=== PATIENT | male | born 1955 | race Caucasian/White ===

== ENCOUNTER 2016-06-21 09:27 | Day surgery (SDC) | payer OTHER ==
[2016-06-21 10:02] LABS: Mean Platelet Volume 10.6
[2016-06-21 10:05] VITALS: TEMP 97.7
[2016-06-21 10:09] LABS: INR 1.8 (<1.1); Prothrombin Time 17.7 sec (9.0-12.0)
[2016-06-21 11:49] VITALS: PULSE 58; RESP 16
[2016-06-21] MEDS: ALBUMIN HUMAN 25% 50 ML in EMPTY BAG 1 BAG IVPB SCH ×4 (12:14→13:07)
--- NOTE | 2016-06-21 13:05 | US ---
EXAMINATION TYPE: US paracentesis abd w/image DATE OF EXAM: 06/21/2016 12:58 PM COMPARISON: NONE HISTORY: Ascites. PROCEDURE: Maximal barrier technique was utilized. The skin overlying a suitable pocket of fluid was localized with ultrasound and the overlying skin was prepped and draped. Ultrasound was utilized with sterile technique. Lidocaine was used for local anesthesia and a skin ejwel made with a scalpel. Catheter was advanced under direct ultrasound guidance into a suitable pocket of fluid and approximately 7.7 liter s of serous fluid were removed. Catheter was withdrawn and hemostasis achieved. There is no immedia te complication; the patient is discharged in stable condition. IMPRESSION: STATUS POST ULTRASOUND GUIDED PARACENTESIS FOR PALLIATION OF ASCITES. THIS PROCEDURE WA S PERFORMED BY THE UNDERSIGNED.
[2016-06-21 13:18] LABS: Glucose,Whole Blood 95 mg/dL (75-99)
[2016-06-21 13:22] VITALS: BP 100/56
== END 2016-06-21 13:39 | disposition home or self-care (01) ==
LOC: RADPROMAIN 09:27
PROVIDERS: ATTEND Family Medicine
DX: K71.51 Toxic liver disease with chronic active hepatitis with ascites (principal)
CPT/HCPCS: 86900; 86901; 82565; 85049; 85610; 86850; 96365; 36415; 49083; P9035; P9047

== ENCOUNTER → 2016-07-21 | Outpatient (CLI) | payer OTHER ==
[2016-07-21 13:13] LABS: CH 30.3; CHCM 33.6; HCT 33.4 % (39.0-53.0); HGB 10.8 gm/dL (13.0-17.5); Large Platelets Flag Marked; MCH 29.5 pg (25.0-35.0); MCHC 32.5 g/dL (31.0-37.0); MCV 90.7 fL (80.0-100.0); Mean Platelet Volume 11.9; RBC 3.68 m/uL (4.30-5.90); RDW 15.6 % (11.5-15.5); WBC (Perox) 1.96
[2016-07-21 13:26] LABS: WBC 1.8 k/uL (3.8-10.6)
[2016-07-21 13:28] LABS: Add Differential Manual Differential
--- NOTE | 2016-07-21 13:30 | XR ---
EXAMINATION TYPE: XR chest 2V DATE OF EXAM: 07/21/2016 1:25 PM COMPARISON: 07/13/2016 TECHNIQUE: PA and lateral views submitted. HISTORY: Cough FINDINGS: The lungs are clear and there is no pneumothorax, pleural effusion, or focal pneumonia. Coarsened i nterstitium noted. Arthropathy of the AC joints. Mild cardiomegaly stable. Hypertrophic change of the spine. IMPRESSION: 1. No acute process. Chronic interstitial lung disease suspected.
[2016-07-21 13:33] LABS: Manual Review Performed; Nucleated Red Blood Cells 0 /100 WBC (0-0); Total Cells Counted 100
--- NOTE | 2016-07-21 13:33 | XR ---
EXAMINATION TYPE: XR cervical spine comp DATE OF EXAM: 07/21/2016 1:25 PM COMPARISON: CT scan 1116 HISTORY: Neck pain Odontoid, frontal, lateral, and bilateral oblique views of the cervical spine are submitted. The odontoid is intact. There are no compression deformities. The prevertebral soft tissue structur es are within normal limits. There is a 2 mm anterolisthesis of C3 on 4 and 3 mm anterolisthesis of C4 on C5. Appears to be widening of the interspinous process distance at C3-C4. Severe facet arthropa thy at all levels. Severe degenerative disc disease levels C4-C7 with moderate changes at C2-3 and C3-C4 Foraminal encroachment C5-6 and C4-C5 noted. Soft tissue calcification right neck likely related carotid artery. Sclerosis of the C5 and C6 verteb ral bodies noted. IMPRESSION: 1. Anterolisthesis C3-C4 and C4-C5 is stable with evidence of multilevel severe degenerative disc dis ease. Posterior spinolaminar line is slightly offset. Consider MRI follow-up.
[2016-07-21 13:45] LABS: Calcium 8.7 mg/dL (8.4-10.2); Potassium 4.9 mmol/L (3.5-5.1); Total Bilirubin 1.3 mg/dL (0.2-1.3); Total Protein 7.1 g/dL (6.3-8.2)
== END | disposition home or self-care (01) ==
LOC: LABWHC1 12:50
PROVIDERS: ATTEND Nurse Practitioner Family
DX: M43.12 Spondylolisthesis, cervical region (principal); M50.31 Other cervical disc degeneration, high cervical region; R05 Cough; G47.09 Other insomnia; E11.9 Type 2 diabetes mellitus without complications
CPT/HCPCS: 36415; 71020; 72050; 80053; 82140; 85025

== ENCOUNTER 2016-08-03 16:13 | Emergency (ER) | payer OTHER ==
--- NOTE | 2016-08-03 17:48 | ED ---
General Adult HPI - General Chief complaint: Recheck/Abnormal Lab/Rx Stated complaint: Abnormal Labs Time Seen by Provider: 08/03/16 17:28 Source: patient, RN notes reviewed, old records reviewed Mode of arrival: ambulatory Limitations: no limitations - History of Present Illness Initial comments: This is a 61-year-old male to the ER for evaluation of abnormal lab tests. Patient has complex medical history recently dealing with an pancytopenia complicated by hyperkalemia. Patient does admit to mild dehydration, based appetite. Takes no potassium supplements. Patient's potassium level did increase from earlier in the week to today. The patient was sent in the ER for evaluation, they believe the one from 4.9 to 6. - Related Data Home Medications Medication Instructions Recorded Confirmed Atenolol [Tenormin] 25 mg PO DAILY 07/25/14 08/03/16 Doxazosin [Cardura] 1 mg PO HS 07/18/15 08/03/16 Atorvastatin [Lipitor] 20 mg PO HS 01/14/16 08/03/16 Insulin Glulisine [Apidra] 15 units SQ QID 04/25/16 08/03/16 Lisinopril [Zestril] 5 mg PO DAILY 04/25/16 08/03/16 Pregabalin [Lyrica] 200 mg PO BID 04/25/16 08/03/16 Zolpidem [Ambien] 10 mg PO HS PRN 04/25/16 08/03/16 Furosemide [Lasix] 80 mg PO DAILY@1500 08/03/16 08/03/16 Furosemide [Lasix] 160 mg PO QAM 08/03/16 08/03/16 hydrOXYzine HCL [Atarax] 10 mg PO HS 08/03/16 08/03/16 oxyCODONE HCL [Roxicodone] 5 mg PO Q8H PRN 08/03/16 08/03/16 Previous Rx's Medication Instructions Recorded Ondansetron Odt [Zofran Odt] 4 mg PO Q8HR PRN #15 tab 05/03/16 Spironolactone [Aldactone] 100 mg PO DAILY #120 tab 05/03/16 Allergies Allergy/AdvReac Type Severity Reaction Status Date / Time No Known Allergies Allergy Verified 08/03/16 18:25 Review of Systems ROS Statement: Those systems with pertinent positive or pertinent negative responses have been documented in the HPI. ROS Other: All systems not noted in ROS Statement are negative. Past Medical History Past Medical History: Chest Pain / Angina, CVA/TIA, Diabetes Mellitus, GERD/ Reflux, Hyperlipidemia, Hypertension, Liver Disease, Neurologic Disorder, Osteoarthritis (OA), Pneumonia, Prostate Disorder, Renal Disease Additional Past Medical History / Comment(s): Diabetic neuropathy, myelodysplasia, chronic pain syndrome.ASCITIES,ULCER LT GREAT TOE, chronic pancytopenia History of Any Multi-Drug Resistant Organisms: MRSA Date of last positivie culture/infection: 04/30/16 MDRO Source:: LEFT FOOT Past Surgical History: Cholecystectomy, Orthopedic Surgery Additional Past Surgical History / Comment(s): Surgical debridements to the left great toe for diabetic foot ulcer, healed and ulcer has returned, colonoscopy about 2 years ago. Past Anesthesia/Blood Transfusion Reactions: No Reported Reaction Past Psychological History: Anxiety, Depression Smoking Status: Never smoker Past Alcohol Use History: None Reported Past Drug Use History: None Reported - Past Family History Mother Family Medical History: Cancer, Diabetes Mellitus Father Family Medical History: Cancer, Diabetes Mellitus Brother(s) Family Medical History: Diabetes Mellitus Daughter(s) Family Medical History: No Reported History, Diabetes Mellitus, Hyperlipidemia, Hypertension Son(s) Family Medical History: No Reported History, Diabetes Mellitus, Hyperlipidemia, Hypertension General Exam Limitations: no limitations General appearance: alert, in no apparent distress Head exam: Present: atraumatic, normocephalic, normal inspection Eye exam: Present: normal appearance, PERRL, EOMI. Absent: scleral icterus, conjunctival injection, periorbital swelling ENT exam: Present: normal exam, mucous membranes moist Neck exam: Present: normal inspection. Absent: tenderness, meningismus, lymphadenopathy Respiratory exam: Present: normal lung sounds bilaterally. Absent: respiratory distress, wheezes, rales, rhonchi, stridor Cardiovascular Exam: Present: regular rate, normal rhythm, normal heart sounds. Absent: systolic murmur, diastolic murmur, rubs, gallop, clicks GI/Abdominal exam: Present: soft, normal bowel sounds. Absent: distended, tenderness, guarding, rebound, rigid Extremities exam: Present: normal inspection, full ROM, normal capillary refill. Absent: tenderness, pedal edema, joint swelling, calf tenderness Back exam: Present: normal inspection Neurological exam: Present: alert, oriented X3, CN II-XII intact Psychiatric exam: Present: normal affect, normal mood Skin exam: Present: warm, dry, intact, normal color. Absent: rash Course Vital Signs 08/03/16 08/03/16 17:02 18:08 Temperature 97.9 F Pulse Rate 69 53 L Respiratory 20 20 Rate Blood Pressure 106/51 99/52 O2 Sat by Pulse 97 99 Oximetry - Reevaluation(s) Reevaluation #1: 08/03/16 18:58 Patient's lab works is reviewed, and his trans-, patient is not bleeding f EKG Findings - EKG Comments: EKG Findings:: EKG shows sinus pericardia rate 53, UT 162, QRS 90, QTc 416 Medical Decision Making - Medical Decision Making 61 medical ER for evaluation of elevated potassium level. Patient has been running with outpatient lab tests and had increase in potassium level today. Upon arrival to emergency room patient remained this demented, no EKG changes, potassium is elevated but improved from before. Patient given IV fluid as well as Slight will follow-up with Dr. Agrawal an outpatient basis regarding elevated potassium - Lab Data Result diagrams: 08/03/16 17:54 08/03/16 17:54 Lab Results 08/03/16 08/03/16 08/03/16 Range/Units 17:54 17:54 17:54 WBC 2.0 L* (3.8-10.6) k/uL RBC 3.51 L (4.30-5.90) m/uL Hgb 10.7 L (13.0-17.5) gm/dL Hct 31.0 L (39.0-53.0) % MCV 88.4 (80.0-100.0) fL MCH 30.5 (25.0-35.0) pg MCHC 34.6 (31.0-37.0) g/dL RDW 15.5 (11.5-15.5) % Plt Count 24 L* (150-450) k/uL Neutrophils % 59 % Lymphocytes % 22 % Monocytes % 9 % Eosinophils % 7 % Basophils % 1 % Neutrophils # 1.2 L (1.3-7.7) k/uL Lymphocytes # 0.4 L (1.0-4.8) k/uL Monocytes # 0.2 (0-1.0) k/uL Eosinophils # 0.1 (0-0.7) k/uL Basophils # 0.0 (0-0.2) k/uL Sodium 134 L (137-145) mmol/L Potassium 5.6 H (3.5-5.1) mmol/L Chloride 101 (98-107) mmol/L Carbon Dioxide 21 L (22-30) mmol/L Anion Gap 12 mmol/L BUN 70 H (9-20) mg/dL Creatinine 2.05 H (0.66-1.25) mg/dL Est GFR (MDRD) Af Amer 40 (>60 ml/min/1.73 sqM) Est GFR (MDRD) Non-Af 33 (>60 ml/min/1.73 sqM) Glucose 257 H (74-99) mg/dL Calcium 8.6 (8.4-10.2) mg/dL Phosphorus 5.1 H (2.5-4.5) mg/dL Magnesium 1.4 L (1.6-2.3) mg/dL Total Bilirubin 1.3 (0.2-1.3) mg/dL AST 30 (17-59) U/L ALT 31 (21-72) U/L Alkaline Phosphatase 62 (38-126) U/L Total Protein 6.9 (6.3-8.2) g/dL Albumin 3.2 L (3.5-5.0) g/dL Urine Color Light Yellow Urine Appearance Clear (Clear) Urine pH 5.0 (5.0-8.0) Ur Specific [place] 1.006 (1.001-1.035) Urine Protein Negative (Negative) Urine Glucose (UA) Negative (Negative) Urine Ketones Negative (Negative) Urine Blood Trace H (Negative) Urine Nitrate Negative (Negative) Urine Bilirubin Negative (Negative) Urine Urobilinogen <2.0 (<2.0) mg/dL Ur Leukocyte Esterase Moderate H (Negative) Urine RBC 5 (0-5) /hpf Urine WBC 10 H (0-5) /hpf Ur Squamous Epith Cells 1 (0-4) /hpf Urine Bacteria Rare H (None) /hpf Hyaline Casts 1 (0-2) /lpf Disposition Clinical Impression: Hyperkalemia, Hypomagnesemia, Thrombocytopenia, Pancytopenia Disposition: HOME SELF-CARE Condition: Good Instructions: Hyperkalemia (ED) Referrals: Klaus Agrawal MD [Primary Care Provider] - 1-2 days
[2016-08-03] MEDS ORDERED: SODIUM CHLORIDE 0.9% 500 ML IV STA (17:50)
[2016-08-03] MEDS ORDERED: SODIUM CHLORIDE 0.9% 1,000 ML IV STA (17:50)
[2016-08-03 18:08] LABS: Basophils % (A) 1 %; CH 29.9; Eosinophils # (A) 0.1 k/uL (0-0.7); Eosinophils % (A) 7 %; HDW 2.43; HGB 10.7 gm/dL (13.0-17.5); Large Platelets Flag Marked; Luc # (Auto) 0.05; Luc % (Auto) 3; Lymphocytes # (A) 0.4 k/uL (1.0-4.8); Lymphocytes % (A) 22 %; MCH 30.5 pg (25.0-35.0); MCHC 34.6 g/dL (31.0-37.0); MCV 88.4 fL (80.0-100.0); Mean Platelet Volume 12.6; Monocytes # (A) 0.2 k/uL (0-1.0); Monocytes % (A) 9 %; Neutrophils # (A) 1.2 k/uL (1.3-7.7); Neutrophils % (A) 59 %; RBC 3.51 m/uL (4.30-5.90); RDW 15.5 % (11.5-15.5); WBC (Perox) 2.18
[2016-08-03 18:09] LABS: Appearance,Urine Clear (Clear); Bacteria,Urine Rare /hpf; Bilirubin,Urine Negative (Negative); Glucose,Urine (UA) Negative (Negative); Ketones,Urine Negative (Negative); Leukocyte Esterase,Urine Moderate (Negative); Nitrite,Urine Negative (Negative); Particle Count 23498; Protein,Urine Negative (Negative); RBC,Urine 5 /hpf (0-5); Specific Gravity,Urine 1.006 (1.001-1.035); Squamous Epithelial Cell,Urine 1 /hpf (0-4); UA Billing (MACRO vs. MICRO) MICRO; Urobilinogen,Urine <2.0 mg/dL (<2.0); WBC,Urine 10 /hpf (0-5)
[2016-08-03 18:21] LABS: Calcium 8.6 mg/dL (8.4-10.2); Magnesium 1.4 mg/dL (1.6-2.3); Phosphorous 5.1 mg/dL (2.5-4.5); Potassium 5.6 mmol/L (3.5-5.1); Total Bilirubin 1.3 mg/dL (0.2-1.3); Total Protein 6.9 g/dL (6.3-8.2)
[2016-08-03] MEDS ORDERED: SODIUM POLYSTYRENE SULFONATE 15 GM/60 ML BOTTLE PO STA (18:49)
[2016-08-03 18:56] VITALS: RESP 18
[2016-08-03 19:47] VITALS: BP 107/52; PULSE 52; TEMP 97
== END 2016-08-03 19:40 | disposition home or self-care (01) ==
LOC: EC 16:13
DX: E87.5 Hyperkalemia (principal); E83.42 Hypomagnesemia; D69.6 Thrombocytopenia, unspecified; D61.818 Other pancytopenia; E78.5 Hyperlipidemia, unspecified; I10 Essential (primary) hypertension; M19.90 Unspecified osteoarthritis, unspecified site; N42.9 Disorder of prostate, unspecified; E11.40 Type 2 diabetes mellitus with diabetic neuropathy, unspecified; Z79.4 Long term (current) use of insulin; Z79.899 Other long term (current) drug therapy
CPT/HCPCS: 36415; 80053; 81001; 83735; 84100; 85025; 87077; 87086; 87186; 93005; 96360; 99284

== ENCOUNTER → 2016-08-03 | Outpatient (CLI) | payer OTHER ==
[2016-08-03 14:34] LABS: Basophils % (A) 1 %; CH 29.7; CHCM 33.4; Eosinophils # (A) 0.1 k/uL (0-0.7); Eosinophils % (A) 5 %; HCT 33.9 % (39.0-53.0); HDW 2.44; HGB 11.2 gm/dL (13.0-17.5); Large Platelets Flag Moderate; Luc # (Auto) 0.06; Luc % (Auto) 3; Lymphocytes # (A) 0.5 k/uL (1.0-4.8); Lymphocytes % (A) 23 %; MCH 29.5 pg (25.0-35.0); MCV 89.4 fL (80.0-100.0); Mean Platelet Volume 11.5; Monocytes # (A) 0.2 k/uL (0-1.0); Monocytes % (A) 8 %; Neutrophils # (A) 1.2 k/uL (1.3-7.7); Neutrophils % (A) 60 %; RBC 3.79 m/uL (4.30-5.90); RDW 15.6 % (11.5-15.5); WBC 2.1 k/uL (3.8-10.6); WBC (Perox) 2.26
[2016-08-03 14:41] LABS: Total Bilirubin 1.5 mg/dL (0.2-1.3); Total Protein 7.3 g/dL (6.3-8.2)
[2016-08-03 14:54] LABS: Potassium 6.3 mmol/L (3.5-5.1)
== END | disposition home or self-care (01) ==
LOC: LABWHC1 14:14
PROVIDERS: ATTEND Family Medicine
DX: N18.9 Chronic kidney disease, unspecified (principal); E87.5 Hyperkalemia; D69.6 Thrombocytopenia, unspecified
CPT/HCPCS: 36415; 80053; 85025

== ENCOUNTER 2016-09-02 11:31 | Inpatient (IN) | payer OTHER ==
[2016-09-02] MEDS ORDERED: SODIUM CHLORIDE 0.9% 1,000 ML IV ONE ×3 (12:24→13:51)
[2016-09-02] MEDS ORDERED: SODIUM CHLORIDE 0.9% 500 ML IV ONE (12:24)
--- NOTE | 2016-09-02 12:41 | ED ---
General Adult HPI - General Chief complaint: Altered Mental Status Stated complaint: WEAKNESS Time Seen by Provider: 09/02/16 11:35 Source: EMS, RN notes reviewed, old records reviewed Mode of arrival: EMS - History of Present Illness Initial comments: This is a 61-year-old male the ER for evaluation today. This patient presents for evaluation of altered mental status. Patient with severe mental status changes, not acting appropriate, patient unable to give history,, history obtained from family and chart - Related Data Home Medications Medication Instructions Recorded Confirmed Atenolol [Tenormin] 25 mg PO DAILY 07/25/14 09/02/16 Atorvastatin [Lipitor] 20 mg PO HS 01/14/16 09/02/16 Insulin Glulisine [Apidra] See Protocol SQ AC-TID 04/25/16 09/02/16 Pregabalin [Lyrica] 200 mg PO BID 04/25/16 09/02/16 Zolpidem [Ambien] 10 mg PO HS PRN 04/25/16 09/02/16 Furosemide [Lasix] 80 mg PO DAILY@1500 08/03/16 09/02/16 Furosemide [Lasix] 160 mg PO QAM 08/03/16 09/02/16 hydrOXYzine HCL [Atarax] 10 mg PO HS 08/03/16 09/02/16 oxyCODONE HCL [Roxicodone] 5 mg PO Q8H PRN 08/03/16 09/02/16 Midodrine HCl [ProAmatine] 10 mg PO TID 09/02/16 09/02/16 Spironolactone [Aldactone] 25 mg PO HS 09/02/16 09/02/16 Spironolactone [Aldactone] 50 mg PO DAILY 09/02/16 09/02/16 Allergies Allergy/AdvReac Type Severity Reaction Status Date / Time No Known Allergies Allergy Verified 09/02/16 12:04 Review of Systems ROS Statement: Those systems with pertinent positive or pertinent negative responses have been documented in the HPI. ROS Other: All systems not noted in ROS Statement are negative. Past Medical History Past Medical History: Chest Pain / Angina, CVA/TIA, Diabetes Mellitus, GERD/ Reflux, Hyperlipidemia, Hypertension, Liver Disease, Neurologic Disorder, Osteoarthritis (OA), Pneumonia, Prostate Disorder, Renal Disease Additional Past Medical History / Comment(s): Diabetic neuropathy, myelodysplasia, chronic pain syndrome.ASCITIES,ULCER LT GREAT TOE, chronic pancytopenia History of Any Multi-Drug Resistant Organisms: MRSA Date of last positivie culture/infection: 04/30/16 MDRO Source:: LEFT FOOT Past Surgical History: Cholecystectomy, Orthopedic Surgery Additional Past Surgical History / Comment(s): Surgical debridements to the left great toe for diabetic foot ulcer, healed and ulcer has returned, colonoscopy about 2 years ago. Past Anesthesia/Blood Transfusion Reactions: No Reported Reaction Past Psychological History: Anxiety, Depression Smoking Status: Never smoker Past Alcohol Use History: None Reported Past Drug Use History: None Reported - Past Family History Mother Family Medical History: Cancer, Diabetes Mellitus Father Family Medical History: Cancer, Diabetes Mellitus Brother(s) Family Medical History: Diabetes Mellitus Daughter(s) Family Medical History: No Reported History, Diabetes Mellitus, Hyperlipidemia, Hypertension Son(s) Family Medical History: No Reported History, Diabetes Mellitus, Hyperlipidemia, Hypertension General Exam General appearance: alert, in no apparent distress Head exam: Present: atraumatic, normocephalic, normal inspection Eye exam: Present: normal appearance, PERRL, EOMI. Absent: scleral icterus, conjunctival injection, periorbital swelling ENT exam: Present: normal exam, mucous membranes moist Neck exam: Present: normal inspection. Absent: tenderness, meningismus, lymphadenopathy Respiratory exam: Present: normal lung sounds bilaterally. Absent: respiratory distress, wheezes, rales, rhonchi, stridor Cardiovascular Exam: Present: regular rate, normal rhythm, bradycardia, normal heart sounds. Absent: systolic murmur, diastolic murmur, rubs, gallop, clicks GI/Abdominal exam: Present: soft, normal bowel sounds. Absent: distended, tenderness, guarding, rebound, rigid Extremities exam: Present: normal inspection, full ROM, normal capillary refill. Absent: tenderness, pedal edema, joint swelling, calf tenderness Back exam: Present: normal inspection Neurological exam: Present: alert, oriented X3, CN II-XII intact Psychiatric exam: Present: normal affect, normal mood Skin exam: Present: warm, dry, intact, normal color. Absent: rash Course Vital Signs 09/02/16 12:07 Temperature 97.4 F L Pulse Rate 58 L Respiratory 18 Rate Blood Pressure 93/51 O2 Sat by Pulse 99 Oximetry - Reevaluation(s) Reevaluation #1: 09/02/16 13:57 Patient remains altered, and awake EKG Findings - EKG Comments: EKG Findings:: EKG shows sinus bradycardia rate 53, [place] 122, QRS 94, QTC 422 Medical Decision Making - Lab Data Result diagrams: 09/02/16 12:23 09/02/16 12:23 Lab Results 09/02/16 09/02/16 09/02/16 Range/Units 12:23 12:23 12:23 WBC 3.7 L (3.8-10.6) k/uL RBC 4.21 L (4.30-5.90) m/uL Hgb 12.7 L (13.0-17.5) gm/dL Hct 36.5 L (39.0-53.0) % MCV 86.7 (80.0-100.0) fL MCH 30.2 (25.0-35.0) pg MCHC 34.8 (31.0-37.0) g/dL RDW 15.6 H (11.5-15.5) % Plt Count 31 L* (150-450) k/uL Neutrophils % (Manual) 50.0 % Lymphocytes % (Manual) 26.0 % Monocytes % (Manual) 19.0 % Eosinophils % (Manual) 5.0 % Neutrophils # (Manual) 1.9 (1.3-7.7) k/uL Lymphocytes # (Manual) 1.0 (1.0-4.8) k/uL Monocytes # (Manual) 0.7 (0-1.0) k/uL Eosinophils # (Manual) 0.2 (0-0.7) k/uL Nucleated RBCs 0 (0-0) /100 WBC PT (9.0-12.0) sec INR (<1.1) APTT (22.0-30.0) sec Sodium (137-145) mmol/L Potassium (3.5-5.1) mmol/L Chloride (98-107) mmol/L Carbon Dioxide (22-30) mmol/L Anion Gap mmol/L BUN (9-20) mg/dL Creatinine (0.66-1.25) mg/dL Est GFR (MDRD) Af Amer (>60 ml/min/1.73 sqM) Est GFR (MDRD) Non-Af (>60 ml/min/1.73 sqM) Glucose (74-99) mg/dL Calcium (8.4-10.2) mg/dL Phosphorus (2.5-4.5) mg/dL Magnesium (1.6-2.3) mg/dL Total Bilirubin (0.2-1.3) mg/dL AST (17-59) U/L ALT (21-72) U/L Alkaline Phosphatase (38-126) U/L Ammonia 92 H (<30) umol/L Total Creatine Kinase 100 (55-170) U/L CK-MB (CK-2) 1.7 (0.0-2.4) ng/mL CK-MB (CK-2) Rel Index 1.7 Troponin I <0.012 (0.000-0.034) ng/mL Total Protein (6.3-8.2) g/dL Albumin (3.5-5.0) g/dL 09/02/16 09/02/16 Range/Units 12:23 12:23 WBC (3.8-10.6) k/uL RBC (4.30-5.90) m/uL Hgb (13.0-17.5) gm/dL Hct (39.0-53.0) % MCV (80.0-100.0) fL MCH (25.0-35.0) pg MCHC (31.0-37.0) g/dL RDW (11.5-15.5) % Plt Count (150-450) k/uL Neutrophils % (Manual) % Lymphocytes % (Manual) % Monocytes % (Manual) % Eosinophils % (Manual) % Neutrophils # (Manual) (1.3-7.7) k/uL Lymphocytes # (Manual) (1.0-4.8) k/uL Monocytes # (Manual) (0-1.0) k/uL Eosinophils # (Manual) (0-0.7) k/uL Nucleated RBCs (0-0) /100 WBC PT 15.7 H (9.0-12.0) sec INR 1.6 (<1.1) APTT 28.4 (22.0-30.0) sec Sodium 136 L (137-145) mmol/L Potassium 5.6 H (3.5-5.1) mmol/L Chloride 103 (98-107) mmol/L Carbon Dioxide 21 L (22-30) mmol/L Anion Gap 12 mmol/L BUN 78 H (9-20) mg/dL Creatinine 2.44 H (0.66-1.25) mg/dL Est GFR (MDRD) Af Amer 33 (>60 ml/min/1.73 sqM) Est GFR (MDRD) Non-Af 27 (>60 ml/min/1.73 sqM) Glucose 193 H (74-99) mg/dL Calcium 9.7 (8.4-10.2) mg/dL Phosphorus 3.9 (2.5-4.5) mg/dL Magnesium 1.7 (1.6-2.3) mg/dL Total Bilirubin 3.6 H (0.2-1.3) mg/dL AST 38 (17-59) U/L ALT 37 (21-72) U/L Alkaline Phosphatase 70 (38-126) U/L Ammonia (<30) umol/L Total Creatine Kinase (55-170) U/L CK-MB (CK-2) (0.0-2.4) ng/mL CK-MB (CK-2) Rel Index Troponin I (0.000-0.034) ng/mL Total Protein 7.7 (6.3-8.2) g/dL Albumin 3.9 (3.5-5.0) g/dL - Radiology Data Radiology results: report reviewed (CT brain is negative for acute disease, chest x-ray negative for acute disease), image reviewed Disposition Clinical Impression: Dementia, Delirium due to general medical condition, Uremic encephalopathy, Ascites, Uncontrolled diabetes mellitus, H/O ETOH abuse, Thrombocytopenia, Hyperammonemia Disposition: ADMITTED IP TO THIS [facility] Condition: Serious
[2016-09-02 12:46] LABS: Aty Lym Flag Slight; CH 30.8; CHCM 35.8; HCT 36.5 % (39.0-53.0); HDW 2.95; HGB 12.7 gm/dL (13.0-17.5); Large Platelets Flag Moderate; MCH 30.2 pg (25.0-35.0); MCHC 34.8 g/dL (31.0-37.0); MCV 86.7 fL (80.0-100.0); RBC 4.21 m/uL (4.30-5.90); RDW 15.6 % (11.5-15.5); WBC 3.7 k/uL (3.8-10.6)
[2016-09-02 12:55] LABS: INR 1.6 (<1.1); Partial Thromboplastin Time 28.4 sec (22.0-30.0); Prothrombin Time 15.7 sec (9.0-12.0)
[2016-09-02 12:58] LABS: Calcium 9.7 mg/dL (8.4-10.2); Magnesium 1.7 mg/dL (1.6-2.3); Phosphorous 3.9 mg/dL (2.5-4.5); Potassium 5.6 mmol/L (3.5-5.1); Total Bilirubin 3.6 mg/dL (0.2-1.3); Total Protein 7.7 g/dL (6.3-8.2)
[2016-09-02 13:04] LABS: Creatine Kinase 100 U/L (55-170)
[2016-09-02 13:16] LABS: Creatine Kinase MB 1.7 ng/mL (0.0-2.4); Troponin I <0.012 ng/mL (0.000-0.034)
[2016-09-02 13:27] LABS: Add Differential Manual Differential
[2016-09-02 13:30] LABS: Nucleated Red Blood Cells 0 /100 WBC (0-0); Total Cells Counted 100
--- NOTE | 2016-09-02 13:38 | CT ---
EXAMINATION TYPE: CT brain wo con DATE OF EXAM: 09/02/2016 1:27 PM COMPARISON: Previous study dated 01/14/2016. HISTORY: Altered mental study CT DLP: 1195 mGycm Automated exposure control for dose reduction was used. FINDINGS: There are mild, generalized changes of sulcal prominence and ventriculomegaly, compatible with mild a trophic change. There is diffuse periventricular white matter lucency, compatible with chronic white matter ischemic change. There is no acute focal lesion, mass effect or midline shift identified. I do not see evidence of intracranial blood. Visualized portions of the paranasal sinuses and mastoids are clear. No depressed skull fracture is s een. IMPRESSION: 1. NO ACUTE INTRACRANIAL ABNORMALITY. 2. MILD ATROPHIC CHANGE. 3. CHRONIC WHITE MATTER ISCHEMIC CHANGE.
--- NOTE | 2016-09-02 13:43 | XR ---
EXAMINATION TYPE: XR chest 2V DATE OF EXAM: 09/02/2016 1:37 PM HISTORY: altered mental status. REFERENCE: Previous study dated 07/21/2016. FINDINGS: The heart is mildly prominent. The lungs are clear. Pleural spaces are clear. IMPRESSION: MILD CARDIOMEGALY.
[2016-09-02] MEDS ORDERED: SODIUM CHLORIDE 0.9% 1,000 ML IV STA (13:45)
[2016-09-02] MEDS ORDERED: LACTULOSE 20 GM/30 ML CUP PO ONE (13:45)
[2016-09-02 14:18] LABS: Appearance,Urine Clear (Clear); Bacteria,Urine Occasional /hpf; Bilirubin,Urine Negative (Negative); Glucose,Urine (UA) Negative (Negative); Ketones,Urine Negative (Negative); Leukocyte Esterase,Urine Large (Negative); Mucus,Urine Rare /hpf; Nitrite,Urine Negative (Negative); PH, Urine 5.5 (5.0-8.0); Particle Count 17193; Protein,Urine Negative (Negative); RBC,Urine 7 /hpf (0-5); Specific Gravity,Urine 1.005 (1.001-1.035); Squamous Epithelial Cell,Urine <1 /hpf (0-4); UA Billing (MACRO vs. MICRO) MICRO; Urobilinogen,Urine <2.0 mg/dL (<2.0); WBC,Urine 33 /hpf (0-5)
[2016-09-02 17:16] LABS: Glucose,Whole Blood 194 mg/dL (75-99)
[2016-09-02] MEDS: LACTULOSE 20 GM/30 ML CUP PO SCH ×2 (17:54→22:07)
[2016-09-02] MEDS: MIDODRINE 5 MG TAB PO SCH ×2 (17:54→22:07)
[2016-09-02] MEDS: SODIUM CHLORIDE 0.9% 1,000 ML IV SCH (18:06)
[2016-09-02] MEDS: INSULIN LISPRO (humaLOG) 300 UNIT/3 ML VIAL SQ SCH ×2 (18:06→22:06)
[2016-09-02 19:19] LABS: Hemoglobin A1C 7.3 % (4.2-6.1)
[2016-09-02 20:35] LABS: Glucose,Whole Blood 231 mg/dL (75-99)
[2016-09-02] MEDS ORDERED: LACTULOSE 20 GM/30 ML CUP PO SCH (21:00)
[2016-09-02] MEDS: hydrOXYzine HCL 10 MG TAB PO SCH (22:06)
[2016-09-02] MEDS: PREGABALIN 100 MG CAP PO SCH (22:07)
[2016-09-03 07:27] LABS: INR 1.6 (<1.1); Prothrombin Time 15.9 sec (9.0-12.0)
[2016-09-03 07:29] LABS: Glucose,Whole Blood 132 mg/dL (75-99)
[2016-09-03 07:30] LABS: Calcium 9.3 mg/dL (8.4-10.2); Magnesium 1.6 mg/dL (1.6-2.3); Phosphorous 4.6 mg/dL (2.5-4.5); Potassium 4.5 mmol/L (3.5-5.1); Total Bilirubin 3.1 mg/dL (0.2-1.3); Total Protein 6.6 g/dL (6.3-8.2)
[2016-09-03 07:50] LABS: Aty Lym Flag Slight; CH 30.4; HCT 30.9 % (39.0-53.0); HDW 2.89; HGB 10.8 gm/dL (13.0-17.5); MCH 30.6 pg (25.0-35.0); MCHC 35.1 g/dL (31.0-37.0); MCV 87.1 fL (80.0-100.0); Mean Platelet Volume 11.1; RBC 3.54 m/uL (4.30-5.90); RDW 15.7 % (11.5-15.5); WBC 2.6 k/uL (3.8-10.6); WBC (Perox) 2.59
[2016-09-03] MEDS: INSULIN LISPRO (humaLOG) 300 UNIT/3 ML VIAL SQ SCH ×4 (08:50→21:06)
[2016-09-03] MEDS: LACTULOSE 20 GM/30 ML CUP PO SCH ×4 (08:51→21:05)
[2016-09-03] MEDS: PREGABALIN 100 MG CAP PO SCH ×2 (08:51→21:05)
[2016-09-03] MEDS: MIDODRINE 5 MG TAB PO SCH ×3 (08:51→21:05)
[2016-09-03] MEDS: SODIUM CHLORIDE 0.9% 1,000 ML IV SCH ×2 (08:52→17:21)
[2016-09-03 09:31] LABS: Add Differential Manual Differential
[2016-09-03 09:34] LABS: Nucleated Red Blood Cells 0 /100 WBC (0-0); Total Cells Counted 100
--- NOTE | 2016-09-03 10:27 | P.NPCON ---
History of Present Illness - Reason for Consult acute renal failure - History of Present Illness Reason for consultation: Acute kidney injury History of present illness: Patient is a 61-year-old male seen in renal consultation for acute kidney injury. He follows with me as an outpatient. His creatinine in May 2016 was 1.3 and recently has been near 2. It was elevated at 2.44 at the time of admission yesterday. Patient states he felt weak. He was also noted to be confused and brought to the hospital by family members. His ammonia level was 92 and is down to 73 today. He is currently sitting up. He is awake and alert. Denies chest pain or shortness of breath. Appetite was poor prior to admission but is improved now. Denies vomiting or diarrhea. He has been voiding. No hematuria or dysuria. Diuretics are held and is currently maintained on normal saline at 75 mL an hour and renal function is improved with creatinine down to 2.03 today. He denies use of NSAIDs. He does have history of liver cirrhosis. No fever or chills. Vital signs are stable. General: The patient appeared well nourished and normally developed. HEENT: Head exam is unremarkable. Neck is without jugular venous distension. LUNGS: Lungs are clear to auscultation and percussion. Breath sounds decreased. HEART: Rate and Rhythm are regular. First and second heart sounds normal. No murmurs, rubs or gallops. ABDOMEN: Abdominal exam reveals normal bowel sounds. Moderately distended. No evidence of peritonitis. EXTREMITITES: No clubbing, cyanosis, or edema. Past Medical History Past Medical History: Chest Pain / Angina, CVA/TIA, Diabetes Mellitus, GERD/ Reflux, Hyperlipidemia, Hypertension, Liver Disease, Neurologic Disorder, Osteoarthritis (OA), Pneumonia, Prostate Disorder, Renal Disease Additional Past Medical History / Comment(s): Diabetic neuropathy, myelodysplasia, chronic pain syndrome.ASCITIES,ULCER LT GREAT TOE, chronic pancytopenia History of Any Multi-Drug Resistant Organisms: MRSA Date of last positivie culture/infection: 04/30/16 MDRO Source:: LEFT FOOT Past Surgical History: Cholecystectomy, Orthopedic Surgery Additional Past Surgical History / Comment(s): Surgical debridements to the left great toe for diabetic foot ulcer, healed and ulcer has returned,LT GREAT TOE AMP, RT THORACENTESIS, PARACENTESIS colonoscopy about 2 years ago. Past Anesthesia/Blood Transfusion Reactions: No Reported Reaction Past Psychological History: Anxiety, Depression Smoking Status: Never smoker Past Alcohol Use History: None Reported Past Drug Use History: None Reported - Past Family History Mother Family Medical History: Cancer, Diabetes Mellitus Father Family Medical History: Cancer, Diabetes Mellitus Brother(s) Family Medical History: Diabetes Mellitus Daughter(s) Family Medical History: No Reported History, Diabetes Mellitus, Hyperlipidemia, Hypertension Son(s) Family Medical History: No Reported History, Diabetes Mellitus, Hyperlipidemia, Hypertension Medications and Allergies Home Medications Medication Instructions Recorded Confirmed Type Atenolol [Tenormin] 25 mg PO DAILY 07/25/14 09/02/16 History Atorvastatin [Lipitor] 20 mg PO HS 01/14/16 09/02/16 History Insulin Glulisine [Apidra] See Protocol SQ AC-TID 04/25/16 09/02/16 History Pregabalin [Lyrica] 200 mg PO BID 04/25/16 09/02/16 History Zolpidem [Ambien] 10 mg PO HS PRN 04/25/16 09/02/16 History Furosemide [Lasix] 80 mg PO DAILY@1500 08/03/16 09/02/16 History Furosemide [Lasix] 160 mg PO QAM 08/03/16 09/02/16 History hydrOXYzine HCL [Atarax] 10 mg PO HS 08/03/16 09/02/16 History oxyCODONE HCL [Roxicodone] 5 mg PO Q8H PRN 08/03/16 09/02/16 History Midodrine HCl [ProAmatine] 10 mg PO TID 09/02/16 09/02/16 History Spironolactone [Aldactone] 25 mg PO HS 09/02/16 09/02/16 History Spironolactone [Aldactone] 50 mg PO DAILY 09/02/16 09/02/16 History Allergies Allergy/AdvReac Type Severity Reaction Status Date / Time No Known Allergies Allergy Verified 09/02/16 12:04 Physical Exam Vitals: Vital Signs Temp Pulse Pulse Resp BP BP Pulse Ox 09/03/16 08:52 61 111/68 09/03/16 08:00 61 18 09/03/16 07:00 98.2 F 56 L 18 101/50 99 09/02/16 22:23 97.6 F 03/31/17 20:30 52 L 16 106/58 99 09/02/16 18:10 98.3 F 64 16 121/58 98 09/02/16 16:05 97.4 F L 51 L 18 113/53 09/02/16 15:51 18 09/02/16 15:40 51 L 09/02/16 14:41 96.9 F L 51 L 18 99/47 100 09/02/16 14:08 54 L 18 115/61 100 Intake and Output 09/02/16 09/03/16 09/03/16 22:59 06:59 14:59 Other: # Voids 1 # Bowel Movements 3 1 Weight 92.53 kg Results - Lab Results Most recent lab results Calcium 9.3 mg/dL (8.4-10.2) 09/03/16 06:53 Phosphorus 4.6 mg/dL (2.5-4.5) H 09/03/16 06:53 Magnesium 1.6 mg/dL (1.6-2.3) 09/03/16 06:53 09/03/16 06:53 09/03/16 06:53 Assessment and Plan Plan: Assessment: #1. Nonoliguric acute kidney injury mostly prerenal in nature secondary to diuresis and poor oral intake. We'll function improving with creatinine of 2.03 today. It was 2.44 at the time of admission. #2. Chronic kidney disease stage III with baseline creatinine near 1.8-2. Etiology is hepatorenal syndrome. #3. Hepatic encephalopathy. Improved. #4. Thrombocytopenia likely related to liver dysfunction. #5. Metabolic acidosis secondary to acute kidney injury. #6. Chronic hypotension maintained on Midodrine. Plan: Maintain normal saline to be run at 75 mL an hour for now. Maintain Midodrine. Check renal ultrasound. Maintain lactulose. Repeat electrolytes in the morning. Avoid nephrotoxic agents and hypotensive episodes. Diuretics held. Thank you for the consultation. I will continue to follow the patient with you during his hospital stay.
[2016-09-03 11:25] LABS: Glucose,Whole Blood 235 mg/dL (75-99)
--- NOTE | 2016-09-03 13:52 | P.HPIM ---
History of Present Illness H&P Date: 09/03/16 Chief Complaint: Confusion and falling Luis is a 61-year-old white male patient well known to me. He has multiple medical problems, the most significant at this time being liver cirrhosis and chronic renal failure. He is also had several paracentesis for ascites due to the liver cirrhosis. The past several days at home, he been falling and increasingly confused. He was brought in the emergency room and found an elevated ammonia level and 92. He started on lactulose and resting comfortable with on the floor. His family is at bedside today. He is awake alert and oriented 3 at this time. He is been on his diuretics of Lasix and spironolactone. He denies any chest pains pressures or shortness of breath this time. He complains of fatigue though. Review of Systems All systems: negative Constitutional: Reports as per HPI, Reports malaise, Reports poor appetite, Denies chills, Denies fever Eyes: denies blurred vision, denies pain Ears, nose, mouth and throat: Denies headache, Denies sore throat Cardiovascular: Denies chest pain, Denies shortness of breath Respiratory: Denies cough Gastrointestinal: Reports as per HPI, Reports loss of appetite, Denies abdominal pain, Denies diarrhea, Denies nausea, Denies vomiting Genitourinary: Denies dysuria Musculoskeletal: Denies myalgias Integumentary: Denies pruritus, Denies rash Neurological: Reports as per HPI, Reports balance difficulties, Denies numbness , Denies weakness Psychiatric: Reports as per HPI, Reports confusion, Denies anxiety, Denies depression Endocrine: Reports fatigue, Reports weight change (Weight gain) Past Medical History Past Medical History: Blood Disorder (Myelodysplasia), Chest Pain / Angina, CVA/ TIA, Diabetes Mellitus, GERD/Reflux, Hyperlipidemia, Hypertension, Liver Disease (Cirrhosis, ascites), Neurologic Disorder (Diabetic neuropathy), Osteoarthritis (OA), Pneumonia, Prostate Disorder, Renal Disease (Chronic renal failure, stage IIIa) History of Any Multi-Drug Resistant Organisms: MRSA Date of last positivie culture/infection: 04/30/16 MDRO Source:: LEFT FOOT Past Surgical History: Cholecystectomy, Orthopedic Surgery Additional Past Surgical History / Comment(s): LT GREAT TOE AMP, RT THORACENTESIS, PARACENTESIS, colonoscopy about 2 years ago. Past Anesthesia/Blood Transfusion Reactions: No Reported Reaction Past Psychological History: Anxiety, Depression Smoking Status: Never smoker Past Alcohol Use History: None Reported Past Drug Use History: None Reported - Past Family History Mother Family Medical History: Cancer, Diabetes Mellitus Father Family Medical History: Cancer, Diabetes Mellitus Brother(s) Family Medical History: Diabetes Mellitus Daughter(s) Family Medical History: No Reported History, Diabetes Mellitus, Hyperlipidemia, Hypertension Son(s) Family Medical History: No Reported History, Diabetes Mellitus, Hyperlipidemia, Hypertension Medications and Allergies Home Medications Medication Instructions Recorded Confirmed Type Atenolol [Tenormin] 25 mg PO DAILY 07/25/14 09/02/16 History Atorvastatin [Lipitor] 20 mg PO HS 01/14/16 09/02/16 History Insulin Glulisine [Apidra] See Protocol SQ AC-TID 04/25/16 09/02/16 History Pregabalin [Lyrica] 200 mg PO BID 04/25/16 09/02/16 History Zolpidem [Ambien] 10 mg PO HS PRN 04/25/16 09/02/16 History Furosemide [Lasix] 80 mg PO DAILY@1500 08/03/16 09/02/16 History Furosemide [Lasix] 160 mg PO QAM 08/03/16 09/02/16 History hydrOXYzine HCL [Atarax] 10 mg PO HS 08/03/16 09/02/16 History oxyCODONE HCL [Roxicodone] 5 mg PO Q8H PRN 08/03/16 09/02/16 History Midodrine HCl [ProAmatine] 10 mg PO TID 09/02/16 09/02/16 History Spironolactone [Aldactone] 25 mg PO HS 09/02/16 09/02/16 History Spironolactone [Aldactone] 50 mg PO DAILY 09/02/16 09/02/16 History Allergies Allergy/AdvReac Type Severity Reaction Status Date / Time No Known Allergies Allergy Verified 09/02/16 12:04 Physical Exam Vitals: Vital Signs Temp Pulse Pulse Resp BP BP Pulse Ox 09/03/16 08:52 61 111/68 09/03/16 08:00 61 18 09/03/16 07:00 98.2 F 56 L 18 101/50 99 09/02/16 22:23 97.6 F 09/02/16 20:30 52 L 16 106/58 99 09/02/16 18:10 98.3 F 64 16 121/58 98 09/02/16 16:05 97.4 F L 51 L 18 113/53 09/02/16 15:51 18 09/02/16 15:40 51 L 09/02/16 14:41 96.9 F L 51 L 18 99/47 100 09/02/16 14:08 54 L 18 115/61 100 Intake and Output 09/02/16 09/03/16 09/03/16 22:59 06:59 14:59 Intake Total 120 Output Total 400 Balance -280 Intake: Oral 120 Output: Urine 400 Other: # Voids 1 # Bowel Movements 3 1 Weight 92.53 kg GENERAL: Fatigued, well-nourished and in no acute distress. HEAD: Atraumatic, normocephalic. EYES: Pupils equal round and reactive to light, extraocular movements intact, sclera anicteric, conjunctiva are normal. ENT:nares patent, oropharynx clear without exudates. Moist mucous membranes. NECK: Normal range of motion, supple without lymphadenopathy or JVD, no thyromegaly LUNGS: Breath sounds coarse to auscultation bilaterally and equal. No wheezes rales or rhonchi. HEART: Regular rate and rhythm without murmurs, rubs or gallops.S1S2 Normal ABDOMEN: Soft, nontender, normoactive bowel sounds. No guarding, no rebound. Distended, most likely due to ascites EXTREMITIES: Normal range of motion, no pitting or edema. No clubbing or cyanosis. Jobst hose in place NEUROLOGICAL: Cranial nerves II through XII grossly intact. Normal speech, a testing deferred PSYCH: Normal mood, flat affect. SKIN: Warm, Dry, normal turgor, no rashes or lesions noted. Results CBC & Chem 7: 09/03/16 06:53 09/03/16 06:53 Labs: Abnormal Lab Results - Last 24 Hours (Table) 09/02/16 09/02/16 09/02/16 Range/Units 14:00 17:12 20:29 WBC (3.8-10.6) k/uL RBC (4.30-5.90) m/uL Hgb (13.0-17.5) gm/dL Hct (39.0-53.0) % RDW (11.5-15.5) % Plt Count (150-450) k/uL Lymphocytes # (Manual) (1.0-4.8) k/uL PT (9.0-12.0) sec Chloride (98-107) mmol/L Carbon Dioxide (22-30) mmol/L BUN (9-20) mg/dL Creatinine (0.66-1.25) mg/dL Glucose (74-99) mg/dL POC Glucose (mg/dL) 194 H 231 H (75-99) mg/dL Phosphorus (2.5-4.5) mg/dL Total Bilirubin (0.2-1.3) mg/dL Ammonia (<30) umol/L Albumin (3.5-5.0) g/dL Urine Blood Small H (Negative) Ur Leukocyte Esterase Large H (Negative) Urine RBC 7 H (0-5) /hpf Urine WBC 33 H (0-5) /hpf Urine Bacteria Occasional H (None) /hpf Urine Mucus Rare H (None) /hpf 09/03/16 09/03/16 09/03/16 Range/Units 06:53 06:53 06:53 WBC 2.6 L (3.8-10.6) k/uL RBC 3.54 L (4.30-5.90) m/uL Hgb 10.8 L (13.0-17.5) gm/dL Hct 30.9 L (39.0-53.0) % RDW 15.7 H (11.5-15.5) % Plt Count 28 L* (150-450) k/uL Lymphocytes # (Manual) 0.9 L (1.0-4.8) k/uL PT 15.9 H (9.0-12.0) sec Chloride (98-107) mmol/L Carbon Dioxide (22-30) mmol/L BUN (9-20) mg/dL Creatinine (0.66-1.25) mg/dL Glucose (74-99) mg/dL POC Glucose (mg/dL) (75-99) mg/dL Phosphorus (2.5-4.5) mg/dL Total Bilirubin (0.2-1.3) mg/dL Ammonia 73 H (<30) umol/L Albumin (3.5-5.0) g/dL Urine Blood (Negative) Ur Leukocyte Esterase (Negative) Urine RBC (0-5) /hpf Urine WBC (0-5) /hpf Urine Bacteria (None) /hpf Urine Mucus (None) /hpf 09/03/16 09/03/16 09/03/16 Range/Units 06:53 07:27 11:11 WBC (3.8-10.6) k/uL RBC (4.30-5.90) m/uL Hgb (13.0-17.5) gm/dL Hct (39.0-53.0) % RDW (11.5-15.5) % Plt Count (150-450) k/uL Lymphocytes # (Manual) (1.0-4.8) k/uL PT (9.0-12.0) sec Chloride 111 H (98-107) mmol/L Carbon Dioxide 19 L (22-30) mmol/L BUN 65 H (9-20) mg/dL Creatinine 2.03 H (0.66-1.25) mg/dL Glucose 121 H (74-99) mg/dL POC Glucose (mg/dL) 132 H 235 H (75-99) mg/dL Phosphorus 4.6 H (2.5-4.5) mg/dL Total Bilirubin 3.1 H (0.2-1.3) mg/dL Ammonia (<30) umol/L Albumin 3.2 L (3.5-5.0) g/dL Urine Blood (Negative) Ur Leukocyte Esterase (Negative) Urine RBC (0-5) /hpf Urine WBC (0-5) /hpf Urine Bacteria (None) /hpf Urine Mucus (None) /hpf Microbiology - Last 24 Hours (Table) 09/02/16 14:00 Urine Culture - Preliminary Urine,Voided Chest x-ray: report reviewed CT Scan - head: report reviewed Thrombosis Risk Factor Assmnt - DVT/VTE Prophylaxis DVT/VTE Prophylaxis: Mechanical Prophylaxis ordered (INR is elevated due to liver failure) - Choose All That Apply Each Factor Represents 1 point: Age 41-60 years, Obesity (BMI >25) Thrombosis Risk Factor Assessment Total Risk Factor Score: 2 Thrombosis Risk Factor Assessment Level: Low Risk Assessment and Plan Plan: Acute hepatic encephalopathy:he is currently on lactulose 20 g 4 times a day and was continue. We'll consult GI for further recommendations. Ascites secondary to liver cirrhosis: As above Acute on Chronic renal failure, stage III: This is due to poor nutritional intake and diuretics to control his ascites. Nephrology is been consult it, they've adjusted his meds. continue on IV fluids and hold his diuretics at this time. Hypotension: He continues on Midodrine Pancytopenia/myelodysplasia: This is been worked up and followed by Dr. Duncan & Tatyana. We'll monitor and consult of needed. Insulin-dependent diabetes mellitus: His overall health issues have improved his diabetes, due to his oral intake decreased. Hypertension history Hyperlipidemia. Diabetic neuropathy. GERD. Anxiety. Chronic pain. I'll wait for the [facility], recheck laboratory studies in a.m., continue lactulose, continue IV fluids per nephrology, plan a paracentesis soon. He will be reevaluated in the next 24 hours
[2016-09-03 17:31] LABS: Glucose,Whole Blood 262 mg/dL (75-99)
--- NOTE | 2016-09-03 18:46 | US ---
EXAMINATION TYPE: US kidneys/renal and bladder DATE OF EXAM: 09/03/2016 5:11 PM COMPARISON: CT abdomen dated 04/25/2016 CLINICAL HISTORY: lexus. EXAM MEASUREMENTS: Right Kidney: 10.0 x 5.2 x 5.6 cm Left Kidney: 9.5 x 4.2 x 4.6 cm Right Kidney: Cystic lesion vs prominent pyramid seen medially= 1.1 x 1.0 x 0.9 cm . This finding co rresponds to the probable renal cyst seen on the prior CT dated 04/25/2016. There is increased throug h transmission and this is compatible with a simple cyst. Left Kidney: wnl Bladder: distended Bilateral Jets not seen: There is no evidence for hydronephrosis at this point in time. No nephrolithiasis is seen. No rayray s are identified. The urinary bladder is anechoic. There is incidental note of splenomegaly as it me asures 20.4 cm in greatest longitudinal dimension. IMPRESSION: 1. No evidence of nephrolithiasis or hydronephrosis. 2. Incidental note of splenomegaly as the spleen measures 20.4 cm. 3. Right renal cyst, as seen on the prior CT abdomen dated 04/25/2016.
[2016-09-03 20:24] LABS: Glucose,Whole Blood 287 mg/dL (75-99)
[2016-09-03] MEDS: hydrOXYzine HCL 10 MG TAB PO SCH (21:05)
[2016-09-04] MEDS: SODIUM CHLORIDE 0.9% 1,000 ML IV SCH ×2 (04:01→11:37)
[2016-09-04 07:34] LABS: Glucose,Whole Blood 140 mg/dL (75-99)
[2016-09-04 07:56] LABS: Aty Lym Flag Slight; CH 30.2; CHCM 34.4; HCT 29.5 % (39.0-53.0); HDW 2.93; HGB 10.2 gm/dL (13.0-17.5); MCH 30.4 pg (25.0-35.0); MCHC 34.4 g/dL (31.0-37.0); MCV 88.3 fL (80.0-100.0); Mean Platelet Volume 9.6; RBC 3.34 m/uL (4.30-5.90); RDW 15.5 % (11.5-15.5); WBC 2.4 k/uL (3.8-10.6); WBC (Perox) 2.44
[2016-09-04 08:14] LABS: Calcium 9.2 mg/dL (8.4-10.2); Magnesium 1.6 mg/dL (1.6-2.3); Potassium 4.6 mmol/L (3.5-5.1)
[2016-09-04 08:55] LABS: Add Differential Manual Differential
[2016-09-04] MEDS: PREGABALIN 100 MG CAP PO SCH ×2 (08:55→21:46)
[2016-09-04] MEDS: MIDODRINE 5 MG TAB PO SCH ×3 (08:55→21:49)
[2016-09-04] MEDS: INSULIN LISPRO (humaLOG) 300 UNIT/3 ML VIAL SQ SCH ×4 (08:55→21:46)
[2016-09-04] MEDS: LACTULOSE 20 GM/30 ML CUP PO SCH ×4 (08:55→21:47)
[2016-09-04 08:59] LABS: Manual Review Performed; Nucleated Red Blood Cells 0 /100 WBC (0-0); Total Cells Counted 100
--- NOTE | 2016-09-04 09:09 | P.CONS ---
History of Present Illness - Reason for Consult Consult date: 09/03/16 - History of Present Illness 61-year-old male with past medical history of remote EtOH abuse quit 20 years ago, cholecystectomy, chronic pancytopenia possible myelodysplastic syndrome, splenomegaly, hepatomegaly, coagulopathy, hypertension, hyperlipidemia, chronic anemia, diabetes, remote renal failure requiring dialysis, ascites and chronic pain syndrome. Admitted with mental changes and elevated ammonia level. Has been started on lactulose. No fever or chills. No history of nausea, vomiting or bleeding or other potential precipitating causes of his mental changes. CT of head did not show bleeding, mases or mid-line shifts. Review of Systems Constitutional: Denied fever, chills or unintentional weight loss Neurologic: No headaches, double vision or other sensory or motor changes Cardiopulmonary: No chest pains, shortness of breath or palpitations. History of HTN and hyperlipidemia Gastrointestinal: See present illness above Genitourinary: No hematuria, dysuria or frequency. History of prostatedisorder and CKD Musculoskeletal: History of osteoarthritis Endocrine: Histry of diabetes, no thyroid disease Skin: No rashes Psychiatric: No anxiety or depression Past Medical History Past Medical History: Chest Pain / Angina, CVA/TIA, Diabetes Mellitus, GERD/ Reflux, Hyperlipidemia, Hypertension, Liver Disease, Neurologic Disorder, Osteoarthritis (OA), Pneumonia, Prostate Disorder, Renal Disease Additional Past Medical History / Comment(s): Diabetic neuropathy, myelodysplasia, chronic pain syndrome.ASCITIES,ULCER LT GREAT TOE, chronic pancytopenia History of Any Multi-Drug Resistant Organisms: MRSA Year Discovered:: 04/30/16 MDRO Source:: LEFT FOOT Past Surgical History: Cholecystectomy, Orthopedic Surgery Additional Past Surgical History / Comment(s): Surgical debridements to the left great toe for diabetic foot ulcer, healed and ulcer has returned,LT GREAT TOE AMP, RT THORACENTESIS, PARACENTESIS colonoscopy about 2 years ago. Past Anesthesia/Blood Transfusion Reactions: No Reported Reaction Past Psychological History: Anxiety, Depression Smoking Status: Never smoker Past Alcohol Use History: None Reported Past Drug Use History: None Reported - Past Family History Mother Family Medical History: Cancer, Diabetes Mellitus Father Family Medical History: Cancer, Diabetes Mellitus Brother(s) Family Medical History: Diabetes Mellitus Daughter(s) Family Medical History: No Reported History, Diabetes Mellitus, Hyperlipidemia, Hypertension Son(s) Family Medical History: No Reported History, Diabetes Mellitus, Hyperlipidemia, Hypertension Medications and Allergies Home Medications Medication Instructions Recorded Confirmed Type Atenolol [Tenormin] 25 mg PO DAILY 07/25/14 09/02/16 History Atorvastatin [Lipitor] 20 mg PO HS 01/14/16 09/02/16 History Insulin Glulisine [Apidra] See Protocol SQ AC-TID 04/25/16 09/02/16 History Pregabalin [Lyrica] 200 mg PO BID 04/25/16 09/02/16 History Zolpidem [Ambien] 10 mg PO HS PRN 04/25/16 09/02/16 History Furosemide [Lasix] 80 mg PO DAILY@1500 08/03/16 09/02/16 History Furosemide [Lasix] 160 mg PO QAM 08/03/16 09/02/16 History hydrOXYzine HCL [Atarax] 10 mg PO HS 08/03/16 09/02/16 History oxyCODONE HCL [Roxicodone] 5 mg PO Q8H PRN 08/03/16 09/02/16 History Midodrine HCl [ProAmatine] 10 mg PO TID 09/02/16 09/02/16 History Spironolactone [Aldactone] 25 mg PO HS 09/02/16 09/02/16 History Spironolactone [Aldactone] 50 mg PO DAILY 09/02/16 09/02/16 History Allergies Allergy/AdvReac Type Severity Reaction Status Date / Time No Known Allergies Allergy Verified 09/02/16 12:04 Physical Exam Vitals: Vital Signs Temp Pulse Pulse Resp BP BP Pulse Ox 09/03/16 08:52 61 111/68 09/03/16 08:00 61 18 09/03/16 07:00 98.2 F 56 L 18 101/50 99 09/02/16 22:23 97.6 F 09/02/16 20:30 52 L 16 106/58 99 09/02/16 18:10 98.3 F 64 16 121/58 98 09/02/16 16:05 97.4 F L 51 L 18 113/53 09/02/16 15:51 18 09/02/16 15:40 51 L 09/02/16 14:41 96.9 F L 51 L 18 99/47 100 09/02/16 14:08 54 L 18 115/61 100 Intake and Output 09/02/16 09/03/16 09/03/16 22:59 06:59 14:59 Other: # Voids 1 # Bowel Movements 3 1 Weight 92.53 kg General: Appeared stated age in no acute distress Head and neck: Normocephalic and atraumatic, conjunctivae pink and sclerae not icteric, no masses in the neck or tracheal shifts. No adenopathy or thyromegaly Lungs: Clear to auscultation with no dullness to percussion Heart: Regular Ammann no abnormal sounds, murmurs, gallops or friction rubs Abdomen: Soft no masses or organomegalies or tenderness. Bowel sounds present. Shifting dullness consistent with ascites Extremities: No clubbing, cyanosis or edema Neurologic: Alert oriented to person, responded to verbal commands. Cranial nerves grossly intact, no gross sensory or motor abnormalities. Results CBC & Chem 7: 09/04/16 07:29 09/04/16 07:29 Labs: Abnormal Lab Results - Last 24 Hours (Table) 09/02/16 09/02/16 09/02/16 Range/Units 14:00 17:12 20:29 WBC (3.8-10.6) k/uL RBC (4.30-5.90) m/uL Hgb (13.0-17.5) gm/dL Hct (39.0-53.0) % RDW (11.5-15.5) % Plt Count (150-450) k/uL Lymphocytes # (Manual) (1.0-4.8) k/uL PT (9.0-12.0) sec Chloride (98-107) mmol/L Carbon Dioxide (22-30) mmol/L BUN (9-20) mg/dL Creatinine (0.66-1.25) mg/dL Glucose (74-99) mg/dL POC Glucose (mg/dL) 194 H 231 H (75-99) mg/dL Phosphorus (2.5-4.5) mg/dL Total Bilirubin (0.2-1.3) mg/dL Ammonia (<30) umol/L Albumin (3.5-5.0) g/dL Urine Blood Small H (Negative) Ur Leukocyte Esterase Large H (Negative) Urine RBC 7 H (0-5) /hpf Urine WBC 33 H (0-5) /hpf Urine Bacteria Occasional H (None) /hpf Urine Mucus Rare H (None) /hpf 09/03/16 09/03/16 09/03/16 Range/Units 06:53 06:53 06:53 WBC 2.6 L (3.8-10.6) k/uL RBC 3.54 L (4.30-5.90) m/uL Hgb 10.8 L (13.0-17.5) gm/dL Hct 30.9 L (39.0-53.0) % RDW 15.7 H (11.5-15.5) % Plt Count 28 L* (150-450) k/uL Lymphocytes # (Manual) 0.9 L (1.0-4.8) k/uL PT 15.9 H (9.0-12.0) sec Chloride (98-107) mmol/L Carbon Dioxide (22-30) mmol/L BUN (9-20) mg/dL Creatinine (0.66-1.25) mg/dL Glucose (74-99) mg/dL POC Glucose (mg/dL) (75-99) mg/dL Phosphorus (2.5-4.5) mg/dL Total Bilirubin (0.2-1.3) mg/dL Ammonia 73 H (<30) umol/L Albumin (3.5-5.0) g/dL Urine Blood (Negative) Ur Leukocyte Esterase (Negative) Urine RBC (0-5) /hpf Urine WBC (0-5) /hpf Urine Bacteria (None) /hpf Urine Mucus (None) /hpf 09/03/16 09/03/16 09/03/16 Range/Units 06:53 07:27 11:11 WBC (3.8-10.6) k/uL RBC (4.30-5.90) m/uL Hgb (13.0-17.5) gm/dL Hct (39.0-53.0) % RDW (11.5-15.5) % Plt Count (150-450) k/uL Lymphocytes # (Manual) (1.0-4.8) k/uL PT (9.0-12.0) sec Chloride 111 H (98-107) mmol/L Carbon Dioxide 19 L (22-30) mmol/L BUN 65 H (9-20) mg/dL Creatinine 2.03 H (0.66-1.25) mg/dL Glucose 121 H (74-99) mg/dL POC Glucose (mg/dL) 132 H 235 H (75-99) mg/dL Phosphorus 4.6 H (2.5-4.5) mg/dL Total Bilirubin 3.1 H (0.2-1.3) mg/dL Ammonia (<30) umol/L Albumin 3.2 L (3.5-5.0) g/dL Urine Blood (Negative) Ur Leukocyte Esterase (Negative) Urine RBC (0-5) /hpf Urine WBC (0-5) /hpf Urine Bacteria (None) /hpf Urine Mucus (None) /hpf Microbiology - Last 24 Hours (Table) 09/02/16 14:00 Urine Culture - Preliminary Urine,Voided Assessment and Plan Plan: Assessment and Plan (1) Hepatic encephalopathy Narrative/Plan: Secondary to chronic liver disease and portal HTN. No specific precipitating factors. Responding to lactulose with gradual drop in ammonia level and some improvement in mental status. Will keep same Status: Acute (2) Cirrhosis of liver Status: Chronic (3) Pancytopenia Status: Chronic (4) Portal hypertension Status: Chronic (5) Hyperlipidemia Status: Chronic (6) Diabetes Status: Chronic (7) Coagulopathy Status: Chronic (8) H/O ETOH abuse Status: Chronic (9) Esophageal varices in cirrhosis Status: Chronic Further plans based on his course.
--- NOTE | 2016-09-04 10:28 | P.PN ---
Subjective Patient is seen in follow-up for acute kidney injury. Creatinine was 2.4 on admission and is improved to 1.5 today with IV hydration. Patient has liver cirrhosis and is currently maintained on normal saline at 75 mL an hour. He is nonoliguric. He presented with altered mental status which is improved. He is maintained on lactulose. Denies vomiting or diarrhea. Denies chest pain or shortness of breath. Patient has chronic kidney disease stage III with baseline creatinine is in the range of 1-1.3. Vital signs are stable. General: The patient appeared well nourished and normally developed. HEENT: Head exam is unremarkable. Neck is without jugular venous distension. LUNGS: Lungs are clear to auscultation and percussion. Breath sounds decreased. HEART: Rate and Rhythm are regular. First and second heart sounds normal. No murmurs, rubs or gallops. ABDOMEN: Abdominal exam reveals normal bowel sounds. Moderately distended. No evidence of peritonitis. EXTREMITITES: No clubbing, cyanosis, or edema. Objective - Vital Signs Vital signs: Vital Signs Temp 98.3 F 09/04/16 07:00 Pulse 55 L 09/04/16 08:00 Resp 18 09/04/16 08:00 BP 98/47 09/04/16 07:00 Pulse Ox 99 09/04/16 08:14 Intake & Output 09/03/16 09/04/16 09/04/16 18:59 06:59 18:59 Intake Total 120 450 120 Output Total 800 400 Balance -680 50 120 Intake: Intake, IV Titration 450 Amount Sodium Chloride 0.9% 1, 450 000 ml @ 75 mls/hr IV . [id number] [facility] Rx#:[id number] Oral 120 120 Output: Urine 800 400 Other: Voiding Method Bedside Commode Bedside Commode # Voids 1 2 # Bowel Movements 3 - Labs CBC & Chem 7: 09/04/16 07:29 09/04/16 07:29 Labs: Abnormal Lab Results - Last 24 Hours (Table) 09/03/16 09/03/16 09/03/16 Range/Units 11:11 17:20 20:06 WBC (3.8-10.6) k/uL RBC (4.30-5.90) m/uL Hgb (13.0-17.5) gm/dL Hct (39.0-53.0) % Plt Count (150-450) k/uL Lymphocytes # (Manual) (1.0-4.8) k/uL Chloride (98-107) mmol/L Carbon Dioxide (22-30) mmol/L BUN (9-20) mg/dL Creatinine (0.66-1.25) mg/dL Glucose (74-99) mg/dL POC Glucose (mg/dL) 235 H 262 H 287 H (75-99) mg/dL Ammonia (<30) umol/L 09/04/16 09/04/16 09/04/16 Range/Units 07:23 07:29 07:29 WBC 2.4 L (3.8-10.6) k/uL RBC 3.34 L (4.30-5.90) m/uL Hgb 10.2 L (13.0-17.5) gm/dL Hct 29.5 L (39.0-53.0) % Plt Count 27 L* (150-450) k/uL Lymphocytes # (Manual) 0.7 L (1.0-4.8) k/uL Chloride 117 H (98-107) mmol/L Carbon Dioxide 18 L (22-30) mmol/L BUN 52 H (9-20) mg/dL Creatinine 1.50 H (0.66-1.25) mg/dL Glucose 137 H (74-99) mg/dL POC Glucose (mg/dL) 140 H (75-99) mg/dL Ammonia (<30) umol/L 09/04/16 Range/Units 07:29 WBC (3.8-10.6) k/uL RBC (4.30-5.90) m/uL Hgb (13.0-17.5) gm/dL Hct (39.0-53.0) % Plt Count (150-450) k/uL Lymphocytes # (Manual) (1.0-4.8) k/uL Chloride (98-107) mmol/L Carbon Dioxide (22-30) mmol/L BUN (9-20) mg/dL Creatinine (0.66-1.25) mg/dL Glucose (74-99) mg/dL POC Glucose (mg/dL) (75-99) mg/dL Ammonia 94 H (<30) umol/L Microbiology - Last 24 Hours (Table) 09/02/16 14:00 Urine Culture - Preliminary Urine,Voided Gram Neg Bacilli Assessment and Plan Plan: Assessment: #1. Nonoliguric acute kidney injury mostly prerenal in nature secondary to diuresis and poor oral intake. Renal function improving with creatinine down to 1.5 today. It was 2.44 at the time of admission. No evidence of hydronephrosis on renal ultrasound. #2. Chronic kidney disease stage III with baseline creatinine near 1-1.3. Etiology is hepatorenal syndrome. #3. Hepatic encephalopathy. Improved. #4. Thrombocytopenia likely related to liver dysfunction. #5. Metabolic acidosis secondary to acute kidney injury. #6. Chronic hypotension maintained on Midodrine. Plan: Decrease rate of IV fluids to 50 mL an hour. Potential paracentesis tomorrow. Patient to get 25 g of albumin prior to paracentesis. Maintain Midodrine. Maintain lactulose. Repeat electrolytes in the morning. Avoid nephrotoxic agents and hypotensive episodes. Diuretics held. Diuretics may be resumed gradually in the next 24-48 hours.
[2016-09-04 11:32] LABS: Glucose,Whole Blood 237 mg/dL (75-99)
[2016-09-04] MEDS: ALBUMIN HUMAN 25% 50 ML in EMPTY BAG 1 BAG IVPB SCH ×2 (11:36→16:03)
--- NOTE | 2016-09-04 11:45 | P.PN ---
Vivian Smith is a 61-year-old white male patient well known to me. He has multiple medical problems, the most significant at this time being liver cirrhosis and chronic renal failure. He is also had several paracentesis for ascites due to the liver cirrhosis. The past several days at home, he been falling and increasingly confused. He was brought in the emergency room and found an elevated ammonia level and 92. He started on lactulose and resting comfortable with on the floor. Today he remains oriented 3. His ammonia level is actually up a little bit. He is complaining of not receiving his pain medications, nor sleeper of Ambien. He reports little sleep because of this. Objective - Vital Signs Vital signs: Vital Signs Temp 98.3 F 09/04/16 07:00 Pulse 55 L 09/04/16 08:00 Resp 18 09/04/16 08:00 BP 98/47 09/04/16 07:00 Pulse Ox 99 09/04/16 08:14 Intake & Output 09/03/16 09/04/16 09/04/16 18:59 06:59 18:59 Intake Total 120 450 120 Output Total 800 400 300 Balance -680 50 -180 Weight 93.1 kg Intake: Intake, IV Titration 450 Amount Sodium Chloride 0.9% 1, 450 000 ml @ 50 mls/hr IV . Q20H [facility] Rx#:[id number] Oral 120 120 Output: Urine 800 400 300 Other: Voiding Method Bedside Commode Bedside Commode # Voids 1 2 # Bowel Movements 3 - Exam GENERAL: Fatigued, well-nourished and in no acute distress. NECK: Normal range of motion, supple without lymphadenopathy or JVD, no thyromegaly LUNGS: Breath sounds coarse to auscultation bilaterally and equal. No wheezes rales or rhonchi. HEART: Regular rate and rhythm without murmurs, rubs or gallops.S1S2 Normal ABDOMEN: Soft, nontender, normoactive bowel sounds. No guarding, no rebound. Distended, most likely due to ascites EXTREMITIES: Normal range of motion, no pitting or edema. No clubbing or cyanosis. Jobst hose in place NEUROLOGICAL: Cranial nerves II through XII grossly intact. Normal speech, a testing deferred PSYCH: Normal mood, flat affect. SKIN: Warm, Dry, normal turgor, no rashes or lesions noted. - Labs CBC & Chem 7: 09/04/16 07:29 09/04/16 07:29 Labs: Abnormal Lab Results - Last 24 Hours (Table) 09/03/16 09/03/16 09/04/16 Range/Units 17:20 20:06 07:23 WBC (3.8-10.6) k/uL RBC (4.30-5.90) m/uL Hgb (13.0-17.5) gm/dL Hct (39.0-53.0) % Plt Count (150-450) k/uL Lymphocytes # (Manual) (1.0-4.8) k/uL Chloride (98-107) mmol/L Carbon Dioxide (22-30) mmol/L BUN (9-20) mg/dL Creatinine (0.66-1.25) mg/dL Glucose (74-99) mg/dL POC Glucose (mg/dL) 262 H 287 H 140 H (75-99) mg/dL Ammonia (<30) umol/L 09/04/16 09/04/16 09/04/16 Range/Units 07:29 07:29 07:29 WBC 2.4 L (3.8-10.6) k/uL RBC 3.34 L (4.30-5.90) m/uL Hgb 10.2 L (13.0-17.5) gm/dL Hct 29.5 L (39.0-53.0) % Plt Count 27 L* (150-450) k/uL Lymphocytes # (Manual) 0.7 L (1.0-4.8) k/uL Chloride 117 H (98-107) mmol/L Carbon Dioxide 18 L (22-30) mmol/L BUN 52 H (9-20) mg/dL Creatinine 1.50 H (0.66-1.25) mg/dL Glucose 137 H (74-99) mg/dL POC Glucose (mg/dL) (75-99) mg/dL Ammonia 94 H (<30) umol/L 09/04/16 Range/Units 11:26 WBC (3.8-10.6) k/uL RBC (4.30-5.90) m/uL Hgb (13.0-17.5) gm/dL Hct (39.0-53.0) % Plt Count (150-450) k/uL Lymphocytes # (Manual) (1.0-4.8) k/uL Chloride (98-107) mmol/L Carbon Dioxide (22-30) mmol/L BUN (9-20) mg/dL Creatinine (0.66-1.25) mg/dL Glucose (74-99) mg/dL POC Glucose (mg/dL) 237 H (75-99) mg/dL Ammonia (<30) umol/L Microbiology - Last 24 Hours (Table) 09/02/16 14:00 Urine Culture - Preliminary Urine,Voided Gram Neg Bacilli Assessment and Plan Plan: Acute hepatic encephalopathy:he is currently on lactulose 20 g 4 times a day. Due to his ammonia level I'll increase this to 30 g. We'll wait on GI for further recommendations. Ascites secondary to liver cirrhosis: As above Acute on Chronic renal failure, stage III: This is due to poor nutritional intake and diuretics to control his ascites. Nephrology following, they've adjusted his meds. continue on IV fluids and hold his diuretics at this time. Hypotension: He continues on Midodrine Pancytopenia/myelodysplasia: This is been worked up and followed by Dr. Duncan & Tatyana. We'll monitor and consult of needed. Insulin-dependent diabetes mellitus: His overall health issues have improved his diabetes, due to his oral intake decreased. Hypertension history Hyperlipidemia. Diabetic neuropathy. GERD. Anxiety. Chronic pain. recheck laboratory studies in a.m., continue lactulose, continue IV fluids per nephrology, plan a paracentesis soon. He will be reevaluated in the next 24 hours
[2016-09-04] MEDS: HYDROcodone/APAP 7.5-325MG 1 EACH TAB PO PRN (16:05)
[2016-09-04 17:19] LABS: Glucose,Whole Blood 231 mg/dL (75-99)
[2016-09-04 20:05] LABS: Glucose,Whole Blood 299 mg/dL (75-99)
[2016-09-04] MEDS: hydrOXYzine HCL 10 MG TAB PO SCH (21:46)
[2016-09-04] MEDS: ZOLPIDEM 5 MG TAB PO SCH (21:46)
[2016-09-04 23:34] VITALS: RESP 16
[2016-09-05 07:22] LABS: Aty Lym Flag Slight; Basophils % (A) 0 %; CH 30.5; CHCM 34.2; Eosinophils # (A) 0.1 k/uL (0-0.7); Eosinophils % (A) 4 %; HCT 29.7 % (39.0-53.0); Large Platelets Flag Moderate; Luc % (Auto) 6; Lymphocytes # (A) 0.6 k/uL (1.0-4.8); Lymphocytes % (A) 31 %; MCH 30.3 pg (25.0-35.0); MCHC 33.8 g/dL (31.0-37.0); MCV 89.7 fL (80.0-100.0); Monocytes # (A) 0.2 k/uL (0-1.0); Monocytes % (A) 9 %; Neutrophils # (A) 0.9 k/uL (1.3-7.7); Neutrophils % (A) 50 %; RBC 3.31 m/uL (4.30-5.90); RDW 15.7 % (11.5-15.5); WBC (Perox) 1.92
[2016-09-05 07:43] LABS: Anion Gap 11 mmol/L; Blood Urea Nitrogen 40 mg/dL (9-20); Calcium 9.2 mg/dL (8.4-10.2); Carbon Dioxide 17 mmol/L (22-30); Chloride 117 mmol/L (98-107); Glucose 167 mg/dL (74-99); Non-African American GFR(MDRD) 54 (>60 ml/min/1.73 sqM); Potassium 4.5 mmol/L (3.5-5.1); Sodium 145 mmol/L (137-145)
[2016-09-05 07:57] LABS: Glucose,Whole Blood 172 mg/dL (75-99)
[2016-09-05 08:23] LABS: WBC 1.8 k/uL (3.8-10.6)
[2016-09-05] MEDS: LACTULOSE 20 GM/30 ML CUP PO SCH ×4 (08:43→20:58)
[2016-09-05] MEDS: INSULIN LISPRO (humaLOG) 300 UNIT/3 ML VIAL SQ SCH ×4 (08:43→20:59)
[2016-09-05] MEDS: PREGABALIN 100 MG CAP PO SCH ×2 (08:44→20:58)
[2016-09-05] MEDS: MIDODRINE 5 MG TAB PO SCH ×3 (08:44→20:59)
[2016-09-05] MEDS: SODIUM CHLORIDE 0.9% 1,000 ML IV SCH (08:47)
[2016-09-05 09:01] LABS: Large Platelets Present; Manual Review Performed
--- NOTE | 2016-09-05 10:21 | PN ---
Patient is seen for followup for acute kidney injury. His renal function has improved with creatinine down to 1.35 from 2.4 mg/dL on initial admission. Patient is maintained on IV fluids at 50 mL/h. On examination, blood pressure is 121/57, heart rate 57 per minute. He is afebrile. Examination of the, heart S1 and S2. Examination of the lungs, bilateral breath sounds are heard. Decreased breath sounds in bases. Abdomen is soft, nontender. Examination of lower extremities shows no significant edema. Labs show serum creatinine at 1.35, sodium 145, potassium 4.5, BUN 40, hemoglobin 10, white cell count is down to 1.8 and platelet count is 27,000. ASSESSMENT: 1. Acute kidney injury, currently significantly improved. Patient remains on IV fluids, which we can continue for now. 2. Leukopenia with white count down to 1.8 today. Most likely associated to some degree with the liver cirrhosis. Patient does follow with Dr. Duncan and Dr. Joe. 3. Hepatic encephalopathy, currently improved. 4. Chronic kidney disease stage III, with baseline about 1 to 1.3. PLAN: Continue with IV fluids. Continue with midodrine. Encourage increased oral intake.
[2016-09-05 12:46] LABS: Glucose,Whole Blood 196 mg/dL (75-99)
--- NOTE | 2016-09-05 13:56 | P.PN ---
Vivian Smith is a 61-year-old white male patient well known to me. He has multiple medical problems, the most significant at this time being liver cirrhosis and chronic renal failure. He is also had several paracentesis for ascites due to the liver cirrhosis. The past several days at home, he been falling and increasingly confused. He was brought in the emergency room and found an elevated ammonia level and 92. He started on lactulose and resting comfortable with on the floor. Today he remains oriented 3. His ammonia level is actually up a little bit. He is complaining of not receiving his pain medications, nor sleeper of Ambien. He reports little sleep because of this. His ammonia level had gone up and I had increased his Lactulose. A Paracentesis is planned for today if needed. U/A + for Klebsiella. Objective - Vital Signs Vital signs: Vital Signs Temp 97.8 F 09/05/16 07:00 Pulse 55 L 09/05/16 08:00 Resp 16 09/05/16 08:00 BP 121/57 09/05/16 07:00 Pulse Ox 99 09/05/16 07:00 Intake & Output 09/04/16 09/05/16 09/05/16 18:59 06:59 18:59 Intake Total 120 590 240 Output Total 900 300 Balance -780 590 -60 Weight 93.1 kg 94.2 kg Intake: Oral 120 590 240 Output: Urine 900 300 Other: Voiding Method Bedside Commode Bedside Commode # Voids 2 1 1 # Bowel Movements 3 4 4 - Exam GENERAL: Fatigued, well-nourished and in no acute distress.looks improved today. NECK: Normal range of motion, supple without lymphadenopathy or JVD, no thyromegaly LUNGS: Breath sounds coarse to auscultation bilaterally and equal. No wheezes rales or rhonchi. HEART: Regular rate and rhythm without murmurs, rubs or gallops.S1S2 Normal ABDOMEN: Soft, nontender, normoactive bowel sounds. No guarding, no rebound. Distended, most likely due to ascites EXTREMITIES: Normal range of motion, no pitting or edema. No clubbing or cyanosis. Jobst hose in place NEUROLOGICAL: Cranial nerves II through XII grossly intact. Normal speech, a testing deferred PSYCH: Normal mood, flat affect. SKIN: Warm, Dry, normal turgor, no rashes or lesions noted. - Labs CBC & Chem 7: 09/05/16 07:01 09/05/16 07:01 Labs: Abnormal Lab Results - Last 24 Hours (Table) 09/04/16 09/04/16 09/05/16 Range/Units 17:18 20:04 07:01 WBC 1.8 L* (3.8-10.6) k/uL RBC 3.31 L (4.30-5.90) m/uL Hgb 10.0 L (13.0-17.5) gm/dL Hct 29.7 L (39.0-53.0) % RDW 15.7 H (11.5-15.5) % Plt Count 27 L* (150-450) k/uL Neutrophils # 0.9 L (1.3-7.7) k/uL Lymphocytes # 0.6 L (1.0-4.8) k/uL Chloride (98-107) mmol/L Carbon Dioxide (22-30) mmol/L BUN (9-20) mg/dL Creatinine (0.66-1.25) mg/dL Glucose (74-99) mg/dL POC Glucose (mg/dL) 231 H 299 H (75-99) mg/dL Ammonia (<30) umol/L 09/05/16 09/05/16 09/05/16 Range/Units 07:01 07:01 07:45 WBC (3.8-10.6) k/uL RBC (4.30-5.90) m/uL Hgb (13.0-17.5) gm/dL Hct (39.0-53.0) % RDW (11.5-15.5) % Plt Count (150-450) k/uL Neutrophils # (1.3-7.7) k/uL Lymphocytes # (1.0-4.8) k/uL Chloride 117 H (98-107) mmol/L Carbon Dioxide 17 L (22-30) mmol/L BUN 40 H (9-20) mg/dL Creatinine 1.35 H (0.66-1.25) mg/dL Glucose 167 H (74-99) mg/dL POC Glucose (mg/dL) 172 H (75-99) mg/dL Ammonia 30 H (<30) umol/L 09/05/16 Range/Units 12:40 WBC (3.8-10.6) k/uL RBC (4.30-5.90) m/uL Hgb (13.0-17.5) gm/dL Hct (39.0-53.0) % RDW (11.5-15.5) % Plt Count (150-450) k/uL Neutrophils # (1.3-7.7) k/uL Lymphocytes # (1.0-4.8) k/uL Chloride (98-107) mmol/L Carbon Dioxide (22-30) mmol/L BUN (9-20) mg/dL Creatinine (0.66-1.25) mg/dL Glucose (74-99) mg/dL POC Glucose (mg/dL) 196 H (75-99) mg/dL Ammonia (<30) umol/L Microbiology - Last 24 Hours (Table) 09/02/16 14:00 Urine Culture - Final Urine,Voided Klebsiella pneumoniae Assessment and Plan Plan: Acute hepatic encephalopathy:he is currently on lactulose 20 g 4 times a day. continue Lactulose and GI recommendations Ascites secondary to liver cirrhosis: As above Acute on Chronic renal failure, stage III: This is due to poor nutritional intake and diuretics to control his ascites. Nephrology following, they've adjusted his meds. continue on IV fluids and hold his diuretics at this time. Hypotension: He continues on Midodrine Pancytopenia/myelodysplasia: This is been worked up and followed by Dr. Duncan & Tatyana. We'll monitor and consult of needed. Insulin-dependent diabetes mellitus: His overall health issues have improved his diabetes, due to his oral intake decreased. Hypertension history Hyperlipidemia. Diabetic neuropathy. GERD. Anxiety. Chronic pain. UTI due to klebsiella:single dose of Rocephin IVPB recheck laboratory studies in a.m., continue lactulose, continue IV fluids per nephrology, plan a paracentesis soon. He will be reevaluated in the next 24 hours for D/C
[2016-09-05 16:44] LABS: Glucose,Whole Blood 256 mg/dL (75-99)
[2016-09-05] MEDS: HYDROcodone/APAP 7.5-325MG 1 EACH TAB PO PRN ×2 (17:35→23:40)
[2016-09-05 20:41] LABS: Glucose,Whole Blood 162 mg/dL (75-99)
[2016-09-05] MEDS: ZOLPIDEM 5 MG TAB PO SCH (20:58)
[2016-09-05] MEDS: hydrOXYzine HCL 10 MG TAB PO SCH (21:34)
[2016-09-06] MEDS: SODIUM CHLORIDE 0.9% 1,000 ML IV SCH ×2 (07:05→07:46)
[2016-09-06 07:20] LABS: Glucose,Whole Blood 153 mg/dL (75-99)
[2016-09-06] MEDS: HYDROcodone/APAP 7.5-325MG 1 EACH TAB PO PRN (07:43)
[2016-09-06] MEDS: INSULIN LISPRO (humaLOG) 300 UNIT/3 ML VIAL SQ SCH ×2 (07:46→13:41)
[2016-09-06] MEDS: LACTULOSE 20 GM/30 ML CUP PO SCH ×2 (07:47→13:40)
[2016-09-06] MEDS: MIDODRINE 5 MG TAB PO SCH (07:48)
[2016-09-06] MEDS: PREGABALIN 100 MG CAP PO SCH (07:48)
[2016-09-06 08:28] LABS: INR 1.7 (<1.1); Prothrombin Time 16.3 sec (9.0-12.0)
[2016-09-06 08:30] VITALS: BP 121/59; PULSE 64; TEMP 98.1
[2016-09-06 08:33] LABS: Anion Gap 9 mmol/L; Blood Urea Nitrogen 31 mg/dL (9-20); Calcium 8.7 mg/dL (8.4-10.2); Carbon Dioxide 21 mmol/L (22-30); Chloride 113 mmol/L (98-107); Glucose 157 mg/dL (74-99); Magnesium 1.4 mg/dL (1.6-2.3); Non-African American GFR(MDRD) >60 (>60 ml/min/1.73 sqM); Potassium 4.4 mmol/L (3.5-5.1); Sodium 143 mmol/L (137-145)
[2016-09-06 08:49] LABS: Basophils % (A) 0 %; CH 30.8; CHCM 34.6; Eosinophils # (A) 0.1 k/uL (0-0.7); Eosinophils % (A) 4 %; HCT 29.8 % (39.0-53.0); HDW 2.99; HGB 10.4 gm/dL (13.0-17.5); Large Platelets Flag Slight; Luc # (Auto) 0.06; Luc % (Auto) 4; Lymphocytes # (A) 0.5 k/uL (1.0-4.8); Lymphocytes % (A) 28 %; MCH 31.1 pg (25.0-35.0); MCHC 34.8 g/dL (31.0-37.0); MCV 89.5 fL (80.0-100.0); Mean Platelet Volume 10.6; Monocytes # (A) 0.1 k/uL (0-1.0); Monocytes % (A) 8 %; Neutrophils # (A) 0.9 k/uL (1.3-7.7); Neutrophils % (A) 57 %; RBC 3.34 m/uL (4.30-5.90); RDW 15.7 % (11.5-15.5); WBC (Perox) 1.77
--- NOTE | 2016-09-06 08:55 | P.PN ---
Subjective Principal diagnosis: ETOH liver disease ascites hepatic encephalopathy 61 y/o male admitted with elevated BUN/Cr, hepatic encephalopathy with known ETOH liver disease. Klebsiella UTI. Ammonia improved with lactulose. Having at least 3 BM daily. Platelets low. INR 1.7. WBC <2.0 yesterday. Possible paracentesis today. Creatinine normal today. Objective - Vital Signs Vital signs: Vital Signs Temp 98.1 F 09/06/16 07:00 Pulse 64 09/06/16 07:00 Resp 16 09/06/16 07:00 BP 121/59 09/06/16 07:00 Pulse Ox 100 09/06/16 07:00 Intake & Output 09/05/16 09/06/16 09/06/16 18:59 06:59 18:59 Intake Total 480 540 Output Total 600 Balance -120 540 Weight 94.2 kg Intake: Intake, IV Titration 300 Amount Sodium Chloride 0.9% 1, 300 000 ml @ 50 mls/hr IV . Q20H [facility] Rx#:[id number] Oral 480 240 Output: Urine 600 Other: Voiding Method Bedside Commode Bedside Commode # Voids 3 2 # Bowel Movements 1 1 - Constitutional General appearance: Present: average body habitus - EENT Eyes: Present: normal appearance ENT: Present: normal oropharynx - Neck Neck: Present: normal ROM - Respiratory Respiratory: bilateral: CTA - Cardiovascular Heart sounds: normal: S1, S2 - Gastrointestinal Gastrointestinal Comment(s): mildly distended very soft not tense. No appreciable ascites. Nontender. General gastrointestinal: Present: distended, normal bowel sounds, soft - Psychiatric Psychiatric: Present: A&O x's 3, appropriate affect, intact judgment & insight - Labs CBC & Chem 7: 09/06/16 07:50 09/06/16 07:50 Labs: Abnormal Lab Results - Last 24 Hours (Table) 09/05/16 09/05/16 09/05/16 Range/Units 07:01 12:40 16:43 WBC 1.8 L* (3.8-10.6) k/uL RBC 3.31 L (4.30-5.90) m/uL Hgb 10.0 L (13.0-17.5) gm/dL Hct 29.7 L (39.0-53.0) % RDW 15.7 H (11.5-15.5) % Plt Count 27 L* (150-450) k/uL Neutrophils # 0.9 L (1.3-7.7) k/uL Lymphocytes # 0.6 L (1.0-4.8) k/uL PT (9.0-12.0) sec Chloride (98-107) mmol/L Carbon Dioxide (22-30) mmol/L BUN (9-20) mg/dL Glucose (74-99) mg/dL POC Glucose (mg/dL) 196 H 256 H (75-99) mg/dL Magnesium (1.6-2.3) mg/dL 09/05/16 09/06/16 09/06/16 Range/Units 20:40 07:19 07:50 WBC (3.8-10.6) k/uL RBC (4.30-5.90) m/uL Hgb (13.0-17.5) gm/dL Hct (39.0-53.0) % RDW (11.5-15.5) % Plt Count (150-450) k/uL Neutrophils # (1.3-7.7) k/uL Lymphocytes # (1.0-4.8) k/uL PT (9.0-12.0) sec Chloride 113 H (98-107) mmol/L Carbon Dioxide 21 L (22-30) mmol/L BUN 31 H (9-20) mg/dL Glucose 157 H (74-99) mg/dL POC Glucose (mg/dL) 162 H 153 H (75-99) mg/dL Magnesium 1.4 L (1.6-2.3) mg/dL 09/06/16 Range/Units 07:50 WBC (3.8-10.6) k/uL RBC (4.30-5.90) m/uL Hgb (13.0-17.5) gm/dL Hct (39.0-53.0) % RDW (11.5-15.5) % Plt Count (150-450) k/uL Neutrophils # (1.3-7.7) k/uL Lymphocytes # (1.0-4.8) k/uL PT 16.3 H (9.0-12.0) sec Chloride (98-107) mmol/L Carbon Dioxide (22-30) mmol/L BUN (9-20) mg/dL Glucose (74-99) mg/dL POC Glucose (mg/dL) (75-99) mg/dL Magnesium (1.6-2.3) mg/dL Assessment and Plan (1) Hepatic encephalopathy Status: Acute (2) UTI (urinary tract infection) Status: Acute (3) H/O ETOH abuse Status: Chronic (4) Myelodysplasia (myelodysplastic syndrome) Status: Acute (5) Splenomegaly Status: Acute (6) Coagulopathy Status: Chronic (7) H/O splenomegaly Status: Chronic (8) Pancytopenia Status: Chronic Plan: 1. It doesn't appear there is appreciable ascites on todays exam to proceed with paracentesis. Increased risk for bleeding infection with pancytopenia. 2. Will obtain US to assess for ascites. 3. ABX per medicine for UTI. 4. Continue lactulose and hold dose if >4 BM daily. 5. Restart home diuretics low dose Aldactone 50 mg daily and Lasix 40 mg daily. RTO 1 week for reevaluation. Assessment and plan of care discussed with Dr. Esquivel
[2016-09-06 09:00] LABS: WBC 1.6 k/uL (3.8-10.6)
--- NOTE | 2016-09-06 10:15 | P.PN ---
Vivian Smith is a 61-year-old white male patient well known to me. He has multiple medical problems, the most significant at this time being liver cirrhosis and chronic renal failure. He is also had several paracentesis for ascites due to the liver cirrhosis. The past several days at home, he been falling and increasingly confused. He was brought in the emergency room and found an elevated ammonia level and 92. He started on lactulose and resting comfortable with on the floor. Today he remains oriented 3. His ammonia level is actually up a little bit. He is complaining of not receiving his pain medications, nor sleeper of Ambien. He reports little sleep because of this. He is much more awake and alert today. Ammonia level is now 19. He reports only 3-4 stools a day at this time. He remains pancytopenic. Platelets 26 today. Kidney functions have improved with the BUN of 31 and creatinine 1.23 Objective - Vital Signs Vital signs: Vital Signs Temp 98.1 F 09/06/16 07:00 Pulse 64 09/06/16 07:00 Resp 16 09/06/16 07:00 BP 121/59 09/06/16 07:00 Pulse Ox 100 09/06/16 07:00 Intake & Output 09/05/16 09/06/16 09/06/16 18:59 06:59 18:59 Intake Total 480 540 Output Total 600 Balance -120 540 Weight 94.2 kg 90.855 kg Intake: Intake, IV Titration 300 Amount Sodium Chloride 0.9% 1, 300 000 ml @ 50 mls/hr IV . Q20H [facility] Rx#:[id number] Oral 480 240 Output: Urine 600 Other: Voiding Method Bedside Commode Bedside Commode Bedside Commode # Voids 3 2 # Bowel Movements 1 1 - Exam GENERAL: Fatigued, well-nourished and in no acute distress.looks improved today. NECK: Normal range of motion, supple without lymphadenopathy or JVD, no thyromegaly LUNGS: Breath sounds coarse to auscultation bilaterally and equal. No wheezes rales or rhonchi. HEART: Regular rate and rhythm without , rubs or gallops.S1S2 Normal there is a 1/6 systolic murmur heard best over the left sternal border ABDOMEN: Soft, nontender, normoactive bowel sounds. No guarding, no rebound. Distended, most likely due to ascites EXTREMITIES: Normal range of motion, no pitting or edema. No clubbing or cyanosis. Jobst hose in place NEUROLOGICAL: Cranial nerves II through XII grossly intact. Normal speech, a testing deferred PSYCH: Normal mood, flat affect. SKIN: Warm, Dry, normal turgor, no rashes or lesions noted. - Labs CBC & Chem 7: 09/06/16 07:50 09/06/16 07:50 Labs: Abnormal Lab Results - Last 24 Hours (Table) 09/05/16 09/05/16 09/05/16 Range/Units 12:40 16:43 20:40 WBC (3.8-10.6) k/uL RBC (4.30-5.90) m/uL Hgb (13.0-17.5) gm/dL Hct (39.0-53.0) % RDW (11.5-15.5) % Plt Count (150-450) k/uL Neutrophils # (1.3-7.7) k/uL Lymphocytes # (1.0-4.8) k/uL PT (9.0-12.0) sec Chloride (98-107) mmol/L Carbon Dioxide (22-30) mmol/L BUN (9-20) mg/dL Glucose (74-99) mg/dL POC Glucose (mg/dL) 196 H 256 H 162 H (75-99) mg/dL Magnesium (1.6-2.3) mg/dL 09/06/16 09/06/16 09/06/16 Range/Units 07:19 07:50 07:50 WBC 1.6 L* (3.8-10.6) k/uL RBC 3.34 L (4.30-5.90) m/uL Hgb 10.4 L (13.0-17.5) gm/dL Hct 29.8 L (39.0-53.0) % RDW 15.7 H (11.5-15.5) % Plt Count 26 L* (150-450) k/uL Neutrophils # 0.9 L (1.3-7.7) k/uL Lymphocytes # 0.5 L (1.0-4.8) k/uL PT (9.0-12.0) sec Chloride 113 H (98-107) mmol/L Carbon Dioxide 21 L (22-30) mmol/L BUN 31 H (9-20) mg/dL Glucose 157 H (74-99) mg/dL POC Glucose (mg/dL) 153 H (75-99) mg/dL Magnesium 1.4 L (1.6-2.3) mg/dL 09/06/16 Range/Units 07:50 WBC (3.8-10.6) k/uL RBC (4.30-5.90) m/uL Hgb (13.0-17.5) gm/dL Hct (39.0-53.0) % RDW (11.5-15.5) % Plt Count (150-450) k/uL Neutrophils # (1.3-7.7) k/uL Lymphocytes # (1.0-4.8) k/uL PT 16.3 H (9.0-12.0) sec Chloride (98-107) mmol/L Carbon Dioxide (22-30) mmol/L BUN (9-20) mg/dL Glucose (74-99) mg/dL POC Glucose (mg/dL) (75-99) mg/dL Magnesium (1.6-2.3) mg/dL Assessment and Plan Plan: Acute hepatic encephalopathy:he is currently on lactulose 20 g 4 times a day. continue Lactulose and GI recommendations ammonia is now 19. Stooling 3-4 times daily. Ascites secondary to liver cirrhosis: Diuretics will be restarted per nephrology. No tap at this time. Acute on Chronic renal failure, stage III: This is due to poor nutritional intake and diuretics to control his ascites. Nephrology following, they've adjusted his meds. His diuretics be restarted. Hypotension: He continues on Midodrine Pancytopenia/myelodysplasia: This is been worked up and followed by Dr. Duncan & Tatyana. We'll monitor and consult of needed. Insulin-dependent diabetes mellitus: His overall health issues have improved his diabetes, due to his oral intake decreased. Hypertension history Hyperlipidemia. Diabetic neuropathy. GERD. Anxiety. Chronic pain. UTI due to klebsiella: Continue Rocephin IVPB If no need for paracentesis, and be ready for discharged afternoon. I will await recommendations from the consultants.
--- NOTE | 2016-09-06 10:20 | US ---
EXAMINATION TYPE: US abdomen limited DATE OF EXAM: 09/06/2016 9:44 AM COMPARISON: NONE CLINICAL HISTORY: assess for ascites only. No fluid seen on today's scan. IMPRESSION: NO EVIDENCE OF ASCITES.
[2016-09-06] MEDS ORDERED: MAGNESIUM SULFATE-D5W PMX 1 GM in DEXTROSE/WATER 1 100ML.BAG IVPB ONE (11:00)
[2016-09-06 12:38] LABS: Glucose,Whole Blood 177 mg/dL (75-99)
--- NOTE | 2016-09-06 13:25 | P.DS ---
Providers Date of admission: 09/02/16 13:51 Expected date of discharge: 09/06/16 Attending physician: Klaus Agrawal Consults: Dr Esquivel-GI Dr Campbell- nephrology Primary care physician: Klaus [facility]ja [facility] Course: Luis is a 61-year-old white male patient well known to me. He has multiple medical problems, the most significant at this time being liver cirrhosis and chronic renal failure. He is also had several paracentesis for ascites due to the liver cirrhosis. The past several days at home, he been falling and increasingly confused. He was brought in the emergency room and found an elevated ammonia level and 92. He started on lactulose and resting comfortable with on the floor. He was seen by GI and Nephrology. He was started on lactulose for the confusion , diuretics were held to acute renal failure. He improved. a UTI was found and treated as well Final DX Acute hepatic encephalopathy:rol his ascites. Nephrology following, they've adjusted his meds. His diuretics be restarted. Hypotension Pancytopenia/myelodysplasia Insulin-dependent diabetes mellitus Hypertension history Hyperlipidemia. Diabetic neuropathy. GERD. Anxiety. Chronic pain. UTI due to klebsiella Patient Condition at Discharge: Serious Plan - Discharge Summary New Discharge Prescriptions: Amoxic-Pot Clav 875-125Mg [Augmentin 875-125] 1 tab PO Q12HR #14 tablet Lactulose [Cephulac] 30 gm PO QID #3600 ml Discharge Medication List Atenolol [Tenormin] 25 mg PO DAILY 07/25/14 [History] Atorvastatin [Lipitor] 20 mg PO HS 01/14/16 [History] Insulin Glulisine [Apidra] See Protocol SQ AC-TID 04/25/16 [History] Pregabalin [Lyrica] 200 mg PO BID 04/25/16 [History] Zolpidem [Ambien] 10 mg PO HS PRN 04/25/16 [History] Furosemide [Lasix] 80 mg PO DAILY@1500 08/03/16 [History] Furosemide [Lasix] 160 mg PO QAM 08/03/16 [History] hydrOXYzine HCL [Atarax] 10 mg PO HS 08/03/16 [History] oxyCODONE HCL [Roxicodone] 5 mg PO Q8H PRN 08/03/16 [History] Midodrine HCl [ProAmatine] 10 mg PO TID 09/02/16 [History] Spironolactone [Aldactone] 25 mg PO HS 09/02/16 [History] Spironolactone [Aldactone] 50 mg PO DAILY 09/02/16 [History] Amoxic-Pot Clav 875-125Mg [Augmentin 875-125] 1 tab PO Q12HR #14 tablet [Rx] HYDROcodone/APAP 7.5-325MG [[place] 7.5-325] 1 each PO Q6H PRN #0 tab 09/06/16 [Rx ] Lactulose [Cephulac] 30 gm PO QID #3600 ml 09/06/16 [Rx] Follow up Appointment(s)/Referral(s): [facility], [NON-STAFF] - As Needed Stefan Esquivel MD [STAFF PHYSICIAN] - 1 Week Klaus Agrawal MD [Primary Care Provider] - 1-2 days
--- NOTE | 2016-09-07 08:44 | PN ---
Patient is seen for followup for acute kidney injury. He is currently comfortable. He is being considered for discharge. He denies any significant complaints. On examination, blood pressure is 121/59, heart rate 64 per minute. He is afebrile. Examination of the heart, S1 and S2. Examination of the lungs, decreased breath sounds in bases. Abdomen is soft, nontender. Examination of lower extremities shows no evidence of edema. Labs show serum creatinine 1.23, sodium 143, potassium 4.4. ASSESSMENT: 1. Acute kidney injury, currently improved. Creatinine down to 1.2 from 2.4 mg/dL. 2. Thrombocytopenia, chronic being followed by Hematology. 3. Leukopenia secondary to underlying myelodysplasia, being followed by Hematology. 4. Hepatic encephalopathy, currently improved. 5. Urinary tract infection, status post antibiotics. PLAN: Resume diuretics cautiously and monitor labs as outpatient.
== END 2016-09-06 14:45 | disposition home health service (06) | DRG 441 ==
LOC: EC 11:31 → 5MS5E 13:51
PROVIDERS: ADMIT Family Medicine; ATTEND Family Medicine
DX: K72.00 Acute and subacute hepatic failure without coma (principal); K76.7 Hepatorenal syndrome; D61.818 Other pancytopenia; D68.9 Coagulation defect, unspecified; E87.2 Acidosis; N17.9 Acute kidney failure, unspecified; F05 Delirium due to known physiological condition; I85.10 Secondary esophageal varices without bleeding; K76.6 Portal hypertension; N39.0 Urinary tract infection, site not specified; E11.22 Type 2 diabetes mellitus with diabetic chronic kidney disease; N18.3 Chronic kidney disease, stage 3 (moderate); F03.90 Unspecified dementia, unspecified severity, without behavioral disturbance, psychotic disturbance, mood disturbance, and anxiety; I95.89 Other hypotension; E11.40 Type 2 diabetes mellitus with diabetic neuropathy, unspecified; E11.65 Type 2 diabetes mellitus with hyperglycemia; D69.59 Other secondary thrombocytopenia; D46.9 Myelodysplastic syndrome, unspecified; B96.1 Klebsiella pneumoniae [K. pneumoniae] as the cause of diseases classified elsewhere; E78.5 Hyperlipidemia, unspecified; F32.9 Major depressive disorder, single episode, unspecified; F41.9 Anxiety disorder, unspecified; G89.4 Chronic pain syndrome; R29.6 Repeated falls; I12.9 Hypertensive chronic kidney disease with stage 1 through stage 4 chronic kidney disease, or unspecified chronic kidney disease; K70.31 Alcoholic cirrhosis of liver with ascites; K21.9 Gastro-esophageal reflux disease without esophagitis; T50.2X5A Adverse effect of carbonic-anhydrase inhibitors, benzothiadiazides and other diuretics, initial encounter; M19.90 Unspecified osteoarthritis, unspecified site; N42.9 Disorder of prostate, unspecified; Z79.4 Long term (current) use of insulin; Z79.899 Other long term (current) drug therapy; Z82.49 Family history of ischemic heart disease and other diseases of the circulatory system
CPT/HCPCS: 36415; 70450; 71020; 76705; 76770; 80048; 80053; 80306; 81001; 82140; 82550; 82553; 83036; 83735; 84100; 84484; 85025; 85610; 85730; 86850; 86900; 86901; 87077; 87086; 87186; 87324; 93005; 94760; 96360; 99285

== ENCOUNTER 2016-09-29 16:15 | Inpatient (IN) | payer OTHER ==
[2016-09-29] MEDS ORDERED: SODIUM CHLORIDE 0.9% 500 ML IV ONE (16:30)
[2016-09-29 16:56] LABS: Calcium 9.4 mg/dL (8.4-10.2); Potassium 4.1 mmol/L (3.5-5.1); Total Bilirubin 2.2 mg/dL (0.2-1.3); Total Protein 7.2 g/dL (6.3-8.2)
[2016-09-29 16:58] LABS: INR 1.6 (<1.1); Partial Thromboplastin Time 28.4 sec (22.0-30.0); Prothrombin Time 15.7 sec (9.0-12.0)
[2016-09-29 17:01] LABS: Creatine Kinase 110 U/L (55-170)
[2016-09-29 17:02] LABS: Basophils # (A) 0.1 k/uL (0-0.2); Basophils % (A) 2 %; CH 31.2; CHCM 35.1; Eosinophils # (A) 0.1 k/uL (0-0.7); Eosinophils % (A) 2 %; HCT 37.5 % (39.0-53.0); HDW 3.27; HGB 12.5 gm/dL (13.0-17.5); Luc % (Auto) 3; Lymphocytes # (A) 0.5 k/uL (1.0-4.8); Lymphocytes % (A) 13 %; MCH 29.9 pg (25.0-35.0); MCHC 33.4 g/dL (31.0-37.0); MCV 89.5 fL (80.0-100.0); Mean Platelet Volume 9.8; Monocytes # (A) 0.3 k/uL (0-1.0); Monocytes % (A) 9 %; Neutrophils # (A) 2.5 k/uL (1.3-7.7); Neutrophils % (A) 71 %; RBC 4.18 m/uL (4.30-5.90); RDW 15.1 % (11.5-15.5); WBC 3.6 k/uL (3.8-10.6)
[2016-09-29 17:08] LABS: Glucose,Whole Blood 387 mg/dL (75-99)
[2016-09-29 17:15] LABS: Creatine Kinase MB 1.1 ng/mL (0.0-2.4); Troponin I <0.012 ng/mL (0.000-0.034)
[2016-09-29] MEDS: SODIUM CHLORIDE 0.9% 1,000 ML IV ONE (17:18)
--- NOTE | 2016-09-29 17:43 | ED ---
General Adult HPI - General Chief complaint: Altered Mental Status Stated complaint: Confusion Time Seen by Provider: 09/29/16 16:30 Source: patient, RN notes reviewed, old records reviewed Mode of arrival: wheelchair Limitations: no limitations - History of Present Illness Initial comments: This is a 61-year-old male the ER for evaluation of altered mental status. Patient has no history of liver disease, known elevated ammonia levels. Patient coming in altered inappropriate and not acting correctly. Patient is unable to give history secondary to mental state. Family denies any fevers no head trauma. No recent nausea vomiting or diarrhea. Denied drugs or alcohol. - Related Data Home Medications Medication Instructions Recorded Confirmed Atenolol [Tenormin] 25 mg PO QAM 07/25/14 09/29/16 Atorvastatin [Lipitor] 20 mg PO HS 01/14/16 09/29/16 Insulin Glulisine [Apidra] See Protocol SQ AC-TID 04/25/16 09/29/16 Pregabalin [Lyrica] 200 mg PO BID 04/25/16 09/29/16 Zolpidem [Ambien] 10 mg PO HS PRN 04/25/16 09/29/16 Furosemide [Lasix] 80 mg PO DAILY@1500 08/03/16 09/29/16 Furosemide [Lasix] 160 mg PO QAM 08/03/16 09/29/16 hydrOXYzine HCL [Atarax] 10 mg PO HS 08/03/16 09/29/16 oxyCODONE HCL [Roxicodone] 5 mg PO Q8H PRN 08/03/16 09/29/16 Midodrine HCl [ProAmatine] 10 mg PO TID 09/02/16 09/29/16 Spironolactone [Aldactone] 25 mg PO HS 09/02/16 09/29/16 HYDROcodone/APAP 7.5-325MG [[place] 1 tab PO Q6H PRN 09/29/16 09/29/16 7.5-325] Insulin Glargine [Lantus] 20 unit SQ HS 09/29/16 09/29/16 Spironolactone [Aldactone] 50 mg PO QAM 09/29/16 09/29/16 Previous Rx's Medication Instructions Recorded Lactulose [Cephulac] 30 gm PO QID #3600 ml 09/06/16 Allergies Allergy/AdvReac Type Severity Reaction Status Date / Time Mushroom Allergy Anaphylaxis Verified 09/29/16 17:02 Review of Systems ROS Statement: Those systems with pertinent positive or pertinent negative responses have been documented in the HPI. ROS Other: All systems not noted in ROS Statement are negative. Past Medical History Past Medical History: Chest Pain / Angina, CVA/TIA, Diabetes Mellitus, GERD/ Reflux, Hyperlipidemia, Hypertension, Liver Disease, Neurologic Disorder, Osteoarthritis (OA), Pneumonia, Prostate Disorder, Renal Disease Additional Past Medical History / Comment(s): Diabetic neuropathy, myelodysplasia, chronic pain syndrome.ASCITIES,ULCER LT GREAT TOE, chronic pancytopenia History of Any Multi-Drug Resistant Organisms: MRSA Date of last positivie culture/infection: 04/30/16 MDRO Source:: LEFT FOOT Past Surgical History: Cholecystectomy, Orthopedic Surgery Additional Past Surgical History / Comment(s): Surgical debridements to the left great toe for diabetic foot ulcer, healed and ulcer has returned,LT GREAT TOE AMP, RT THORACENTESIS, PARACENTESIS colonoscopy about 2 years ago. Past Anesthesia/Blood Transfusion Reactions: No Reported Reaction Past Psychological History: Anxiety, Depression Smoking Status: Never smoker Past Alcohol Use History: None Reported Past Drug Use History: None Reported - Past Family History Mother Family Medical History: Cancer, Diabetes Mellitus Father Family Medical History: Cancer, Diabetes Mellitus Brother(s) Family Medical History: Diabetes Mellitus Daughter(s) Family Medical History: No Reported History, Diabetes Mellitus, Hyperlipidemia, Hypertension Son(s) Family Medical History: No Reported History, Diabetes Mellitus, Hyperlipidemia, Hypertension General Exam Limitations: altered mental status General appearance: alert, in no apparent distress Head exam: Present: atraumatic, normocephalic, normal inspection Eye exam: Present: normal appearance, PERRL, EOMI. Absent: scleral icterus, conjunctival injection, periorbital swelling ENT exam: Present: normal exam, mucous membranes moist Neck exam: Present: normal inspection. Absent: tenderness, meningismus, lymphadenopathy Respiratory exam: Present: normal lung sounds bilaterally. Absent: respiratory distress, wheezes, rales, rhonchi, stridor Cardiovascular Exam: Present: regular rate, normal rhythm, normal heart sounds. Absent: systolic murmur, diastolic murmur, rubs, gallop, clicks GI/Abdominal exam: Present: soft, normal bowel sounds. Absent: distended, tenderness, guarding, rebound, rigid Extremities exam: Present: normal inspection, full ROM, normal capillary refill. Absent: tenderness, pedal edema, joint swelling, calf tenderness Back exam: Present: normal inspection Neurological exam: Present: alert, oriented X3, CN II-XII intact Psychiatric exam: Present: normal affect, normal mood Skin exam: Present: warm, dry, intact, normal color. Absent: rash Course Vital Signs 09/29/16 09/29/16 16:18 17:20 Temperature 98.8 F 97.5 F L Pulse Rate 63 60 Respiratory 18 16 Rate Blood Pressure 153/70 116/57 O2 Sat by Pulse 97 97 Oximetry - Reevaluation(s) Reevaluation #1: 09/29/16 17:47 Patient's medical record and history as reviewed EKG Findings - EKG Comments: EKG Findings:: EKG shows normal sinus rhythm of 60, LA 150, QRS 86, QTC 482 Medical Decision Making - Medical Decision Making 89 male to the ER for evaluation of altered mental status, hyperammonemia, hepatic encephalopathy, hypoglycemia, patient be admitted for treatment of chronic medical conditions - Lab Data Result diagrams: 09/29/16 16:30 09/29/16 16:30 Lab Results 09/29/16 09/29/16 09/29/16 Range/Units 16:30 16:30 16:30 WBC 3.6 L (3.8-10.6) k/uL RBC 4.18 L (4.30-5.90) m/uL Hgb 12.5 L (13.0-17.5) gm/dL Hct 37.5 L (39.0-53.0) % MCV 89.5 (80.0-100.0) fL MCH 29.9 (25.0-35.0) pg MCHC 33.4 (31.0-37.0) g/dL RDW 15.1 (11.5-15.5) % Plt Count 27 L* (150-450) k/uL Neutrophils % 71 % Lymphocytes % 13 % Monocytes % 9 % Eosinophils % 2 % Basophils % 2 % Neutrophils # 2.5 (1.3-7.7) k/uL Lymphocytes # 0.5 L (1.0-4.8) k/uL Monocytes # 0.3 (0-1.0) k/uL Eosinophils # 0.1 (0-0.7) k/uL Basophils # 0.1 (0-0.2) k/uL PT (9.0-12.0) sec INR (<1.1) APTT (22.0-30.0) sec Sodium (137-145) mmol/L Potassium (3.5-5.1) mmol/L Chloride (98-107) mmol/L Carbon Dioxide (22-30) mmol/L Anion Gap mmol/L BUN (9-20) mg/dL Creatinine (0.66-1.25) mg/dL Est GFR (MDRD) Af Amer (>60 ml/min/1.73 sqM) Est GFR (MDRD) Non-Af (>60 ml/min/1.73 sqM) Glucose (74-99) mg/dL POC Glucose (mg/dL) (75-99) mg/dL POC Glu Watch Assembly Instructor ID Calcium (8.4-10.2) mg/dL Total Bilirubin (0.2-1.3) mg/dL AST (17-59) U/L ALT (21-72) U/L Alkaline Phosphatase (38-126) U/L Ammonia 112 H (<30) umol/L Total Creatine Kinase 110 (55-170) U/L CK-MB (CK-2) 1.1 (0.0-2.4) ng/mL CK-MB (CK-2) Rel Index 1.0 Troponin I <0.012 (0.000-0.034) ng/mL Total Protein (6.3-8.2) g/dL Albumin (3.5-5.0) g/dL 09/29/16 09/29/16 09/29/16 Range/Units 16:30 16:30 16:55 WBC (3.8-10.6) k/uL RBC (4.30-5.90) m/uL Hgb (13.0-17.5) gm/dL Hct (39.0-53.0) % MCV (80.0-100.0) fL MCH (25.0-35.0) pg MCHC (31.0-37.0) g/dL RDW (11.5-15.5) % Plt Count (150-450) k/uL Neutrophils % % Lymphocytes % % Monocytes % % Eosinophils % % Basophils % % Neutrophils # (1.3-7.7) k/uL Lymphocytes # (1.0-4.8) k/uL Monocytes # (0-1.0) k/uL Eosinophils # (0-0.7) k/uL Basophils # (0-0.2) k/uL PT 15.7 H (9.0-12.0) sec INR 1.6 (<1.1) APTT 28.4 (22.0-30.0) sec Sodium 135 L (137-145) mmol/L Potassium 4.1 (3.5-5.1) mmol/L Chloride 98 (98-107) mmol/L Carbon Dioxide 25 (22-30) mmol/L Anion Gap 12 mmol/L BUN 50 H (9-20) mg/dL Creatinine 1.80 H (0.66-1.25) mg/dL Est GFR (MDRD) Af Amer 47 (>60 ml/min/1.73 sqM) Est GFR (MDRD) Non-Af 39 (>60 ml/min/1.73 sqM) Glucose 414 H (74-99) mg/dL POC Glucose (mg/dL) 387 H (75-99) mg/dL POC Glu Watch Assembly Instructor ID Katerine Nuñez Calcium 9.4 (8.4-10.2) mg/dL Total Bilirubin 2.2 H (0.2-1.3) mg/dL AST 57 (17-59) U/L ALT 49 (21-72) U/L Alkaline Phosphatase 114 (38-126) U/L Ammonia (<30) umol/L Total Creatine Kinase (55-170) U/L CK-MB (CK-2) (0.0-2.4) ng/mL CK-MB (CK-2) Rel Index Troponin I (0.000-0.034) ng/mL Total Protein 7.2 (6.3-8.2) g/dL Albumin 3.6 (3.5-5.0) g/dL - Radiology Data Radiology results: report reviewed (Chest x-ray negative for acute disease), image reviewed Disposition Clinical Impression: Hyperglycemia, Thrombocytopenia, Hepatic encephalopathy, Hyperammonemia Disposition: ADMITTED IP TO THIS [facility] Condition: Fair Referrals: Klaus Agrawal MD [Primary Care Provider] - 1-2 days
[2016-09-29] MEDS ORDERED: SODIUM CHLORIDE 0.9% 1,000 ML IV ONE (17:44)
[2016-09-29] MEDS ORDERED: ONDANSETRON 4 MG/2 ML VIAL IVP PRN (17:44)
[2016-09-29] MEDS ORDERED: MORPHINE SULFATE 4 MG/ML SYRINGE IVP PRN (17:44)
[2016-09-29] MEDS ORDERED: INSULIN REGULAR 100 UNIT/ML VIAL SQ ONE (17:44)
[2016-09-29] MEDS ORDERED: LACTULOSE 20 GM/30 ML CUP PO ONE (17:44)
[2016-09-29 17:49] LABS: Appearance,Urine Clear (Clear); Bilirubin,Urine Negative (Negative); Glucose,Urine (UA) 4+ (Negative); Ketones,Urine Negative (Negative); Leukocyte Esterase,Urine Negative (Negative); Mucus,Urine Rare /hpf; Nitrite,Urine Negative (Negative); PH, Urine 5.5 (5.0-8.0); Particle Count 3159; Protein,Urine Negative (Negative); RBC,Urine 22 /hpf (0-5); Specific Gravity,Urine 1.008 (1.001-1.035); UA Billing (MACRO vs. MICRO) MICRO; Urobilinogen,Urine <2.0 mg/dL (<2.0); WBC,Urine 1 /hpf (0-5)
--- NOTE | 2016-09-29 18:25 | XR ---
EXAMINATION TYPE: XR chest 2V DATE OF EXAM: 09/29/2016 6:20 PM COMPARISON: 09/02/2016 INDICATION: Altered mental status increased confusion TECHNIQUE: Single frontal view of the chest is obtained. FINDINGS: The heart size is normal. The pulmonary vasculature is upper limits of normal. Suspicious focal consolidation is not identified. Early pulmonary edema is not excluded. IMPRESSION: 1. Clinical correlation recommended for volume overload or early pulmonary edema. Follow-up can be pe rformed as clinically indicated.
[2016-09-29] MEDS ORDERED: ZOLPIDEM 10 MG TAB PO PRN (19:00)
[2016-09-29 20:32] LABS: Glucose,Whole Blood 354 mg/dL (75-99)
[2016-09-29] MEDS ORDERED: SPIRONOLACTONE 25 MG TAB PO SCH (21:00)
[2016-09-29] MEDS ORDERED: LACTULOSE 20 GM/30 ML CUP PO SCH (21:00)
[2016-09-29] MEDS: MIDODRINE 5 MG TAB PO SCH (21:03)
[2016-09-29] MEDS: PREGABALIN 100 MG CAP PO SCH (21:03)
[2016-09-29] MEDS: INSULIN GLARGINE 100 UNIT/ML 10 ML VIAL SQ SCH (21:03)
[2016-09-29] MEDS: ATORVASTATIN 20 MG TAB PO SCH (21:04)
[2016-09-29] MEDS: hydrOXYzine HCL 10 MG TAB PO SCH (21:05)
[2016-09-29] MEDS: LACTULOSE 20 GM/30 ML CUP PO SCH (21:05)
[2016-09-29 22:18] LABS: Hemoglobin A1C 7.8 % (4.2-6.1)
[2016-09-29] MEDS: INSULIN LISPRO (humaLOG) 300 UNIT/3 ML VIAL SQ SCH (23:01)
[2016-09-29 23:08] LABS: Glucose,Whole Blood 325 mg/dL (75-99)
[2016-09-30 04:19] LABS: Glucose,Whole Blood 212 mg/dL (75-99)
[2016-09-30] MEDS: INSULIN LISPRO (humaLOG) 300 UNIT/3 ML VIAL SQ SCH ×6 (04:28→23:48)
[2016-09-30] MEDS ORDERED: INSULIN LISPRO (humaLOG) 300 UNIT/3 ML VIAL SQ SCH (07:30)
[2016-09-30 07:58] LABS: Glucose,Whole Blood 219 mg/dL (75-99)
[2016-09-30] MEDS: ATENOLOL 25 MG TAB PO SCH (08:02)
[2016-09-30] MEDS: MIDODRINE 5 MG TAB PO SCH ×3 (08:02→21:12)
[2016-09-30] MEDS: LACTULOSE 20 GM/30 ML CUP PO SCH ×4 (08:02→21:11)
[2016-09-30] MEDS ORDERED: FUROSEMIDE 80 MG TAB PO SCH ×2 (09:00→15:00)
[2016-09-30] MEDS ORDERED: SPIRONOLACTONE 25 MG TAB PO SCH (09:00)
--- NOTE | 2016-09-30 09:31 | P.NPCON ---
History of Present Illness - Reason for Consult chronic renal failure - History of Present Illness Reason for consultation: Chronic kidney disease History of present illness: Patient is a 61-year-old male seen in renal consultation for acute kidney injury on chronic kidney disease. Patient has chronic kidney disease stage III secondary to hepatorenal syndrome. His renal function fluctuates quite a bit with creatinine in the range of 1.3-2. Creatinine at the time of admission was 1.8. Patient presented to the hospital with altered mental status. He is not a very reliable historian at this time. He does not know why he is in the hospital. Denies chest pain or shortness of breath. Denies any vomiting or diarrhea. His ammonia level was elevated at 112 for which she is currently maintained on lactulose as well as rifaximin. He did have dinner last night but was then made nothing by mouth for potential paracentesis today. He is currently maintained on normal saline at 100 mL an hour. Hemodynamically he's been stable. His chest x-ray was suggestive of fluid overload. Recent ultrasound from earlier this month revealed no evidence of hydronephrosis. Vital signs are stable. General: The patient appeared well nourished and normally developed. HEENT: Head exam is unremarkable. Neck is without jugular venous distension. LUNGS: Lungs are clear to auscultation and percussion. Breath sounds decreased. HEART: Rate and Rhythm are regular. First and second heart sounds normal. No murmurs, rubs or gallops. ABDOMEN: Abdominal exam reveals normal bowel sounds. Non-tender and moderately distended. EXTREMITITES: No clubbing, cyanosis, or edema. Past Medical History Past Medical History: Chest Pain / Angina, CVA/TIA, Diabetes Mellitus, GERD/ Reflux, Hyperlipidemia, Hypertension, Liver Disease, Neurologic Disorder, Osteoarthritis (OA), Pneumonia, Prostate Disorder, Renal Disease Additional Past Medical History / Comment(s): Diabetic neuropathy, myelodysplasia, chronic pain syndrome.ASCITIES,ULCER LT GREAT TOE, chronic pancytopenia History of Any Multi-Drug Resistant Organisms: MRSA Date of last positivie culture/infection: 04/30/16 MDRO Source:: LEFT FOOT Past Surgical History: Cholecystectomy, Orthopedic Surgery Additional Past Surgical History / Comment(s): Surgical debridements to the left great toe for diabetic foot ulcer, healed and ulcer has returned,LT GREAT TOE AMP, RT THORACENTESIS, PARACENTESIS colonoscopy about 2 years ago. Past Anesthesia/Blood Transfusion Reactions: No Reported Reaction Past Psychological History: Anxiety, Depression Smoking Status: Never smoker Past Alcohol Use History: None Reported Past Drug Use History: None Reported - Past Family History Mother Family Medical History: Cancer, Diabetes Mellitus Father Family Medical History: Cancer, Diabetes Mellitus Brother(s) Family Medical History: Diabetes Mellitus Daughter(s) Family Medical History: No Reported History, Diabetes Mellitus, Hyperlipidemia, Hypertension Son(s) Family Medical History: No Reported History, Diabetes Mellitus, Hyperlipidemia, Hypertension Medications and Allergies Home Medications Medication Instructions Recorded Confirmed Type Atenolol [Tenormin] 25 mg PO QAM 07/25/14 09/29/16 History Atorvastatin [Lipitor] 20 mg PO HS 01/14/16 09/29/16 History Insulin Glulisine [Apidra] See Protocol SQ AC-TID 04/25/16 09/29/16 History Pregabalin [Lyrica] 200 mg PO BID 04/25/16 09/29/16 History Zolpidem [Ambien] 10 mg PO HS PRN 04/25/16 09/29/16 History Furosemide [Lasix] 80 mg PO DAILY@1500 08/03/16 09/29/16 History Furosemide [Lasix] 160 mg PO QAM 08/03/16 09/29/16 History hydrOXYzine HCL [Atarax] 10 mg PO HS 08/03/16 09/29/16 History oxyCODONE HCL [Roxicodone] 5 mg PO Q8H PRN 08/03/16 09/29/16 History Midodrine HCl [ProAmatine] 10 mg PO TID 09/02/16 09/29/16 History Spironolactone [Aldactone] 25 mg PO HS 09/02/16 09/29/16 History HYDROcodone/APAP 7.5-325MG [[place] 1 tab PO Q6H PRN 09/29/16 09/29/16 History 7.5-325] Insulin Glargine [Lantus] 20 unit SQ HS 09/29/16 09/29/16 History Spironolactone [Aldactone] 50 mg PO QAM 09/29/16 09/29/16 History Allergies Allergy/AdvReac Type Severity Reaction Status Date / Time Mushroom Allergy Anaphylaxis Verified 09/29/16 17:02 Physical Exam Vitals: Vital Signs Temp Pulse Pulse Resp BP BP BP 09/30/16 07:13 09/30/16 07:00 97.9 F 63 18 120/61 09/29/16 23:00 96.7 F L 58 L 18 116/47 09/29/16 21:10 59 L 120/64 09/29/16 18:00 98 F 63 16 135/79 Pulse Ox 09/30/16 07:13 99 09/30/16 07:00 98 09/29/16 23:00 99 09/29/16 21:10 09/29/16 18:00 97 Intake and Output 09/29/16 09/30/16 09/30/16 22:59 06:59 14:59 Intake Total 250 250 Output Total 200 Balance 50 250 Intake: Oral 250 250 Output: Urine 200 Other: Voiding Method Urinal # Voids 1 3 Results - Lab Results Most recent lab results Calcium 9.4 mg/dL (8.4-10.2) 09/29/16 16:30 09/29/16 16:30 09/29/16 16:30 Assessment and Plan Plan: Assessment: #1. Chronic kidney disease stage III secondary to hepatorenal syndrome with baseline creatinine variable in the range between 1.3-2. Recent urinalysis as well as renal ultrasound have been quite benign. #2. Hepatic encephalopathy. #3. Liver cirrhosis. #4. Insulin-dependent diabetes mellitus. No proteinuria noted on urinalysis. Plan: I will decrease her rate of IV fluids to 50 mL an hour. Fluids to be discontinued once oral intake has been resumed. Maintain Lasix 80 mg orally twice daily and Aldactone 50 mg twice daily. I will also put him on a 1.5 L fluid restriction. Avoid nephrotoxic agents and hypotensive episodes. Potential paracentesis today. He is to receive 25 g of IV albumin post- paracentesis and if over 4 L drained, then he is to receive a total of 50 g of albumin. Repeat electrolytes in the morning. Will adjust diuretics based on his volume status and renal function. Thank you for the consultation. I will continue to follow the patient with you during his hospital stay.
[2016-09-30] MEDS: RIFAXIMIN 550 MG TABLET PO SCH ×2 (09:46→21:12)
[2016-09-30] MEDS: PREGABALIN 100 MG CAP PO SCH ×2 (09:46→21:20)
[2016-09-30 09:52] LABS: INR 1.7 (<1.1); Prothrombin Time 16.1 sec (9.0-12.0)
--- NOTE | 2016-09-30 10:07 | US ---
EXAMINATION TYPE: US abdomen limited DATE OF EXAM: 09/30/2016 9:49 AM COMPARISON: Limited abdominal ultrasound September 06, 2016. CLINICAL HISTORY: ascites. Bloating. No ascites seen. Scanning of bilateral upper and lower quadrants shows no suspicious retroperitoneal fluid or ascites currently. IMPRESSION: As above.
[2016-09-30 12:34] LABS: Glucose,Whole Blood 220 mg/dL (75-99)
--- NOTE | 2016-09-30 14:35 | P.HPIM ---
History of Present Illness H&P Date: 09/30/16 Chief Complaint: Confusion Patient is a 61-year-old male, patient of Dr. Agrawal in the outpatient setting, with complex medical history noted below significant for alcoholic liver cirrhosis with paracentesis for ascites in the past, chronic renal failure stage III, pancytopenia, and myelodysplasia. Patient was brought into the emergency department by his daughter for increased confusion 1 day. Patient was found to have an elevated ammonia level of 112. There is some question whether patient was taking his lactulose 4 times a day as directed. Patient was also noted to have acute renal failure with a creatinine of 1.8. Chest x-ray with evidence of fluid overload. Patient was admitted to the medical floor and consult was requested for gastrointestinal service and nephrology service. Upon evaluation, patient is awake and alert. Family is at bedside. Patient is able to state name and place, but unable to state time. Patient denies nausea, vomiting, shortness of breath, chest pain, or abdominal pain. Daughter states that patient had a very small bowel movement yesterday. Daughter states that patient has had problems with urination. No evidence of fevers. Ammonia level decreased to 52. Ultrasound of abdomen shows no suspicious retroperitoneal fluid or ascites currently. Nephrology has evaluated patient and decreased IV fluids to 50 mL an hour. Once oral intake has been resumed, fluids will be discontinued. Patient is maintained on Lasix and Aldactone. Patient was also placed on a 1.5 L fluid restriction. Past Medical History Past Medical History: Chest Pain / Angina, CVA/TIA, Diabetes Mellitus, GERD/ Reflux, Hyperlipidemia, Hypertension, Liver Disease, Neurologic Disorder, Osteoarthritis (OA), Pneumonia, Prostate Disorder, Renal Disease Additional Past Medical History / Comment(s): Diabetic neuropathy, myelodysplasia, chronic pain syndrome.ASCITIES,ULCER LT GREAT TOE, chronic pancytopenia History of Any Multi-Drug Resistant Organisms: MRSA Date of last positivie culture/infection: 04/30/16 MDRO Source:: LEFT FOOT Past Surgical History: Cholecystectomy, Orthopedic Surgery Additional Past Surgical History / Comment(s): Surgical debridements to the left great toe for diabetic foot ulcer, healed and ulcer has returned,LT GREAT TOE AMP, RT THORACENTESIS, PARACENTESIS colonoscopy about 2 years ago. Past Anesthesia/Blood Transfusion Reactions: No Reported Reaction Past Psychological History: Anxiety, Depression Smoking Status: Never smoker Past Alcohol Use History: None Reported Past Drug Use History: None Reported - Past Family History Mother Family Medical History: Cancer, Diabetes Mellitus Father Family Medical History: Cancer, Diabetes Mellitus Brother(s) Family Medical History: Diabetes Mellitus Daughter(s) Family Medical History: No Reported History, Diabetes Mellitus, Hyperlipidemia, Hypertension Son(s) Family Medical History: No Reported History, Diabetes Mellitus, Hyperlipidemia, Hypertension Medications and Allergies Home Medications Medication Instructions Recorded Confirmed Type Atenolol [Tenormin] 25 mg PO QAM 07/25/14 09/29/16 History Atorvastatin [Lipitor] 20 mg PO HS 01/14/16 09/29/16 History Insulin Glulisine [Apidra] See Protocol SQ AC-TID 04/25/16 09/29/16 History Pregabalin [Lyrica] 200 mg PO BID 04/25/16 09/29/16 History Zolpidem [Ambien] 10 mg PO HS PRN 04/25/16 09/29/16 History Furosemide [Lasix] 80 mg PO DAILY@1500 08/03/16 09/29/16 History Furosemide [Lasix] 160 mg PO QAM 08/03/16 09/29/16 History hydrOXYzine HCL [Atarax] 10 mg PO HS 08/03/16 09/29/16 History oxyCODONE HCL [Roxicodone] 5 mg PO Q8H PRN 08/03/16 09/29/16 History Midodrine HCl [ProAmatine] 10 mg PO TID 09/02/16 09/29/16 History Spironolactone [Aldactone] 25 mg PO HS 09/02/16 09/29/16 History HYDROcodone/APAP 7.5-325MG [[place] 1 tab PO Q6H PRN 09/29/16 09/29/16 History 7.5-325] Insulin Glargine [Lantus] 20 unit SQ HS 09/29/16 09/29/16 History Spironolactone [Aldactone] 50 mg PO QAM 09/29/16 09/29/16 History Allergies Allergy/AdvReac Type Severity Reaction Status Date / Time Mushroom Allergy Anaphylaxis Verified 09/29/16 17:02 Physical Exam Vitals: Vital Signs Temp Pulse Pulse Resp BP BP BP 09/30/16 07:13 09/30/16 07:00 97.9 F 63 18 120/61 09/29/16 23:00 96.7 F L 58 L 18 116/47 09/29/16 21:10 59 L 120/64 09/29/16 18:00 98 F 63 16 135/79 Pulse Ox 09/30/16 07:13 99 09/30/16 07:00 98 09/29/16 23:00 99 09/29/16 21:10 09/29/16 18:00 97 Intake and Output 09/29/16 09/30/16 09/30/16 22:59 06:59 14:59 Intake Total 250 250 Output Total 200 450 Balance 50 250 -450 Intake: Oral 250 250 Output: Urine 200 450 Other: Voiding Method Urinal Urinal # Voids 1 3 2 GENERAL: Pt awake and alert, and in no acute distress. HEAD: Atraumatic, normocephalic. EYES: Pupils equal, round, and reactive to light, extraocular movements intact, sclera anicteric, conjunctiva are normal. ENT: Oropharynx clear without exudates. Moist mucous membranes. NECK:Normal range of motion, supple without lymphadenopathy or JVD. LUNGS: Breath sounds diminished to auscultation bilaterally. No wheezes, rales , or rhonchi. HEART: Heart S1, S2, no S3 or S4. Regular rate and rhythm. No murmurs, rubs or gallops. ABDOMEN: Soft, mildly distant, nontender, normoactive bowel sounds. No guarding , no rebound. EXTREMITIES: Palpable peripheral pulses. No edema, clubbing or cyanosis. No calf tenderness. NEUROLOGICAL: Pt oriented x 3. No focal deficits. Strength and sensation grossly intact. PSYCH: Normal mood, flat affect. SKIN: Warm, dry, intact. Normal turgor. No rashes or lesions. Results CBC & Chem 7: 09/29/16 16:30 09/29/16 16:30 Labs: Abnormal Lab Results - Last 24 Hours (Table) 09/29/16 09/29/16 09/30/16 Range/Units 20:13 22:59 04:16 PT (9.0-12.0) sec POC Glucose (mg/dL) 354 H 325 H 212 H (75-99) mg/dL Ammonia (<30) umol/L 09/30/16 09/30/16 09/30/16 Range/Units 07:55 09:13 09:23 PT 16.1 H (9.0-12.0) sec POC Glucose (mg/dL) 219 H (75-99) mg/dL Ammonia 52 H (<30) umol/L 09/30/16 Range/Units 12:33 PT (9.0-12.0) sec POC Glucose (mg/dL) 220 H (75-99) mg/dL Ammonia (<30) umol/L Chest x-ray: report reviewed US - abdomen: report reviewed Thrombosis Risk Factor Assmnt - DVT/VTE Prophylaxis DVT/VTE Prophylaxis: Mechanical Prophylaxis ordered Assessment and Plan Plan: Impression and plan: 1. Acute hepatic encephalopathy with history of alcoholic cirrhosis.. Continue lactulose 30 mg by mouth 4 times a day. Continue Xifaxan 550 mg by mouth twice a day. Ultrasound of abdomen with no evidence of ascites. Continue Lasix 80 mg twice a day and Aldactone 50 mL by mouth twice a day. Gastrointestinal service on consult, recommendations pending. 2. Pancytopenia. Platelets 27. 3. Myelodysplasia. Continue to monitor. 4. Acute renal failure. Creatinine 1.8. Nephrology service following, recommendations noted. Continue fluid restriction at 1500 mL. 5. Chronic renal failure stage III. 6. Insulin-dependent diabetes mellitus, uncontrolled. Hemoglobin A1c 7.8. Continue Lantus 20 units at bedtime. Continue Humalog sliding scale. Will start patient on a consistent carbohydrate diet. 7. History of hypertension. Continue Tenormin 25 mg daily. 8. Hyperlipidemia. Continue Lipitor 20 mg by mouth at bedtime. 9. Diabetic neuropathy. Continue Lyrica 200 mg by mouth twice a day. 10. GERD. 11. Anxiety. 12. Chronic pain syndrome. Continue Roxicodone 5 mg by mouth every 8 hours as needed. 13. History of hypotension. Continue Midodrine 10 mg by mouth 3 times a day. Continue to monitor patient. Continue current medications. Continue GI and DVT prophylaxis. Continue to follow with nephrology and GI service. Repeat CBC , BMP, ammonia level in a.m. The above impression and plan have been discussed and directed by Dr. Agrawal. Zohra THOMSON acting as scribe for Dr. Agrawal.
[2016-09-30] MEDS: FUROSEMIDE 80 MG TAB PO SCH (14:53)
[2016-09-30 16:06] LABS: Glucose,Whole Blood 236 mg/dL (75-99)
[2016-09-30 20:13] LABS: Glucose,Whole Blood 349 mg/dL (75-99)
[2016-09-30] MEDS: SODIUM CHLORIDE 0.9% 1,000 ML IV ONE (21:07)
[2016-09-30] MEDS: ATORVASTATIN 20 MG TAB PO SCH (21:09)
[2016-09-30] MEDS: hydrOXYzine HCL 10 MG TAB PO SCH (21:10)
[2016-09-30] MEDS: SPIRONOLACTONE 25 MG TAB PO SCH (21:11)
[2016-09-30] MEDS: HYDROcodone/APAP 7.5-325MG 1 EACH TAB PO PRN (21:13)
[2016-09-30] MEDS: INSULIN GLARGINE 100 UNIT/ML 10 ML VIAL SQ SCH (21:21)
[2016-09-30 23:45] LABS: Glucose,Whole Blood 358 mg/dL (75-99)
--- NOTE | 2016-10-01 02:20 | P.CONS ---
History of Present Illness - Reason for Consult Consult date: 09/30/16 Hepatic encephalopathy - History of Present Illness 61-year-old male with past medical history of remote EtOH abuse quit 20 years ago, cholecystectomy, chronic pancytopenia possible myelodysplastic syndrome, splenomegaly, hepatomegaly, coagulopathy, hypertension, hyperlipidemia, chronic anemia, diabetes, remote renal failure requiring dialysis, ascites and chronic pain syndrome. Admitted with mental changes and elevated ammonia level. Has been started on lactulose. No fever or chills. No history of nausea, vomiting or bleeding or other potential precipitating causes of his mental changes. Review of Systems Constitutional: Denies fever, chills, sweats, weight gain, or loss. HEENT: Negative for migraines, blurred vision or loss, earaches, drainage, tinnitus, oral mucosal lesions, dysphagia, or odynophagia. Cardiac: Negative for chest pain, arrhythmias, or palpitation. History of HTN and hyperlipidemia Respiratory: Negative for shortness of breath, hemoptysis, cough, or sputum production. Gastrointestinal: See HPI for pertinent findings. Genitourinary: Negative for hematuria, urgency, frequency, polyuria, dysuria, or penile discharge. History of BPH and CKD Musculoskeletal: History of OA Neurologic: History of hepatic encephalopathy and prior TIA/CVA Endocrine: History of DM, no thyroid problems. Skin: Negative for rash or itching. Psychiatric: Negative history for depression and anxiety Past Medical History Past Medical History: Chest Pain / Angina, CVA/TIA, Diabetes Mellitus, GERD/ Reflux, Hyperlipidemia, Hypertension, Liver Disease, Neurologic Disorder, Osteoarthritis (OA), Pneumonia, Prostate Disorder, Renal Disease Additional Past Medical History / Comment(s): Diabetic neuropathy, myelodysplasia, chronic pain syndrome.ASCITIES,ULCER LT GREAT TOE, chronic pancytopenia History of Any Multi-Drug Resistant Organisms: MRSA Year Discovered:: 04/30/16 MDRO Source:: LEFT FOOT Past Surgical History: Cholecystectomy, Orthopedic Surgery Additional Past Surgical History / Comment(s): Surgical debridements to the left great toe for diabetic foot ulcer, healed and ulcer has returned,LT GREAT TOE AMP, RT THORACENTESIS, PARACENTESIS colonoscopy about 2 years ago. Past Anesthesia/Blood Transfusion Reactions: No Reported Reaction Past Psychological History: Anxiety, Depression Smoking Status: Never smoker Past Alcohol Use History: None Reported Past Drug Use History: None Reported - Past Family History Mother Family Medical History: Cancer, Diabetes Mellitus Father Family Medical History: Cancer, Diabetes Mellitus Brother(s) Family Medical History: Diabetes Mellitus Daughter(s) Family Medical History: No Reported History, Diabetes Mellitus, Hyperlipidemia, Hypertension Son(s) Family Medical History: No Reported History, Diabetes Mellitus, Hyperlipidemia, Hypertension Medications and Allergies Home Medications Medication Instructions Recorded Confirmed Type Atenolol [Tenormin] 25 mg PO QAM 07/25/14 09/29/16 History Atorvastatin [Lipitor] 20 mg PO HS 01/14/16 09/29/16 History Insulin Glulisine [Apidra] See Protocol SQ AC-TID 04/25/16 09/29/16 History Pregabalin [Lyrica] 200 mg PO BID 04/25/16 09/29/16 History Zolpidem [Ambien] 10 mg PO HS PRN 04/25/16 09/29/16 History Furosemide [Lasix] 80 mg PO DAILY@1500 08/03/16 09/29/16 History Furosemide [Lasix] 160 mg PO QAM 08/03/16 09/29/16 History hydrOXYzine HCL [Atarax] 10 mg PO HS 08/03/16 09/29/16 History oxyCODONE HCL [Roxicodone] 5 mg PO Q8H PRN 08/03/16 09/29/16 History Midodrine HCl [ProAmatine] 10 mg PO TID 09/02/16 09/29/16 History Spironolactone [Aldactone] 25 mg PO HS 09/02/16 09/29/16 History HYDROcodone/APAP 7.5-325MG [[place] 1 tab PO Q6H PRN 09/29/16 09/29/16 History 7.5-325] Insulin Glargine [Lantus] 20 unit SQ HS 09/29/16 09/29/16 History Spironolactone [Aldactone] 50 mg PO QAM 09/29/16 09/29/16 History Allergies Allergy/AdvReac Type Severity Reaction Status Date / Time Mushroom Allergy Anaphylaxis Verified 09/29/16 17:02 Physical Exam Vitals: Vital Signs Temp Pulse Resp BP BP Pulse Ox 09/30/16 15:00 98.4 F 64 18 130/70 98 09/30/16 07:13 99 09/30/16 07:00 97.9 F 63 18 120/61 98 09/29/16 23:00 96.7 F L 58 L 18 116/47 99 09/29/16 21:10 59 L 120/64 Intake and Output 09/30/16 09/30/16 09/30/16 06:59 14:59 22:59 Intake Total 250 Output Total 2070 Balance 250 -2070 Intake: Oral 250 Output: Urine 2069 Straight 420 Other: Voiding Method Urinal Toilet # Voids 3 2 2 # Bowel Movements 2 2 General appearance: The patient is alert, oriented, in no acute distress. HET: Head is normocephalic and atraumatic. Pupils are equal and reactive. Oropharynx is clear without lesions. Neck: Supple without lymphadenopathy. Trachea midline. Heart: S1 S2. Regular rate and rhythm. Lungs: No diminished in bases bilaterally.. Abdomen: Soft, nontender, nondistended with bowel sounds. No peritoneal signs. No palpable organomegaly or masses. No definite shifting dullness Extremities: Normal skin color and turgor. No cyanosis, rash, ulceration, clubbing, or edema. Radial and pedal pulses are 2/4 bilaterally. Neurological: No focal deficits. Strength and sensation are grossly intact. No flapping tremor. Results CBC & Chem 7: 09/29/16 16:30 09/29/16 16:30 Labs: Abnormal Lab Results - Last 24 Hours (Table) 09/29/16 09/30/16 09/30/16 Range/Units 22:59 04: 07:55 PT (9.0-12.0) sec POC Glucose (mg/dL) 325 H 212 H 219 H (75-99) mg/dL Ammonia (<30) umol/L 09/30/16 09/30/16 09/30/16 Range/Units 09:13 09:23 12:33 PT 16.1 H (9.0-12.0) sec POC Glucose (mg/dL) 220 H (75-99) mg/dL Ammonia 52 H (<30) umol/L 09/30/16 09/30/16 Range/Units 16:03 20:02 PT (9.0-12.0) sec POC Glucose (mg/dL) 236 H 349 H (75-99) mg/dL Ammonia (<30) umol/L Assessment and Plan Plan: Chronic liver disease and hepatic encephalopathy. No precipitating cause. Improving with current therapy. Will continue same and follow closely.
[2016-10-01 04:01] LABS: Glucose,Whole Blood 236 mg/dL (75-99)
[2016-10-01] MEDS: INSULIN LISPRO (humaLOG) 300 UNIT/3 ML VIAL SQ SCH ×5 (04:34→21:46)
[2016-10-01 08:06] LABS: Glucose,Whole Blood 244 mg/dL (75-99)
[2016-10-01] MEDS: PREGABALIN 100 MG CAP PO SCH ×2 (08:11→21:56)
[2016-10-01] MEDS: RIFAXIMIN 550 MG TABLET PO SCH ×2 (08:12→21:48)
[2016-10-01] MEDS: MIDODRINE 5 MG TAB PO SCH ×2 (08:12→17:26)
[2016-10-01] MEDS: FUROSEMIDE 80 MG TAB PO SCH (08:12)
[2016-10-01] MEDS: HYDROcodone/APAP 7.5-325MG 1 EACH TAB PO PRN ×2 (08:12→21:56)
[2016-10-01] MEDS: LACTULOSE 20 GM/30 ML CUP PO SCH ×4 (08:12→21:49)
[2016-10-01] MEDS: ATENOLOL 25 MG TAB PO SCH (08:12)
[2016-10-01] MEDS: SPIRONOLACTONE 25 MG TAB PO SCH (08:12)
[2016-10-01 08:14] LABS: Calcium 9.7 mg/dL (8.4-10.2); Potassium 3.4 mmol/L (3.5-5.1)
--- NOTE | 2016-10-01 10:34 | P.PN ---
Subjective Principal diagnosis: Patient is a 61-year-old male seen in renal consultation for acute kidney injury on chronic kidney disease. Patient has chronic kidney disease stage III secondary to hepatorenal syndrome. His renal function fluctuates quite a bit with creatinine in the range of 1.3-2. Creatinine at the time of admission was 1.8. Patient presented to the hospital with altered mental status. He was treated with Lasix, 80 mg twice a day, Aldactone 50 twice a day. His IV fluids were reduced. This morning he is awake alert oriented although he could not remember the date. No nausea vomiting he has loose stools. He is on rifaximin. His urine output is 2070 mL. Patient is able to sit up without any dizziness. His labs shows that his creatinine was 1.82 days ago and 1.7. This morning. Objective - Vital Signs Vital signs: Vital Signs Temp 98 F 10/01/16 07:00 Pulse 60 10/01/16 07:00 Resp 20 10/01/16 07:00 BP 113/53 10/01/16 07:00 Pulse Ox 97 10/01/16 07:00 Intake & Output 09/30/16 10/01/16 10/01/16 18:59 06:59 18:59 Output Total 2070 Balance -2069 Output: Urine 2070 Straight 420 Other: Voiding Method Toilet Toilet # Voids 2 4 # Bowel Movements 2 2 On examination is awake alert oriented no asterixis. HEENT exam no JVP neck is supple no facial asymmetry. Lungs are clear to auscultation percussion good air entry bilaterally no dullness to percussion. Heart sounds are unremarkable for any murmur rub gallop Abdomen is soft slightly distended with lax abdominal wall. No ascites clinically noted an ultrasound shows no ascites. No organomegaly noted Extremity exam was no edema Neurologically awake alert oriented to place percent and time. Could not get the date though. No asterixis. No focal motor deficit. Was able to sit up with minimal help. - Labs CBC & Chem 7: 09/29/16 16:30 10/01/16 07:35 Labs: Abnormal Lab Results - Last 24 Hours (Table) 09/30/16 09/30/16 09/30/16 Range/Units 12:33 16:03 20:02 Potassium (3.5-5.1) mmol/L BUN (9-20) mg/dL Creatinine (0.66-1.25) mg/dL Glucose (74-99) mg/dL POC Glucose (mg/dL) 220 H 236 H 349 H (75-99) mg/dL Ammonia (<30) umol/L 09/30/16 10/01/16 10/01/16 Range/Units 23:44 03:59 07:35 Potassium 3.4 L (3.5-5.1) mmol/L BUN 42 H (9-20) mg/dL Creatinine 1.73 H (0.66-1.25) mg/dL Glucose 170 H (74-99) mg/dL POC Glucose (mg/dL) 358 H 236 H (75-99) mg/dL Ammonia (<30) umol/L 10/01/16 10/01/16 Range/Units 07:35 08:04 Potassium (3.5-5.1) mmol/L BUN (9-20) mg/dL Creatinine (0.66-1.25) mg/dL Glucose (74-99) mg/dL POC Glucose (mg/dL) 244 H (75-99) mg/dL Ammonia 33 H (<30) umol/L Assessment and Plan Plan: 1 acute kidney injury secondary to cirrhosis and possible hepatorenal syndrome. 2. Chronic kidney disease secondary to nephrosclerosis because of chronic cirrhosis. Baseline creatinine is about 1.2 as of 09/06/2016, urinalysis has negative proteinuria. Recommendation. 1. Check orthostatic changes. 3. Cirrhosis etiology alcoholism. 4. Diabetes mellitus. Blood sugars are high and there is risk of osmotic diuresis and volume depletion 5. Myelodysplastic syndrome with pancytopenia. 6. Admitted with hepatic encephalopathy with ammonia level recommendation. Recommendations. 1. Check orthostatic changes. Call results to me today 2. Hold Lasix and Aldactone for today. 3. Redo labs tomorrow
[2016-10-01 12:10] LABS: Glucose,Whole Blood 290 mg/dL (75-99)
[2016-10-01 12:36] LABS: Basophils % (A) 1 %; CH 30.9; CHCM 34.2; Eosinophils # (A) 0.1 k/uL (0-0.7); Eosinophils % (A) 3 %; HCT 37.7 % (39.0-53.0); HDW 3.36; HGB 12.4 gm/dL (13.0-17.5); Luc % (Auto) 3; Lymphocytes # (A) 0.8 k/uL (1.0-4.8); Lymphocytes % (A) 22 %; MCV 91.1 fL (80.0-100.0); Mean Platelet Volume 10.7; Monocytes # (A) 0.4 k/uL (0-1.0); Monocytes % (A) 12 %; Neutrophils # (A) 2.2 k/uL (1.3-7.7); Neutrophils % (A) 60 %; RBC 4.14 m/uL (4.30-5.90); RDW 15.2 % (11.5-15.5); WBC 3.7 k/uL (3.8-10.6); WBC (Perox) 3.95
--- NOTE | 2016-10-01 15:14 | P.PN ---
Subjective Patient is a 61-year-old male, patient of mine , with complex medical history noted below significant for alcoholic liver cirrhosis with paracentesis and ascites in the past, chronic renal failure stage III, pancytopenia, and myelodysplasia. Patient was brought into the emergency department by his daughter for increased confusion 1 day. Patient was found to have an elevated ammonia level of 112. There is some question whether patient was taking his lactulose 4 times a day as directed. Patient was also noted to have acute on chronic renal failure with a creatinine of 1.8. Chest x-ray with evidence of fluid overload. Patient was admitted to the medical floor and consult was requested for gastrointestinal service and nephrology service. Upon evaluation admit day 1, patient was awake and alert with Family at bedside. Patient is able to state name and place, but unable to state time. Patient denies nausea, vomiting, shortness of breath, chest pain, or abdominal pain. Daughter states that patient had a very small bowel movement yesterday. Daughter states that patient has had problems with urination. No evidence of fevers. Ammonia level decreased to 52. Ultrasound of abdomen shows no suspicious retroperitoneal fluid or ascites currently. Nephrology has evaluated patient and decreased IV fluids to 50 mL an hour. Once oral intake has been resumed, fluids will be discontinued. Patient is maintained on Lasix and Aldactone. Patient was also placed on a 1.5 L fluid restriction. Today, patient did see in consultation by GI and nephrology, terminations are noted. He is alone. He is sleeping, but easily arousable. He is oriented 3. Ammonia level was abdominal 33. The nursing staff indicates he stooling better. Objective - Vital Signs Vital signs: Vital Signs Temp 96.3 F L 10/01/16 14:50 Pulse 62 10/01/16 14:50 Resp 18 10/01/16 14:50 BP 145/62 10/01/16 14:50 Pulse Ox 99 10/01/16 14:50 Intake & Output 09/30/16 10/01/16 10/01/16 18:59 06:59 18:59 Output Total 2069 Balance -2069 Output: Urine 2069 Straight 420 Other: Voiding Method Toilet Toilet # Voids 2 4 2 # Bowel Movements 2 2 - Exam General: The patient is easily arousable in no distress, and does not appear acutely ill. Neck: The neck is supple, there is no thyromegaly, lymphadenopathy, tenderness or JVD. Cardiovascular: S1S2 is normal, There is a regular rate and rhythm. No murmur, rub or gallop is appreciated. Respiratory: Lungs are clear to auscultation bilaterally, respirations are non -labored, breath sounds are equal. Gastrointestinal: Soft, distended due to mild ascites, non-tender abdomen without masses or organomegaly noted. There is no rebound or guarding present. Bowel sounds are unremarkable. Musculoskeletal: Normal ROM, no tenderness, There is no pedal edema. There is no calf tenderness or swelling. No cords were appreciated. Neurological: CN II-XII intact, there are no obvious motor or sensory deficits. Coordination appears grossly intact. Speech is normal. Skin: Skin is warm and dry and no rashes or lesions are noted. - Labs CBC & Chem 7: 10/01/16 07:35 10/01/16 07:35 Labs: Abnormal Lab Results - Last 24 Hours (Table) 09/30/16 09/30/16 09/30/16 Range/Units 16:03 20:02 23:44 WBC (3.8-10.6) k/uL RBC (4.30-5.90) m/uL Hgb (13.0-17.5) gm/dL Hct (39.0-53.0) % Plt Count (150-450) k/uL Lymphocytes # (1.0-4.8) k/uL Potassium (3.5-5.1) mmol/L BUN (9-20) mg/dL Creatinine (0.66-1.25) mg/dL Glucose (74-99) mg/dL POC Glucose (mg/dL) 236 H 349 H 358 H (75-99) mg/dL Ammonia (<30) umol/L 10/01/16 10/01/16 10/01/16 Range/Units 03:59 07:35 07:35 WBC (3.8-10.6) k/uL RBC (4.30-5.90) m/uL Hgb (13.0-17.5) gm/dL Hct (39.0-53.0) % Plt Count (150-450) k/uL Lymphocytes # (1.0-4.8) k/uL Potassium 3.4 L (3.5-5.1) mmol/L BUN 42 H (9-20) mg/dL Creatinine 1.73 H (0.66-1.25) mg/dL Glucose 170 H (74-99) mg/dL POC Glucose (mg/dL) 236 H (75-99) mg/dL Ammonia 33 H (<30) umol/L 10/01/16 10/01/16 10/01/16 Range/Units 07:35 08:04 12:09 WBC 3.7 L (3.8-10.6) k/uL RBC 4.14 L (4.30-5.90) m/uL Hgb 12.4 L (13.0-17.5) gm/dL Hct 37.7 L (39.0-53.0) % Plt Count 28 L* (150-450) k/uL Lymphocytes # 0.8 L (1.0-4.8) k/uL Potassium (3.5-5.1) mmol/L BUN (9-20) mg/dL Creatinine (0.66-1.25) mg/dL Glucose (74-99) mg/dL POC Glucose (mg/dL) 244 H 290 H (75-99) mg/dL Ammonia (<30) umol/L Assessment and Plan Plan: Impression and plan: 1. Acute hepatic encephalopathy with history of alcoholic cirrhosis.. Continue lactulose 30 mg by mouth 4 times a day. Continue Xifaxan 550 mg by mouth twice a day. Ultrasound of abdomen with no evidence of ascites. Lasix and Aldactone discontinued. Gastrointestinal service on consult, recommendations pending. 2. Pancytopenia. Platelets 28. 3. Myelodysplasia. Continue to monitor. 4. Acute renal failure. Creatinine 1.8. Nephrology service following, recommendations noted. Continue fluid restriction at 1500 mL. 5. Chronic renal failure stage III. 6. Insulin-dependent diabetes mellitus, uncontrolled. Hemoglobin A1c 7.8. Continue Lantus 20 units at bedtime. Continue Humalog sliding scale. Will start patient on a consistent carbohydrate diet. 7. History of hypertension. Continue Tenormin 25 mg daily. 8. Hyperlipidemia. Continue Lipitor 20 mg by mouth at bedtime. 9. Diabetic neuropathy. Continue Lyrica 200 mg by mouth twice a day. 10. GERD last GI prophylaxis: Add Pepcid 11. Anxiety. 12. Chronic pain syndrome. Continue Roxicodone and [place] 5 mg by mouth every 8 hours as needed. 13. History of hypotension. Continue Midodrine 10 mg by mouth 3 times a day. Continue to monitor patient. Continue current medications. Continue GI and DVT prophylaxis. Continue to follow with nephrology and GI service. Repeat CBC , BMP, ammonia level in a.m.
[2016-10-01 16:06] LABS: Glucose,Whole Blood 252 mg/dL (75-99)
[2016-10-01 20:41] LABS: Glucose,Whole Blood 355 mg/dL (75-99)
[2016-10-01] MEDS: INSULIN GLARGINE 100 UNIT/ML 10 ML VIAL SQ SCH (21:47)
[2016-10-01] MEDS: ATORVASTATIN 20 MG TAB PO SCH (21:48)
[2016-10-01] MEDS: hydrOXYzine HCL 10 MG TAB PO SCH (21:48)
[2016-10-01] MEDS ORDERED: hydrOXYzine HCL 25 MG TAB PO PRN (22:59)
[2016-10-02 00:06] LABS: Glucose,Whole Blood 320 mg/dL (75-99)
[2016-10-02] MEDS: INSULIN LISPRO (humaLOG) 300 UNIT/3 ML VIAL SQ SCH ×6 (00:10→21:44)
[2016-10-02 04:45] LABS: Glucose,Whole Blood 176 mg/dL (75-99)
[2016-10-02] MEDS: HYDROcodone/APAP 7.5-325MG 1 EACH TAB PO PRN (04:45)
[2016-10-02] MEDS: LACTULOSE 20 GM/30 ML CUP PO SCH ×4 (04:47→21:46)
[2016-10-02] MEDS: PREGABALIN 100 MG CAP PO SCH ×2 (08:32→21:46)
[2016-10-02] MEDS: ATENOLOL 25 MG TAB PO SCH (08:32)
[2016-10-02] MEDS: RIFAXIMIN 550 MG TABLET PO SCH ×2 (08:32→21:46)
[2016-10-02] MEDS: MIDODRINE 5 MG TAB PO SCH ×3 (08:32→18:14)
[2016-10-02 08:43] LABS: Glucose,Whole Blood 289 mg/dL (75-99)
[2016-10-02 08:43] LABS: Basophils % (A) 1 %; CH 31.2; CHCM 35.4; Eosinophils # (A) 0.1 k/uL (0-0.7); Eosinophils % (A) 3 %; HCT 38.3 % (39.0-53.0); HDW 3.53; HGB 13.2 gm/dL (13.0-17.5); Large Platelets Flag Slight; Luc % (Auto) 2; Lymphocytes # (A) 1.2 k/uL (1.0-4.8); Lymphocytes % (A) 25 %; MCH 30.5 pg (25.0-35.0); MCHC 34.5 g/dL (31.0-37.0); MCV 88.5 fL (80.0-100.0); Mean Platelet Volume 10.6; Monocytes # (A) 0.4 k/uL (0-1.0); Monocytes % (A) 8 %; Neutrophils # (A) 2.9 k/uL (1.3-7.7); Neutrophils % (A) 61 %; Poikilocytosis Slight; RBC 4.32 m/uL (4.30-5.90); RDW 14.6 % (11.5-15.5); WBC 4.7 k/uL (3.8-10.6); WBC (Perox) 4.94
[2016-10-02 09:03] LABS: Calcium 9.5 mg/dL (8.4-10.2); Potassium 3.7 mmol/L (3.5-5.1)
[2016-10-02 09:17] LABS: Polychromasia Present
[2016-10-02 11:49] LABS: Glucose,Whole Blood 381 mg/dL (75-99)
--- NOTE | 2016-10-02 13:22 | P.PN ---
Subjective Principal diagnosis: Patient is a 61-year-old male seen in renal consultation for acute kidney injury on chronic kidney disease. Patient has chronic kidney disease stage III secondary to hepatorenal syndrome. His renal function fluctuates quite a bit with creatinine in the range of 1.3-2. Creatinine at the time of admission was 1.8. Patient presented to the hospital with altered mental status. He was treated with Lasix, 80 mg twice a day, Aldactone 50 twice a day. His IV fluids were reduced.yesterday on 10/01/2016 at discontinue his Lasix and Aldactone because of postural hypotension. This morning he is awake alert oriented, better but today c/o abd pain, which is generalized. denies any fever chills nausea vomiting. Claims he has had no bowel movement today.He is on rifaximin. His urine output is 2070 mL day before yesterday but today's and output has not been documented. Patient is able to sit up without any dizziness. His labs shows that his creatinine was 1.82 days ago and 1.7. This morninglab this further down to 1.67.. Objective - Vital Signs Vital signs: Vital Signs Temp 97.6 F 10/02/16 07:00 Pulse 62 10/02/16 07:00 Resp 20 10/02/16 07:00 BP 135/67 10/02/16 07:00 Pulse Ox 98 10/02/16 07:29 Intake & Output 10/01/16 10/02/16 10/02/16 18:59 06:59 18:59 Other: # Voids 2 2 on examination he is sleepy but arousable and answers questions and cooperative. HEENT exam no JVP lymphadenopathy neck is supple no facial asymmetry Lungs are clear to auscultation percussion good air entry bilaterally Heart sounds are unremarkable for any murmur rub gallop Abdomen is slightly distended but has mild ascites but no tenderness except on deep palpation and no rebound. Bowel sounds are present. Extremity examination reveals no edema. Neurologically awake alert oriented no asterixis. Generalized weakness though - Labs CBC & Chem 7: 10/02/16 07:55 10/02/16 07:55 Labs: Abnormal Lab Results - Last 24 Hours (Table) 10/01/16 10/01/16 10/02/16 Range/Units 16:03 20:29 00:03 Hct (39.0-53.0) % Plt Count (150-450) k/uL BUN (9-20) mg/dL Creatinine (0.66-1.25) mg/dL Glucose (74-99) mg/dL POC Glucose (mg/dL) 252 H 355 H 320 H (75-99) mg/dL Ammonia (<30) umol/L 10/02/16 10/02/16 10/02/16 Range/Units 04:43 07:55 07:55 Hct 38.3 L (39.0-53.0) % Plt Count 31 L* (150-450) k/uL BUN (9-20) mg/dL Creatinine (0.66-1.25) mg/dL Glucose (74-99) mg/dL POC Glucose (mg/dL) 176 H (75-99) mg/dL Ammonia 37 H (<30) umol/L 10/02/16 10/02/16 10/02/16 Range/Units 07:55 08:36 11:43 Hct (39.0-53.0) % Plt Count (150-450) k/uL BUN 43 H (9-20) mg/dL Creatinine 1.67 H (0.66-1.25) mg/dL Glucose 166 H (74-99) mg/dL POC Glucose (mg/dL) 289 H 381 H (75-99) mg/dL Ammonia (<30) umol/L Assessment and Plan Plan: 1 acute kidney injury secondary to cirrhosis and possible hepatorenal syndrome.creatinine slowly better, down to 1.67 todayfrom a peak of 1.8 on 09/29 2. Chronic kidney disease secondary to nephrosclerosis because of chronic cirrhosis. Baseline creatinine is about 1.2 as of 09/06/2016, urinalysis has negative proteinuria. Recommendation. 3. Cirrhosis etiology alcoholism.stable, hepatic encephalopathy improved. 3. Complains of abdominal pain today. Exam is rather benign except for deep tenderness. Unlikely bacterial peritonitis 4. Diabetes mellitus. Blood sugars are high and there is risk of osmotic diuresis and volume depletion 5. Myelodysplastic syndrome with pancytopenia. 6. Admitted with hepatic encephalopathy with ammonia level recommendation.much improved and ammonia level going down Recommendations. 1. continue to Check orthostatic changes. 2. Hold Lasix and Aldactone for today as well. 3. Redo labs tomorrow. 4. Consider ascites tap for bacterial peritonitis if pain continues
[2016-10-02 16:15] LABS: Glucose,Whole Blood 190 mg/dL (75-99)
[2016-10-02 20:26] LABS: Glucose,Whole Blood 292 mg/dL (75-99)
[2016-10-02] MEDS: hydrOXYzine HCL 10 MG TAB PO SCH (21:45)
[2016-10-02] MEDS: ATORVASTATIN 20 MG TAB PO SCH (21:45)
[2016-10-02] MEDS: TEMAZEPAM 15 MG CAP PO SCH (21:46)
[2016-10-02] MEDS: INSULIN GLARGINE 100 UNIT/ML 10 ML VIAL SQ SCH (21:46)
[2016-10-03 00:31] LABS: Glucose,Whole Blood 241 mg/dL (75-99)
[2016-10-03] MEDS: INSULIN LISPRO (humaLOG) 300 UNIT/3 ML VIAL SQ SCH ×6 (00:37→20:48)
[2016-10-03 05:10] LABS: Glucose,Whole Blood 168 mg/dL (75-99)
[2016-10-03] MEDS: HYDROcodone/APAP 7.5-325MG 1 EACH TAB PO PRN ×3 (06:21→20:47)
[2016-10-03] MEDS: RIFAXIMIN 550 MG TABLET PO SCH ×2 (07:56→20:48)
[2016-10-03] MEDS: MIDODRINE 5 MG TAB PO SCH ×3 (07:56→16:39)
[2016-10-03] MEDS: PREGABALIN 100 MG CAP PO SCH ×2 (07:57→20:48)
[2016-10-03] MEDS: LACTULOSE 20 GM/30 ML CUP PO SCH ×4 (07:57→22:10)
[2016-10-03] MEDS: ATENOLOL 25 MG TAB PO SCH (07:57)
[2016-10-03 08:02] LABS: Glucose,Whole Blood 170 mg/dL (75-99)
[2016-10-03 10:17] LABS: Basophils % (A) 1 %; CH 30.6; CHCM 34.3; Eosinophils # (A) 0.1 k/uL (0-0.7); Eosinophils % (A) 3 %; HDW 3.42; HGB 12.3 gm/dL (13.0-17.5); Luc # (Auto) 0.08; Luc % (Auto) 2; Lymphocytes # (A) 0.8 k/uL (1.0-4.8); Lymphocytes % (A) 24 %; MCH 30.8 pg (25.0-35.0); MCHC 34.3 g/dL (31.0-37.0); MCV 89.9 fL (80.0-100.0); Mean Platelet Volume 10.4; Monocytes # (A) 0.3 k/uL (0-1.0); Monocytes % (A) 8 %; Neutrophils # (A) 2.1 k/uL (1.3-7.7); Neutrophils % (A) 62 %; Poikilocytosis Slight; RBC 4.01 m/uL (4.30-5.90); RDW 14.8 % (11.5-15.5); WBC 3.5 k/uL (3.8-10.6); WBC (Perox) 3.61
[2016-10-03 10:29] LABS: Potassium 3.8 mmol/L (3.5-5.1)
[2016-10-03 12:26] LABS: Glucose,Whole Blood 337 mg/dL (75-99)
[2016-10-03 17:01] LABS: Glucose,Whole Blood 266 mg/dL (75-99)
--- NOTE | 2016-10-03 18:32 | P.PN ---
Subjective Patient is a 61-year-old male, patient of mine , with complex medical history noted below significant for alcoholic liver cirrhosis with paracentesis and ascites in the past, chronic renal failure stage III, pancytopenia, and myelodysplasia. Patient was brought into the emergency department by his daughter for increased confusion 1 day. Patient was found to have an elevated ammonia level of 112. There is some question whether patient was taking his lactulose 4 times a day as directed. Patient was also noted to have acute on chronic renal failure with a creatinine of 1.8. Chest x-ray with evidence of fluid overload. Patient was admitted to the medical floor and consult was requested for gastrointestinal service and nephrology service. 10/01/2016: Upon evaluation, patient was awake and alert with family at bedside. Patient is able to state name and place, but unable to state time. Patient denies nausea, vomiting, shortness of breath, chest pain, or abdominal pain. Daughter states that patient had a very small bowel movement yesterday. Daughter states that patient has had problems with urination. No evidence of fevers. Ammonia level decreased to 52. Ultrasound of abdomen shows no suspicious retroperitoneal fluid or ascites currently. Nephrology has evaluated patient and decreased IV fluids to 50 mL an hour. Once oral intake has been resumed, fluids will be discontinued. Patient is maintained on Lasix and Aldactone. Patient was also placed on a 1.5 L fluid restriction. 10/02/2016: Today, patient did see in consultation by GI and nephrology, terminations are noted. He is alone. He is sleeping, but easily arousable. He is oriented 3. Ammonia level was abdominal 33. The nursing staff indicates he stooling better. 10/03/2016: Patient is evaluated at bedside. Patient is alert and awake. Answers questions appropriately. Oriented 3. Patient denies chills, fevers, nausea, vomiting, shortness of breath, chest pain, or abdominal pain. Patient reports having bowel movement. Renal function improving. Ammonia level 63. Objective - Vital Signs Vital signs: Vital Signs Temp 97.2 F L 10/03/16 14:35 Pulse 59 L 10/03/16 14:35 Resp 22 10/03/16 14:35 BP 138/69 10/03/16 14:35 Pulse Ox 98 10/03/16 14:35 Intake & Output 10/02/16 10/03/16 10/03/16 18:59 06:59 18:59 Intake Total 100 Output Total 200 Balance 100 -200 Intake: Oral 100 Output: Urine/Stool Mix 200 Other: # Voids 5 2 3 # Bowel Movements 4 4 3 # Emeses 1 - Exam General: The patient is awake and alert, does not appear in any acute distress , and does not appear acutely ill. Neck: The neck is supple, there is no thyromegaly, lymphadenopathy, tenderness or JVD. Cardiovascular: S1S2 is normal, There is a regular rate and rhythm. No murmur, rub or gallop is appreciated. Respiratory: Lungs are clear to auscultation bilaterally, respirations are non -labored, breath sounds are equal. Gastrointestinal: Soft, distended due to mild ascites, non-tender abdomen without masses or organomegaly noted. There is no rebound or guarding present. Bowel sounds are unremarkable. Musculoskeletal: Normal ROM, no tenderness, There is no pedal edema. There is no calf tenderness or swelling. No cords were appreciated. Neurological: CN II-XII intact, there are no obvious motor or sensory deficits. Coordination appears grossly intact. Speech is normal. Skin: Skin is warm and dry and no rashes or lesions are noted. - Labs CBC & Chem 7: 10/03/16 09:56 10/03/16 09:56 Labs: Abnormal Lab Results - Last 24 Hours (Table) 10/02/16 10/03/16 10/03/16 Range/Units 20:23 00:27 05:06 WBC (3.8-10.6) k/uL RBC (4.30-5.90) m/uL Hgb (13.0-17.5) gm/dL Hct (39.0-53.0) % Plt Count (150-450) k/uL Lymphocytes # (1.0-4.8) k/uL BUN (9-20) mg/dL Creatinine (0.66-1.25) mg/dL Glucose (74-99) mg/dL POC Glucose (mg/dL) 292 H 241 H 168 H (75-99) mg/dL Ammonia (<30) umol/L 10/03/16 10/03/16 10/03/16 Range/Units 08:01 09:56 09:56 WBC 3.5 L (3.8-10.6) k/uL RBC 4.01 L (4.30-5.90) m/uL Hgb 12.3 L (13.0-17.5) gm/dL Hct 36.0 L (39.0-53.0) % Plt Count 27 L* (150-450) k/uL Lymphocytes # 0.8 L (1.0-4.8) k/uL BUN (9-20) mg/dL Creatinine (0.66-1.25) mg/dL Glucose (74-99) mg/dL POC Glucose (mg/dL) 170 H (75-99) mg/dL Ammonia 63 H (<30) umol/L 10/03/16 10/03/16 10/03/16 Range/Units 09:56 12:22 16:38 WBC (3.8-10.6) k/uL RBC (4.30-5.90) m/uL Hgb (13.0-17.5) gm/dL Hct (39.0-53.0) % Plt Count (150-450) k/uL Lymphocytes # (1.0-4.8) k/uL BUN 43 H (9-20) mg/dL Creatinine 1.57 H (0.66-1.25) mg/dL Glucose 298 H (74-99) mg/dL POC Glucose (mg/dL) 337 H 266 H (75-99) mg/dL Ammonia (<30) umol/L Assessment and Plan Plan: Impression and plan: 1. Acute hepatic encephalopathy with history of alcoholic cirrhosis. Continue lactulose 30 mg by mouth 4 times a day. Continue Xifaxan 550 mg by mouth twice a day. Ultrasound of abdomen with no evidence of ascites. Lasix and Aldactone has been discontinued. Gastrointestinal service on consult, recommendations noted. 2. Pancytopenia. Platelets 27. 3. Myelodysplasia. Continue to monitor. 4. Acute renal failure. Creatinine improved to 1.57. Nephrology service following, recommendations noted. Continue fluid restriction at 1500 mL. 5. Chronic renal failure stage III. 6. Insulin-dependent diabetes mellitus, uncontrolled. Hemoglobin A1c 7.8. Continue Lantus 20 units at bedtime. Continue Humalog sliding scale. Will start patient on a consistent carbohydrate diet. 7. History of hypertension. Continue Tenormin 25 mg daily. 8. Hyperlipidemia. Continue Lipitor 20 mg by mouth at bedtime. 9. Diabetic neuropathy. Continue Lyrica 200 mg by mouth twice a day. 10. GERD. Continue Pepcid. 11. Anxiety. 12. Chronic pain syndrome. Continue Roxicodone and [place] 5 mg by mouth every 8 hours as needed. 13. History of hypotension. Continue Midodrine 10 mg by mouth 3 times a day. Continue to monitor patient. Continue current medications. Continue GI and DVT prophylaxis. Continue to follow with nephrology and GI service. Repeat CBC , BMP, ammonia level in a.m. The above impression and plan have been discussed and directed by Dr. Servin. Zohra THOMSON acting as scribe for Dr. Servin.
--- NOTE | 2016-10-03 19:11 | P.PN ---
Subjective DOS 10/02/2016 Patient is a 61-year-old male, patient of mine , with complex medical history noted below significant for alcoholic liver cirrhosis with paracentesis and ascites in the past, chronic renal failure stage III, pancytopenia, and myelodysplasia. Patient was brought into the emergency department by his daughter for increased confusion 1 day. Patient was found to have an elevated ammonia level of 112. There is some question whether patient was taking his lactulose 4 times a day as directed. Patient was also noted to have acute on chronic renal failure with a creatinine of 1.8. Chest x-ray with evidence of fluid overload. Patient was admitted to the medical floor and consult was requested for gastrointestinal service and nephrology service. Upon evaluation admit day 1, patient was awake and alert with Family at bedside. Patient is able to state name and place, but unable to state time. Patient denies nausea, vomiting, shortness of breath, chest pain, or abdominal pain. Daughter states that patient had a very small bowel movement yesterday. Daughter states that patient has had problems with urination. No evidence of fevers. Ammonia level decreased to 52. Ultrasound of abdomen shows no suspicious retroperitoneal fluid or ascites currently. Nephrology has evaluated patient and decreased IV fluids to 50 mL an hour. Once oral intake has been resumed, fluids will be discontinued. Patient is maintained on Lasix and Aldactone. Patient was also placed on a 1.5 L fluid restriction. Today, patient is more confused and somnolent. Hayleeer and night nurse both report patient gets "goofy" on ambien. We tried atarax last night, he indicates not sleeping at all. Objective - Vital Signs Vital signs: Vital Signs Temp 97.2 F L 10/03/16 14:35 Pulse 59 L 10/03/16 14:35 Resp 22 10/03/16 14:35 BP 138/69 10/03/16 14:35 Pulse Ox 98 10/03/16 14:35 Intake & Output 10/03/16 10/03/16 10/04/16 06:59 18:59 06:59 Intake Total 100 Output Total 200 Balance 100 -200 Intake: Oral 100 Output: Urine/Stool Mix 200 Other: # Voids 2 3 # Bowel Movements 4 3 # Emeses 1 - Exam General: The patient is easily arousable in no distress, and does not appear acutely ill. Neck: The neck is supple, there is no thyromegaly, lymphadenopathy, tenderness or JVD. Cardiovascular: S1S2 is normal, There is a regular rate and rhythm. No murmur, rub or gallop is appreciated. Respiratory: Lungs are clear to auscultation bilaterally, respirations are non -labored, breath sounds are equal. Gastrointestinal: Soft, distended due to mild ascites, non-tender abdomen without masses or organomegaly noted. There is no rebound or guarding present. Bowel sounds are unremarkable. Musculoskeletal: Normal ROM, no tenderness, There is no pedal edema. There is no calf tenderness or swelling. No cords were appreciated. Neurological: CN II-XII intact, there are no obvious motor or sensory deficits. Coordination appears grossly intact. Speech is normal. Skin: Skin is warm and dry and no rashes or lesions are noted. - Labs CBC & Chem 7: 10/03/16 09:56 10/03/16 09:56 Labs: Abnormal Lab Results - Last 24 Hours (Table) 10/02/16 10/03/16 10/03/16 Range/Units 20:23 00:27 05:06 WBC (3.8-10.6) k/uL RBC (4.30-5.90) m/uL Hgb (13.0-17.5) gm/dL Hct (39.0-53.0) % Plt Count (150-450) k/uL Lymphocytes # (1.0-4.8) k/uL BUN (9-20) mg/dL Creatinine (0.66-1.25) mg/dL Glucose (74-99) mg/dL POC Glucose (mg/dL) 292 H 241 H 168 H (75-99) mg/dL Ammonia (<30) umol/L 10/03/16 10/03/16 10/03/16 Range/Units 08:01 09:56 09:56 WBC 3.5 L (3.8-10.6) k/uL RBC 4.01 L (4.30-5.90) m/uL Hgb 12.3 L (13.0-17.5) gm/dL Hct 36.0 L (39.0-53.0) % Plt Count 27 L* (150-450) k/uL Lymphocytes # 0.8 L (1.0-4.8) k/uL BUN (9-20) mg/dL Creatinine (0.66-1.25) mg/dL Glucose (74-99) mg/dL POC Glucose (mg/dL) 170 H (75-99) mg/dL Ammonia 63 H (<30) umol/L 10/03/16 10/03/16 10/03/16 Range/Units 09:56 12:22 16:38 WBC (3.8-10.6) k/uL RBC (4.30-5.90) m/uL Hgb (13.0-17.5) gm/dL Hct (39.0-53.0) % Plt Count (150-450) k/uL Lymphocytes # (1.0-4.8) k/uL BUN 43 H (9-20) mg/dL Creatinine 1.57 H (0.66-1.25) mg/dL Glucose 298 H (74-99) mg/dL POC Glucose (mg/dL) 337 H 266 H (75-99) mg/dL Ammonia (<30) umol/L Assessment and Plan Plan: Impression and plan: 1. Acute hepatic encephalopathy with history of alcoholic cirrhosis.. Continue lactulose 30 mg by mouth 4 times a day. Continue Xifaxan 550 mg by mouth twice a day. Ultrasound of abdomen with no evidence of ascites. Lasix and Aldactone discontinued. Gastrointestinal service on consult, recommendations pending. 2. Pancytopenia. recheck soon 3. Myelodysplasia. Continue to monitor. 4. Acute renal failure. Creatinine 1.8. Nephrology service following, recommendations noted. Continue fluid restriction at 1500 mL. 5. Chronic renal failure stage III. 6. Insulin-dependent diabetes mellitus, uncontrolled. Hemoglobin A1c 7.8. Continue Lantus 20 units at bedtime. Continue Humalog sliding scale. Will start patient on a consistent carbohydrate diet. 7. History of hypertension. Continue Tenormin 25 mg daily. 8. Hyperlipidemia. Continue Lipitor 20 mg by mouth at bedtime. 9. Diabetic neuropathy. Continue Lyrica 200 mg by mouth twice a day. 10. GERD last GI prophylaxis: continue pepcid 11. Anxiety.:monitor 12. Chronic pain syndrome. Continue Roxicodone and [place] 5 mg by mouth every 8 hours as needed. 13. History of hypotension. Continue Midodrine 10 mg by mouth 3 times a day. 14. insomnia:d/c ortega najera lunesta 2mg Continue to monitor patient. Continue current medications. Continue GI and DVT prophylaxis. Continue to follow with nephrology and GI service. Repeat CBC , BMP, ammonia level in a.m.
[2016-10-03 20:41] LABS: Glucose,Whole Blood 387 mg/dL (75-99)
[2016-10-03] MEDS: ATORVASTATIN 20 MG TAB PO SCH (20:48)
[2016-10-03] MEDS: TEMAZEPAM 15 MG CAP PO SCH (20:48)
[2016-10-03] MEDS: hydrOXYzine HCL 10 MG TAB PO SCH (20:49)
[2016-10-03] MEDS: INSULIN GLARGINE 100 UNIT/ML 10 ML VIAL SQ SCH (20:49)
[2016-10-04] MEDS: INSULIN LISPRO (humaLOG) 300 UNIT/3 ML VIAL SQ SCH ×3 (00:08→07:58)
[2016-10-04 00:18] LABS: Glucose,Whole Blood 220 mg/dL (75-99)
[2016-10-04] MEDS: HYDROcodone/APAP 7.5-325MG 1 EACH TAB PO PRN ×2 (03:00→08:06)
[2016-10-04 04:11] LABS: Glucose,Whole Blood 145 mg/dL (75-99)
[2016-10-04 06:20] LABS: Glucose,Whole Blood 200 mg/dL (75-99)
[2016-10-04 07:36] LABS: Glucose,Whole Blood 168 mg/dL (75-99)
[2016-10-04 07:54] VITALS: BP 96/46; PULSE 55; RESP 20; TEMP 98.1
[2016-10-04] MEDS: ATENOLOL 25 MG TAB PO SCH (07:56)
[2016-10-04] MEDS: MIDODRINE 5 MG TAB PO SCH (07:59)
[2016-10-04] MEDS: RIFAXIMIN 550 MG TABLET PO SCH (08:02)
[2016-10-04] MEDS: PREGABALIN 100 MG CAP PO SCH (08:02)
[2016-10-04] MEDS: LACTULOSE 20 GM/30 ML CUP PO SCH (08:02)
[2016-10-04 08:55] LABS: Basophils % (A) 1 %; CH 30.6; CHCM 34.5; Eosinophils # (A) 0.1 k/uL (0-0.7); Eosinophils % (A) 4 %; HCT 35.6 % (39.0-53.0); HDW 3.39; HGB 12.1 gm/dL (13.0-17.5); Luc # (Auto) 0.07; Luc % (Auto) 3; Lymphocytes # (A) 0.7 k/uL (1.0-4.8); Lymphocytes % (A) 25 %; MCH 30.4 pg (25.0-35.0); MCV 89.5 fL (80.0-100.0); Mean Platelet Volume 11.2; Monocytes # (A) 0.2 k/uL (0-1.0); Monocytes % (A) 8 %; Neutrophils # (A) 1.7 k/uL (1.3-7.7); Neutrophils % (A) 59 %; RBC 3.98 m/uL (4.30-5.90); RDW 14.9 % (11.5-15.5); WBC 2.9 k/uL (3.8-10.6); WBC (Perox) 2.77
[2016-10-04 09:05] LABS: Calcium 8.8 mg/dL (8.4-10.2); Potassium 4.2 mmol/L (3.5-5.1)
--- NOTE | 2016-10-04 09:50 | P.PN ---
Subjective Principal diagnosis: Hepatic encephalopathy 61-year-old male with a history of alcohol liver cirrhosis chronic thrombocytopenia and hepatic encephalopathy. Ammonia 63 yesterday repeat ammonia pending at time of dictation. Patient was started on Xifaxan a few days ago with good response. Admission ammonia was 112. Continuing lactulose with bowel movements. Denies abdominal pain. Ultrasound imaging reported no evidence of ascites. Tentative discharge. Objective - Vital Signs Vital signs: Vital Signs Temp 98.1 F 10/04/16 07:00 Pulse 55 L 10/04/16 07:00 Resp 20 10/04/16 07:00 BP 96/46 10/04/16 07:00 Pulse Ox 94 L 10/04/16 07:00 Intake & Output 10/03/16 10/04/16 10/04/16 18:59 06:59 18:59 Intake Total 1050 240 Output Total 200 500 Balance -200 550 240 Intake: Oral 1050 240 Output: Stool 500 Urine/Stool Mix 200 Other: Voiding Method Toilet # Voids 3 2 # Bowel Movements 3 - Exam General appearance: The patient is alert, oriented, in no acute distress. HET: Head is normocephalic and atraumatic. Pupils are equal and reactive. Oropharynx is clear without lesions. Neck: Supple without lymphadenopathy. Trachea midline. Heart: S1 S2. Regular rate and rhythm. Lungs: No crackles or wheezes are heard. Abdomen: Soft, nontender, nondistended with bowel sounds. No peritoneal signs. No palpable organomegaly or masses. Extremities: Normal skin color and turgor. No cyanosis, rash, ulceration, clubbing, or edema. Radial and pedal pulses are 2/4 bilaterally. Neurological: No focal deficits. Strength and sensation are grossly intact. - Labs CBC & Chem 7: 10/04/16 08:35 10/04/16 08:35 Labs: Abnormal Lab Results - Last 24 Hours (Table) 10/03/16 10/03/16 10/03/16 Range/Units 09:56 09:56 09:56 WBC 3.5 L (3.8-10.6) k/uL RBC 4.01 L (4.30-5.90) m/uL Hgb 12.3 L (13.0-17.5) gm/dL Hct 36.0 L (39.0-53.0) % Plt Count 27 L* (150-450) k/uL Lymphocytes # 0.8 L (1.0-4.8) k/uL BUN 43 H (9-20) mg/dL Creatinine 1.57 H (0.66-1.25) mg/dL Glucose 298 H (74-99) mg/dL POC Glucose (mg/dL) (75-99) mg/dL Ammonia 63 H (<30) umol/L 10/03/16 10/03/16 10/03/16 Range/Units 12:22 16:38 20:33 WBC (3.8-10.6) k/uL RBC (4.30-5.90) m/uL Hgb (13.0-17.5) gm/dL Hct (39.0-53.0) % Plt Count (150-450) k/uL Lymphocytes # (1.0-4.8) k/uL BUN (9-20) mg/dL Creatinine (0.66-1.25) mg/dL Glucose (74-99) mg/dL POC Glucose (mg/dL) 337 H 266 H 387 H (75-99) mg/dL Ammonia (<30) umol/L 10/04/16 10/04/16 10/04/16 Range/Units 00:08 04:07 06:16 WBC (3.8-10.6) k/uL RBC (4.30-5.90) m/uL Hgb (13.0-17.5) gm/dL Hct (39.0-53.0) % Plt Count (150-450) k/uL Lymphocytes # (1.0-4.8) k/uL BUN (9-20) mg/dL Creatinine (0.66-1.25) mg/dL Glucose (74-99) mg/dL POC Glucose (mg/dL) 220 H 145 H 200 H (75-99) mg/dL Ammonia (<30) umol/L 10/04/16 10/04/16 10/04/16 Range/Units 07:33 08:35 08:35 WBC 2.9 L (3.8-10.6) k/uL RBC 3.98 L (4.30-5.90) m/uL Hgb 12.1 L (13.0-17.5) gm/dL Hct 35.6 L (39.0-53.0) % Plt Count 22 L* (150-450) k/uL Lymphocytes # 0.7 L (1.0-4.8) k/uL BUN 40 H (9-20) mg/dL Creatinine 1.59 H (0.66-1.25) mg/dL Glucose 286 H (74-99) mg/dL POC Glucose (mg/dL) 168 H (75-99) mg/dL Ammonia (<30) umol/L Assessment and Plan (1) Cirrhosis Status: Acute (2) Hepatic encephalopathy Status: Acute (3) Thrombocytopenia Status: Acute Plan: 1. If ammonia level is stable agreeable for discharge. Would advise Xifaxan 550 mg twice a day on discharge. Return to GI office in 1 week. Continue his lactulose as previously prescribed on discharge as well. Assessment and plan a care discussed with Dr. Sidhu.
[2016-10-04 12:29] LABS: Glucose,Whole Blood 276 mg/dL (75-99)
--- NOTE | 2016-10-05 09:26 | PN ---
Patient is seen for followup for acute kidney injury on top of chronic kidney disease. His diuretics were held on the time of admission and patient is status post IV fluids. Renal function has improved with creatinine now down to 1.59 from 1.8 on initial admission. Baseline creatinine has been as low as 1.2 and 1.1 mg/dL. On examination today, blood pressure is 96/46, heart rate 55 per minute. He is afebrile. Examination of the heart S1 and S2. Examination of the lungs, bilateral breath sounds are heard. Abdomen is soft, nontender. Examination of lower extremities shows no evidence of edema. FISHER EEL exam is grossly intact. Labs show sodium 137, potassium 4.2, BUN 40, serum creatinine 1.59, hemoglobin 12.1 g/dL, platelet count 22,000. ASSESSMENT: 1. Acute kidney injury, prerenal, currently improved. I would hold off on continued diuresis. Patient will need to be followed up as outpatient and the diuretics can be restarted as outpatient. 2. Chronic kidney disease secondary to nephrosclerosis. 3. Liver cirrhosis from Ethyl alcohol abuse. 4. Hepatic encephalopathy, currently improved. 5. Myelodysplasia with pancytopenia. PLAN: Patient can be discharged with plans to follow up as an outpatient to assess for need for restarting diuretics. At this time, I would continue to hold.
--- NOTE | 2016-10-12 16:05 | P.DS ---
Providers Date of admission: 09/29/16 17:44 Expected date of discharge: 10/04/16 Attending physician: Klaus Agrawal Consults: 09/30/16 08:04 Consult Physician Urgent Consulting Provider: Fabiana Sidhu Consult Reason/Comments: HEPATIC CIRRHOSIS AND ENCEPHALOPATHY Do you want consulting provider notified?: Yes 09/30/16 08:13 Consult Physician Urgent Consulting Provider: Cindy Figueroa Consult Reason/Comments: ACUTE KIDNEY INJURY Do you want consulting provider notified?: Yes Primary care physician: Klaus Agrawal [facility] Course: Patient is a 61-year-old male, patient of mine , with complex medical history noted below significant for alcoholic liver cirrhosis with paracentesis and ascites in the past, chronic renal failure stage III, pancytopenia, and myelodysplasia. Patient was brought into the emergency department by his daughter for increased confusion 1 day. Patient was found to have an elevated ammonia level of 112. There is some question whether patient was taking his lactulose 4 times a day as directed. Patient was also noted to have acute on chronic renal failure with a creatinine of 1.8. Chest x-ray with evidence of fluid overload. Patient was admitted to the medical floor and consult was requested for gastrointestinal service and nephrology service. Ultrasound of abdomen without evidence of ascites. Patient improved with fluid restriction, lactulose, and Xifaxan. Patient was deemed stable for discharge to home with close follow-up in the outpatient setting. Discharge diagnoses: 1. Acute hepatic encephalopathy with history of alcoholic cirrhosis. 2. Pancytopenia. 3. Myelodysplasia. 4. Acute renal failure. 5. Chronic renal failure stage III. 6. Insulin-dependent diabetes mellitus, uncontrolled. 7. History of hypertension. 8. Hyperlipidemia. 9. Diabetic neuropathy. 10. GERD 11. Anxiety. 12. Chronic pain syndrome. 13. History of hypotension. 14. insomnia The above impression and plan have been discussed and directed by Dr. Agrawal. Zohra THOMSON acting as scribe for Dr. Agrawal. Pertinent Studies: EKG; chest x-ray; abdomen ultrasound Patient Condition at Discharge: Fair Plan - Discharge Summary New Discharge Prescriptions: HYDROcodone/APAP 7.5-325MG [Hobbs 7.5-325] 1 each PO Q6H PRN #28 tab PRN Reason: Moderate Pain Temazepam [Restoril] 15 mg PO HS PRN #30 cap PRN Reason: Insomnia Discharge Medication List Atorvastatin [Lipitor] 20 mg PO HS 01/14/16 [History] Insulin Glulisine [Apidra] See Protocol SQ AC-TID 04/25/16 [History] Pregabalin [Lyrica] 200 mg PO BID 04/25/16 [History] hydrOXYzine HCL [Atarax] 10 mg PO HS 08/03/16 [History] oxyCODONE HCL [Roxicodone] 5 mg PO Q8H PRN 08/03/16 [History] Midodrine HCl [ProAmatine] 10 mg PO TID 09/02/16 [History] Lactulose [Cephulac] 30 gm PO QID #3600 ml 09/06/16 [Rx] Insulin Glargine [Lantus] 20 unit SQ HS 09/29/16 [History] HYDROcodone/APAP 7.5-325MG [Hobbs 7.5-325] 1 each PO Q6H PRN #28 tab 10/04/16 [ Rx] Temazepam [Restoril] 15 mg PO HS PRN #30 cap 10/04/16 [Rx] Follow up Appointment(s)/Referral(s): Cindy Figueroa MD [STAFF PHYSICIAN] - 1 Week (OFFICE CLOSED . PLEASE CALL FOR APPOINTMENT) [facility], [NON-STAFF] - Stefan Esquivel MD [STAFF PHYSICIAN] - 1 Week (OFFICE CLOSED. PLEASE CALL FOR APPOINTMENT) Klaus Agrawal MD [Primary Care Provider] - 10/12/16 10:30 am Patient Instructions/Handouts: Type 2 Diabetes in Adults (DC), Hepatic Encephalopathy (DC) Activity/Diet/Wound Care/Special Instructions: Cardiac, diabetic diet. Discharge Disposition: HOME WITH HOME HEALTH SERVICES
== END 2016-10-04 14:04 | disposition home health service (06) | DRG 432 ==
LOC: EC 16:15 → 4MS4W 17:44
PROVIDERS: ADMIT Family Medicine; ATTEND Family Medicine
DX: K70.40 Alcoholic hepatic failure without coma (principal); K76.7 Hepatorenal syndrome; K70.30 Alcoholic cirrhosis of liver without ascites; N17.9 Acute kidney failure, unspecified; D61.818 Other pancytopenia; E11.22 Type 2 diabetes mellitus with diabetic chronic kidney disease; E11.40 Type 2 diabetes mellitus with diabetic neuropathy, unspecified; N18.3 Chronic kidney disease, stage 3 (moderate); E11.65 Type 2 diabetes mellitus with hyperglycemia; E78.5 Hyperlipidemia, unspecified; E87.70 Fluid overload, unspecified; F10.10 Alcohol abuse, uncomplicated; F32.9 Major depressive disorder, single episode, unspecified; F41.9 Anxiety disorder, unspecified; G47.00 Insomnia, unspecified; G89.4 Chronic pain syndrome; I12.9 Hypertensive chronic kidney disease with stage 1 through stage 4 chronic kidney disease, or unspecified chronic kidney disease; I95.1 Orthostatic hypotension; K21.9 Gastro-esophageal reflux disease without esophagitis; Z79.4 Long term (current) use of insulin; Z79.899 Other long term (current) drug therapy; Z86.73 Personal history of transient ischemic attack (TIA), and cerebral infarction without residual deficits
CPT/HCPCS: 36415; 71020; 76705; 80048; 80053; 80306; 81001; 82140; 82550; 82553; 83036; 83735; 84484; 85025; 85610; 85730; 93005; 94760; 96360; 99285

== ENCOUNTER → 2016-11-08 | Outpatient (CLI) | payer OTHER ==
[2016-11-08 11:24] LABS: CH 30.8; CHCM 35.9; HCT 35.9 % (39.0-53.0); HDW 3.57; HGB 12.5 gm/dL (13.0-17.5); MCH 30.2 pg (25.0-35.0); MCHC 34.9 g/dL (31.0-37.0); MCV 86.3 fL (80.0-100.0); Mean Platelet Volume 7.8; Poikilocytosis Slight; RBC 4.16 m/uL (4.30-5.90); RDW 14.6 % (11.5-15.5); WBC (Perox) 3.96
[2016-11-08 12:09] LABS: Add Differential Manual Differential
[2016-11-08 12:16] LABS: Nucleated Red Blood Cells 0 /100 WBC (0-0); Total Cells Counted 100
[2016-11-08 12:17] LABS: Manual Review Performed; RBC Morphology Normal
== END ==
LOC: LABWHC1 10:37
PROVIDERS: ATTEND Family Medicine
DX: E83.52 Hypercalcemia (principal); D69.6 Thrombocytopenia, unspecified
CPT/HCPCS: 36415; 82140; 85025

== ENCOUNTER → 2016-12-16 | Outpatient (CLI) | payer OTHER ==
--- NOTE | 2016-12-16 15:09 | XR ---
EXAMINATION TYPE: XR chest 2V DATE OF EXAM: 12/16/2016 COMPARISON: Prior chest x-ray 09/29/2016 HISTORY: K71.51, history of hepatitis TECHNIQUE: Frontal and lateral views of the chest are obtained. FINDINGS: Patient is rotated. No pneumothorax or pleural effusion. Interstitium mildly increased. Pe rihilar vascular indistinctness is suspected. Pulmonary vascularity and tatiana not significantly change d. IMPRESSION: Possible underlying interstitial lung disease, correlate to exclude pulmonary venous hyp ertension and interstitial edema, volume overload. Patient is rotated, follow-up as indicated.
[2016-12-16 15:30] LABS: Calcium 8.7 mg/dL (8.4-10.2); Magnesium 1.7 mg/dL (1.6-2.3); Phosphorous 3.5 mg/dL (2.5-4.5); Potassium 3.8 mmol/L (3.5-5.1)
== END ==
LOC: LABWHC1 14:38
PROVIDERS: ATTEND Family Medicine
DX: K71.51 Toxic liver disease with chronic active hepatitis with ascites (principal); N18.3 Chronic kidney disease, stage 3 (moderate); E83.52 Hypercalcemia; K74.60 Unspecified cirrhosis of liver
CPT/HCPCS: 36415; 71020; 80048; 82140; 83735; 84100

== ENCOUNTER → 2017-01-18 | Outpatient (CLI) | payer OTHER ==
[2017-01-18 13:25] LABS: Calcium 9.1 mg/dL (8.4-10.2); Total Bilirubin 2.8 mg/dL (0.2-1.3); Total Protein 6.6 g/dL (6.3-8.2)
== END | disposition home or self-care (01) ==
LOC: LABWHC1 12:23
PROVIDERS: ATTEND Family Medicine
DX: N18.3 Chronic kidney disease, stage 3 (moderate) (principal); D69.6 Thrombocytopenia, unspecified; E11.69 Type 2 diabetes mellitus with other specified complication
CPT/HCPCS: 36415; 80053; 82140

== ENCOUNTER 2017-01-25 08:10 | Day surgery (SDC) | payer OTHER ==
[2017-01-25 08:40] VITALS: BP 149/63; PULSE 74; RESP 16; TEMP 97.7
[2017-01-25 08:56] LABS: Mean Platelet Volume 10.8
[2017-01-25 09:01] LABS: INR 1.6 (<1.2); Prothrombin Time 15.1 sec (9.0-12.0)
[2017-01-25 09:18] LABS: Glucose,Whole Blood 282 mg/dL (75-99)
[2017-01-25] MEDS ORDERED: SODIUM CHLORIDE 0.9% 500 ML IV SCH (09:30)
--- NOTE | 2017-01-25 11:50 | US ---
Therapeutic paracentesis discontinued. DATE OF EXAM: 01/25/2017 CLINICAL HISTORY: Ascites Preliminary imaging of the abdomen demonstrated no evidence of ascites. IMPRESSION: No evidence of ascites.
== END 2017-01-25 10:15 | disposition home or self-care (01) ==
LOC: RADPROMAIN 08:10
PROVIDERS: ATTEND Family Medicine
DX: K71.51 Toxic liver disease with chronic active hepatitis with ascites (principal); K74.60 Unspecified cirrhosis of liver
CPT/HCPCS: 76705; 82565; 85049; 85610; 86850; 86900; 86901

== ENCOUNTER → 2017-03-07 | Outpatient (CLI) | payer OTHER ==
--- NOTE | 2017-03-07 09:27 | CT ---
EXAMINATION TYPE: CT chest wo con DATE OF EXAM: 03/07/2017 COMPARISON: Chest x-ray December 16, 2016 HISTORY: Abn find, fluid build up. History of hepatitis. CT DLP: 888 mGycm. Automated Exposure Control for Dose Reduction was Utilized. TECHNIQUE: CT scan of the thorax is performed without IV contrast. FINDINGS: LUNGS: There is respiratory motion artifact seen making evaluation slightly suboptimal for subcentime ter nodularity. There is linear scarring and/or atelectasis in the left lung bases near diaphragm. No concerning parenchymal mass is seen. No suspicious consolidation or groundglass opacity is seen. The re is mild central peribronchial cuffing. Slightly elevated left hemidiaphragm is noted. No significa nt pleural effusion or pneumothorax is identified. MEDIASTINUM: Lack of IV contrast is noted to limit evaluation for mediastinal and especially hilar a denopathy. There is enlarged lymph node anterior superior mediastinum adjacent to right brachiocephal ic artery on axial image 16 measuring 12 x 11 mm posterior to the brachiocephalic confluence in the a nterior to the trachea. Three-vessel Coronary artery calcification is present which is noted marker f or coronary artery disease. No significant pericardial effusion is seen. Heart size is upper limits of normal. OTHER: Prominent bilateral gynecomastia is noted which is consistent with history of liver failure or cirrhosis. Liver is small in size and nodular contour. Cholecystectomy clips are seen. There is lyly ed splenomegaly noted. There is suspicious adenopathy in the left para-aortic region measuring 2.1 x 1.5 cm on axial image 65. This appears to correspond to prominent collateral or branching vessel on C T April 25, 2016. Additional prominent collateral vessels in the visualized upper abdomen are seen . There are suspected varices along course of the distal esophagus. Main portal vein is dilated at 2. 0 cm on coronal image 44. There is prominent multilevel spurring in the lower thoracic spine with sli ght scoliotic curvature seen on coronal images. There is minimal calcified plaque in visualized aorta . IMPRESSION: 1. No suspicious acute pulmonary process. No significant pleural effusion or upper abdominal ascites identified. 2. Findings consistent with cirrhosis and underlying portal hypertension are present as detailed abov e. 3. Slightly enlarged lymph node anterior superior mediastinum , underlying neoplasm or metastatic dis ease cannot be excluded. Consider PET/CT follow-up.
== END | disposition home or self-care (01) ==
LOC: RADCTMAIN 07:58
PROVIDERS: ATTEND Family Medicine
DX: R91.8 Other nonspecific abnormal finding of lung field (principal); R59.0 Localized enlarged lymph nodes
CPT/HCPCS: 71250

== ENCOUNTER → 2017-06-26 | Outpatient (CLI) | payer OTHER ==
[2017-06-26 13:54] LABS: Basophils % (A) 1 %; Eosinophils # (A) 0.1 k/uL (0-0.7); Eosinophils % (A) 5 %; HCT 33.2 % (39.0-53.0); HGB 10.9 gm/dL (13.0-17.5); Lymphocytes # (A) 0.6 k/uL (1.0-4.8); Lymphocytes % (A) 22 %; MCH 29.1 pg (25.0-35.0); MCHC 32.8 g/dL (31.0-37.0); MCV 88.7 fL (80.0-100.0); Mean Platelet Volume 11.7; Monocytes # (A) 0.2 k/uL (0-1.0); Monocytes % (A) 8 %; Neutrophils # (A) 1.6 k/uL (1.3-7.7); Neutrophils % (A) 63 %; RBC 3.75 m/uL (4.30-5.90); RDW 14.5 % (11.5-15.5); WBC 2.6 k/uL (3.8-10.6)
[2017-06-26 14:09] LABS: Platelet Count 30 k/uL (150-450)
[2017-06-26 14:10] LABS: Albumin 2.8 g/dL (3.5-5.0); Calcium 8.4 mg/dL (8.4-10.2); Potassium 4.1 mmol/L (3.5-5.1); Total Bilirubin 1.9 mg/dL (0.2-1.3); Total Protein 5.7 g/dL (6.3-8.2)
== END | disposition home or self-care (01) ==
LOC: LABWHC1 13:25
PROVIDERS: ATTEND Family Medicine
DX: E11.22 Type 2 diabetes mellitus with diabetic chronic kidney disease (principal); N18.9 Chronic kidney disease, unspecified; K71.51 Toxic liver disease with chronic active hepatitis with ascites; E83.52 Hypercalcemia; R30.0 Dysuria
CPT/HCPCS: 36415; 80053; 82140; 85025

== ENCOUNTER 2017-06-27 11:43 | Day surgery (SDC) | payer OTHER ==
[2017-06-27 12:18] VITALS: BP 122/59; PULSE 71; RESP 16; TEMP 97.8
[2017-06-27 12:32] LABS: INR 1.5 (<1.2); Prothrombin Time 14.3 sec (9.0-12.0)
[2017-06-27] MEDS: ALBUMIN HUMAN 25% 50 ML in EMPTY BAG 1 BAG IVPB SCH (12:48)
--- NOTE | 2017-06-27 15:24 | US ---
Paracentesis discontinued DATE OF EXAM: 06/27/2017 CLINICAL HISTORY: Ascites Preliminary scanning demonstrated no evidence of abdominal fluid. Therefore, procedure deferred. IMPRESSION: Discontinued paracentesis due to the absence of peritoneal fluid.
== END 2017-06-27 12:46 | disposition home or self-care (01) ==
LOC: RADPROMAIN 11:43
PROVIDERS: ATTEND Family Medicine
DX: K74.60 Unspecified cirrhosis of liver (principal); K71.51 Toxic liver disease with chronic active hepatitis with ascites
CPT/HCPCS: 76705; 85610; 86850; 86900; 86901

== ENCOUNTER → 2017-08-14 | Outpatient (CLI) | payer OTHER ==
--- NOTE | 2017-08-14 15:05 | XR ---
EXAMINATION TYPE: XR chest 2V DATE OF EXAM: 08/14/2017 COMPARISON: 12/16/2016 TECHNIQUE: PA and lateral views submitted. HISTORY: Shortness of breath FINDINGS: The lungs are clear and there is no pneumothorax, pleural effusion, or focal pneumonia. Interstitiu m is coarsened. Correlate for chronic interstitial lung disease. Arthropathy of the shoulders. Hypert rophic and degenerative changes spine. There is a vague 8 mm density along the lateral margin of the left lower lobe. Most suggestive of ate lectasis or scar. IMPRESSION: 1. No acute process. Correlate for chronic interstitial lung disease or pneumonitis.
--- NOTE | 2017-08-14 15:49 | US ---
EXAMINATION TYPE: US abdomen limited DATE OF EXAM: 08/14/2017 COMPARISON: US CLINICAL HISTORY: N18.3 Stage 3 Chronic Kidney Disease. Assess for ascites. Small amount of free fluid is noted RLQ = 3.1cm A/P IMPRESSION: Small volume abdominal ascites with the largest pocket measuring 3.1 cm, appearing to sm all for safe percutaneous drainage.
== END | disposition home or self-care (01) ==
LOC: RADUSWWP 14:02
PROVIDERS: ATTEND Family Medicine
DX: R18.8 Other ascites (principal); K74.60 Unspecified cirrhosis of liver; N18.3 Chronic kidney disease, stage 3 (moderate); R06.02 Shortness of breath
CPT/HCPCS: 71046; 76705

== ENCOUNTER → 2017-10-06 | Outpatient (CLI) | payer OTHER ==
--- NOTE | 2017-10-06 14:34 | US ---
EXAMINATION TYPE: US abdomen complete DATE OF EXAM: 10/06/2017 COMPARISON: US CLINICAL HISTORY: N18.3 Stage 3 Chronic Kidney Disease,K74.60 Cirrhosis.; diabetic, HT 5'10, WT 243lb s; Gallbladder removed EXAM MEASUREMENTS: Liver Length: 10.4 cm Gallbladder Wall: surgically removed CBD: 0.5 cm Spleen: 17.2 x 18.1 x 10.1 cm Right Kidney: 10.4 x 6.1 x 6.4 cm Left Kidney: 11.2 x 5.7 x 4.6 cm Pancreas: Obscured by bowel gas Liver: partially obscured by overlying bowel gas; MP PW Doppler flow is to liver although low PSV is noted; MAL flow is to liver; only right Hepatic Vein is visualized and color flow and PW Doppler alex w is to IVC; mildly heterogeneous appearance Gallbladder: surgically absent Evidence for sonographic Reynoso's sign: No CBD: wnl Spleen: abnormally enlarged Right Kidney: superior cortical cyst = 1.0 x 1.1 x 1.2cm; crescent shaped hypoechoic ot anechoic are is noted adjacent to renal periphery (sonographic "sweat sign" that suggests renal failure) Left Kidney: crescent shaped hypoechoic ot anechoic are is noted adjacent to renal periphery (sonogr aphic "sweat sign" that suggests renal failure) Upper IVC: Obscured by overlying bowel gas except at liver level Abd Aorta: limitedly seen due to overlying bowel gas IMPRESSION: 1. Splenomegaly 2. Coarse hepatic echotexture may reflect chronic hepatocellular disease.
== END | disposition home or self-care (01) ==
LOC: RADUSWWP 13:11
PROVIDERS: ATTEND Family Medicine
DX: R93.2 Abnormal findings on diagnostic imaging of liver and biliary tract (principal); R16.1 Splenomegaly, not elsewhere classified; N18.3 Chronic kidney disease, stage 3 (moderate)
CPT/HCPCS: 76700

== ENCOUNTER → 2018-01-23 | Outpatient (CLI) | payer OTHER ==
--- NOTE | 2018-01-23 15:34 | XR ---
EXAMINATION TYPE: XR chest 2V DATE OF EXAM: 01/23/2018 COMPARISON: 08/14/2017 TECHNIQUE: PA and lateral views submitted. HISTORY: Abnormal x-ray FINDINGS: Subsegmental linear changes are seen within the left lung. Right lung is clear. No pneumothorax. Arth ropathy of the shoulders with diffuse osteopenia. Atherosclerotic change aorta. Interstitium remains prominent. Hypertrophic and degenerative change of the spine. IMPRESSION: 1. Linear change involving the left lung likely is related to scar or atelectasis. Mild prominence of interstitium appears to be slightly improved from the prior exam correlate clinically.
[2018-01-23 16:10] LABS: Basophils % (A) 0 %; Eosinophils # (A) 0.1 k/uL (0-0.7); Eosinophils % (A) 2 %; HCT 33.1 % (39.0-53.0); HGB 11.4 gm/dL (13.0-17.5); Lymphocytes # (A) 0.5 k/uL (1.0-4.8); Lymphocytes % (A) 20 %; MCH 29.8 pg (25.0-35.0); MCHC 34.5 g/dL (31.0-37.0); MCV 86.3 fL (80.0-100.0); Mean Platelet Volume 10.5; Monocytes # (A) 0.3 k/uL (0-1.0); Monocytes % (A) 10 %; Neutrophils # (A) 1.8 k/uL (1.3-7.7); Neutrophils % (A) 66 %; RBC 3.83 m/uL (4.30-5.90); RDW 15.4 % (11.5-15.5); WBC 2.7 k/uL (3.8-10.6)
[2018-01-23 16:21] LABS: Albumin 3.1 g/dL (3.5-5.0); Calcium 8.4 mg/dL (8.4-10.2); Potassium 4.1 mmol/L (3.5-5.1); Total Bilirubin 2.6 mg/dL (0.2-1.3); Total Protein 6.2 g/dL (6.3-8.2)
[2018-01-23 16:24] LABS: Platelet Count 28 k/uL (150-450)
[2018-01-23 16:26] LABS: Spherocytes Present
[2018-01-23 16:37] LABS: T4, Free (Free Thyroxine) 1.02 ng/dL (0.78-2.19)
[2018-01-24 01:26] LABS: Hemoglobin A1C 8.1 % (4.0-6.0)
== END | disposition home or self-care (01) ==
LOC: RADXRMAIN 15:11
PROVIDERS: ATTEND Family Medicine
DX: R91.8 Other nonspecific abnormal finding of lung field (principal); E11.9 Type 2 diabetes mellitus without complications; K74.60 Unspecified cirrhosis of liver; I10 Essential (primary) hypertension; Z79.4 Long term (current) use of insulin
CPT/HCPCS: 36415; 71046; 80053; 83036; 84439; 84443; 85025

== ENCOUNTER → 2018-06-27 | Outpatient (CLI) | payer OTHER ==
[2018-06-27 15:42] LABS: INR 1.4 (<1.2); Partial Thromboplastin Time 28.5 sec (22.0-30.0); Prothrombin Time 14.4 sec (9.0-12.0)
[2018-06-27 15:46] LABS: Basophils % (A) 0 %; Eosinophils # (A) 0.1 k/uL (0-0.7); Eosinophils % (A) 3 %; HCT 37.2 % (39.0-53.0); Lymphocytes # (A) 0.4 k/uL (1.0-4.8); Lymphocytes % (A) 13 %; MCH 30.5 pg (25.0-35.0); MCHC 35.1 g/dL (31.0-37.0); MCV 87.1 fL (80.0-100.0); Monocytes # (A) 0.3 k/uL (0-1.0); Monocytes % (A) 7 %; Neutrophils # (A) 2.6 k/uL (1.3-7.7); Neutrophils % (A) 76 %; RBC 4.27 m/uL (4.30-5.90); RDW 14.9 % (11.5-15.5); WBC 3.4 k/uL (3.8-10.6)
[2018-06-27 15:47] LABS: Platelet Count 33 k/uL (150-450)
--- NOTE | 2018-06-27 16:13 | XR ---
EXAMINATION TYPE: XR chest 2V DATE OF EXAM: 06/27/2018 COMPARISON: Prior chest x-ray 01/23/2018 HISTORY: Fatigue and abnormal chest x-ray TECHNIQUE: Frontal and lateral views of the chest are obtained. FINDINGS: The patient is rotated. Some strand-like densities at the lingula are again noted likely re presenting scarring. There is no pleural effusion or pneumothorax seen. The cardiac silhouette size is stable. The osseous structures are intact. Anterior flowing osteophytes in the thoracic spine merrill ggest diffuse idiopathic skeletal hyperostosis. Soft tissue prominence noted over the lower chest teresita aterally. The aorta is dense. IMPRESSION: No acute cardiopulmonary process.
[2018-06-27 18:22] LABS: Albumin 3.6 g/dL (3.80-4.90); Albumin/Globulin Ratio 1.29 (1.20-2.10); Anion Gap 11.2 mmol/L (4.00-12.00); Calcium 8.8 mg/dL (8.7-10.3); Carbon Dioxide 24.8 mmol/L (21.6-31.8); Globulin 2.8 g/dL (1.6-3.3); Potassium 4.4 mmol/L (3.5-5.5); Total Bilirubin 2.9 mg/dL (0.3-1.2); Total Protein 6.4 g/dL (6.2-8.2)
== END | disposition home or self-care (01) ==
LOC: LABWHC1 14:42
PROVIDERS: ATTEND Family Medicine
DX: R53.83 Other fatigue (principal); K71.51 Toxic liver disease with chronic active hepatitis with ascites; E11.65 Type 2 diabetes mellitus with hyperglycemia; I10 Essential (primary) hypertension
CPT/HCPCS: 36415; 71046; 80053; 82140; 85025; 85610; 85730

== ENCOUNTER 2018-07-23 14:51 | Emergency (ER) | payer OTHER ==
[2018-07-23 15:12] VITALS: BP 143/74; PULSE 75; RESP 18; TEMP 98.3
--- NOTE | 2018-07-23 16:18 | ED ---
Burn/Smoke HPI - General Chief complaint: Burn/Smoke Inhalation Stated complaint: Fall, burned stomach Time Seen by Provider: 07/23/18 15:40 Source: patient Mode of arrival: wheelchair Limitations: no limitations - History of Present Illness Initial comments: 63-year-old male with cirrhosis of the liver presenting today for chief complaint of abdominal burn. Patient states just prior to arrival he was attempting to drink soup when he spilled on his abdomen. Patient states he immediately removed the source, applied cold water. He states there was a blister however he peeled this off. Patient presented for evaluation. Patient denies any other areas of burn. Patient denies any recent falls, fever, chills, shortness of breath, chest pain, back pain, abdominal pain, nausea or vomiting, numbness or tingling, dysuria or hematuria, constipation or diarrhea, headaches or visual changes, or any other complaints. Upon arrival pt VS within acceptable limits. Pt appears well, no acute distress. - Related Data Home Medications Medication Instructions Recorded Confirmed Atorvastatin [Lipitor] 20 mg PO HS 01/14/16 06/27/17 Insulin Glulisine [Apidra] See Protocol SQ AC-TID 04/25/16 06/27/17 Pregabalin [Lyrica] 200 mg PO BID 04/25/16 06/27/17 hydrOXYzine HCL [Atarax] 10 mg PO HS 08/03/16 06/27/17 oxyCODONE HCL [Roxicodone] 5 mg PO Q6H PRN 08/03/16 06/27/17 Midodrine HCl [ProAmatine] 10 mg PO TID 09/02/16 06/27/17 Furosemide [Lasix] 80 mg PO BID 01/23/17 06/27/17 Lactulose [Cephulac] 45 gm PO QID 01/23/17 06/27/17 Spironolactone [Aldactone] 25 mg PO BID 01/23/17 06/27/17 Non-Formulary Drug [Non Formulary 1 each SQ ONCE 06/23/17 06/27/17 Drug] Tamsulosin [Flomax] 0.4 mg PO DAILY 06/27/17 06/27/17 Previous Rx's Medication Instructions Recorded Temazepam [Restoril] 15 mg PO HS PRN #30 cap 10/04/16 Cephalexin [Keflex] 500 mg PO Q8HR 5 Days #15 cap 07/23/18 SILVER sulfADIAZINE CREAM 1 applic TOPICAL DAILY 10 Days #1 07/23/18 [Silvadene Cream] tube Allergies Allergy/AdvReac Type Severity Reaction Status Date / Time Mushroom Allergy Anaphylaxis Verified 07/23/18 15:12 Review of Systems ROS Statement: Those systems with pertinent positive or pertinent negative responses have been documented in the HPI. ROS Other: All systems not noted in ROS Statement are negative. Past Medical History Past Medical History: Chest Pain / Angina, CVA/TIA, Diabetes Mellitus, GERD/ Reflux, Hyperlipidemia, Hypertension, Liver Disease, Neurologic Disorder, Osteoarthritis (OA), Pneumonia, Prostate Disorder, Renal Disease Additional Past Medical History / Comment(s): Diabetic neuropathy, myelodysplasia, chronic pain syndrome.ASCITIES,ULCER LT GREAT TOE, chronic pancytopenia History of Any Multi-Drug Resistant Organisms: MRSA Date of last positivie culture/infection: 04/30/16 MDRO Source:: LEFT FOOT Past Surgical History: Cholecystectomy, Orthopedic Surgery Additional Past Surgical History / Comment(s): Surgical debridements to the left great toe for diabetic foot ulcer, healed and ulcer has returned,LT GREAT TOE AMP, RT THORACENTESIS, PARACENTESIS colonoscopy about 2 years ago. Past Anesthesia/Blood Transfusion Reactions: No Reported Reaction Past Psychological History: Anxiety, Depression Smoking Status: Never smoker Past Alcohol Use History: None Reported Past Drug Use History: None Reported - Past Family History Mother Family Medical History: Cancer, Diabetes Mellitus Father Family Medical History: Cancer, Diabetes Mellitus Brother(s) Family Medical History: Diabetes Mellitus Daughter(s) Family Medical History: Diabetes Mellitus, Hyperlipidemia, Hypertension Son(s) Family Medical History: Diabetes Mellitus, Hyperlipidemia, Hypertension General Exam - General Exam Comments Initial Comments: General: The patient is awake and alert, in no distress, and does not appear acutely ill. Eye: Pupils are equal, round and reactive to light, extra-ocular movements are intact. No nystagmus. There is normal conjunctiva bilaterally. No signs of icterus. Ears, nose, mouth and throat: There are moist mucous membranes and no oral lesions. Neck: The neck is supple, there is no tenderness or JVD. Cardiovascular: There is a regular rate and rhythm. No murmur, rub or gallop is appreciated. Respiratory: Lungs are clear to auscultation, respirations are non-labored, breath sounds are equal. No wheezes, stridor, rales, or rhonchi. Gastrointestinal: Distended abdomen, capitu medusa presenting. Non-tender abdomen without masses.. There is no rebound or guarding present. No CVA tenderness. Bowel sounds are unremarkable. Musculoskeletal: Normal ROM, no tenderness. Strength 5/5. Sensation intact. Pulses equal bilaterally 2+. Neurological: A&O x 3. CN II-XII intact, There are no obvious motor or sensory deficits. Coordination appears grossly intact. Speech is normal. Skin: Skin is warm and dry and no rashes. Burn of the abdomen, second degree, blister removed by patient, no charring, no whitening of skin, skin blanchable. Areas 1% or less. Psychiatric: Cooperative, appropriate mood & affect, normal judgment. Limitations: no limitations Course Vital Signs 07/23/18 15:09 Temperature 98.3 F Pulse Rate 75 Respiratory 18 Rate Blood Pressure 143/74 O2 Sat by Pulse 96 Oximetry Medical Decision Making - Medical Decision Making 63-year-old presenting for evaluation of burn. There is a 1% second-degree burn of the abdomen. Exposure of underlying skin as patient removed blister. Silvadene applied after cleansing area. Damp bandage applied. Pt will be discharge with instruction to use bacitracin for the first 3 days then silvadene cream for the remaining 7-10 days. Pt is keep area covered with applied topical ointment at all times. Pt is to assess area for surrounding redness or signs of infection as discussed. Recommended patient follow-up with primary care provider. Given patient significant comobidites I did give pt ppx antibiotics for infection ppx. Pt is agreeable with plan and discharge aware of all return parameters. Denies questions at this time. pt discharged appearing well. Discussed care with attending provider Dr. Muro prior to pt discharge agreeable with plan. Disposition Clinical Impression: Second degree burn of abdomen Disposition: HOME SELF-CARE Condition: Good Instructions (If sedation given, give patient instructions): Second Degree Burn (ED) Additional Instructions: Please use medication as discussed. Please follow-up with family doctor in the next 2 days. Please change bandage daily, apply cream on area as discussed. Please return to emergency room if the symptoms increase or worsen or for any other concerns, increasing redness, fever. Prescriptions: Cephalexin [Keflex] 500 mg PO Q8HR 5 Days #15 cap SILVER sulfADIAZINE CREAM [Silvadene Cream] 1 applic TOPICAL DAILY 10 Days #1 tube Is patient prescribed a controlled substance at d/c from ED?: No Referrals: Klaus Agrawal MD [Primary Care Provider] - 1-2 days Time of Disposition: 16:39
== END 2018-07-23 17:07 | disposition home or self-care (01) ==
LOC: EC 14:51
DX: T21.22XA Burn of second degree of abdominal wall, initial encounter (principal); T31.0 Burns involving less than 10% of body surface; R14.0 Abdominal distension (gaseous); E78.5 Hyperlipidemia, unspecified; I10 Essential (primary) hypertension; E11.40 Type 2 diabetes mellitus with diabetic neuropathy, unspecified; N42.9 Disorder of prostate, unspecified; F41.9 Anxiety disorder, unspecified; Z91.018 Allergy to other foods; Z79.4 Long term (current) use of insulin; Z79.899 Other long term (current) drug therapy; Z86.14 Personal history of Methicillin resistant Staphylococcus aureus infection; Z90.49 Acquired absence of other specified parts of digestive tract; Z85.89 Personal history of malignant neoplasm of other organs and systems; X10.1XXA Contact with hot food, initial encounter; Y93.89 Activity, other specified; Y92.009 Unspecified place in unspecified non-institutional (private) residence as the place of occurrence of the external cause
CPT/HCPCS: 16000; 99282

== ENCOUNTER 2018-08-08 13:18 | Inpatient (IN) | payer OTHER ==
[2018-08-08] MEDS ORDERED: SODIUM CHLORIDE 0.9% 1,000 ML IV ONE ×3 (13:46→16:17)
--- NOTE | 2018-08-08 13:55 | ED ---
General Adult HPI - General Chief complaint: Altered Mental Status Stated complaint: Confused, weak Time Seen by Provider: 08/08/18 13:35 Source: patient, RN notes reviewed, old records reviewed Mode of arrival: ambulatory Limitations: no limitations - History of Present Illness Initial comments: Patient is a 63-year-old male with history of liver disease cirrhosis presents return today with increased weakness fatigue. Patient reports that he isn't taking his lactulose for to lower his ammonia levels. Patient's daughter whom is his caregiver states he's had multiple falls over the past few days. Never hitting his head.. Patient has had no nausea or vomiting. He did not have a bowel movement within the past day. Denies any change in urination. - Related Data Home Medications Medication Instructions Recorded Confirmed Atorvastatin [Lipitor] 20 mg PO HS 01/14/16 08/08/18 Pregabalin [Lyrica] 200 mg PO BID 04/25/16 08/08/18 hydrOXYzine HCL [Atarax] 10 mg PO HS 08/03/16 08/08/18 oxyCODONE HCL [Roxicodone] 5 mg PO Q6H PRN 08/03/16 08/08/18 Midodrine HCl [ProAmatine] 10 mg PO TID 09/02/16 08/08/18 Furosemide [Lasix] 80 mg PO BID 01/23/17 08/08/18 Lactulose [Cephulac] 30 gm PO QID 01/23/17 08/08/18 Spironolactone [Aldactone] 25 mg PO BID 01/23/17 08/08/18 Tamsulosin [Flomax] 0.4 mg PO BID 06/27/17 08/08/18 Insulin Glargine [Lantus] 60 unit SQ HS 08/08/18 08/08/18 Insulin Lispro [Admelog] See Protocol SQ AC-TID 08/08/18 08/08/18 Temazepam [Restoril] 15 mg PO HS 08/08/18 08/08/18 Allergies Allergy/AdvReac Type Severity Reaction Status Date / Time Mushroom Allergy Anaphylaxis Verified 08/08/18 13:49 Review of Systems ROS Statement: Those systems with pertinent positive or pertinent negative responses have been documented in the HPI. ROS Other: All systems not noted in ROS Statement are negative. Past Medical History Past Medical History: Chest Pain / Angina, CVA/TIA, Diabetes Mellitus, GERD/ Reflux, Hyperlipidemia, Hypertension, Liver Disease, Neurologic Disorder, Osteoarthritis (OA), Pneumonia, Prostate Disorder, Renal Disease Additional Past Medical History / Comment(s): Diabetic neuropathy, myelodysplasia, chronic pain syndrome.ASCITIES,ULCER LT GREAT TOE, chronic pancytopenia History of Any Multi-Drug Resistant Organisms: MRSA Date of last positivie culture/infection: 04/30/16 MDRO Source:: LEFT FOOT Past Surgical History: Cholecystectomy, Orthopedic Surgery Additional Past Surgical History / Comment(s): Surgical debridements to the left great toe for diabetic foot ulcer, healed and ulcer has returned,LT GREAT TOE AMP, RT THORACENTESIS, PARACENTESIS colonoscopy about 2 years ago. Past Anesthesia/Blood Transfusion Reactions: No Reported Reaction Past Psychological History: Anxiety, Depression Smoking Status: Never smoker Past Alcohol Use History: None Reported Past Drug Use History: None Reported - Past Family History Mother Family Medical History: Cancer, Diabetes Mellitus Father Family Medical History: Cancer, Diabetes Mellitus Brother(s) Family Medical History: Diabetes Mellitus Daughter(s) Family Medical History: Diabetes Mellitus, Hyperlipidemia, Hypertension Son(s) Family Medical History: Diabetes Mellitus, Hyperlipidemia, Hypertension General Exam - General Exam Comments Initial Comments: 63-year-old male. Patient appears dehydrated. Dry oropharynx. Alert and oriented 2. Limitations: no limitations General appearance: alert, in no apparent distress Head exam: Present: atraumatic, normocephalic, normal inspection Eye exam: Present: normal appearance, PERRL, EOMI. Absent: scleral icterus, conjunctival injection, periorbital swelling ENT exam: Present: normal exam, mucous membranes dry, mucous membranes moist. Absent: normal oropharynx Neck exam: Present: normal inspection. Absent: tenderness, meningismus, lymphadenopathy Respiratory exam: Present: normal lung sounds bilaterally. Absent: respiratory distress, wheezes, rales, rhonchi, stridor Cardiovascular Exam: Present: regular rate, normal rhythm, normal heart sounds. Absent: systolic murmur, diastolic murmur, rubs, gallop, clicks GI/Abdominal exam: Present: soft, normal bowel sounds, other (Protuberant abdomen). Absent: distended, guarding, rebound, rigid Extremities exam: Present: normal inspection, full ROM, normal capillary refill , other (Dry skin). Absent: tenderness, pedal edema, joint swelling, calf tenderness Back exam: Present: normal inspection Neurological exam: Present: alert, altered, CN II-XII intact Psychiatric exam: Present: normal affect, normal mood Skin exam: Present: warm, dry, intact, normal color. Absent: rash Course Vital Signs 08/08/18 08/08/18 08/08/18 13:24 14:03 15:07 Temperature 99.0 F Pulse Rate 101 H 85 97 Respiratory 18 18 18 Rate Blood Pressure 142/54 148/68 O2 Sat by Pulse 96 95 96 Oximetry 08/08/18 15:54 Temperature Pulse Rate 99 Respiratory 18 Rate Blood Pressure 157/96 O2 Sat by Pulse 97 Oximetry Medical Decision Making - Medical Decision Making Patient is 63-year-old male presents emergency room today for increased confusion. Since ammonia level is elevated 99. Patient's lab work did show some dehydration. Patient has a very dry oropharynx clinically dehydrated. Patient's chest x-ray was negative for pneumonia. EKG shows no significant change. At this time patient's case with Dr. Myrick. He was given a dose of lactulose and started on IV maintenance fluids. Discussed admission with family and they agree patient's 2 weeks to be home. Patient will be admitted with repeat lactulose and repeat ammonia levels. - Lab Data Result diagrams: 08/08/18 13:42 08/08/18 13:42 Lab Results 08/08/18 08/08/18 08/08/18 Range/Units 13:42 13:42 13:42 WBC 10.0 (3.8-10.6) k/uL RBC 4.50 (4.30-5.90) m/uL Hgb 13.3 (13.0-17.5) gm/dL Hct 39.4 (39.0-53.0) % MCV 87.6 (80.0-100.0) fL MCH 29.5 (25.0-35.0) pg MCHC 33.7 (31.0-37.0) g/dL RDW 14.8 (11.5-15.5) % Plt Count 35 L (150-450) k/uL Neutrophils % 90 % Lymphocytes % 3 % Monocytes % 6 % Eosinophils % 0 % Basophils % 0 % Neutrophils # 9.0 H (1.3-7.7) k/uL Lymphocytes # 0.3 L (1.0-4.8) k/uL Monocytes # 0.6 (0-1.0) k/uL Eosinophils # 0.0 (0-0.7) k/uL Basophils # 0.0 (0-0.2) k/uL PT (9.0-12.0) sec INR (<1.2) APTT (22.0-30.0) sec Sodium 139 (137-145) mmol/L Potassium 4.5 (3.5-5.1) mmol/L Chloride 105 (98-107) mmol/L Carbon Dioxide 20 L (22-30) mmol/L Anion Gap 14 mmol/L BUN 37 H (9-20) mg/dL Creatinine 2.55 H (0.66-1.25) mg/dL Est GFR (CKD-EPI)AfAm 30 (>60 ml/min/1.73 sqM) Est GFR (CKD-EPI)NonAf 26 (>60 ml/min/1.73 sqM) Glucose 175 H (74-99) mg/dL POC Glucose (mg/dL) (75-99) mg/dL POC Glu Promotional Marketing Agent ID Calcium 8.7 (8.4-10.2) mg/dL Total Bilirubin 4.1 H (0.2-1.3) mg/dL AST 44 (17-59) U/L ALT 28 (21-72) U/L Alkaline Phosphatase 108 (38-126) U/L Ammonia 99 H (<30) umol/L Troponin I (0.000-0.034) ng/mL Total Protein 6.5 (6.3-8.2) g/dL Albumin 3.2 L (3.5-5.0) g/dL 08/08/18 08/08/18 08/08/18 Range/Units 13:42 13:42 13:58 WBC (3.8-10.6) k/uL RBC (4.30-5.90) m/uL Hgb (13.0-17.5) gm/dL Hct (39.0-53.0) % MCV (80.0-100.0) fL MCH (25.0-35.0) pg MCHC (31.0-37.0) g/dL RDW (11.5-15.5) % Plt Count (150-450) k/uL Neutrophils % % Lymphocytes % % Monocytes % % Eosinophils % % Basophils % % Neutrophils # (1.3-7.7) k/uL Lymphocytes # (1.0-4.8) k/uL Monocytes # (0-1.0) k/uL Eosinophils # (0-0.7) k/uL Basophils # (0-0.2) k/uL PT 17.6 H (9.0-12.0) sec INR 1.8 H (<1.2) APTT 29.7 (22.0-30.0) sec Sodium (137-145) mmol/L Potassium (3.5-5.1) mmol/L Chloride (98-107) mmol/L Carbon Dioxide (22-30) mmol/L Anion Gap mmol/L BUN (9-20) mg/dL Creatinine (0.66-1.25) mg/dL Est GFR (CKD-EPI)AfAm (>60 ml/min/1.73 sqM) Est GFR (CKD-EPI)NonAf (>60 ml/min/1.73 sqM) Glucose (74-99) mg/dL POC Glucose (mg/dL) 165 H (75-99) mg/dL POC Glu Promotional Marketing Agent ID Chris Shin Calcium (8.4-10.2) mg/dL Total Bilirubin (0.2-1.3) mg/dL AST (17-59) U/L ALT (21-72) U/L Alkaline Phosphatase (38-126) U/L Ammonia (<30) umol/L Troponin I 0.022 (0.000-0.034) ng/mL Total Protein (6.3-8.2) g/dL Albumin (3.5-5.0) g/dL 08/08/18 15:39 EKG shows normal sinus rhythm with normal specific ST adamantly. Prolonged QT. Ventricular rate 99 beats were minute. Intervals 146 most seconds. Estrogen 80 ms. QTQTC 3/497 ms. - Radiology Data Radiology results: report reviewed Chest x-ray shows chronic peripheral changes myocardial megaly without acute cardio vomiting process. Disposition Clinical Impression: Confusion, Dehydration, Increased ammonia level Disposition: ADMITTED IP TO THIS HOSP Condition: Stable Is patient prescribed a controlled substance at d/c from ED?: No Referrals: Klaus Agrawal MD [Primary Care Provider] - 1-2 days Time of Disposition: 16:15
[2018-08-08 14:01] LABS: Glucose,Whole Blood 165 mg/dL (75-99)
[2018-08-08 14:13] LABS: Albumin 3.2 g/dL (3.5-5.0); Calcium 8.7 mg/dL (8.4-10.2); Potassium 4.5 mmol/L (3.5-5.1); Total Bilirubin 4.1 mg/dL (0.2-1.3); Total Protein 6.5 g/dL (6.3-8.2)
[2018-08-08 14:15] LABS: INR 1.8 (<1.2); Partial Thromboplastin Time 29.7 sec (22.0-30.0); Prothrombin Time 17.6 sec (9.0-12.0)
[2018-08-08 14:52] LABS: Basophils % (A) 0 %; Eosinophils % (A) 0 %; HCT 39.4 % (39.0-53.0); HGB 13.3 gm/dL (13.0-17.5); Lymphocytes # (A) 0.3 k/uL (1.0-4.8); Lymphocytes % (A) 3 %; MCH 29.5 pg (25.0-35.0); MCHC 33.7 g/dL (31.0-37.0); MCV 87.6 fL (80.0-100.0); Mean Platelet Volume 9.5; Monocytes # (A) 0.6 k/uL (0-1.0); Monocytes % (A) 6 %; Neutrophils % (A) 90 %; RDW 14.8 % (11.5-15.5)
[2018-08-08 14:53] LABS: Platelet Count 35 k/uL (150-450)
[2018-08-08] MEDS ORDERED: LACTULOSE 20 GM/30 ML CUP PO ONE (14:53)
--- NOTE | 2018-08-08 15:35 | XR ---
EXAMINATION TYPE: XR chest 2V DATE OF EXAM: 08/08/2018 COMPARISON: Chest x-ray June 27, 2018 HISTORY: Altered mental status and weakness. TECHNIQUE: Frontal and lateral views of the chest are obtained. FINDINGS: There is some chronic parenchymal change without suspicious focal air space opacity, pleur al effusion, or pneumothorax seen. The cardiac silhouette size is stable and mildly enlarged. Multil evel spurring in thoracic spine is redemonstrated. IMPRESSION: Chronic parenchymal change and mild cardiomegaly without acute pulmonary process.
[2018-08-08] MEDS ORDERED: NALOXONE 0.4 MG/ML 1 ML VIAL IV PRN (16:17)
[2018-08-08] MEDS ORDERED: IBUPROFEN 400 MG TAB PO PRN (16:17)
[2018-08-08] MEDS ORDERED: ONDANSETRON 4 MG/2 ML VIAL IVP PRN (16:17)
[2018-08-08] MEDS ORDERED: ACETAMINOPHEN TAB 325 MG TAB PO PRN (16:17)
[2018-08-08] MEDS ORDERED: MORPHINE SULFATE 4 MG/ML SYRINGE IV PRN (16:17)
[2018-08-08] MEDS ORDERED: IBUPROFEN IV 800 MG in SODIUM CHLORIDE 0.9% 250 ML IV ONE (16:59)
[2018-08-08] MEDS: MIDODRINE 5 MG TAB PO SCH (18:16)
[2018-08-08] MEDS: LACTULOSE 20 GM/30 ML CUP PO SCH ×2 (18:16→20:53)
[2018-08-08] MEDS: INSULIN ASPART (NovoLOG) 100 UNIT/ML VIAL SQ SCH ×2 (18:17→21:33)
[2018-08-08 18:38] LABS: Amorphous Sediment,Urine Rare /hpf; Appearance,Urine Clear (Clear); Bacteria,Urine Rare /hpf; Bilirubin,Urine Negative (Negative); Blood,Urine Moderate (Negative); Color,Urine Yellow; Glucose,Urine (UA) Negative (Negative); Hyaline Casts,Urine 3 /lpf (0-2); Ketones,Urine Negative (Negative); Leukocyte Esterase,Urine Negative (Negative); Mucus,Urine Rare /hpf; Nitrite,Urine Negative (Negative); PH, Urine 5.5 (5.0-8.0); Protein,Urine Negative (Negative); RBC,Urine 42 /hpf (0-5); Specific Gravity,Urine 1.008 (1.001-1.035); Squamous Epithelial Cell,Urine 1 /hpf (0-4); Urobilinogen,Urine <2.0 mg/dL (<2.0); WBC,Urine 3 /hpf (0-5)
[2018-08-08 18:51] LABS: Amphetamine Screen,Urine Not Detected (NotDetected); Barbiturate Screen,Urine Not Detected (NotDetected); Benzodiazepines Screen,Urine Detected (NotDetected); Cocaine Screen,Urine Not Detected (NotDetected); Methadone Screen, Urine Not Detected (NotDetected); Opiate Screen,Urine Not Detected (NotDetected); Oxycodone Screen, Urine Detected (NotDetected); Phencyclidine Screen,Urine Not Detected (NotDetected); Tricyclic Antidepressant,Urine Not Detected (NotDetected); Urn Cannabinoid Scrn Not Detected (NotDetected)
[2018-08-08] MEDS: FUROSEMIDE 80 MG TAB PO SCH (20:24)
[2018-08-08 20:49] LABS: Glucose,Whole Blood 219 mg/dL (75-99)
[2018-08-08] MEDS: PREGABALIN 100 MG CAP PO SCH (20:53)
[2018-08-08] MEDS: ATORVASTATIN 20 MG TAB PO SCH (20:53)
[2018-08-08] MEDS: SPIRONOLACTONE 25 MG TAB PO SCH (20:53)
[2018-08-08] MEDS: TAMSULOSIN 0.4 MG CAP.ER.24H PO SCH (20:53)
[2018-08-08] MEDS: hydrOXYzine HCL 10 MG TAB PO SCH (21:32)
[2018-08-08] MEDS: INSULIN DETEMIR (LEVEMIR) 100 UNIT/ML SYR SQ SCH (21:33)
[2018-08-09] MEDS: HYDROcodone/APAP 5-325MG 1 EACH TAB PO PRN ×3 (01:12→22:43)
[2018-08-09] MEDS: TEMAZEPAM 15 MG CAP PO PRN ×2 (01:12→22:47)
[2018-08-09 06:56] LABS: Glucose,Whole Blood 128 mg/dL (75-99)
[2018-08-09] MEDS: INSULIN ASPART (NovoLOG) 100 UNIT/ML VIAL SQ SCH ×4 (09:09→22:33)
[2018-08-09] MEDS: SPIRONOLACTONE 25 MG TAB PO SCH ×2 (09:22→22:33)
[2018-08-09] MEDS: TAMSULOSIN 0.4 MG CAP.ER.24H PO SCH ×2 (09:22→22:32)
[2018-08-09] MEDS: PREGABALIN 100 MG CAP PO SCH ×2 (09:22→22:32)
[2018-08-09] MEDS: PANTOPRAZOLE 40 MG/10 ML VIAL IV SCH (09:22)
[2018-08-09] MEDS: LACTULOSE 20 GM/30 ML CUP PO SCH ×4 (09:23→22:47)
[2018-08-09] MEDS: MIDODRINE 5 MG TAB PO SCH ×3 (09:25→18:17)
[2018-08-09] MEDS: FUROSEMIDE 80 MG TAB PO SCH ×2 (09:26→16:23)
[2018-08-09 11:38] LABS: Glucose,Whole Blood 129 mg/dL (75-99)
[2018-08-09 17:30] LABS: Glucose,Whole Blood 164 mg/dL (75-99)
[2018-08-09 20:15] LABS: Glucose,Whole Blood 204 mg/dL (75-99)
[2018-08-09] MEDS: ATORVASTATIN 20 MG TAB PO SCH (22:32)
[2018-08-09] MEDS: INSULIN DETEMIR (LEVEMIR) 100 UNIT/ML SYR SQ SCH (22:34)
[2018-08-09] MEDS: hydrOXYzine HCL 10 MG TAB PO SCH (22:34)
[2018-08-10] MEDS: HYDROcodone/APAP 5-325MG 1 EACH TAB PO PRN ×2 (06:24→18:17)
[2018-08-10 07:22] LABS: Glucose,Whole Blood 62 mg/dL (75-99)
[2018-08-10 07:33] LABS: Glucose,Whole Blood 67 mg/dL (75-99)
[2018-08-10] MEDS: INSULIN ASPART (NovoLOG) 100 UNIT/ML VIAL SQ SCH ×4 (07:45→21:30)
[2018-08-10 07:50] LABS: Glucose,Whole Blood 85 mg/dL (75-99)
[2018-08-10] MEDS: LACTULOSE 20 GM/30 ML CUP PO SCH ×4 (08:56→21:35)
[2018-08-10] MEDS: FUROSEMIDE 80 MG TAB PO SCH ×2 (08:56→17:33)
[2018-08-10] MEDS: SPIRONOLACTONE 25 MG TAB PO SCH ×2 (08:56→21:30)
[2018-08-10] MEDS: MIDODRINE 5 MG TAB PO SCH ×3 (08:56→17:34)
[2018-08-10] MEDS: PREGABALIN 100 MG CAP PO SCH ×2 (08:56→21:29)
[2018-08-10] MEDS: PANTOPRAZOLE 40 MG/10 ML VIAL IV SCH (08:56)
[2018-08-10] MEDS: TAMSULOSIN 0.4 MG CAP.ER.24H PO SCH ×2 (08:56→21:29)
[2018-08-10 11:52] LABS: Glucose,Whole Blood 128 mg/dL (75-99)
[2018-08-10 16:19] LABS: HGB 11.3 gm/dL (13.0-17.5); MCHC 34.1 g/dL (31.0-37.0); MCV 87.8 fL (80.0-100.0); Mean Platelet Volume 9.7; Poikilocytosis Slight; RBC 3.76 m/uL (4.30-5.90); RDW 14.7 % (11.5-15.5)
[2018-08-10 16:28] LABS: Calcium 8.1 mg/dL (8.4-10.2); Potassium 3.8 mmol/L (3.5-5.1)
[2018-08-10 17:04] LABS: Lymphocytes # (M) 0.46 k/uL (1.0-4.8); Monocytes # (M) 0.12 k/uL (0-1.0); Neutrophils # (M) 1.32 k/uL (1.3-7.7); Neutrophils % (M) 66 %; Nucleated Red Blood Cells 0 /100 WBC (0-0); Total Cells Counted 100
[2018-08-10 17:05] LABS: Glucose,Whole Blood 245 mg/dL (75-99)
[2018-08-10 17:07] LABS: Large Platelets Present; Platelet Count 28 k/uL (150-450); Polychromasia Present
--- NOTE | 2018-08-10 18:07 | P.HPIM ---
History of Present Illness H&P Date: 08/09/18 Chief Complaint: Hepatic encephalopathy Luis is a well-known patient to our office 63-year-old male history of liver disease as well as renal failure. Patient had stopped taking his lactulose which he takes to keep ammonia levels down. Daughter states she's had multiple falls over the past few days states he is not actually hit his head patient has had no nausea or vomiting he hasn't had a bowel movement in several days and has had some confusion and weakness increased mental status changes Ammonia level in the emergency room was 99 Review of Systems Constitutional: Reports as per HPI, Reports chronic headaches, Reports weakness Ears, nose, mouth and throat: Reports as per HPI Cardiovascular: Reports as per HPI Respiratory: Reports as per HPI Gastrointestinal: Reports abdominal pain, Reports change in bowel habits (Extrem es of gross ascites) Genitourinary: Reports as per HPI Musculoskeletal: Reports as per HPI Integumentary: Reports as per HPI Neurological: Reports change in mentation (Admission ammonia level of 99) Past Medical History Past Medical History: Chest Pain / Angina, CVA/TIA, Diabetes Mellitus, GERD/Reflux, Hyperlipidemia, Hypertension, Liver Disease, Neurologic Disorder, Osteoarthritis (OA), Pneumonia, Prostate Disorder, Renal Disease Additional Past Medical History / Comment(s): Diabetic neuropathy, myelodysplasia, chronic pain syndrome.ASCITIES,ULCER LT GREAT TOE (toe amputated), chronic pancytopenia, ulceration on left watson, 2nd degree servin from soup being spilled on stomach. History of Any Multi-Drug Resistant Organisms: MRSA Date of last positivie culture/infection: 04/30/16 MDRO Source:: LEFT FOOT Past Surgical History: Cholecystectomy, Orthopedic Surgery Additional Past Surgical History / Comment(s): Surgical debridements to the left great toe for diabetic foot ulcer, healed and ulcer has returned,LT GREAT TOE AMP, RT THORACENTESIS, PARACENTESIS colonoscopy about 2 years ago. Past Anesthesia/Blood Transfusion Reactions: No Reported Reaction Smoking Status: Never smoker - Past Family History Mother Family Medical History: Cancer, Diabetes Mellitus Father Family Medical History: Cancer, Diabetes Mellitus Brother(s) Family Medical History: Diabetes Mellitus Daughter(s) Family Medical History: Diabetes Mellitus, Hyperlipidemia, Hypertension Son(s) Family Medical History: Diabetes Mellitus, Hyperlipidemia, Hypertension Medications and Allergies Home Medications Medication Instructions Recorded Confirmed Type RX: Atorvastatin [Lipitor] 20 mg PO HS 01/14/16 08/08/18 History RX: Pregabalin [Lyrica] 200 mg PO BID 04/25/16 08/08/18 History RX: hydrOXYzine HCL [Atarax] 10 mg PO HS 08/03/16 08/08/18 History RX: oxyCODONE HCL [Roxicodone] 5 mg PO Q6H PRN 08/03/16 08/08/18 History RX: Midodrine HCl [ProAmatine] 10 mg PO TID 09/02/16 08/08/18 History Furosemide [Lasix] 80 mg PO BID 01/23/17 08/08/18 History RX: Lactulose [Cephulac] 30 gm PO QID 01/23/17 08/08/18 History Spironolactone [Aldactone] 25 mg PO BID 01/23/17 08/08/18 History Tamsulosin [Flomax] 0.4 mg PO BID 06/27/17 08/08/18 History Insulin Glargine [Lantus] 60 unit SQ HS 08/08/18 08/08/18 History Insulin Lispro [Admelog] See Protocol SQ AC-TID 08/08/18 08/08/18 History Temazepam [Restoril] 15 mg PO HS 08/08/18 08/08/18 History Allergies Allergy/AdvReac Type Severity Reaction Status Date / Time Mushroom Allergy Anaphylaxis Verified 08/08/18 13:49 Physical Exam Osteopathic Statement: *. No significant issues noted on an osteopathic s tructural exam other than those noted in the History and Physical/Consult. Vitals: Vital Signs Temp Pulse Resp BP Pulse Ox 08/10/18 13:50 97.8 F 69 18 134/56 99 08/10/18 05:00 97.7 F 61 16 103/45 96 08/09/18 21:00 98.2 F 80 16 146/60 97 Intake and Output 08/10/18 08/10/18 08/10/18 06:59 14:59 22:59 Intake Total 590 600 Balance 590 600 Intake: Oral 590 600 Other: Voiding Method Urinal Urinal Diaper Diaper Incontinent Incontinent # Voids 3 3 # Bowel Movements 3 2 General: [Patient awake, alert and oriented times 3. Patient in no acute distress.] HEENT: [PERRL. EOMI. No pharyngeal erythema or exudate.] Neck: [No adenopathy.] Cardiac: [Heart regular in rate and rhythm. No S3. No S4. No clicks, rubs. No murmur.] Lungs: [Clear to auscultation bilaterally.] Abdomen: [No mass. No organomegaly. Bowel sounds are diminished secondary to body habitus Extreme ascites noted Extremes: [No edema no cyanosis no claudication normal pulses] : [] Musculoskeletal: [No joint erythema, edema or tenderness.] Skin: [No rash.] Neurologic: [No lateralizing deficits. CN II - XII grossly intact.] Lymphatic: [No adenopathy.] Results CBC & Chem 7: 08/10/18 16:04 08/10/18 16:04 Labs: Abnormal Lab Results - Last 24 Hours (Table) 08/09/18 08/10/18 08/10/18 Range/Units 20:14 07:17 07:32 WBC (3.8-10.6) k/uL RBC (4.30-5.90) m/uL Hgb (13.0-17.5) gm/dL Hct (39.0-53.0) % Plt Count (150-450) k/uL Lymphocytes # (Manual) (1.0-4.8) k/uL BUN (9-20) mg/dL Creatinine (0.66-1.25) mg/dL Glucose (74-99) mg/dL POC Glucose (mg/dL) 204 H 62 L 67 L (75-99) mg/dL Calcium (8.4-10.2) mg/dL AST (17-59) U/L 08/10/18 08/10/18 08/10/18 Range/Units 11:37 16:04 16:04 WBC 2.0 L (3.8-10.6) k/uL RBC 3.76 L (4.30-5.90) m/uL Hgb 11.3 L (13.0-17.5) gm/dL Hct 33.0 L (39.0-53.0) % Plt Count 28 L (150-450) k/uL Lymphocytes # (Manual) 0.46 L (1.0-4.8) k/uL BUN 47 H (9-20) mg/dL Creatinine 2.10 H (0.66-1.25) mg/dL Glucose 176 H (74-99) mg/dL POC Glucose (mg/dL) 128 H (75-99) mg/dL Calcium 8.1 L (8.4-10.2) mg/dL AST 71 H (17-59) U/L 08/10/18 Range/Units 17:03 WBC (3.8-10.6) k/uL RBC (4.30-5.90) m/uL Hgb (13.0-17.5) gm/dL Hct (39.0-53.0) % Plt Count (150-450) k/uL Lymphocytes # (Manual) (1.0-4.8) k/uL BUN (9-20) mg/dL Creatinine (0.66-1.25) mg/dL Glucose (74-99) mg/dL POC Glucose (mg/dL) 245 H (75-99) mg/dL Calcium (8.4-10.2) mg/dL AST (17-59) U/L Microbiology - Last 24 Hours (Table) 08/08/18 13:42 Blood Culture - Preliminary Blood No Growth after 48 hours 08/08/18 18:05 Urine Culture - Final Urine,Voided Thrombosis Risk Factor Assmnt - Choose All That Apply Each Factor Represents 1 point: Swollen legs (current) Each Risk Factor Represents 2 Points: Age 61-74 years Thrombosis Risk Factor Assessment Total Risk Factor Score: 3 Thrombosis Risk Factor Assessment Level: Moderate Risk Assessment and Plan (1) Confusion Current Visit: Yes Status: Acute Code(s): R41.0 - DISORIENTATION, UNSPECIFIED SNOMED Code(s): 572606964 (2) Dehydration Current Visit: Yes Status: Acute Code(s): E86.0 - DEHYDRATION SNOMED Code(s): 43680243 (3) Hyperbilirubinemia Current Visit: Yes Status: Acute Code(s): E80.6 - OTHER DISORDERS OF BILIRUBIN METABOLISM SNOMED Code(s): 99345604 (4) Increased ammonia level Current Visit: Yes Status: Acute Code(s): R79.89 - OTHER SPECIFIED ABNORMAL FINDINGS OF BLOOD CHEMISTRY SNOMED Code(s): 131192392 (5) Cirrhosis Current Visit: No Status: Acute Code(s): K74.60 - UNSPECIFIED CIRRHOSIS OF LIVER SNOMED Code(s): 37311623 Plan: Repeat serum ammonia level performed currently 24 patient significantly improved mental status significantly improved Gross ascites noted Consult gastroenterology for possible paracentesis We'll also consult nephrology We will continue to follow patient closely Time with Patient: Greater than 30
[2018-08-10 20:32] LABS: Glucose,Whole Blood 237 mg/dL (75-99)
[2018-08-10] MEDS: ATORVASTATIN 20 MG TAB PO SCH (21:29)
[2018-08-10] MEDS: INSULIN DETEMIR (LEVEMIR) 100 UNIT/ML SYR SQ SCH (21:29)
[2018-08-10] MEDS: hydrOXYzine HCL 10 MG TAB PO SCH (21:29)
[2018-08-10] MEDS: TEMAZEPAM 15 MG CAP PO PRN (22:54)
[2018-08-11] MEDS: HYDROcodone/APAP 5-325MG 1 EACH TAB PO PRN ×2 (04:35→08:41)
[2018-08-11 07:17] LABS: Glucose,Whole Blood 56 mg/dL (75-99)
[2018-08-11 07:33] LABS: Glucose,Whole Blood 72 mg/dL (75-99)
[2018-08-11] MEDS: MIDODRINE 5 MG TAB PO SCH ×3 (08:39→18:06)
[2018-08-11] MEDS: INSULIN ASPART (NovoLOG) 100 UNIT/ML VIAL SQ SCH ×4 (08:39→20:16)
[2018-08-11] MEDS: LACTULOSE 20 GM/30 ML CUP PO SCH ×4 (08:40→20:17)
[2018-08-11] MEDS: PREGABALIN 100 MG CAP PO SCH ×2 (08:40→20:16)
[2018-08-11] MEDS: FUROSEMIDE 80 MG TAB PO SCH ×2 (08:40→18:06)
[2018-08-11] MEDS: PANTOPRAZOLE 40 MG/10 ML VIAL IV SCH (08:40)
[2018-08-11] MEDS: SPIRONOLACTONE 25 MG TAB PO SCH ×2 (08:40→20:16)
[2018-08-11] MEDS: TAMSULOSIN 0.4 MG CAP.ER.24H PO SCH ×2 (08:41→20:16)
[2018-08-11 11:59] LABS: Glucose,Whole Blood 200 mg/dL (75-99)
[2018-08-11 12:16] LABS: Calcium 8.1 mg/dL (8.4-10.2); Potassium 3.6 mmol/L (3.5-5.1)
[2018-08-11 17:36] LABS: Glucose,Whole Blood 199 mg/dL (75-99)
[2018-08-11 20:02] LABS: Glucose,Whole Blood 266 mg/dL (75-99)
[2018-08-11] MEDS: hydrOXYzine HCL 10 MG TAB PO SCH (20:15)
[2018-08-11] MEDS: ATORVASTATIN 20 MG TAB PO SCH (20:16)
[2018-08-11] MEDS: INSULIN DETEMIR (LEVEMIR) 100 UNIT/ML SYR SQ SCH (20:16)
[2018-08-11 23:03] LABS: Glucose,Whole Blood 177 mg/dL (75-99)
[2018-08-12] MEDS: TEMAZEPAM 15 MG CAP PO PRN (00:11)
[2018-08-12 07:02] LABS: Glucose,Whole Blood 105 mg/dL (75-99)
[2018-08-12] MEDS: TAMSULOSIN 0.4 MG CAP.ER.24H PO SCH ×2 (07:36→20:30)
[2018-08-12] MEDS: PREGABALIN 100 MG CAP PO SCH ×2 (07:36→20:30)
[2018-08-12] MEDS: PANTOPRAZOLE 40 MG/10 ML VIAL IV SCH (07:37)
[2018-08-12] MEDS: SPIRONOLACTONE 25 MG TAB PO SCH ×2 (07:37→20:30)
[2018-08-12] MEDS: LACTULOSE 20 GM/30 ML CUP PO SCH ×4 (07:37→20:30)
[2018-08-12] MEDS: FUROSEMIDE 80 MG TAB PO SCH ×2 (07:38→17:09)
[2018-08-12] MEDS: INSULIN ASPART (NovoLOG) 100 UNIT/ML VIAL SQ SCH ×4 (07:38→20:31)
[2018-08-12] MEDS: MIDODRINE 5 MG TAB PO SCH ×3 (07:38→17:09)
--- NOTE | 2018-08-12 10:25 | P.PN ---
Subjective Progress Note Date: 08/12/18 Principal diagnosis: Elevated serum ammonia level, mental status change, liver disease, renal insufficiency Patient's awake alert somewhat confused he was initially refusing lactulose yesterday after our discussion during rounds he agreed to take the lead sutures especially after his children showed up and realized that he was being somewhat noncompliant patient has otherwise been in agreement ever so reluctantly to along with the treatment program and is improving awaiting GI consult for possible for ascites and possible paracentesis Objective - Vital Signs Vital signs: Vital Signs Temp 98.1 F 08/12/18 04:55 Pulse 67 08/12/18 04:55 Resp 18 08/12/18 07:45 BP 120/58 08/12/18 04:55 Pulse Ox 97 08/12/18 04:55 Intake & Output 08/11/18 08/12/18 08/12/18 17:59 06:59 18:59 Intake Total Balance Intake: Oral Other: Voiding Method Urinal Diaper Incontinent # Voids # Bowel Movements - Exam General: [Patient awake, alert and oriented times 3. Patient in no acute distress.] HEENT: [PERRL. EOMI. No pharyngeal erythema or exudate.] Neck: [No adenopathy.] Cardiac: [Heart regular in rate and rhythm. No S3. No S4. No clicks, rubs. No murmur.] Lungs: [Clear to auscultation bilaterally.] Abdomen: [No mass. No organomegaly. Bowel sounds presnt and normoactive in all 4 quadrants.] Significantly distended abdomen secondary to ascites secondary to long-term liver disease Extremes: [No edema no cyanosis no claudication normal pulses] : Normal male genitalia Musculoskeletal: [No joint erythema, edema or tenderness.] Skin: [No rash.] Neurologic: [No lateralizing deficits. CN II - XII grossly intact.] Lymphatic: [No adenopathy.] - Labs CBC & Chem 7: 08/10/18 16:04 08/11/18 11:38 Labs: Abnormal Lab Results - Last 24 Hours (Table) 08/11/18 08/11/18 08/11/18 Range/Units 11:38 11:38 11:58 BUN 44 H (9-20) mg/dL Creatinine 2.04 H (0.66-1.25) mg/dL Glucose 215 H (74-99) mg/dL POC Glucose (mg/dL) 200 H (75-99) mg/dL Calcium 8.1 L (8.4-10.2) mg/dL Ammonia 57 H (<30) umol/L 08/11/18 08/11/18 08/11/18 Range/Units 17:15 20:01 23:01 BUN (9-20) mg/dL Creatinine (0.66-1.25) mg/dL Glucose (74-99) mg/dL POC Glucose (mg/dL) 199 H 266 H 177 H (75-99) mg/dL Calcium (8.4-10.2) mg/dL Ammonia (<30) umol/L 08/12/18 Range/Units 06:59 BUN (9-20) mg/dL Creatinine (0.66-1.25) mg/dL Glucose (74-99) mg/dL POC Glucose (mg/dL) 105 H (75-99) mg/dL Calcium (8.4-10.2) mg/dL Ammonia (<30) umol/L Microbiology - Last 24 Hours (Table) 08/08/18 13:42 Blood Culture - Preliminary Blood No Growth after 72 hours Assessment and Plan (1) Confusion Current Visit: Yes Status: Acute Code(s): R41.0 - DISORIENTATION, UNSPECIFIED SNOMED Code(s): 563872524 (2) Dehydration Current Visit: Yes Status: Acute Code(s): E86.0 - DEHYDRATION SNOMED Code(s): 49492637 (3) Hyperbilirubinemia Current Visit: Yes Status: Acute Code(s): E80.6 - OTHER DISORDERS OF BILIRUBIN METABOLISM SNOMED Code(s): 66355857 (4) Increased ammonia level Current Visit: Yes Status: Acute Code(s): R79.89 - OTHER SPECIFIED ABNORMAL FINDINGS OF BLOOD CHEMISTRY SNOMED Code(s): 798775955 (5) Cirrhosis Current Visit: No Status: Acute Code(s): K74.60 - UNSPECIFIED CIRRHOSIS OF LIVER SNOMED Code(s): 25291547 Plan: Repeat serum ammonia level performed currently 24 patient significantly improved mental status significantly improved Gross ascites noted Consult gastroenterology for possible paracentesis Patient does have renal insufficiency however he is not currently undergoing dialysis he is making urine and unable to urinate we will follow renal insufficiency as an outpatient and make appropriate recommendations at that time We will continue to follow patient closely Time with Patient: Greater than 30
[2018-08-12 12:13] LABS: Glucose,Whole Blood 223 mg/dL (75-99)
[2018-08-12 16:48] LABS: Glucose,Whole Blood 163 mg/dL (75-99)
--- NOTE | 2018-08-12 16:54 | US ---
EXAMINATION TYPE: US abdomen limited DATE OF EXAM: 08/12/2018 COMPARISON: US dated 10/06/2017 CLINICAL HISTORY: assess abdominal fluid for planned paracentesis. Ascites Very small fluid pocket visualized near RLQ, otherwise no other fluid pockets visualized IMPRESSION: Limited abdomen ultrasound. Minimal fluid identified in the right lower quadrant.
[2018-08-12 19:53] LABS: Glucose,Whole Blood 169 mg/dL (75-99)
[2018-08-12] MEDS: ATORVASTATIN 20 MG TAB PO SCH (20:30)
[2018-08-12] MEDS: INSULIN DETEMIR (LEVEMIR) 100 UNIT/ML SYR SQ SCH (20:30)
[2018-08-13] MEDS: hydrOXYzine HCL 10 MG TAB PO SCH ×2 (00:02→20:26)
[2018-08-13] MEDS: TEMAZEPAM 15 MG CAP PO PRN ×2 (00:03→23:59)
[2018-08-13 07:04] LABS: Glucose,Whole Blood 96 mg/dL (75-99)
[2018-08-13] MEDS: PREGABALIN 100 MG CAP PO SCH ×2 (08:06→20:27)
[2018-08-13] MEDS: PANTOPRAZOLE 40 MG/10 ML VIAL IV SCH (08:06)
[2018-08-13] MEDS: INSULIN ASPART (NovoLOG) 100 UNIT/ML VIAL SQ SCH ×4 (08:07→20:27)
[2018-08-13] MEDS: LACTULOSE 20 GM/30 ML CUP PO SCH ×4 (08:07→21:59)
[2018-08-13] MEDS: TAMSULOSIN 0.4 MG CAP.ER.24H PO SCH ×2 (08:07→20:28)
[2018-08-13] MEDS: SPIRONOLACTONE 25 MG TAB PO SCH ×2 (08:07→20:28)
[2018-08-13] MEDS: MIDODRINE 5 MG TAB PO SCH ×3 (08:08→17:06)
[2018-08-13] MEDS: FUROSEMIDE 80 MG TAB PO SCH ×2 (08:09→17:06)
[2018-08-13 11:22] LABS: Glucose,Whole Blood 174 mg/dL (75-99)
--- NOTE | 2018-08-13 15:59 | P.PN ---
Subjective Progress Note Date: 08/13/18 Principal diagnosis: Elevated serum ammonia level, mental status change, liver disease, renal insufficiency Patient's awake alert somewhat confused he was initially refusing lactulose yesterday after our discussion during rounds he agreed to take the lead sutures especially after his children showed up and realized that he was being somewhat noncompliant patient has otherwise been in agreement ever so reluctantly to along with the treatment program and is improving awaiting GI consult for possible for ascites and possible paracentesis 08/13/2018 Patient is awake alert vital signs are stable ammonia level is 49 we'll continue lactulose reevaluate ammonia level in the morning and consider discharge home tomorrow if ammonia level stable Objective - Vital Signs Vital signs: Vital Signs Temp 97.6 F 08/13/18 11:53 Pulse 72 08/13/18 11:53 Resp 16 08/13/18 15:34 BP 116/57 08/13/18 11:53 Pulse Ox 97 08/13/18 11:53 Intake & Output 08/12/18 08/13/18 08/13/18 18:59 06:59 18:59 Intake Total 650 590 Balance 650 590 Intake: Oral 650 590 Other: Voiding Method Urinal Urinal Urinal Diaper Diaper Diaper Incontinent Incontinent Incontinent # Voids 2 3 # Bowel Movements 2 2 - Exam General: [Patient awake, alert and oriented times 3. Patient in no acute distress.] HEENT: [PERRL. EOMI. No pharyngeal erythema or exudate.] Neck: [No adenopathy.] Cardiac: [Heart regular in rate and rhythm. No S3. No S4. No clicks, rubs. No murmur.] Lungs: [Clear to auscultation bilaterally.] Abdomen: [No mass. No organomegaly. Bowel sounds presnt and normoactive in all 4 quadrants.] Significantly distended abdomen secondary to ascites secondary to long-term liver disease Extremes: [No edema no cyanosis no claudication normal pulses] : Normal male genitalia Musculoskeletal: [No joint erythema, edema or tenderness.] Skin: [No rash.] Neurologic: [No lateralizing deficits. CN II - XII grossly intact.] Lymphatic: [No adenopathy.] - Labs CBC & Chem 7: 08/10/18 16:04 08/11/18 11:38 Labs: Abnormal Lab Results - Last 24 Hours (Table) 08/12/18 08/12/18 08/13/18 Range/Units 16:47 19:52 08:00 POC Glucose (mg/dL) 163 H 169 H (75-99) mg/dL Ammonia 47 H (<30) umol/L 08/13/18 Range/Units 11:21 POC Glucose (mg/dL) 174 H (75-99) mg/dL Ammonia (<30) umol/L Microbiology - Last 24 Hours (Table) 08/08/18 13:42 Blood Culture - Preliminary Blood No Growth after 120 hours Assessment and Plan (1) Confusion Current Visit: Yes Status: Acute Code(s): R41.0 - DISORIENTATION, UNSPECIFIED SNOMED Code(s): 226288745 (2) Dehydration Current Visit: Yes Status: Acute Code(s): E86.0 - DEHYDRATION SNOMED Code(s): 69971188 (3) Hyperbilirubinemia Current Visit: Yes Status: Acute Code(s): E80.6 - OTHER DISORDERS OF BILIRUBIN METABOLISM SNOMED Code(s): 04496504 (4) Increased ammonia level Current Visit: Yes Status: Acute Code(s): R79.89 - OTHER SPECIFIED ABNORMAL FINDINGS OF BLOOD CHEMISTRY SNOMED Code(s): 324264232 (5) Cirrhosis Current Visit: No Status: Acute Code(s): K74.60 - UNSPECIFIED CIRRHOSIS OF LIVER SNOMED Code(s): 32706707 Plan: Repeat serum ammonia level performed currently 24 patient significantly improved mental status significantly improved Gross ascites noted Consult gastroenterology for possible paracentesis Patient does have renal insufficiency however he is not currently undergoing dialysis he is making urine and unable to urinate we will follow renal insufficiency as an outpatient and make appropriate recommendations at that time Serum ammonia level XLIX awaiting further improvement and ammonia level prior to discharge We will continue to follow patient closely Time with Patient: Greater than 30
[2018-08-13 16:58] LABS: Glucose,Whole Blood 223 mg/dL (75-99)
[2018-08-13 20:03] LABS: Glucose,Whole Blood 253 mg/dL (75-99)
--- NOTE | 2018-08-13 20:17 | P.CONS ---
History of Present Illness - Reason for Consult Consult date: 08/12/18 Ascites - History of Present Illness 63-year-old male with past medical history of remote EtOH abuse quit 20 years ago, cholecystectomy, chronic pancytopenia possible myelodysplastic syndrome, splenomegaly, hepatomegaly, coagulopathy, hypertension, hyperlipidemia, chronic anemia, diabetes, remote renal failure requiring dialysis, ascites and chronic pain syndrome. Apparently, according to his daughter who is also his caregiver, he has not been taking his lactulose. The patient has been having mental changes and frequent flares. He was found to have an ammonia level of 99. He was admitted to the hospital and his lactulose was restarted. At the time of her visit today he appeared alert and has responding to questions appropriately. No fever or chills. No history of nausea, vomiting or bleeding or other pote ntial precipitating causes of his mental changes. Review of Systems Constitutional: Denied fever, chills or unintentional weight loss Neurologic: Mental changes and frequent falls as noted above Cardiopulmonary: No chest pains, shortness of breath or palpitations Gastrointestinal: See present illness above Genitourinary: No hematuria, dysuria or frequency Endocrine: No history of diabetes or thyroid disease Hematologic: No history of anemia or bleeding tendency Musculoskeletal: No joint pains or swelling Skin: No rashes Psychiatric: No anxiety or depression Past Medical History Past Medical History: Chest Pain / Angina, CVA/TIA, Diabetes Mellitus, GERD/Reflux, Hyperlipidemia, Hypertension, Liver Disease, Neurologic Disorder, Osteoarthritis (OA), Pneumonia, Prostate Disorder, Renal Disease Additional Past Medical History / Comment(s): Diabetic neuropathy, myelodysplasia, chronic pain syndrome.ASCITIES,ULCER LT GREAT TOE (toe amputated), chronic pancytopenia, ulceration on left watson, 2nd degree servin from soup being spilled on stomach. History of Any Multi-Drug Resistant Organisms: MRSA Year Discovered:: 04/30/16 MDRO Source:: LEFT FOOT Past Surgical History: Cholecystectomy, Orthopedic Surgery Additional Past Surgical History / Comment(s): Surgical debridements to the left great toe for diabetic foot ulcer, healed and ulcer has returned,LT GREAT TOE AMP, RT THORACENTESIS, PARACENTESIS colonoscopy about 2 years ago. Past Anesthesia/Blood Transfusion Reactions: No Reported Reaction Smoking Status: Never smoker - Past Family History Mother Family Medical History: Cancer, Diabetes Mellitus Father Family Medical History: Cancer, Diabetes Mellitus Brother(s) Family Medical History: Diabetes Mellitus Daughter(s) Family Medical History: Diabetes Mellitus, Hyperlipidemia, Hypertension Son(s) Family Medical History: Diabetes Mellitus, Hyperlipidemia, Hypertension Medications and Allergies Home Medications Medication Instructions Recorded Confirmed Type Atorvastatin [Lipitor] 20 mg PO HS 01/14/16 08/08/18 History Pregabalin [Lyrica] 200 mg PO BID 04/25/16 08/08/18 History hydrOXYzine HCL [Atarax] 10 mg PO HS 08/03/16 08/08/18 History oxyCODONE HCL [Roxicodone] 5 mg PO Q6H PRN 08/03/16 08/08/18 History Midodrine HCl [ProAmatine] 10 mg PO TID 09/02/16 08/08/18 History Furosemide [Lasix] 80 mg PO BID 01/23/17 08/08/18 History Lactulose [Cephulac] 30 gm PO QID 01/23/17 08/08/18 History Spironolactone [Aldactone] 25 mg PO BID 01/23/17 08/08/18 History Tamsulosin [Flomax] 0.4 mg PO BID 06/27/17 08/08/18 History Insulin Glargine [Lantus] 60 unit SQ HS 08/08/18 08/08/18 History Insulin Lispro [Admelog] See Protocol SQ AC-TID 08/08/18 08/08/18 History Temazepam [Restoril] 15 mg PO HS 08/08/18 08/08/18 History Allergies Allergy/AdvReac Type Severity Reaction Status Date / Time Mushroom Allergy Anaphylaxis Verified 08/08/18 13:49 Physical Exam Vitals: Vital Signs Temp Pulse Resp BP Pulse Ox 08/12/18 07:45 18 08/12/18 04:55 98.1 F 67 18 120/58 97 08/11/18 21:00 97.8 F 66 18 126/60 95 08/11/18 12:43 98.5 F 72 16 133/60 94 L Intake and Output 08/11/18 08/12/18 08/12/18 21:59 06:59 14:59 Other: Voiding Method Urinal Diaper Incontinent # Voids # Bowel Movements General: Appeared stated age, very pleasant in no acute distress Head and neck: Normocephalic and atraumatic, conjunctivae pink and sclerae not icteric, mucous membranes moist and pink. No masses in the neck or tracheal shifts Lungs: Clear to auscultation with no dullness to percussion Heart: Regular, no abnormal sounds, murmurs, gallops or friction rubs ABDOMEN: Distended with edematous wall. No definite shifting dullness. No masses, organomegalies or tenderness. Bowel sounds present Extremities: No clubbing or cyanosis. 1+ edema Neurologic: Alert. Cranial nerves grossly intact. No gross sensory or motor other abnormalities. No flapping tremor Results CBC & Chem 7: 08/10/18 16:04 08/11/18 11:38 Labs: Abnormal Lab Results - Last 24 Hours (Table) 08/11/18 08/11/18 08/11/18 Range/Units 11:38 11:38 11:58 BUN 44 H (9-20) mg/dL Creatinine 2.04 H (0.66-1.25) mg/dL Glucose 215 H (74-99) mg/dL POC Glucose (mg/dL) 200 H (75-99) mg/dL Calcium 8.1 L (8.4-10.2) mg/dL Ammonia 57 H (<30) umol/L 08/11/18 08/11/18 08/11/18 Range/Units 17:15 20:01 23:01 BUN (9-20) mg/dL Creatinine (0.66-1.25) mg/dL Glucose (74-99) mg/dL POC Glucose (mg/dL) 199 H 266 H 177 H (75-99) mg/dL Calcium (8.4-10.2) mg/dL Ammonia (<30) umol/L 08/12/18 Range/Units 06:59 BUN (9-20) mg/dL Creatinine (0.66-1.25) mg/dL Glucose (74-99) mg/dL POC Glucose (mg/dL) 105 H (75-99) mg/dL Calcium (8.4-10.2) mg/dL Ammonia (<30) umol/L Microbiology - Last 24 Hours (Table) 08/08/18 13:42 Blood Culture - Preliminary Blood No Growth after 72 hours Assessment and Plan Assessment: Mental changes and frequent falls and elevated ammonia level consistent with hepatic encephalopathy. No specific precipitating causes such as infection or GI bleeding. Noncompliance with his medications could be a major factor at this time. The patient has evidence of edema and ascites. We will check ultrasound before ordering large volume paracentesis. Plan: Agree with your current management. Will continue supportive measures and administration of lactulose. Ultrasound ordered. Further plans based on his course.
[2018-08-13] MEDS: ATORVASTATIN 20 MG TAB PO SCH (20:26)
[2018-08-13] MEDS: INSULIN DETEMIR (LEVEMIR) 100 UNIT/ML SYR SQ SCH (20:27)
[2018-08-13 21:17] LABS: Hemoglobin A1C 6.8 % (4.0-6.0)
[2018-08-14 07:11] LABS: Glucose,Whole Blood 71 mg/dL (75-99)
[2018-08-14] MEDS: INSULIN ASPART (NovoLOG) 100 UNIT/ML VIAL SQ SCH ×4 (07:24→21:19)
[2018-08-14] MEDS: TAMSULOSIN 0.4 MG CAP.ER.24H PO SCH ×2 (10:03→21:18)
[2018-08-14] MEDS: PREGABALIN 100 MG CAP PO SCH ×2 (10:03→21:18)
[2018-08-14] MEDS: SPIRONOLACTONE 25 MG TAB PO SCH ×2 (10:03→21:19)
[2018-08-14] MEDS: LACTULOSE 20 GM/30 ML CUP PO SCH ×4 (10:04→21:19)
[2018-08-14] MEDS: MIDODRINE 5 MG TAB PO SCH ×3 (10:04→17:26)
[2018-08-14] MEDS: PANTOPRAZOLE 40 MG TABLET PO SCH (10:04)
[2018-08-14] MEDS: FUROSEMIDE 80 MG TAB PO SCH ×2 (10:04→17:26)
[2018-08-14] MEDS ORDERED: MORPHINE ORAL SOLN 10 MG/5 ML CUP PO PRN (10:57)
[2018-08-14 11:46] LABS: Glucose,Whole Blood 144 mg/dL (75-99)
--- NOTE | 2018-08-14 12:26 | P.PN ---
Subjective Progress Note Date: 08/14/18 Principal diagnosis: Hepatic encephalopathy Ammonia 54. Afebrile. Receiving lactulose. Passing bowel movements. Objective - Vital Signs Vital signs: Vital Signs Temp 98.3 F 08/14/18 05:00 Pulse 70 08/14/18 05:00 Resp 16 08/14/18 05:00 BP 114/57 08/14/18 05:00 Pulse Ox 95 08/14/18 05:00 Intake & Output 08/13/18 08/14/18 08/14/18 18:59 06:59 18:59 Intake Total 1470 Output Total 1 Balance -1 1470 Intake: Oral 1470 Output: Stool 1 Other: Voiding Method Urinal Urinal Urinal Diaper Diaper Diaper Incontinent Incontinent Incontinent # Voids 4 # Bowel Movements 2 - Exam General appearance: The patient is sleep, in no acute distress. HET: Head is normocephalic and atraumatic. Pupils are equal and reactive. Oropharynx is clear without lesions. Neck: Supple without lymphadenopathy. Trachea midline. Heart: S1 S2. Regular rate and rhythm. Lungs: No crackles or wheezes are heard. Abdomen: Soft, pendulous abdomen, nontender, nondistended with bowel sounds. No peritoneal signs. No palpable organomegaly or masses. Extremities: Normal skin color and turgor. No cyanosis, rash, ulceration, clubbing, or edema. Radial and pedal pulses are 2/4 bilaterally. Neurological: No focal deficits. Strength and sensation are grossly intact. - Labs CBC & Chem 7: 08/10/18 16:04 08/11/18 11:38 Labs: Abnormal Lab Results - Last 24 Hours (Table) 08/11/18 08/13/18 08/13/18 Range/Units 11:38 16:55 20:02 POC Glucose (mg/dL) 223 H 253 H (75-99) mg/dL Hemoglobin A1c 6.8 H (4.0-6.0) % Ammonia (<30) umol/L 08/14/18 08/14/18 08/14/18 Range/Units 07:09 08:20 11:44 POC Glucose (mg/dL) 71 L 144 H (75-99) mg/dL Hemoglobin A1c (4.0-6.0) % Ammonia 54 H (<30) umol/L Microbiology - Last 24 Hours (Table) 08/08/18 13:42 Blood Culture - Preliminary Blood No Growth after 120 hours Assessment and Plan (1) Hepatic encephalopathy Current Visit: Yes Status: Acute Code(s): K72.90 - HEPATIC FAILURE, UNSPE CIFIED WITHOUT COMA SNOMED Code(s): 54302445 (2) Cirrhosis of liver Current Visit: No Status: Chronic Code(s): K74.60 - UNSPECIFIED CIRRHOSIS OF LIVER SNOMED Code(s): 03590181 (3) H/O ETOH abuse Current Visit: No Status: Chronic Code(s): Z87.898 - PERSONAL HISTORY OF OTHER SPECIFIED CONDITIONS SNOMED Code(s): 404692168 Plan: 1. Continue to monitor serum ammonia levels. Continue lactulose 30 g 3 times a day titrated 3-4 bowel movements daily. Return to office in 2-3 weeks. 2. Ultrasound reportedly minimal ascites in right lower quadrant. Assessment and plan a care discussed with Dr. Esquivel
[2018-08-14 16:42] LABS: Glucose,Whole Blood 271 mg/dL (75-99)
--- NOTE | 2018-08-14 17:57 | P.PN ---
Subjective Progress Note Date: 08/14/18 Principal diagnosis: Elevated serum ammonia level, mental status change, liver disease, renal insufficiency Patient's awake alert somewhat confused he was initially refusing lactulose yesterday after our discussion during rounds he agreed to take the lead sutures especially after his children showed up and realized that he was being somewhat noncompliant patient has otherwise been in agreement ever so reluctantly to along with the treatment program and is improving awaiting GI consult for possible for ascites and possible paracentesis 08/13/2018 Patient is awake alert vital signs are stable ammonia level is 49 we'll continue lactulose reevaluate ammonia level in the morning and consider discharge home tomorrow if ammonia level stable 08/14/2018 Patient is awake alert somewhat drowsy, ammonia level 54 , ammonia and dosing increased to 3 times daily we'll reevaluate in a.m. Objective - Vital Signs Vital signs: Vital Signs Temp 97.8 F 08/14/18 14:51 Pulse 69 08/14/18 14:51 Resp 16 08/14/18 14:51 BP 121/67 08/14/18 14:51 Pulse Ox 96 08/14/18 14:51 Intake & Output 08/13/18 08/14/18 08/14/18 18:59 06:59 18:59 Intake Total 1470 Output Total 1 Balance -1 1470 Intake: Oral 1470 Output: Stool 1 Other: Voiding Method Urinal Urinal Urinal Diaper Diaper Diaper Incontinent Incontinent Incontinent # Voids 4 1 # Bowel Movements 2 1 - Exam General: [Patient awake, alert and oriented times 3. Patient in no acute distress.] HEENT: [PERRL. EOMI. No pharyngeal erythema or exudate.] Neck: [No adenopathy.] Cardiac: [Heart regular in rate and rhythm. No S3. No S4. No clicks, rubs. No murmur.] Lungs: [Clear to auscultation bilaterally.] Abdomen: [No mass. No organomegaly. Bowel sounds presnt and normoactive in all 4 quadrants.] Significantly distended abdomen secondary to ascites secondary to long-term liver disease Extremes: [No edema no cyanosis no claudication normal pulses] : Normal male genitalia Musculoskeletal: [No joint erythema, edema or tenderness.] Skin: [No rash.] Neurologic: [No lateralizing deficits. CN II - XII grossly intact.] Lymphatic: [No adenopathy.] - Labs CBC & Chem 7: 08/10/18 16:04 08/11/18 11:38 Labs: Abnormal Lab Results - Last 24 Hours (Table) 08/11/18 08/13/18 08/14/18 Range/Units 11:38 20:02 07:09 POC Glucose (mg/dL) 253 H 71 L (75-99) mg/dL Hemoglobin A1c 6.8 H (4.0-6.0) % Ammonia (<30) umol/L 08/14/18 08/14/18 08/14/18 Range/Units 08:20 11:44 16:39 POC Glucose (mg/dL) 144 H 271 H (75-99) mg/dL Hemoglobin A1c (4.0-6.0) % Ammonia 54 H (<30) umol/L Microbiology - Last 24 Hours (Table) 08/08/18 13:42 Blood Culture - Final Blood No Growth after 144 hours Assessment and Plan (1) Confusion Current Visit: Yes Status: Acute Code(s): R41.0 - DISORIENTATION, UNSPECIFIED SNOMED Code(s): 172399971 (2) Dehydration Current Visit: Yes Status: Acute Code(s): E86.0 - DEHYDRATION SNOMED Code(s): 93108678 (3) Hyperbilirubinemia Current Visit: Yes Status: Acute Code(s): E80.6 - OTHER DISORDERS OF BILIRUBIN METABOLISM SNOMED Code(s): 24408390 (4) Increased ammonia level Current Visit: Yes Status: Acute Code(s): R79.89 - OTHER SPECIFIED ABNORMAL FINDINGS OF BLOOD CHEMISTRY SNOMED Code(s): 548490064 (5) Cirrhosis Current Visit: No Status: Acute Code(s): K74.60 - UNSPECIFIED CIRRHOSIS OF LIVER SNOMED Code(s): 35640612 Plan: Repeat serum ammonia level performed currently 24 patient significantly improved mental status significantly improved Gross ascites noted Consult gastroenterology for possible paracentesis Patient does have renal insufficiency however he is not currently undergoing dialysis he is making urine and unable to urinate we will follow renal insufficiency as an outpatient and make appropriate recommendations at that time Serum ammonia level 54 awaiting further improvement and ammonia level prior to discharge We will continue to follow patient closely
[2018-08-14 20:47] LABS: Glucose,Whole Blood 246 mg/dL (75-99)
[2018-08-14] MEDS: hydrOXYzine HCL 10 MG TAB PO SCH (21:18)
[2018-08-14] MEDS: ATORVASTATIN 20 MG TAB PO SCH (21:19)
[2018-08-14] MEDS: INSULIN DETEMIR (LEVEMIR) 100 UNIT/ML SYR SQ SCH (21:19)
[2018-08-15] MEDS: TEMAZEPAM 15 MG CAP PO PRN (01:06)
[2018-08-15 07:06] LABS: Glucose,Whole Blood 108 mg/dL (75-99)
[2018-08-15] MEDS: INSULIN ASPART (NovoLOG) 100 UNIT/ML VIAL SQ SCH ×4 (07:52→21:49)
[2018-08-15] MEDS: PREGABALIN 100 MG CAP PO SCH ×2 (07:59→21:49)
[2018-08-15] MEDS: TAMSULOSIN 0.4 MG CAP.ER.24H PO SCH ×2 (08:00→21:49)
[2018-08-15] MEDS: SPIRONOLACTONE 25 MG TAB PO SCH ×2 (08:00→21:49)
[2018-08-15] MEDS: LACTULOSE 20 GM/30 ML CUP PO SCH ×4 (08:00→21:49)
[2018-08-15] MEDS: PANTOPRAZOLE 40 MG TABLET PO SCH (08:01)
[2018-08-15] MEDS: FUROSEMIDE 80 MG TAB PO SCH ×2 (08:01→15:28)
[2018-08-15] MEDS: MIDODRINE 5 MG TAB PO SCH ×3 (08:01→17:50)
[2018-08-15 11:55] LABS: Glucose,Whole Blood 232 mg/dL (75-99)
[2018-08-15 14:45] VITALS: BMI 38.0
[2018-08-15 16:48] LABS: Glucose,Whole Blood 154 mg/dL (75-99)
[2018-08-15 20:02] LABS: Glucose,Whole Blood 256 mg/dL (75-99)
[2018-08-15] MEDS: ATORVASTATIN 20 MG TAB PO SCH (21:48)
[2018-08-15] MEDS: hydrOXYzine HCL 10 MG TAB PO SCH (21:48)
[2018-08-15] MEDS: INSULIN DETEMIR (LEVEMIR) 100 UNIT/ML SYR SQ SCH (21:49)
[2018-08-16] MEDS: TEMAZEPAM 15 MG CAP PO PRN ×2 (00:29→23:19)
[2018-08-16 06:46] LABS: Glucose,Whole Blood 124 mg/dL (75-99)
[2018-08-16] MEDS: INSULIN ASPART (NovoLOG) 100 UNIT/ML VIAL SQ SCH ×4 (07:29→20:21)
[2018-08-16] MEDS: MIDODRINE 5 MG TAB PO SCH ×3 (08:33→17:33)
[2018-08-16] MEDS: FUROSEMIDE 80 MG TAB PO SCH ×2 (08:33→17:33)
[2018-08-16] MEDS: PANTOPRAZOLE 40 MG TABLET PO SCH (08:33)
[2018-08-16] MEDS: SPIRONOLACTONE 25 MG TAB PO SCH ×2 (08:34→20:21)
[2018-08-16] MEDS: LACTULOSE 20 GM/30 ML CUP PO SCH ×4 (08:34→21:13)
[2018-08-16] MEDS: PREGABALIN 100 MG CAP PO SCH ×2 (08:34→20:21)
[2018-08-16] MEDS: TAMSULOSIN 0.4 MG CAP.ER.24H PO SCH ×2 (08:34→20:28)
--- NOTE | 2018-08-16 11:02 | P.PN ---
Subjective Progress Note Date: 08/15/18 Principal diagnosis: Elevated serum ammonia level, mental status change, liver disease, renal insufficiency Patient's awake alert somewhat confused he was initially refusing lactulose yesterday after our discussion during rounds he agreed to take the lead sutures especially after his children showed up and realized that he was being somewhat noncompliant patient has otherwise been in agreement ever so reluctantly to along with the treatment program and is improving awaiting GI consult for possible for ascites and possible paracentesis 08/13/2018 Patient is awake alert vital signs are stable ammonia level is 49 we'll continue lactulose reevaluate ammonia level in the morning and consider discharge home tomorrow if ammonia level stable 08/14/2018 Patient is awake alert somewhat drowsy, ammonia level 54 , ammonia and dosing increased to 3 times daily we'll reevaluate in a.m. 08/15/2018 Pt a&o x3 more alert today amonia level 31, contue lactulose Objective - Vital Signs Vital signs: Vital Signs Temp 98.2 F 08/16/18 05:00 Pulse 73 08/16/18 05:00 Resp 18 08/16/18 05:00 BP 113/76 08/16/18 05:00 Pulse Ox 96 08/16/18 05:00 Intake & Output 08/15/18 08/16/18 08/16/18 18:59 06:59 18:59 Output Total 1 Balance -1 Weight 113.398 kg Output: Stool 1 Other: Voiding Method Toilet Toilet Toilet # Voids 2 1 # Bowel Movements 2 1 - Exam General: [Patient awake, alert and oriented times 3. Patient in no acute distress.] HEENT: [PERRL. EOMI. No pharyngeal erythema or exudate.] Neck: [No adenopathy.] Cardiac: [Heart regular in rate and rhythm. No S3. No S4. No clicks, rubs. No murmur.] Lungs: [Clear to auscultation bilaterally.] Abdomen: [No mass. No organomegaly. Bowel sounds presnt and normoactive in all 4 quadrants.] Significantly distended abdomen secondary to ascites secondary to long-term liver disease Extremes: [No edema no cyanosis no claudication normal pulses] : Normal male genitalia Musculoskeletal: [No joint erythema, edema or tenderness.] Skin: [No rash.] Neurologic: [No lateralizing deficits. CN II - XII grossly intact.] Lymphatic: [No adenopathy.] - Labs CBC & Chem 7: 08/10/18 16:04 08/11/18 11:38 Labs: Abnormal Lab Results - Last 24 Hours (Table) 08/15/18 08/15/18 08/15/18 Range/Units 11:46 16:47 20:01 POC Glucose (mg/dL) 232 H 154 H 256 H (75-99) mg/dL 08/16/18 Range/Units 06:45 POC Glucose (mg/dL) 124 H (75-99) mg/dL Assessment and Plan (1) Confusion Current Visit: Yes Status: Acute Code(s): R41.0 - DISORIENTATION, UNSPECIFIED SNOMED Code(s): 936770553 (2) Dehydration Current Visit: Yes Status: Acute Code(s): E86.0 - DEHYDRATION SNOMED Code(s): 93704476 (3) Hyperbilirubinemia Current Visit: Yes Status: Acute Code(s): E80.6 - OTHER DISORDERS OF BILIRUBIN METABOLISM SNOMED Code(s): 19865733 (4) Increased ammonia level Current Visit: Yes Status: Acute Code(s): R79.89 - OTHER SPECIFIED ABNORMAL FINDINGS OF BLOOD CHEMISTRY SNOMED Code(s): 999017186 (5) Cirrhosis Current Visit: No Status: Acute Code(s): K74.60 - UNSPECIFIED CIRRHOSIS OF LIVER SNOMED Code(s): 78156815 Plan: Repeat serum ammonia level performed currently 24 patient significantly improved mental status significantly improved Gross ascites noted Consult gastroenterology for possible paracentesis Patient does have renal insufficiency however he is not currently undergoing dialysis he is making urine and unable to urinate we will follow renal insufficiency as an outpatient and make appropriate recommendations at that time Serum ammonia level 31 awaiting further improvement and ammonia level prior to discharge We will continue to follow patient closely
[2018-08-16 11:57] LABS: Glucose,Whole Blood 180 mg/dL (75-99)
[2018-08-16 17:38] LABS: Glucose,Whole Blood 231 mg/dL (75-99)
[2018-08-16 20:01] LABS: Glucose,Whole Blood 225 mg/dL (75-99)
[2018-08-16] MEDS: INSULIN DETEMIR (LEVEMIR) 100 UNIT/ML SYR SQ SCH (20:21)
[2018-08-16] MEDS: ATORVASTATIN 20 MG TAB PO SCH (20:21)
[2018-08-16] MEDS: hydrOXYzine HCL 10 MG TAB PO SCH (20:27)
[2018-08-17 06:55] LABS: Glucose,Whole Blood 90 mg/dL (75-99)
[2018-08-17] MEDS: INSULIN ASPART (NovoLOG) 100 UNIT/ML VIAL SQ SCH ×3 (07:26→17:48)
[2018-08-17] MEDS: MIDODRINE 5 MG TAB PO SCH ×3 (07:53→17:32)
[2018-08-17] MEDS: FUROSEMIDE 80 MG TAB PO SCH ×2 (07:54→17:34)
[2018-08-17] MEDS: TAMSULOSIN 0.4 MG CAP.ER.24H PO SCH (07:57)
[2018-08-17] MEDS: SPIRONOLACTONE 25 MG TAB PO SCH (07:57)
[2018-08-17] MEDS: PREGABALIN 100 MG CAP PO SCH (07:58)
[2018-08-17] MEDS: LACTULOSE 20 GM/30 ML CUP PO SCH ×3 (07:58→17:50)
[2018-08-17] MEDS: PANTOPRAZOLE 40 MG TABLET PO SCH (07:58)
[2018-08-17 11:18] LABS: Glucose,Whole Blood 159 mg/dL (75-99)
--- NOTE | 2018-08-17 15:20 | P.DS ---
Providers Date of admission: 08/08/18 16:35 Expected date of discharge: 08/17/18 Attending physician: Klaus Agrawal Consults: GI Primary care physician: Klaus Agrawal - Discharge Diagnosis(es) (1) Confusion Current Visit: Yes Status: Acute (2) Dehydration Current Visit: Yes Status: Acute (3) Hyperbilirubinemia Current Visit: Yes Status: Acute (4) Increased ammonia level Current Visit: Yes Status: Acute (5) Cirrhosis Current Visit: No Status: Acute Pertinent Studies: Patient was initially admitted with a ammonia level of 99 Over approximately the 5 day. Lactulose was increased slowly from 30 mg once daily to 30 mg 4 times sergei General: [Patient awake, alert and oriented times 3. Patient in no acute distress.] HEENT: [PERRL. EOMI. No pharyngeal erythema or exudate.] Neck: [No adenopathy.] Cardiac: [Heart regular in rate and rhythm. No S3. No S4. No clicks, rubs. No murmur.] Lungs: [Clear to auscultation bilaterally.] Abdomen: [No mass. No organomegaly. Bowel sounds presnt and normoactive in all 4 quadrants.] Abdominal ascites noted Extremes: [No edema no cyanosis no claudication normal pulses] : [] Musculoskeletal: [No joint erythema, edema or tenderness.] Skin: [No rash.] Neurologic: [No lateralizing deficits. CN II - XII grossly intact.] Lymphatic: [No adenopathy.] Patient Condition at Discharge: Stable Plan - Discharge Summary Discharge Rx Participant: Yes New Discharge Prescriptions: No Action Atorvastatin [Lipitor] 20 mg PO HS Pregabalin [Lyrica] 200 mg PO BID hydrOXYzine HCL [Atarax] 10 mg PO HS oxyCODONE HCL [Roxicodone] 5 mg PO Q6H PRN PRN Reason: Severe Breakthrough Pain Midodrine HCl [ProAmatine] 10 mg PO TID Spironolactone [Aldactone] 25 mg PO BID Furosemide [Lasix] 80 mg PO BID Lactulose [Cephulac] 30 gm PO QID Tamsulosin [Flomax] 0.4 mg PO BID Insulin Glargine [Lantus] 60 unit SQ HS Insulin Lispro [Admelog] See Protocol SQ AC-TID Temazepam [Restoril] 15 mg PO HS Discharge Medication List Atorvastatin [Lipitor] 20 mg PO HS 01/14/16 [History] Pregabalin [Lyrica] 200 mg PO BID 04/25/16 [History] hydrOXYzine HCL [Atarax] 10 mg PO HS 08/03/16 [History] oxyCODONE HCL [Roxicodone] 5 mg PO Q6H PRN 08/03/16 [History] Midodrine HCl [ProAmatine] 10 mg PO TID 09/02/16 [History] Furosemide [Lasix] 80 mg PO BID 01/23/17 [History] Lactulose [Cephulac] 30 gm PO QID 01/23/17 [History] Spironolactone [Aldactone] 25 mg PO BID 01/23/17 [History] Tamsulosin [Flomax] 0.4 mg PO BID 06/27/17 [History] Insulin Glargine [Lantus] 60 unit SQ HS 08/08/18 [History] Insulin Lispro [Admelog] See Protocol SQ AC-TID 08/08/18 [History] Temazepam [Restoril] 15 mg PO HS 08/08/18 [History] Follow up Appointment(s)/Referral(s): Stefan Esquivel MD [STAFF PHYSICIAN] - 08/30/18 4:00 pm Klaus Agrawal MD [Primary Care Provider] - 1-2 days [facility] Visiting Nurse, [NON-STAFF] - 1-2 Days
[2018-08-17 16:01] VITALS: BP 144/65; PULSE 68; RESP 13; TEMP 98.1
[2018-08-17 17:36] LABS: Glucose,Whole Blood 217 mg/dL (75-99)
== END 2018-08-17 18:25 | disposition home health service (06) | DRG 442 ==
LOC: EC 13:18 → 3NMEDONC 16:35
PROVIDERS: ADMIT Family Medicine; ATTEND Family Medicine
DX: K72.90 Hepatic failure, unspecified without coma (principal); R18.8 Other ascites; K74.60 Unspecified cirrhosis of liver; E11.40 Type 2 diabetes mellitus with diabetic neuropathy, unspecified; I45.81 Long QT syndrome; E86.0 Dehydration; D46.9 Myelodysplastic syndrome, unspecified; K21.9 Gastro-esophageal reflux disease without esophagitis; E78.5 Hyperlipidemia, unspecified; M19.90 Unspecified osteoarthritis, unspecified site; G89.4 Chronic pain syndrome; I10 Essential (primary) hypertension; N42.9 Disorder of prostate, unspecified; N28.9 Disorder of kidney and ureter, unspecified; R29.6 Repeated falls; F10.11 Alcohol abuse, in remission; Z79.4 Long term (current) use of insulin; Z79.891 Long term (current) use of opiate analgesic; Z79.899 Other long term (current) drug therapy; Z91.81 History of falling; Z87.01 Personal history of pneumonia (recurrent); Z86.14 Personal history of Methicillin resistant Staphylococcus aureus infection; Z90.49 Acquired absence of other specified parts of digestive tract; Z89.412 Acquired absence of left great toe; Z86.59 Personal history of other mental and behavioral disorders; Z87.19 Personal history of other diseases of the digestive system; Z86.73 Personal history of transient ischemic attack (TIA), and cerebral infarction without residual deficits; Z91.14 Patient's other noncompliance with medication regimen; Z91.19 Patient's noncompliance with other medical treatment and regimen; Z91.018 Allergy to other foods; Z83.3 Family history of diabetes mellitus; Z80.9 Family history of malignant neoplasm, unspecified; Z82.49 Family history of ischemic heart disease and other diseases of the circulatory system; Z83.49 Family history of other endocrine, nutritional and metabolic diseases
CPT/HCPCS: 36415; 71046; 76705; 80048; 80053; 80306; 81001; 82140; 83036; 84450; 84460; 84484; 85025; 85610; 85730; 87040; 87086; 93005; 96360; 96361; 99285

== ENCOUNTER 2018-12-18 02:45 | Inpatient (IN) | payer OTHER ==
--- NOTE | 2018-12-18 03:18 | ED ---
General Adult HPI - General Stated complaint: ELINOR Time Seen by Provider: 12/18/18 02:58 - History of Present Illness Initial comments: Justice is a 63-year-old gentleman with an extensive past medical history as documented below.. He was brought to the emergency department today by EMS for evaluation of altered mental status, generalized weakness, concern for medication noncompliance. EMS reports that they were called to the patient's home by the woman that he lives with. She reports that over the past 2 weeks the patient has seemed increasingly more confused and weak. Today he had apparently slipped out of his chair onto the ground, she was unable to get back up and and contacted EMS for lift assist. Upon their arrival they did note that the patient seemed to be very confused and altered which is a change from his baseline and they encouraged the patient to come to the ER for further evaluation. - Related Data Home Medications Medication Instructions Recorded Confirmed Atorvastatin [Lipitor] 20 mg PO HS 01/14/16 08/08/18 Pregabalin [Lyrica] 200 mg PO BID 04/25/16 08/08/18 hydrOXYzine HCL [Atarax] 10 mg PO HS 08/03/16 08/08/18 oxyCODONE HCL [Roxicodone] 5 mg PO Q6H PRN 08/03/16 08/08/18 Midodrine HCl [ProAmatine] 10 mg PO TID 09/02/16 08/08/18 Furosemide [Lasix] 80 mg PO BID 01/23/17 08/08/18 Lactulose [Cephulac] 30 gm PO QID 01/23/17 08/08/18 Spironolactone [Aldactone] 25 mg PO BID 01/23/17 08/08/18 Tamsulosin [Flomax] 0.4 mg PO BID 06/27/17 08/08/18 Insulin Glargine [Lantus] 60 unit SQ HS 08/08/18 08/08/18 Insulin Lispro [Admelog] See Protocol SQ AC-TID 08/08/18 08/08/18 Temazepam [Restoril] 15 mg PO HS 08/08/18 08/08/18 Allergies Allergy/AdvReac Type Severity Reaction Status Date / Time Mushroom Allergy Anaphylaxis Verified 08/08/18 13:49 Review of Systems ROS Statement: Those systems with pertinent positive or pertinent negative responses have been documented in the HPI. ROS Other: All systems not noted in ROS Statement are negative. Past Medical History Past Medical History: Chest Pain / Angina, CVA/TIA, Diabetes Mellitus, GERD/Reflux, Hyperlipidemia, Hypertension, Liver Disease, Neurologic Disorder, Osteoarthritis (OA), Pneumonia, Prostate Disorder, Renal Disease Additional Past Medical History / Comment(s): Diabetic neuropathy, myelodysplasia, chronic pain syndrome.ASCITIES,ULCER LT GREAT TOE (toe amputated), chronic pancytopenia, ulceration on left watson, 2nd degree servin from soup being spilled on stomach. History of Any Multi-Drug Resistant Organisms: MRSA Date of last positivie culture/infection: 04/30/16 MDRO Source:: LEFT FOOT Past Surgical History: Cholecystectomy, Orthopedic Surgery Additional Past Surgical History / Comment(s): Surgical debridements to the left great toe for diabetic foot ulcer, healed and ulcer has returned,LT GREAT TOE AMP, RT THORACENTESIS, PARACENTESIS colonoscopy about 2 years ago. Past Anesthesia/Blood Transfusion Reactions: No Reported Reaction Smoking Status: Never smoker - Past Family History Mother Family Medical History: Cancer, Diabetes Mellitus Father Family Medical History: Cancer, Diabetes Mellitus Brother(s) Family Medical History: Diabetes Mellitus Daughter(s) Family Medical History: Diabetes Mellitus, Hyperlipidemia, Hypertension Son(s) Family Medical History: Diabetes Mellitus, Hyperlipidemia, Hypertension General Exam - General Exam Comments Initial Comments: Physical Exam GENERAL: Chronically ill appearing HENT: Normocephalic, Atraumatic. EYES: PERRL, EOMI No conjunctival pallor, no scleral icterus PULMONARY: Unlabored respirations. Decreased breath sounds at left base No audible rales rhonchi or wheezing was noted. CARDIOVASCULAR: RRR ABDOMEN: Obese Distended, non-tender SKIN: Bruising on abdomen Nonhealing wound right watson : Deferred NEUROLOGIC: Slow to respond Oriented to self, hospital, month No asterixis MUSCULOSKELETAL: Lower extremity edema PSYCHIATRIC: Confusion Course Vital Signs 12/18/18 12/18/18 02:59 05:17 Temperature 97.6 F 98 F Pulse Rate 85 80 Respiratory 21 18 Rate Blood Pressure 122/61 150/66 O2 Sat by Pulse 98 Oximetry EKG Findings - EKG Comments: EKG Findings:: EKG was obtained as part of this sepsis workup. EKG was obtained at 3:18 AM, rate is 81 rhythm is sinus, there is a normal axis, MI 162, QRS 92, QTc is prolonged at 518. There are no acute ST elevations or depressions there is no evidence of acute ischemia or infarction. Medical Decision Making - Medical Decision Making The patient was seen and evaluated upon arrival to send history is obtained primarily from EMS as the patient was somewhat confused, patient did admit to feeling weak he slipped out of his chair was unable to get up called EMS for a transport however due to his confusion they decided to bring the ER for evaluation Labs and imaging were obtained Labs had multiple mild abnormalities including elevated ammonia level of 48, it appears patient has been admitted for ammonia levels as high as 99 however usually is lower in the 20s Patient also has elevated BUN and creatinine from baseline consistent with an acute kidney injury, family at bedside states that the patient has been compliant with his lactulose taking it 4 times daily and having loose stools. The report that he does have generalized weakness at baseline walks with a walker but when he becomes confused like this is unable to do so. The patient's weakness and confusion I do not feel he is safe for discharge home. Patient care was discussed with his primary care physician Dr. Servin who evaluated the patient last week and agrees with plan for admission for generalized weakness, metabolic encephalopathy likely secondary to liver disease - Lab Data Result diagrams: 12/18/18 03:25 12/18/18 03:25 Lab Results 12/18/18 12/18/18 12/18/18 Range/Units 03:25 03:25 03:25 WBC 3.8 (3.8-10.6) k/uL RBC 4.01 L (4.30-5.90) m/uL Hgb 11.6 L (13.0-17.5) gm/dL Hct 33.4 L (39.0-53.0) % MCV 83.3 (80.0-100.0) fL MCH 29.0 (25.0-35.0) pg MCHC 34.8 (31.0-37.0) g/dL RDW 16.1 H (11.5-15.5) % Plt Count 28 L (150-450) k/uL Neutrophils % 69 % Lymphocytes % 16 % Monocytes % 10 % Eosinophils % 3 % Basophils % 1 % Neutrophils # 2.6 (1.3-7.7) k/uL Lymphocytes # 0.6 L (1.0-4.8) k/uL Monocytes # 0.4 (0-1.0) k/uL Eosinophils # 0.1 (0-0.7) k/uL Basophils # 0.0 (0-0.2) k/uL Manual Slide Review Performed Polychromasia Present Anisocytosis Slight Ovalocytes Present PT (9.0-12.0) sec INR (<1.2) APTT (22.0-30.0) sec Sodium 137 (137-145) mmol/L Potassium 3.4 L (3.5-5.1) mmol/L Chloride 102 (98-107) mmol/L Carbon Dioxide 24 (22-30) mmol/L Anion Gap 11 mmol/L BUN 36 H (9-20) mg/dL Creatinine 2.88 H (0.66-1.25) mg/dL Est GFR (CKD-EPI)AfAm 26 (>60 ml/min/1.73 sqM) Est GFR (CKD-EPI)NonAf 23 (>60 ml/min/1.73 sqM) Glucose 115 H (74-99) mg/dL Plasma Lactic Acid Chad 2.0 (0.7-2.0) mmol/L Calcium 8.4 (8.4-10.2) mg/dL Total Bilirubin 2.4 H (0.2-1.3) mg/dL AST 27 (17-59) U/L ALT 24 (21-72) U/L Alkaline Phosphatase 114 (38-126) U/L Ammonia 48 H (<30) umol/L Creatine Kinase 163 (55-170) U/L Troponin I (0.000-0.034) ng/mL Total Protein 6.4 (6.3-8.2) g/dL Albumin 3.3 L (3.5-5.0) g/dL Urine Color Urine Appearance (Clear) Urine pH (5.0-8.0) Ur Specific [place] (1.001-1.035) Urine Protein (Negative) Urine Glucose (UA) (Negative) Urine Ketones (Negative) Urine Blood (Negative) Urine Nitrite (Negative) Urine Bilirubin (Negative) Urine Urobilinogen (<2.0) mg/dL Ur Leukocyte Esterase (Negative) Urine RBC (0-5) /hpf Urine WBC (0-5) /hpf Ur Squamous Epith Cells (0-4) /hpf Urine Mucus (None) /hpf 12/18/18 12/18/18 12/18/18 Range/Units 03:25 03:25 03:25 WBC (3.8-10.6) k/uL RBC (4.30-5.90) m/uL Hgb (13.0-17.5) gm/dL Hct (39.0-53.0) % MCV (80.0-100.0) fL MCH (25.0-35.0) pg MCHC (31.0-37.0) g/dL RDW (11.5-15.5) % Plt Count (150-450) k/uL Neutrophils % % Lymphocytes % % Monocytes % % Eosinophils % % Basophils % % Neutrophils # (1.3-7.7) k/uL Lymphocytes # (1.0-4.8) k/uL Monocytes # (0-1.0) k/uL Eosinophils # (0-0.7) k/uL Basophils # (0-0.2) k/uL Manual Slide Review Polychromasia Anisocytosis Ovalocytes PT 15.2 H (9.0-12.0) sec INR 1.5 H (<1.2) APTT 29.0 (22.0-30.0) sec Sodium (137-145) mmol/L Potassium (3.5-5.1) mmol/L Chloride (98-107) mmol/L Carbon Dioxide (22-30) mmol/L Anion Gap mmol/L BUN (9-20) mg/dL Creatinine (0.66-1.25) mg/dL Est GFR (CKD-EPI)AfAm (>60 ml/min/1.73 sqM) Est GFR (CKD-EPI)NonAf (>60 ml/min/1.73 sqM) Glucose (74-99) mg/dL Plasma Lactic Acid Chad (0.7-2.0) mmol/L Calcium (8.4-10.2) mg/dL Total Bilirubin (0.2-1.3) mg/dL AST (17-59) U/L ALT (21-72) U/L Alkaline Phosphatase (38-126) U/L Ammonia (<30) umol/L Creatine Kinase (55-170) U/L Troponin I <0.012 (0.000-0.034) ng/mL Total Protein (6.3-8.2) g/dL Albumin (3.5-5.0) g/dL Urine Color Light Yellow Urine Appearance Clear (Clear) Urine pH 7.0 (5.0-8.0) Ur Specific [place] 1.005 (1.001-1.035) Urine Protein Negative (Negative) Urine Glucose (UA) Negative (Negative) Urine Ketones Negative (Negative) Urine Blood Small H (Negative) Urine Nitrite Negative (Negative) Urine Bilirubin Negative (Negative) Urine Urobilinogen <2.0 (<2.0) mg/dL Ur Leukocyte Esterase Negative (Negative) Urine RBC 19 H (0-5) /hpf Urine WBC 1 (0-5) /hpf Ur Squamous Epith Cells <1 (0-4) /hpf Urine Mucus Rare H (None) /hpf Disposition Clinical Impression: Diabetic foot ulcer, Thrombocytopenia, Metabolic encephalopathy, Delirium due to general medical condition, Dehydration Disposition: ADMITTED IP TO THIS [facility] Condition: Stable Referrals: Klaus Agrawal MD [Primary Care Provider] - 1-2 days
[2018-12-18] MEDS: SODIUM CHLORIDE 0.9% 1,000 ML IV SCH ×4 (03:23→20:09)
[2018-12-18 03:49] LABS: Anisocytosis Slight; Basophils % (A) 1 %; Eosinophils # (A) 0.1 k/uL (0-0.7); Eosinophils % (A) 3 %; HCT 33.4 % (39.0-53.0); HGB 11.6 gm/dL (13.0-17.5); Lymphocytes # (A) 0.6 k/uL (1.0-4.8); Lymphocytes % (A) 16 %; MCHC 34.8 g/dL (31.0-37.0); MCV 83.3 fL (80.0-100.0); Mean Platelet Volume 10.2; Monocytes # (A) 0.4 k/uL (0-1.0); Monocytes % (A) 10 %; Neutrophils # (A) 2.6 k/uL (1.3-7.7); Neutrophils % (A) 69 %; RBC 4.01 m/uL (4.30-5.90); RDW 16.1 % (11.5-15.5); WBC 3.8 k/uL (3.8-10.6)
[2018-12-18 03:52] LABS: Albumin 3.3 g/dL (3.5-5.0); Calcium 8.4 mg/dL (8.4-10.2); Potassium 3.4 mmol/L (3.5-5.1); Total Bilirubin 2.4 mg/dL (0.2-1.3); Total Protein 6.4 g/dL (6.3-8.2)
[2018-12-18 04:16] LABS: INR 1.5 (<1.2); Prothrombin Time 15.2 sec (9.0-12.0)
--- NOTE | 2018-12-18 04:23 | XR ---
EXAM: XR Chest, 2 Views CLINICAL HISTORY: ITS.REASON XR Reason: cough TECHNIQUE: Frontal and lateral views of the chest. COMPARISON: Chest x-ray 08/08/2018 FINDINGS: Heart size remains mildly enlarged. Mild pulmonary vascular congestion. Mediastinal structures are unremarkable. Mild interstitial opacities throughout both lungs. No acute focal infiltrates or consolidations. Minimal right pleural effusion. No evidence of pneumothorax. Degenerative changes involve mid and lower thoracic spine. IMPRESSION: Mild cardiomegaly and pulmonary vascular congestion. Bilateral interstitial opacities may reflect chronic interstitial pulmonary disease or possible mild interstitial pulmonary edema. Minimal right pleural effusion.
[2018-12-18 04:24] LABS: Ovalocytes Present; Polychromasia Present
[2018-12-18 04:26] LABS: Platelet Count 28 k/uL (150-450)
[2018-12-18 04:32] LABS: Appearance,Urine Clear (Clear); Bilirubin,Urine Negative (Negative); Blood,Urine Small (Negative); Color,Urine Light Yellow; Glucose,Urine (UA) Negative (Negative); Ketones,Urine Negative (Negative); Leukocyte Esterase,Urine Negative (Negative); Mucus,Urine Rare /hpf; Nitrite,Urine Negative (Negative); Protein,Urine Negative (Negative); RBC,Urine 19 /hpf (0-5); Specific Gravity,Urine 1.005 (1.001-1.035); Squamous Epithelial Cell,Urine <1 /hpf (0-4); Urobilinogen,Urine <2.0 mg/dL (<2.0); WBC,Urine 1 /hpf (0-5)
--- NOTE | 2018-12-18 04:42 | CT ---
EXAM: CT Head Without Intravenous Contrast CLINICAL HISTORY: ITS.REASON CT Reason: Pain TECHNIQUE: Axial computed tomography images of the head/brain without intravenous contrast. CTDI is 49.3 mGy and DLP is 1241.4 mGy-cm. This CT exam was performed using one or more of the following dose reduction techniques: automated exposure control, adjustment of the mA and/or kV according to patient size, and/or use of iterative reconstruction technique. COMPARISON: CT head 09/02/2016 FINDINGS: Brain: No evidence of acute transcortical cerebral infarction or intracranial hemorrhage. No abnormal mass effect or midline shift. No abnormal extra-axial collections. Mild cerebral atrophy and chronic white matter ischemic changes. Ventricles: Ventricles are unremarkable. Bones/joints: No skull fracture identified. Sinuses: Imaged paranasal sinuses are clear. Mastoid air cells: Mastoid sinuses are clear. IMPRESSION: No evidence of acute intracranial abnormality.
[2018-12-18] MEDS ORDERED: FUROSEMIDE 10 MG/ML 4 ML VIAL IV STA (06:01)
[2018-12-18] MEDS ORDERED: NALOXONE 0.4 MG/ML 1 ML VIAL IV PRN (06:14)
[2018-12-18 06:28] LABS: Amphetamine Screen,Urine Not Detected (NotDetected); Barbiturate Screen,Urine Not Detected (NotDetected); Benzodiazepines Screen,Urine Detected (NotDetected); Cocaine Screen,Urine Not Detected (NotDetected); Methadone Screen, Urine Not Detected (NotDetected); Opiate Screen,Urine Not Detected (NotDetected); Oxycodone Screen, Urine Detected (NotDetected); Phencyclidine Screen,Urine Not Detected (NotDetected); Tricyclic Antidepressant,Urine Not Detected (NotDetected); Urn Cannabinoid Scrn Not Detected (NotDetected)
[2018-12-18 07:39] LABS: Glucose,Whole Blood 156 mg/dL (75-99)
[2018-12-18] MEDS ORDERED: MIDODRINE 5 MG TAB PO SCH (09:00)
[2018-12-18] MEDS ORDERED: SPIRONOLACTONE 25 MG TAB PO SCH (09:00)
[2018-12-18] MEDS ORDERED: FUROSEMIDE 80 MG TAB PO SCH (09:00)
[2018-12-18 11:03] LABS: Glucose,Whole Blood 179 mg/dL (75-99)
[2018-12-18] MEDS: LACTULOSE 20 GM/30 ML CUP PO SCH ×4 (11:28→21:37)
[2018-12-18] MEDS: TAMSULOSIN 0.4 MG CAP.ER.24H PO SCH ×2 (11:28→21:37)
[2018-12-18] MEDS: INSULIN ASPART (NovoLOG) 100 UNIT/ML VIAL SQ SCH ×3 (13:24→21:36)
--- NOTE | 2018-12-18 13:55 | US ---
EXAMINATION TYPE: US abdomen limited DATE OF EXAM: 12/18/2018 COMPARISON: NONE CLINICAL HISTORY: Ascites, assess abdominal fluid for paracentesis . Ascites check No abdominal ascites seen IMPRESSION: No evidence of ascites
[2018-12-18] MEDS ORDERED: POTASSIUM CHLORIDE ER 20 MEQ TAB.ER PO STA (14:31)
--- NOTE | 2018-12-18 14:33 | P.NPCON ---
History of Present Illness - Reason for Consult acute renal failure, chronic renal failure - History of Present Illness Reason for consultation: Acute kidney injury on chronic kidney disease History of present illness: Patient is a 63-year-old male seen in renal consultation for acute kidney injury on chronic kidney disease. Patient has chronic kidney disease stage III secondary to hepatorenal syndrome. Patient's baseline creatinine has been fluctuating in the range of 1.2-2. This admission was 2.88. Patient percent to the hospital due to worsening confusion and also sustained a fall. He is kavon ntained on Lasix 80 mg orally twice daily and spironolactone 25 mg twice daily at home. 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 He has been voiding. No hematuria or dysuria. Abdominal ultrasound revealed no ascites. Oral intake has been poor. Denies chest pain. Denies use of nonsteroidals. Patient's ammonia level was 48 and is currently maintained on lactulose. He also has history of insulin-dependent diabetes mellitus. Hemodynamically stable. He is maintained on midodrine. Vital signs are stable. General: The patient appeared well nourished and normally developed. HEENT: Head exam is unremarkable. Neck is without jugular venous distension. LUNGS: Lungs are clear to auscultation and percussion. Breath sounds decreased. HEART: Rate and Rhythm are regular. First and second heart sounds normal. No murmurs, rubs or gallops. ABDOMEN: Abdominal exam reveals normal bowel sounds. Non-tender. Obese. EXTREMITITES: Trace edema. Past Medical History Past Medical History: Chest Pain / Angina, CVA/TIA, Diabetes Mellitus, GERD/Reflux, Hyperlipidemia, Hypertension, Liver Disease, Neurologic Disorder, Osteoarthritis (OA), Pneumonia, Prostate Disorder, Renal Disease Additional Past Medical History / Comment(s): Diabetic neuropathy, myelodysplasia, chronic pain syndrome.ASCITIES,ULCER LT GREAT TOE (toe amputated), chronic pancytopenia, ulceration on left watson, 2nd degree servin from soup being spilled on stomach. History of Any Multi-Drug Resistant Organisms: MRSA Date of last positivie culture/infection: 04/30/16 MDRO Source:: LEFT FOOT Past Surgical History: Cholecystectomy, Orthopedic Surgery Additional Past Surgical History / Comment(s): Surgical debridements to the left great toe for diabetic foot ulcer, healed and ulcer has returned,LT GREAT TOE AMP, RT THORACENTESIS, PARACENTESIS colonoscopy about 2 years ago. Past Anesthesia/Blood Transfusion Reactions: No Reported Reaction Smoking Status: Never smoker - Past Family History Mother Family Medical History: Cancer, Diabetes Mellitus Father Family Medical History: Cancer, Diabetes Mellitus Brother(s) Family Medical History: Diabetes Mellitus Daughter(s) Family Medical History: Diabetes Mellitus, Hyperlipidemia, Hypertension Son(s) Family Medical History: Diabetes Mellitus, Hyperlipidemia, Hypertension Medications and Allergies Home Medications Medication Instructions Recorded Confirmed Type Atorvastatin [Lipitor] 20 mg PO HS 01/14/16 12/18/18 History Pregabalin [Lyrica] 200 mg PO BID 04/25/16 12/18/18 History hydrOXYzine HCL [Atarax] 10 mg PO HS 08/03/16 12/18/18 History oxyCODONE HCL [Roxicodone] 5 mg PO Q6H PRN 08/03/16 12/18/18 History Midodrine HCl [ProAmatine] 10 mg PO TID 09/02/16 12/18/18 History Furosemide [Lasix] 80 mg PO BID 01/23/17 12/18/18 History Lactulose [Cephulac] 30 gm PO QID 01/23/17 12/18/18 History Spironolactone [Aldactone] 25 mg PO BID 01/23/17 12/18/18 History Tamsulosin [Flomax] 0.4 mg PO BID 06/27/17 12/18/18 History Insulin Glargine [Lantus] 60 unit SQ HS 08/08/18 12/18/18 History Insulin Lispro [Admelog] See Protocol SQ AC-TID 08/08/18 12/18/18 History Temazepam [Restoril] 15 mg PO HS 08/08/18 12/18/18 History Allergies Allergy/AdvReac Type Severity Reaction Status Date / Time Mushroom Allergy Anaphylaxis Verified 12/18/18 07:01 Physical Exam Vitals: Vital Signs Temp Pulse Pulse Resp BP BP Pulse Ox 12/18/18 11:49 98.8 F 72 18 140/69 99 12/18/18 08:00 89 20 12/18/18 06:54 98 F 90 18 122/66 98 12/18/18 05:17 98 F 80 18 150/66 12/18/18 02:59 97.6 F 85 21 122/61 98 Intake and Output 12/17/18 12/18/18 12/18/18 22:59 06:59 14:59 Other: Voiding Method Urinal Weight 113.398 kg Results - Lab Results Most recent lab results Calcium 8.4 mg/dL (8.4-10.2) 12/18/18 03:25 12/18/18 03:25 12/18/18 03:25 Assessment and Plan Plan: Assessment: 1. Acute kidney injury mostly prerenal secondary to diuresis. No ascites noted on ultrasound. Creatinine 2.8 on admission. No proteinuria on UA. 2. Chronic kidney disease stage III secondary to hepatorenal syndrome with baseline creatinine in the range of 1.2-2. 3. [id number] liver cirrhosis. 4. Hypokalemia secondary to diuresis. 5. Hepatic encephalopathy. Plan: Maintain normal saline at 75 mL an hour. Hold tonight's dose of diuretics. Continue to monitor renal function and urine output. Replace potassium. 40 mEq today. Hold midodrine if systolic blood pressure greater than 110/80. Repeat electrolytes, incl magnesium, in the morning. Thank you for the consultation. I will continue to follow patient with you during his hospital stay.
--- NOTE | 2018-12-18 16:51 | P.HPIM ---
History of Present Illness H&P Date: 12/18/18 Chief Complaint: Hepatic encephalopathy This is 63-year-old gentleman with history of liver disease, renal failure, noncompliance-especially with his lactulose. Recent right watson debridement at PCPs office culture sent to [facility] [place], [place] lab. Patient reports increased weakness over the last couple weeks, recent fall. EKG reporting sinus rhythm. Ammonia level 48. Worsening renal function with creatinine of 2.88, T bili 2.4, INR 1.5. Afebrile. ID, nephrology consulted. Review of Systems ROS Statement: Those systems with pertinent positive or pertinent negative responses have been documented in the HPI. ROS Other: All systems not noted in ROS Statement are negative. Past Medical History Past Medical History: Chest Pain / Angina, CVA/TIA, Diabetes Mellitus, GERD/Reflux, Hyperlipidemia, Hypertension, Liver Disease, Neurologic Disorder, Osteoarthritis (OA), Pneumonia, Prostate Disorder, Renal Disease Additional Past Medical History / Comment(s): Nonalcoholic liver cirrhosis, ascities with paracentesis, hyperbilirubinemia, elevated ammonia levels, myelodysplasia, chronic pancytopenia, thrombocytopenia, past pleural effusion with thoracentesis, IDDM type II, neuropathy bilateral feet, past DKA, arthritis in multiple joints and worse in bilateral legs, chronic pain, TIA, CKD stage III, current R watson ulcer-was to be seen in [facility] on 12/19/18, past L great toe ulcer/debridements then eventual amputation. History of Any Multi-Drug Resistant Organisms: MRSA Date of last positivie culture/infection: 04/30/16 MDRO Source:: LEFT FOOT Past Surgical History: Cholecystectomy, Orthopedic Surgery Additional Past Surgical History / Comment(s): Surgical debridements to the left great toe for diabetic foot ulcer with eventual amputation, R thoracentesis, paracentesis, colonoscopy. Past Anesthesia/Blood Transfusion Reactions: No Reported Reaction Smoking Status: Never smoker - Past Family History Mother Family Medical History: Diabetes Mellitus Additional Family Medical History / Comment(s): Anemia and low platelets. Father Family Medical History: Diabetes Mellitus Brother(s) Family Medical History: Diabetes Mellitus Daughter(s) Family Medical History: Diabetes Mellitus, Hyperlipidemia, Hypertension Son(s) Family Medical History: Diabetes Mellitus, Hyperlipidemia, Hypertension Medications and Allergies Home Medications Medication Instructions Recorded Confirmed Type Atorvastatin [Lipitor] 20 mg PO HS 01/14/16 12/18/18 History Pregabalin [Lyrica] 200 mg PO BID 04/25/16 12/18/18 History hydrOXYzine HCL [Atarax] 10 mg PO HS 08/03/16 12/18/18 History oxyCODONE HCL [Roxicodone] 5 mg PO Q6H PRN 08/03/16 12/18/18 History Midodrine HCl [ProAmatine] 10 mg PO TID 09/02/16 12/18/18 History Furosemide [Lasix] 80 mg PO BID 01/23/17 12/18/18 History Lactulose [Cephulac] 30 gm PO QID 01/23/17 12/18/18 History Spironolactone [Aldactone] 25 mg PO BID 01/23/17 12/18/18 History Tamsulosin [Flomax] 0.4 mg PO BID 06/27/17 12/18/18 History Insulin Glargine [Lantus] 60 unit SQ HS 08/08/18 12/18/18 History Insulin Lispro [Admelog] See Protocol SQ AC-TID 08/08/18 12/18/18 History Temazepam [Restoril] 15 mg PO HS 08/08/18 12/18/18 History Allergies Allergy/AdvReac Type Severity Reaction Status Date / Time Mushroom Allergy Anaphylaxis Verified 12/18/18 07:01 Physical Exam Vitals: Vital Signs Temp Pulse Pulse Resp BP BP Pulse Ox 12/18/18 11:49 98.8 F 72 18 140/69 99 12/18/18 08:00 89 20 12/18/18 06:54 98 F 90 18 122/66 98 12/18/18 05:17 98 F 80 18 150/66 12/18/18 02:59 97.6 F 85 21 122/61 98 Intake and Output 12/18/18 12/18/18 12/18/18 06:59 14:59 22:59 Other: Voiding Method Urinal Weight 113.398 kg General: [Patient awake, alert and oriented times 3. Patient in no acute dist ress.] HEENT: [PERRL. EOMI. No pharyngeal erythema or exudate.] Neck: [No adenopathy.] Cardiac: [Heart regular in rate and rhythm. No S3. No S4. No clicks, rubs. No murmur.] Lungs: [Unlabored ,Clear to auscultation bilaterally.] Abdomen: [Obese, Distended, nontender No mass. No organomegaly. Ascites. Bowel sounds are diminished secondary to body habitus. Extremes: [No edema no cyanosis no claudication normal pulses] : [] Musculoskeletal: [No joint erythema, edema or tenderness.] Skin: [No rash. Right watson, recent debridement] Neurologic: [No lateralizing deficits. CN II - XII grossly intact.] Lymphatic: [No adenopathy.] Results CBC & Chem 7: 12/18/18 03:25 12/18/18 03:25 Labs: Abnormal Lab Results - Last 24 Hours (Table) 12/18/18 12/18/18 12/18/18 Range/Units 03:25 03:25 03:25 RBC 4.01 L (4.30-5.90) m/uL Hgb 11.6 L (13.0-17.5) gm/dL Hct 33.4 L (39.0-53.0) % RDW 16.1 H (11.5-15.5) % Plt Count 28 L (150-450) k/uL Lymphocytes # 0.6 L (1.0-4.8) k/uL PT (9.0-12.0) sec INR (<1.2) Potassium 3.4 L (3.5-5.1) mmol/L BUN 36 H (9-20) mg/dL Creatinine 2.88 H (0.66-1.25) mg/dL Glucose 115 H (74-99) mg/dL POC Glucose (mg/dL) (75-99) mg/dL Total Bilirubin 2.4 H (0.2-1.3) mg/dL Ammonia 48 H (<30) umol/L Albumin 3.3 L (3.5-5.0) g/dL Urine Blood (Negative) Urine RBC (0-5) /hpf Urine Mucus (None) /hpf Ur Oxycodone Screen (NotDetected) U Benzodiazepines Scrn (NotDetected) 12/18/18 12/18/18 12/18/18 Range/Units 03:25 03:25 03:25 RBC (4.30-5.90) m/uL Hgb (13.0-17.5) gm/dL Hct (39.0-53.0) % RDW (11.5-15.5) % Plt Count (150-450) k/uL Lymphocytes # (1.0-4.8) k/uL PT 15.2 H (9.0-12.0) sec INR 1.5 H (<1.2) Potassium (3.5-5.1) mmol/L BUN (9-20) mg/dL Creatinine (0.66-1.25) mg/dL Glucose (74-99) mg/dL POC Glucose (mg/dL) (75-99) mg/dL Total Bilirubin (0.2-1.3) mg/dL Ammonia (<30) umol/L Albumin (3.5-5.0) g/dL Urine Blood Small H (Negative) Urine RBC 19 H (0-5) /hpf Urine Mucus Rare H (None) /hpf Ur Oxycodone Screen Detected H (NotDetected) U Benzodiazepines Scrn Detected H (NotDetected) 12/18/18 12/18/18 Range/Units 07:37 11:01 RBC (4.30-5.90) m/uL Hgb (13.0-17.5) gm/dL Hct (39.0-53.0) % RDW (11.5-15.5) % Plt Count (150-450) k/uL Lymphocytes # (1.0-4.8) k/uL PT (9.0-12.0) sec INR (<1.2) Potassium (3.5-5.1) mmol/L BUN (9-20) mg/dL Creatinine (0.66-1.25) mg/dL Glucose (74-99) mg/dL POC Glucose (mg/dL) 156 H 179 H (75-99) mg/dL Total Bilirubin (0.2-1.3) mg/dL Ammonia (<30) umol/L Albumin (3.5-5.0) g/dL Urine Blood (Negative) Urine RBC (0-5) /hpf Urine Mucus (None) /hpf Ur Oxycodone Screen (NotDetected) U Benzodiazepines Scrn (NotDetected) Microbiology - Last 24 Hours (Table) 12/18/18 03:25 Urine Culture - Preliminary Urine,Voided Thrombosis Risk Factor Assmnt - Choose All That Apply Any of the Below Risk Factors Present?: Yes Each Factor Represents 1 point: Obesity (BMI >25) Other Risk Factors: Yes Each Risk Factor Represents 2 Points: Age 61-74 years Other congenital or acquired thrombophilia - If yes, enter type in comment: No Thrombosis Risk Factor Assessment Total Risk Factor Score: 3 Thrombosis Risk Factor Assessment Level: Moderate Risk Assessment and Plan Assessment: (1) Confusion secondary to hepatic encephalopathy in a patient noncompliant. Current Visit: Yes Status: Acute Code(s): R41.0 - DISORIENTATION, UNSPECIFIED SNOMED Code(s): 365742358 (2) Dehydration Current Visit: Yes Status: Acute Code(s): E86.0 - DEHYDRATION SNOMED Code(s): 92457139 (3) Hyperbilirubinemia Current Visit: Yes Status: Acute Code(s): E80.6 - OTHER DISORDERS OF BILIRUBIN METABOLISM SNOMED Code(s): 22113469 (4) Increased ammonia level Current Visit: Yes Status: Acute Code(s): R79.89 - OTHER SPECIFIED ABNORMAL FINDINGS OF BLOOD CHEMISTRY SNOMED Code(s): 138136068 (5) Cirrhosis Current Visit: No Status: Acute Code(s): K74.60 - UNSPECIFIED CIRRHOSIS OF LIVER SNOMED Code(s): 63620483 (6) acute on chronic renal failure stage III. Acute prerenal, secondary to diuresis, chronic secondary to hepatorenal syndrome (7) hypokalemia secondary to diuresis Plan: Continue on current medication regime ,monitoring and symptomatic treatment. Home meds have been reviewed and resumed. ID consulted for antibiotic recommendations/Wound Care. Compliance with lactulose rediscussed /reinforced .Close monitoring of T bili/LFTs, coags/INR, renal function with repeat labs ordered for a.m. Abdominal ultrasound ordered for potential paracentesis. GI and DVT prophylaxis in place. The impression and plan of care has been dictated as directed. : I performed a history and examination of this patient, discussed the same with the dictator. I agree with the dictator's note ,documented as a scribe. Any additional findings or plans will be noted. Time taken: 35 minutes
[2018-12-18 17:36] LABS: Glucose,Whole Blood 186 mg/dL (75-99)
[2018-12-18 21:04] LABS: Glucose,Whole Blood 227 mg/dL (75-99)
[2018-12-18] MEDS: ATORVASTATIN 20 MG TAB PO SCH (21:36)
[2018-12-18] MEDS: INSULIN DETEMIR (LEVEMIR) 100 UNIT/ML SYR SQ SCH (21:37)
[2018-12-18] MEDS: PREGABALIN 100 MG CAP PO SCH (21:37)
[2018-12-18] MEDS: TEMAZEPAM 15 MG CAP PO SCH (21:37)
[2018-12-18] MEDS: hydrOXYzine HCL 10 MG TAB PO SCH (21:42)
--- NOTE | 2018-12-19 00:36 | P.CONS ---
History of Present Illness - Reason for Consult Consult date: 12/18/18 Right leg wound and cellulitis Requesting physician: Pete Servin Jr - Chief Complaint Right leg wound x few weeks - History of Present Illness Patient is 63 and male who was brought into the ER by the EMS after they were calling to his house with the patient having weakness and mental status changes. His sed rate has been going on for about 2 weeks and apparently the morning the patient was brought to the hospital patient slipped out of the chair and the woman he lives with was unable to help him up to get back to the chair and she called the EMS on arrival of the mass was noticed to be in confused with metastatic changes and the patient was brought into the ER for further evaluation of the same on presentation hospital the patient has been afebrile but his white count has been normal UA was negative chest x-ray with some pulmonary vascular condition and pneumonia patient also noticed to have a wound on his right watson with the patient's wishes for couple of months now that would has been recently debrided by his primary care physician in the office a few days ago with concern for some cellulitis or culture were obtained and sent to the [facility] lab which I was unable to access and those culture currently growing Pseudomonas MSSA and staph epi infection disease was consulted for local wound care as well as antibiotic recommendation, patient Denies Having Any Pain to the Leg Wound Area There Is Some Surrounding Swelling and Redness but No Foul-Smelling Drainage Review of Systems Positive points has been mentioned in HPI rest of the systems are negative Past Medical History Past Medical History: Chest Pain / Angina, CVA/TIA, Diabetes Mellitus, GERD/ Reflux, Hyperlipidemia, Hypertension, Liver Disease, Neurologic Disorder, Osteoarthritis (OA), Pneumonia, Prostate Disorder, Renal Disease Additional Past Medical History / Comment(s): Diabetic neuropathy, myelodysplasia, chronic pain syndrome.ASCITIES,ULCER LT GREAT TOE (toe amputated), chronic pancytopenia, ulceration on left watson, 2nd degree servin from soup being spilled on stomach. History of Any Multi-Drug Resistant Organisms: MRSA Year Discovered:: 04/30/16 MDRO Source:: LEFT FOOT Past Surgical History: Cholecystectomy, Orthopedic Surgery Additional Past Surgical History / Comment(s): Surgical debridements to the left great toe for diabetic foot ulcer, healed and ulcer has returned,LT GREAT TOE AMP, RT THORACENTESIS, PARACENTESIS colonoscopy about 2 years ago. Past Anesthesia/Blood Transfusion Reactions: No Reported Reaction Smoking Status: Never smoker - Past Family History Mother Family Medical History: Cancer, Diabetes Mellitus Father Family Medical History: Cancer, Diabetes Mellitus Brother(s) Family Medical History: Diabetes Mellitus Daughter(s) Family Medical History: Diabetes Mellitus, Hyperlipidemia, Hypertension Son(s) Family Medical History: Diabetes Mellitus, Hyperlipidemia, Hypertension Medications and Allergies Home Medications Medication Instructions Recorded Confirmed Type Atorvastatin [Lipitor] 20 mg PO HS 01/14/16 12/18/18 History Pregabalin [Lyrica] 200 mg PO BID 04/25/16 12/18/18 History hydrOXYzine HCL [Atarax] 10 mg PO HS 08/03/16 12/18/18 History oxyCODONE HCL [Roxicodone] 5 mg PO Q6H PRN 08/03/16 12/18/18 History Midodrine HCl [ProAmatine] 10 mg PO TID 09/02/16 12/18/18 History Furosemide [Lasix] 80 mg PO BID 01/23/17 12/18/18 History Lactulose [Cephulac] 30 gm PO QID 01/23/17 12/18/18 History Spironolactone [Aldactone] 25 mg PO BID 01/23/17 12/18/18 History Tamsulosin [Flomax] 0.4 mg PO BID 06/27/17 12/18/18 History Insulin Glargine [Lantus] 60 unit SQ HS 08/08/18 12/18/18 History Insulin Lispro [Admelog] See Protocol SQ AC-TID 08/08/18 12/18/18 History Temazepam [Restoril] 15 mg PO HS 08/08/18 12/18/18 History Allergies Allergy/AdvReac Type Severity Reaction Status Date / Time Mushroom Allergy Anaphylaxis Verified 12/18/18 07:01 Physical Exam Vitals: Vital Signs Temp Pulse Pulse Resp BP Pulse Ox 12/18/18 08:00 89 20 12/18/18 06:54 98 F 90 18 122/66 98 12/18/18 05:17 98 F 80 18 150/66 12/18/18 02:59 97.6 F 85 21 122/61 98 Intake and Output 12/17/18 12/18/18 12/18/18 22:59 06:59 14:59 Other: Voiding Method Urinal Weight 113.398 kg GENERAL DESCRIPTION: Middle-aged male lying in bed, no distress. No tachypnea or accessory muscle of respiration use. HEENT: Shows Pallor , no scleral icterus. Oral mucous membrane is dry. No pharyngeal erythema or thrush NECK: Trachea central, no thyromegaly. LUNGS: Unlabored breathing. Clear to auscultation anteriorly. No wheeze or crackle. HEART: S1, S2, regular rate and rhythm. No loud murmur ABDOMEN: Soft, no tenderness , guarding or rigidity, no organomegaly EXTREMITIES: Right anterior leg wound with no slough tissue minimal surrounding swelling redness but no foul-smelling drainage. SKIN: No rash, no masses palpable. NEUROLOGICAL: The patient is awake, alert, oriented x3, mood and affect normal. Results CBC & Chem 7: 12/18/18 03:25 12/18/18 03:25 Labs: Abnormal Lab Results - Last 24 Hours (Table) 12/18/18 12/18/18 12/18/18 Range/Units 03:25 03:25 03:25 RBC 4.01 L (4.30-5.90) m/uL Hgb 11.6 L (13.0-17.5) gm/dL Hct 33.4 L (39.0-53.0) % RDW 16.1 H (11.5-15.5) % Plt Count 28 L (150-450) k/uL Lymphocytes # 0.6 L (1.0-4.8) k/uL PT (9.0-12.0) sec INR (<1.2) Potassium 3.4 L (3.5-5.1) mmol/L BUN 36 H (9-20) mg/dL Creatinine 2.88 H (0.66-1.25) mg/dL Glucose 115 H (74-99) mg/dL POC Glucose (mg/dL) (75-99) mg/dL Total Bilirubin 2.4 H (0.2-1.3) mg/dL Ammonia 48 H (<30) umol/L Albumin 3.3 L (3.5-5.0) g/dL Urine Blood (Negative) Urine RBC (0-5) /hpf Urine Mucus (None) /hpf Ur Oxycodone Screen (NotDetected) U Benzodiazepines Scrn (NotDetected) 12/18/18 12/18/18 12/18/18 Range/Units 03:25 03:25 03:25 RBC (4.30-5.90) m/uL Hgb (13.0-17.5) gm/dL Hct (39.0-53.0) % RDW (11.5-15.5) % Plt Count (150-450) k/uL Lymphocytes # (1.0-4.8) k/uL PT 15.2 H (9.0-12.0) sec INR 1.5 H (<1.2) Potassium (3.5-5.1) mmol/L BUN (9-20) mg/dL Creatinine (0.66-1.25) mg/dL Glucose (74-99) mg/dL POC Glucose (mg/dL) (75-99) mg/dL Total Bilirubin (0.2-1.3) mg/dL Ammonia (<30) umol/L Albumin (3.5-5.0) g/dL Urine Blood Small H (Negative) Urine RBC 19 H (0-5) /hpf Urine Mucus Rare H (None) /hpf Ur Oxycodone Screen Detected H (NotDetected) U Benzodiazepines Scrn Detected H (NotDetected) 12/18/18 12/18/18 Range/Units 07:37 11:01 RBC (4.30-5.90) m/uL Hgb (13.0-17.5) gm/dL Hct (39.0-53.0) % RDW (11.5-15.5) % Plt Count (150-450) k/uL Lymphocytes # (1.0-4.8) k/uL PT (9.0-12.0) sec INR (<1.2) Potassium (3.5-5.1) mmol/L BUN (9-20) mg/dL Creatinine (0.66-1.25) mg/dL Glucose (74-99) mg/dL POC Glucose (mg/dL) 156 H 179 H (75-99) mg/dL Total Bilirubin (0.2-1.3) mg/dL Ammonia (<30) umol/L Albumin (3.5-5.0) g/dL Urine Blood (Negative) Urine RBC (0-5) /hpf Urine Mucus (None) /hpf Ur Oxycodone Screen (NotDetected) U Benzodiazepines Scrn (NotDetected) Microbiology - Last 24 Hours (Table) 12/18/18 03:25 Urine Culture - Preliminary Urine,Voided Assessment and Plan Assessment: 1-patient with the right leg wound chronic with recent debridement by his primary care physician and cultures which are currently growing Pseudomonas aeruginosa MSSA and staph epi and a component of mild cellulitis clinically doubt deep infection 2-patient with her renal insufficiency high risk of nephrotoxicity with a creatinine clearance of 30ml/min Plan: 1-local wound care with Aquacel silver dressing to be changed every 48 hours 2-marked the area of the redness 3-we'll start the patient cefepime 2 g every 24 hours dose adjusted to his kidney function to cover for both MSSA and pseudomonas we will follow on clinical condition and culture to further adjust medication if needed Thank you for this consultation will follow this patient along with you Time with Patient: Greater than 30
[2018-12-19 07:03] LABS: Glucose,Whole Blood 114 mg/dL (75-99)
[2018-12-19] MEDS: LACTULOSE 20 GM/30 ML CUP PO SCH ×4 (08:54→21:09)
[2018-12-19] MEDS: TAMSULOSIN 0.4 MG CAP.ER.24H PO SCH ×2 (08:55→21:07)
[2018-12-19] MEDS: PREGABALIN 100 MG CAP PO SCH ×2 (08:56→21:07)
[2018-12-19] MEDS ORDERED: CEFEPIME 2 GM in SODIUM CHLORIDE 0.9% 50 ML IVPB SCH (09:00)
[2018-12-19] MEDS: CEFEPIME 2 GM in SODIUM CHLORIDE 0.9% 100 ML IVPB SCH (09:02)
[2018-12-19] MEDS: INSULIN ASPART (NovoLOG) 100 UNIT/ML VIAL SQ SCH ×4 (09:03→21:09)
[2018-12-19] MEDS: SODIUM CHLORIDE 0.9% 1,000 ML IV SCH ×2 (09:03→19:56)
[2018-12-19 09:20] LABS: Anisocytosis Slight; Basophils % (A) 0 %; Eosinophils # (A) 0.1 k/uL (0-0.7); Eosinophils % (A) 3 %; HCT 32.9 % (39.0-53.0); HGB 11.4 gm/dL (13.0-17.5); Lymphocytes # (A) 0.5 k/uL (1.0-4.8); Lymphocytes % (A) 18 %; MCH 29.4 pg (25.0-35.0); MCHC 34.6 g/dL (31.0-37.0); MCV 85.1 fL (80.0-100.0); Mean Platelet Volume 11.5; Monocytes # (A) 0.3 k/uL (0-1.0); Monocytes % (A) 9 %; Neutrophils % (A) 68 %; RBC 3.87 m/uL (4.30-5.90); RDW 16.1 % (11.5-15.5); WBC 2.9 k/uL (3.8-10.6)
[2018-12-19 09:38] LABS: Albumin 2.9 g/dL (3.5-5.0); Calcium 8.3 mg/dL (8.4-10.2); Magnesium 2.1 mg/dL (1.6-2.3); Potassium 4.1 mmol/L (3.5-5.1); Total Bilirubin 2.1 mg/dL (0.2-1.3); Total Protein 5.9 g/dL (6.3-8.2)
[2018-12-19 09:46] LABS: Platelet Count 27 k/uL (150-450)
--- NOTE | 2018-12-19 10:21 | P.PN ---
Subjective Patient is seen in follow-up for acute kidney injury on chronic kidney disease. Patient has chronic kidney disease stage III secondary to hepatorenal syndrome with creatinine in the range of 1.2-2 outpatient. It was 2.88 on admission and is stable at 2.89 today. He admits to good urine output. Hemodynamically stable. No vomiting or diarrhea. Vital signs are stable. General: The patient appeared well nourished and normally developed. HEENT: Head exam is unremarkable. Neck is without jugular venous distension. LUNGS: Lungs are clear to auscultation and percussion. Breath sounds decreased. HEART: Rate and Rhythm are regular. First and second heart sounds normal. No murmurs, rubs or gallops. ABDOMEN: Abdominal exam reveals normal bowel sounds. Obese. EXTREMITITES: No edema. Objective - Vital Signs Vital signs: Vital Signs Temp 98.2 F 12/19/18 04:56 Pulse 73 12/19/18 04:56 Resp 18 12/19/18 04:56 BP 115/64 12/19/18 04:56 Pulse Ox 94 L 12/19/18 04:56 Intake & Output 12/18/18 12/19/18 12/19/18 18:59 06:59 18:59 Intake Total 1680 1440 Output Total 650 Balance 1680 790 Intake: Intake, IV Titration 1200 900 Amount Sodium Chloride 0.9% 1, 1200 900 000 ml @ 75 mls/hr IV . [id number] REPLACED BY [facility] Rx#:[id number] Oral 480 540 Output: Urine 650 Other: Voiding Method Urinal Urinal # Voids 7 3 - Labs CBC & Chem 7: 12/19/18 09:03 12/19/18 09:03 Labs: Abnormal Lab Results - Last 24 Hours (Table) 12/18/18 12/18/18 12/18/18 Range/Units 11:01 17:32 21:02 WBC (3.8-10.6) k/uL RBC (4.30-5.90) m/uL Hgb (13.0-17.5) gm/dL Hct (39.0-53.0) % RDW (11.5-15.5) % Plt Count (150-450) k/uL Lymphocytes # (1.0-4.8) k/uL BUN (9-20) mg/dL Creatinine (0.66-1.25) mg/dL POC Glucose (mg/dL) 179 H 186 H 227 H (75-99) mg/dL Calcium (8.4-10.2) mg/dL Total Bilirubin (0.2-1.3) mg/dL Ammonia (<30) umol/L Total Protein (6.3-8.2) g/dL Albumin (3.5-5.0) g/dL 12/19/18 12/19/18 12/19/18 Range/Units 07:01 09:03 09:03 WBC 2.9 L (3.8-10.6) k/uL RBC 3.87 L (4.30-5.90) m/uL Hgb 11.4 L (13.0-17.5) gm/dL Hct 32.9 L (39.0-53.0) % RDW 16.1 H (11.5-15.5) % Plt Count 27 L (150-450) k/uL Lymphocytes # 0.5 L (1.0-4.8) k/uL BUN 37 H (9-20) mg/dL Creatinine 2.89 H (0.66-1.25) mg/dL POC Glucose (mg/dL) 114 H (75-99) mg/dL Calcium 8.3 L (8.4-10.2) mg/dL Total Bilirubin 2.1 H (0.2-1.3) mg/dL Ammonia (<30) umol/L Total Protein 5.9 L (6.3-8.2) g/dL Albumin 2.9 L (3.5-5.0) g/dL 12/19/18 Range/Units 09:03 WBC (3.8-10.6) k/uL RBC (4.30-5.90) m/uL Hgb (13.0-17.5) gm/dL Hct (39.0-53.0) % RDW (11.5-15.5) % Plt Count (150-450) k/uL Lymphocytes # (1.0-4.8) k/uL BUN (9-20) mg/dL Creatinine (0.66-1.25) mg/dL POC Glucose (mg/dL) (75-99) mg/dL Calcium (8.4-10.2) mg/dL Total Bilirubin (0.2-1.3) mg/dL Ammonia 47 H (<30) umol/L Total Protein (6.3-8.2) g/dL Albumin (3.5-5.0) g/dL Microbiology - Last 24 Hours (Table) 12/18/18 04:22 Blood Culture - Preliminary Blood No Growth after 24 hours 12/18/18 03:25 Urine Culture - Preliminary Urine,Voided Assessment and Plan Plan: Assessment: 1. Acute kidney injury secondary to hepatorenal syndrome. No improvement in renal function with IV hydration. Rule out hydronephrosis. No ascites noted on ultrasound. Creatinine 2.8 on admission 2.89 today - . No proteinuria on UA. 2. Chronic kidney disease stage III secondary to hepatorenal syndrome with baseline creatinine in the range of 1.2-2. 3. Nep-aouuirw-sgyfyfd liver cirrhosis. 4. Hypokalemia secondary to diuresis. Better post replacement. 5. Hepatic encephalopathy. maintained on lactulose. Plan: Decrease rate of normal saline to 50 mL an hour. Resume Aldactone. Check renal ultrasound. Repeat electrolytes in the morning.
[2018-12-19 11:40] LABS: Glucose,Whole Blood 109 mg/dL (75-99)
[2018-12-19] MEDS: SPIRONOLACTONE 25 MG TAB PO SCH ×2 (12:46→21:08)
--- NOTE | 2018-12-19 13:01 | PN ---
PROGRESS NOTE DATE OF SERVICE: 12/19/2018 REASON FOR FOLLOWUP: Right leg wound with cellulitis. INTERVAL HISTORY: The patient is currently afebrile. The patient has been breathing comfortably. The patient denies having any chest pain. No shortness of breath or cough. No nausea, no vomiting. No abdominal pain. Pain in the leg area. PHYSICAL EXAMINATION: On examination, blood pressure is 115/64 with a pulse of 73, temperature of 98.2. He is 94% on room air. General description is a middle-aged male lying in bed in no distress. RESPIRATORY SYSTEM: Unlabored breathing, clear to auscultation anteriorly. HEART: S1, S2. Regular rate and rhythm. ABDOMEN: Soft, no tenderness. Right leg wound is currently dressed with no obvious drainage on the dressing. LABS: Hemoglobin 11.4, with 2.9 with a BUN of 37 is 2.89. DIAGNOSTIC IMPRESSION AND PLAN: Patient with right watson wound with secondary cellulitis. Outpatient culture positive for MSSA and Pseudomonas. Patient currently covered with cefepime. Local wound care with Aquacel Silver dressing and monitor his clinical course closely. MMODL / IJN: [id number] /
[2018-12-19 14:48] VITALS: BMI 35.9
--- NOTE | 2018-12-19 15:32 | US ---
EXAMINATION TYPE: US kidneys/renal and bladder DATE OF EXAM: 12/19/2018 COMPARISON: 12/18/2018 Limited abdomen ultrasound CLINICAL HISTORY: lexus. abn labs. No pain. EXAM MEASUREMENTS: Right Kidney: 9.9 x 4.7 x 5.1 cm Left Kidney: 10.5 x 3.9 x 5.2 cm Portions scanned through ribs due to overlying bowel gas Right Kidney: No hydronephrosis or masses seen. Appears lobular in appearance. Left Kidney: No hydronephrosis or masses seen. Appears lobular in appearance. Bladder: wnl, distended Bilateral Jets seen not seen IMPRESSION: 1. Normal renal ultrasound
[2018-12-19 17:19] LABS: Glucose,Whole Blood 263 mg/dL (75-99)
[2018-12-19 20:58] LABS: Glucose,Whole Blood 167 mg/dL (75-99)
[2018-12-19] MEDS: ATORVASTATIN 20 MG TAB PO SCH (21:08)
[2018-12-19] MEDS: INSULIN DETEMIR (LEVEMIR) 100 UNIT/ML SYR SQ SCH (21:09)
[2018-12-19] MEDS: hydrOXYzine HCL 10 MG TAB PO SCH (23:17)
[2018-12-19] MEDS: TEMAZEPAM 15 MG CAP PO SCH (23:18)
[2018-12-20 06:59] LABS: Glucose,Whole Blood 102 mg/dL (75-99)
[2018-12-20 07:19] LABS: Calcium 8.2 mg/dL (8.4-10.2); Potassium 3.7 mmol/L (3.5-5.1)
[2018-12-20 07:21] LABS: Magnesium 2.3 mg/dL (1.6-2.3)
[2018-12-20] MEDS: INSULIN ASPART (NovoLOG) 100 UNIT/ML VIAL SQ SCH ×4 (08:37→21:56)
[2018-12-20] MEDS: CEFEPIME 2 GM in SODIUM CHLORIDE 0.9% 100 ML IVPB SCH (08:44)
[2018-12-20] MEDS: LACTULOSE 20 GM/30 ML CUP PO SCH ×4 (08:45→21:54)
[2018-12-20] MEDS: TAMSULOSIN 0.4 MG CAP.ER.24H PO SCH ×2 (08:46→21:53)
[2018-12-20] MEDS: PREGABALIN 100 MG CAP PO SCH ×2 (08:46→21:53)
[2018-12-20] MEDS: SPIRONOLACTONE 25 MG TAB PO SCH ×2 (08:46→21:53)
--- NOTE | 2018-12-20 08:49 | P.PN ---
Subjective Patient is seen in follow-up for acute kidney injury on chronic kidney disease. Patient has chronic kidney disease stage III secondary to hepatorenal syndrome with creatinine in the range of 1.2-2 outpatient. It was 2.88 on admission and is slightly improved at 2.74 today. He admits to good urine output. Hemodynamically stable. No vomiting. Does have loose bowel movements. He is on lactulose. Oral intake is fair. Vital signs are stable. General: The patient appeared well nourished and normally developed. HEENT: Head exam is unremarkable. Neck is without jugular venous distension. LUNGS: Lungs are clear to auscultation and percussion. Breath sounds decreased. HEART: Rate and Rhythm are regular. First and second heart sounds normal. No murmurs, rubs or gallops. ABDOMEN: Abdominal exam reveals normal bowel sounds. Obese. EXTREMITITES: No edema. Objective - Vital Signs Vital signs: Vital Signs Temp 97.6 F 12/20/18 04:58 Pulse 68 12/20/18 04:58 Resp 18 12/20/18 04:58 BP 131/57 12/20/18 04:58 Pulse Ox 97 12/20/18 04:58 Intake & Output 12/19/18 12/20/18 12/20/18 18:59 06:59 18:59 Output Total 400 Balance -400 Weight 113.398 kg Output: Urine 400 Other: Voiding Method Urinal Toilet Urinal # Voids 2 3 - Labs CBC & Chem 7: 12/19/18 09:03 12/20/18 06:52 Labs: Abnormal Lab Results - Last 24 Hours (Table) 12/19/18 12/19/18 12/19/18 Range/Units 09:03 09:03 09:03 WBC 2.9 L (3.8-10.6) k/uL RBC 3.87 L (4.30-5.90) m/uL Hgb 11.4 L (13.0-17.5) gm/dL Hct 32.9 L (39.0-53.0) % RDW 16.1 H (11.5-15.5) % Plt Count 27 L (150-450) k/uL Lymphocytes # 0.5 L (1.0-4.8) k/uL Chloride (98-107) mmol/L BUN 37 H (9-20) mg/dL Creatinine 2.89 H (0.66-1.25) mg/dL Glucose (74-99) mg/dL POC Glucose (mg/dL) (75-99) mg/dL Calcium 8.3 L (8.4-10.2) mg/dL Total Bilirubin 2.1 H (0.2-1.3) mg/dL Ammonia 47 H (<30) umol/L Total Protein 5.9 L (6.3-8.2) g/dL Albumin 2.9 L (3.5-5.0) g/dL 12/19/18 12/19/18 12/19/18 Range/Units 11:38 17:18 20:57 WBC (3.8-10.6) k/uL RBC (4.30-5.90) m/uL Hgb (13.0-17.5) gm/dL Hct (39.0-53.0) % RDW (11.5-15.5) % Plt Count (150-450) k/uL Lymphocytes # (1.0-4.8) k/uL Chloride (98-107) mmol/L BUN (9-20) mg/dL Creatinine (0.66-1.25) mg/dL Glucose (74-99) mg/dL POC Glucose (mg/dL) 109 H 263 H 167 H (75-99) mg/dL Calcium (8.4-10.2) mg/dL Total Bilirubin (0.2-1.3) mg/dL Ammonia (<30) umol/L Total Protein (6.3-8.2) g/dL Albumin (3.5-5.0) g/dL 12/20/18 12/20/18 Range/Units 06:52 06:58 WBC (3.8-10.6) k/uL RBC (4.30-5.90) m/uL Hgb (13.0-17.5) gm/dL Hct (39.0-53.0) % RDW (11.5-15.5) % Plt Count (150-450) k/uL Lymphocytes # (1.0-4.8) k/uL Chloride 110 H (98-107) mmol/L BUN 40 H (9-20) mg/dL Creatinine 2.74 H (0.66-1.25) mg/dL Glucose 103 H (74-99) mg/dL POC Glucose (mg/dL) 102 H (75-99) mg/dL Calcium 8.2 L (8.4-10.2) mg/dL Total Bilirubin (0.2-1.3) mg/dL Ammonia (<30) umol/L Total Protein (6.3-8.2) g/dL Albumin (3.5-5.0) g/dL Microbiology - Last 24 Hours (Table) 12/18/18 04:22 Blood Culture - Preliminary Blood No Growth after 48 hours 12/18/18 03:25 Urine Culture - Final Urine,Voided Assessment and Plan Plan: Assessment: 1. Acute kidney injury secondary to hepatorenal syndrome. No improvement in renal function with IV hydration. No evidence of hydronephrosis. No ascites noted on ultrasound. Creatinine 2.8 on admission 2.89 today. No proteinuria on UA. 2. Chronic kidney disease stage III secondary to hepatorenal syndrome with baseline creatinine in the range of 1.2-2. 3. Lui-imwckte-raofxbv liver cirrhosis. 4. Hypokalemia secondary to diuresis. Better post replacement. 5. Hepatic encephalopathy. Maintained on lactulose. Mentation improved. Plan: Hep-Lock IV fluids. Maintain Aldactone. Repeat electrolytes in the morning.
[2018-12-20 09:54] LABS: Glucose,Whole Blood 130 mg/dL (75-99)
[2018-12-20 11:06] LABS: Glucose,Whole Blood 136 mg/dL (75-99)
[2018-12-20 17:52] LABS: Glucose,Whole Blood 209 mg/dL (75-99)
--- NOTE | 2018-12-20 18:00 | P.PN ---
Subjective Progress Note Date: 12/19/18 This is 63-year-old gentleman with history of liver disease, renal failure, noncompliance-especially with his lactulose. Recent right watson debridement at PCPs office culture sent to [facility] lab. Patient reports increased weakness over the last couple weeks, recent fall. EKG reporting sinus rhythm. Ammonia level 48. Worsening renal function with creatinine of 2.88, T bili 2.4, INR 1.5. Afebrile. ID, nephrology consulted. 12/19/2018 maintained on IV fluid hydration, creatinine unchanged, 2.89. Diuretics held, Midodrin on hold as per parameters. Maintained on lactulose with ammonia level of 47 today, minimal change. [facility] reporting cultures as pseudo MSSA, staph appy. T bili down to 2.1. IV antibiotics of cefepime and wound care as per infectious disease. Afebrile. No abdominal pain. Denies nausea vomiting. Eyes chest pain, palpitations or shortness of breath. Denies lightheadedness or dizziness or focal deficits. Abdominal ultrasound reports no ascites. Renal ultrasound reported normal with no hydronephrosis. Objective - Vital Signs Vital signs: Vital Signs Temp 98.2 F 12/19/18 04:56 Pulse 73 12/19/18 04:56 Resp 18 12/19/18 04:56 BP 115/64 12/19/18 04:56 Pulse Ox 94 L 12/19/18 04:56 Intake & Output 12/18/18 12/19/18 12/19/18 18:59 06:59 18:59 Intake Total 1680 1440 Output Total 650 Balance 1680 790 Intake: Intake, IV Titration 1200 900 Amount Sodium Chloride 0.9% 1, 1200 900 000 ml @ 75 mls/hr IV . [id number] [facility] Rx#:[id number] Oral 480 540 Output: Urine 650 Other: Voiding Method Urinal Urinal # Voids 7 3 - Exam General: [Patient awake, alert and oriented times 3. Patient in no acute distress.] HEENT: [PERRL. EOMI. No pharyngeal erythema or exudate.] Neck: Supple Cardiac: [Heart regular in rate and rhythm. No S3. No S4. No clicks, rubs. No murmur.] Lungs: [Unlabored ,Clear to auscultation bilaterally.] Abdomen: [Obese, Distended, nontender No mass. No organomegaly. Bowel sounds are diminished secondary to body habitus. Extremes: [No edema no cyanosis no claudication normal pulses] Musculoskeletal: [No joint erythema, edema or tenderness.] Skin: [No rash. Right watson, recent debridement. Dressing clean dry and intact] Neurologic: [No lateralizing deficits. CN II - XII grossly intact. No focal deficits] - Labs CBC & Chem 7: 12/19/18 09:03 12/20/18 06:52 Labs: Abnormal Lab Results - Last 24 Hours (Table) 12/18/18 12/18/18 12/19/18 Range/Units 17:32 21:02 07:01 WBC (3.8-10.6) k/uL RBC (4.30-5.90) m/uL Hgb (13.0-17.5) gm/dL Hct (39.0-53.0) % RDW (11.5-15.5) % Plt Count (150-450) k/uL Lymphocytes # (1.0-4.8) k/uL BUN (9-20) mg/dL Creatinine (0.66-1.25) mg/dL POC Glucose (mg/dL) 186 H 227 H 114 H (75-99) mg/dL Calcium (8.4-10.2) mg/dL Total Bilirubin (0.2-1.3) mg/dL Ammonia (<30) umol/L Total Protein (6.3-8.2) g/dL Albumin (3.5-5.0) g/dL 12/19/18 12/19/18 12/19/18 Range/Units 09:03 09:03 09:03 WBC 2.9 L (3.8-10.6) k/uL RBC 3.87 L (4.30-5.90) m/uL Hgb 11.4 L (13.0-17.5) gm/dL Hct 32.9 L (39.0-53.0) % RDW 16.1 H (11.5-15.5) % Plt Count 27 L (150-450) k/uL Lymphocytes # 0.5 L (1.0-4.8) k/uL BUN 37 H (9-20) mg/dL Creatinine 2.89 H (0.66-1.25) mg/dL POC Glucose (mg/dL) (75-99) mg/dL Calcium 8.3 L (8.4-10.2) mg/dL Total Bilirubin 2.1 H (0.2-1.3) mg/dL Ammonia 47 H (<30) umol/L Total Protein 5.9 L (6.3-8.2) g/dL Albumin 2.9 L (3.5-5.0) g/dL 12/19/18 Range/Units 11:38 WBC (3.8-10.6) k/uL RBC (4.30-5.90) m/uL Hgb (13.0-17.5) gm/dL Hct (39.0-53.0) % RDW (11.5-15.5) % Plt Count (150-450) k/uL Lymphocytes # (1.0-4.8) k/uL BUN (9-20) mg/dL Creatinine (0.66-1.25) mg/dL POC Glucose (mg/dL) 109 H (75-99) mg/dL Calcium (8.4-10.2) mg/dL Total Bilirubin (0.2-1.3) mg/dL Ammonia (<30) umol/L Total Protein (6.3-8.2) g/dL Albumin (3.5-5.0) g/dL Microbiology - Last 24 Hours (Table) 12/18/18 04:22 Blood Culture - Preliminary Blood No Growth after 24 hours 12/18/18 03:25 Urine Culture - Preliminary Urine,Voided Assessment and Plan Assessment: (1) Confusion secondary to hepatic encephalopathy in a patient noncompliant. Current Visit: Yes Status: Acute Code(s): R41.0 - DISORIENTATION, UNSPECIFIED SNOMED Code(s): 523850869 (2) Dehydration Current Visit: Yes Status: Acute Code(s): E86.0 - DEHYDRATION SNOMED Code(s): 56842621 (3) Hyperbilirubinemia Current Visit: Yes Status: Acute Code(s): E80.6 - OTHER DISORDERS OF BILIRUBIN METABOLISM SNOMED Code(s): 51118490 (4) hepatic encephalopathy secondary to Increased ammonia level related to noncompliance with lactulose Current Visit: Yes Status: Acute Code(s): R79.89 - OTHER SPECIFIED ABNORMAL FINDINGS OF BLOOD CHEMISTRY SNOMED Code(s): 376264476 (5) Cirrhosis Current Visit: No Status: Acute Code(s): K74.60 - UNSPECIFIED CIRRHOSIS OF LIVER SNOMED Code(s): 28464051 (6) acute on chronic renal failure stage III. Acute prerenal, secondary to diuresis, chronic secondary to hepatorenal syndrome (7) hypokalemia secondary to diuresis (8) right watson wound with secondary cellulitis, recent debridement. Outpatient culture positive for MSSA, Pseudomonas. (9) hypokalemia secondary to diuresing Plan: Continue on current medication regime , Aldactone monitoring and symptomat ic treatment. Maintain cefepime/wound care as per infectious disease .Reinforced compliance with lactulose. IV fluids decreased as per nephrology.Close monitoring of T bili/LFTs, coags/INR, renal function with repeat labs ordered for a.m. GI and DVT prophylaxis in place. Discussed subacute rehab at discharge, but patient declining further recommendations to follow. The impression and plan of care has been dictated as directed. : I performed a history and examination of this patient, discussed the same with the dictator. I agree with the dictator's note ,documented as a scribe. Any additional findings or plans will be noted. Time taken: 35 minutes
--- NOTE | 2018-12-20 18:07 | P.PN ---
Subjective Progress Note Date: 12/20/18 This is 63-year-old gentleman with history of liver disease, renal failure, noncompliance-especially with his lactulose. Recent right watson debridement at [facility]Ps office culture sent to [facility] lab. Patient reports increased weakness over the last couple weeks, recent fall. EKG reporting sinus rhythm. Ammonia level 48. Worsening renal function with creatinine of 2.88, T bili 2.4, INR 1.5. Afebrile. ID, nephrology consulted. 12/19/2018 maintained on IV fluid hydration, creatinine unchanged, 2.89. Diuretics held, Midodrin on hold as per parameters. Maintained on lactulose with ammonia level of 47 today, minimal change. [facility] reporting cultures as pseudo MSSA, staph appy. T bili down to 2.1. IV antibiotics of cefepime and wound care as per infectious disease. Afebrile. No abdominal pain. Denies nausea vomiting. Eyes chest pain, palpitations or shortness of breath. Denies lightheadedness or dizziness or focal deficits. Abdominal ultrasound reports no ascites. Renal ultrasound reported normal with no hydronephrosis. 12/20/2018 significant improvement in ammonia level, down to 27. Mild improvement in renal function, creatinine 2.74. Diet intake improving.VSS. Objective - Vital Signs Vital signs: Vital Signs Temp 97.9 F 12/20/18 11:36 Pulse 77 12/20/18 11:36 Resp 17 12/20/18 16:00 BP 135/65 12/20/18 11:36 Pulse Ox 97 12/20/18 11:36 Intake & Output 12/19/18 12/20/18 12/20/18 18:59 06:59 18:59 Intake Total 500 Output Total 400 Balance -400 500 Weight 113.398 kg Intake: Intake, IV Titration 500 Amount Cefepime 2 gm In Sodium 100 Chloride 0.9% 100 ml @ 200 mls/hr IVPB Q24H [facility] Rx#:[id number] Sodium Chloride 0.9% 1, 400 000 ml @ 50 mls/hr IV . Q20H [facility] Rx#:[id number] Output: Urine 400 Other: Voiding Method Urinal Toilet Toilet Urinal Urinal # Voids 2 3 - Exam General: [Patient awake, alert and oriented times 3, sitting up in bed. Patient in no acute distress.] HEENT: [PERRL. EOMI. No pharyngeal erythema or exudate.] Neck: Supple Cardiac: [Heart regular in rate and rhythm. No S3. No S4. No clicks, rubs. No murmur.] Lungs: [Unlabored ,Clear to auscultation bilaterally.] Abdomen: [Obese, Distended, nontender No mass. No organomegaly. Bowel sounds are diminished secondary to body habitus. Extremes: [No edema no cyanosis no claudication normal pulses] Musculoskeletal: [No joint erythema, edema or tenderness.] Skin: [No rash. Right lower leg Dressing clean dry and intact] Neurologic: [No lateralizing deficits. CN II - XII grossly intact. No focal deficits] - Labs CBC & Chem 7: 12/19/18 09:03 12/20/18 06:52 Labs: Abnormal Lab Results - Last 24 Hours (Table) 12/19/18 12/20/18 12/20/18 Range/Units 20:57 06:52 06:58 Chloride 110 H (98-107) mmol/L BUN 40 H (9-20) mg/dL Creatinine 2.74 H (0.66-1.25) mg/dL Glucose 103 H (74-99) mg/dL POC Glucose (mg/dL) 167 H 102 H (75-99) mg/dL Calcium 8.2 L (8.4-10.2) mg/dL 12/20/18 12/20/18 12/20/18 Range/Units 09:52 11:05 17:51 Chloride (98-107) mmol/L BUN (9-20) mg/dL Creatinine (0.66-1.25) mg/dL Glucose (74-99) mg/dL POC Glucose (mg/dL) 130 H 136 H 209 H (75-99) mg/dL Calcium (8.4-10.2) mg/dL Microbiology - Last 24 Hours (Table) 12/18/18 04:22 Blood Culture - Preliminary Blood No Growth after 48 hours Assessment and Plan Assessment: (1) Confusion secondary to hepatic encephalopathy in a patient noncompliant. Current Visit: Yes Status: Acute Code(s): R41.0 - DISORIENTATION, UNSPECIFIED SNOMED Code(s): 050705958 (2) Dehydration Current Visit: Yes Status: Acute Code(s): E86.0 - DEHYDRATION SNOMED Code(s): 06797342 (3) Hyperbilirubinemia Current Visit: Yes Status: Acute Code(s): E80.6 - OTHER DISORDERS OF BILIRUBIN METABOLISM SNOMED Code(s): 94389834 (4) hepatic encephalopathy secondary to Increased ammonia level related to noncompliance with lactulose Current Visit: Yes Status: Acute Code(s): R79.89 - OTHER SPECIFIED ABNORMAL FINDINGS OF BLOOD CHEMISTRY SNOMED Code(s): 917107255 (5) Cirrhosis Current Visit: No Status: Acute Code(s): K74.60 - UNSPECIFIED CIRRHOSIS OF LIVER SNOMED Code(s): 31311792 (6) acute on chronic renal failure stage III. Acute prerenal, secondary to diuresis, chronic secondary to hepatorenal syndrome (7) hypokalemia secondary to diuresis (8) right watson wound with secondary cellulitis, recent debridement. Outpatient culture positive for MSSA, Pseudomonas. (9) hypokalemia secondary to diuresing Plan: Continue on current medication regime , Aldactone, monitoring and symptomatic treatment. Continue IV antibiotics/Wound Care as per ID. DC IV fluids as per nephrology.Close monitoring of ammonia levels , renal function with repeat labs ordered for a.m. Declining subacute rehab. at discharge. Discharge home with home care tomorrow. The impression and plan of care has been dictated as directed. : I performed a history and examination of this patient, discussed the same with the dictator. I agree with the dictator's note ,documented as a scribe. Any additional findings or plans will be noted. Time taken: 35 minutes
[2018-12-20] MEDS: SODIUM CHLORIDE 0.9% 1,000 ML IV SCH (19:45)
--- NOTE | 2018-12-20 20:50 | PN ---
PROGRESS NOTE DATE OF SERVICE: 12/20/2018 REASON FOR FOLLOWUP: Right leg wound with cellulitis. INTERVAL HISTORY: The patient is currently afebrile. The patient has been breathing comfortably. He is more awake, alert. Denies any chest pain or cough. No abdominal pain. Did have some diarrhea from the lactulose. Denies any worsening pain to the right leg area. PHYSICAL EXAMINATION: Blood pressure is 135/65 with a pulse of 77, temperature 97.9. He is 97% on room air. General description is a middle-aged male lying in bed in no distress. RESPIRATORY SYSTEM: Unlabored breathing. Clear to auscultation anteriorly. HEART: S1, S2. Regular rate and rhythm. ABDOMEN: Soft. No tenderness. Right leg wound is currently dressed up. No obvious drainage on the dressing. LABS: BUN of 40, creatinine 2.74. DIAGNOSTIC IMPRESSION AND PLAN: Patient with right leg wound with secondary cellulitis, outpatient culture positive for methicillin-susceptible Staphylococcus aeruginosa and pseudomonas. The patient is currently covered with cefepime; to continue. Local wound care with an Aquacel Silver dressing. Hopefully finish therapy with oral antibiotics on discharge. Continue with supportive care. MMODL / IJN: [id number] /
[2018-12-20 21:42] LABS: Glucose,Whole Blood 174 mg/dL (75-99)
[2018-12-20] MEDS: hydrOXYzine HCL 10 MG TAB PO SCH (21:53)
[2018-12-20] MEDS: ATORVASTATIN 20 MG TAB PO SCH (21:54)
[2018-12-20] MEDS: INSULIN DETEMIR (LEVEMIR) 100 UNIT/ML SYR SQ SCH (21:56)
[2018-12-20 22:41] VITALS: RESP 18
[2018-12-21] MEDS: TEMAZEPAM 15 MG CAP PO SCH (00:12)
[2018-12-21 05:12] VITALS: BP 120/65; PULSE 72; TEMP 97.6
[2018-12-21 07:47] LABS: Glucose,Whole Blood 83 mg/dL (75-99)
[2018-12-21] MEDS: INSULIN ASPART (NovoLOG) 100 UNIT/ML VIAL SQ SCH ×2 (08:11→13:23)
[2018-12-21] MEDS: PREGABALIN 100 MG CAP PO SCH (08:22)
[2018-12-21] MEDS: TAMSULOSIN 0.4 MG CAP.ER.24H PO SCH (08:22)
[2018-12-21] MEDS: SPIRONOLACTONE 25 MG TAB PO SCH (08:22)
[2018-12-21] MEDS: LACTULOSE 20 GM/30 ML CUP PO SCH ×2 (08:22→12:37)
[2018-12-21] MEDS: CEFEPIME 2 GM in SODIUM CHLORIDE 0.9% 100 ML IVPB SCH (08:23)
[2018-12-21 09:28] LABS: Calcium 8.5 mg/dL (8.4-10.2); Magnesium 2.3 mg/dL (1.6-2.3); Potassium 4.2 mmol/L (3.5-5.1)
--- NOTE | 2018-12-21 13:04 | P.PN ---
Subjective Patient is seen in follow-up for acute kidney injury on chronic kidney disease. Patient has chronic kidney disease stage III secondary to hepatorenal syndrome with creatinine in the range of 1.2-2 outpatient. It was 2.88 on admission and is down to 2.5. today. He admits to good urine output. Hemodynamically stable. No vomiting. Does have loose bowel movements. He is on lactulose. Oral intake is fair. No active complaints. Vital signs are stable. General: The patient appeared well nourished and normally developed. HEENT: Head exam is unremarkable. Neck is without jugular venous distension. LUNGS: Lungs are clear to auscultation and percussion. Breath sounds decreased. HEART: Rate and Rhythm are regular. First and second heart sounds normal. No murmurs, rubs or gallops. ABDOMEN: Abdominal exam reveals normal bowel sounds. Obese. EXTREMITITES: No edema. Objective - Vital Signs Vital signs: Vital Signs Temp 97.6 F 12/21/18 04:37 Pulse 72 12/21/18 04:37 Resp 18 12/21/18 04:37 BP 120/65 12/21/18 04:37 Pulse Ox 99 12/21/18 04:37 Intake & Output 12/20/18 12/21/18 12/21/18 18:59 06:59 18:59 Intake Total 500 Balance 500 Intake: Intake, IV Titration 500 Amount Cefepime 2 gm In Sodium 100 Chloride 0.9% 100 ml @ 200 mls/hr IVPB Q24H JACQUELYN Rx#:[id number] Sodium Chloride 0.9% 1, 400 000 ml @ 50 mls/hr IV . Q20H JACQUELYN Rx#:[id number] Other: Voiding Method Toilet Toilet Urinal Urinal # Voids 3 # Bowel Movements 2 - Labs CBC & Chem 7: 12/19/18 09:03 12/21/18 08:31 Labs: Abnormal Lab Results - Last 24 Hours (Table) 12/20/18 12/20/18 12/21/18 Range/Units 17:51 21:31 08:31 Chloride (98-107) mmol/L BUN (9-20) mg/dL Creatinine (0.66-1.25) mg/dL Glucose (74-99) mg/dL POC Glucose (mg/dL) 209 H 174 H (75-99) mg/dL Ammonia 32 H (<30) umol/L 12/21/18 Range/Units 08:31 Chloride 111 H (98-107) mmol/L BUN 39 H (9-20) mg/dL Creatinine 2.58 H (0.66-1.25) mg/dL Glucose 130 H (74-99) mg/dL POC Glucose (mg/dL) (75-99) mg/dL Ammonia (<30) umol/L Microbiology - Last 24 Hours (Table) 12/18/18 04:22 Blood Culture - Preliminary Blood No Growth after 72 hours Assessment and Plan Plan: Assessment: 1. Acute kidney injury secondary to hepatorenal syndrome. No improvement in renal function with IV hydration. No evidence of hydronephrosis. No ascites noted on ultrasound. Creatinine 2.88 on admission and is down to 2.58 today. No proteinuria on UA. 2. Chronic kidney disease stage III secondary to hepatorenal syndrome with baseline creatinine in the range of 1.2-2. 3. Skm-[id number] liver cirrhosis. 4. Hypokalemia secondary to diuresis. Better post replacement. 5. Hepatic encephalopathy. Maintained on lactulose. Mentation improved. Plan: Remains off IV fluids. Maintain Aldactone. Anticipate discharge soon. If notices worsening edema after discharge, he still resume Lasix 40 mg orally once daily. Repeat BMP in 2-3 days and follow up outpatient in the next 1-2 weeks.
--- NOTE | 2018-12-21 14:02 | PN ---
PROGRESS NOTE DATE OF SERVICE: 12/21/2018 REASON FOR FOLLOWUP: Right leg wound with secondary cellulitis. INTERVAL HISTORY: The patient is currently afebrile. Patient has been breathing comfortably. Denies having any chest pain or any cough. No abdominal pain or pain to the right leg area. PHYSICAL EXAMINATION: On examination, blood pressure is 120/65, pulse of 72, temperature 97.6. He is 99% on room air. General description is a middle-aged male up in the bed in no distress. RESPIRATORY SYSTEM: Unlabored breathing, clear to auscultation anteriorly. HEART: S1, S2. Regular rate and rhythm. ABDOMEN: Soft, no tenderness. Right leg is currently dressed up. Minimal drainage on the dressing. LABS: BUN of 39, creatinine is 2.58. DIAGNOSTIC IMPRESSION AND PLAN: Patient with right lower extremity wound with secondary cellulitis. Patient at this time antibiotic was switched over to Keflex 500 mg t.i.d. and oral b.i.d. for about a week. Local wound care with Aquacel Silver dressing and follow up in the office in 1 week. MMODL / IJN: [id number] /
--- NOTE | 2018-12-25 16:41 | P.DS ---
Providers Date of admission: 12/18/18 06:14 Expected date of discharge: 12/21/18 Attending physician: Pete Servin Consults: 12/18/18 08:53 Consult Physician Routine Consulting Provider: Shannon Schumacher Consult Reason/Comments: Right watson wound Do you want consulting provider notified?: Yes 12/18/18 11:16 Consult Physician Routine Consulting Provider: Jude Mcneil Consult Reason/Comments: Elevated BUN and Creat Do you want consulting provider notified?: Yes Primary care physician: Klaus Agrawal [facility] Course: Final Diagnoses: (1) Confusion secondary to hepatic encephalopathy in a patient noncompliant, improved Current Visit: Yes Status: Acute Code(s): R41.0 - DISORIENTATION, UNSPECIFIED SNOMED Code(s): 445130796 (2) Dehydration Current Visit: Yes Status: Acute Code(s): E86.0 - DEHYDRATION SNOMED Code(s): 88900329 (3) Hyperbilirubinemia Current Visit: Yes Status: Acute Code(s): E80.6 - OTHER DISORDERS OF BILIRUBIN METABOLISM SNOMED Code(s): 00116187 (4) hepatic encephalopathy secondary to Increased ammonia level related to noncompliance with lactulose Current Visit: Yes Status: Acute Code(s): R79.89 - OTHER SPECIFIED ABNORMAL FINDINGS OF BLOOD CHEMISTRY SNOMED Code(s): 311615193 (5) Cirrhosis Current Visit: No Status: Acute Code(s): K74.60 - UNSPECIFIED CIRRHOSIS OF LIVER SNOMED Code(s): 06167947 (6) acute on chronic renal failure stage III. Acute prerenal, secondary to diuresis, chronic secondary to hepatorenal syndrome (7) hypokalemia secondary to diuresis (8) right watson wound with secondary cellulitis, recent debridement. Outpatient culture positive for MSSA, Pseudomonas. Hospital course: This is 63-year-old gentleman with history of liver disease, renal failure, noncompliance-especially with his lactulose. Recent right watson debridement at PCPs office culture sent to [facility] lab. Patient reports increased weakness over the last couple weeks, recent fall. EKG reporting sinus rhythm. Ammonia level 48. Worsening renal function with creatinine of 2.88, T bili 2.4, INR 1.5. Afebrile. ID, nephrology consulted. 12/19/2018 maintained on IV fluid hydration, creatinine unchanged, 2.89. Diuretics held, Midodrin on hold as per parameters. Maintained on lactulose with ammonia level of 47 today, minimal change. [facility] reporting cultures as pseudo MSSA, staph appy. T bili down to 2.1. IV antibiotics of cefepime and wound care as per infectious disease. Afebrile. No abdominal pain. Denies nausea vomiting. Eyes chest pain, palpitations or shortness of breath. Denies lightheadedness or dizziness or focal deficits. Abdominal ultrasound reports no ascites. Renal ultrasound reported normal with no hydronephrosis. 12/20/2018 significant improvement in ammonia level, down to 27. Mild improvement in renal function, creatinine 2.74. Diet intake improving.VSS. Significant clinical improvement, cleared by all consults for discharge. Patient is being discharged home in a stable condition with guarded prognosis. - Exam General: [Patient awake, alert and oriented times 3, no acute distress.] Cardiac: [Heart regular in rate and rhythm. No S3. No S4. No clicks, rubs. No murmur.] Lungs: [Unlabored ,Clear to auscultation bilaterally.] Abdomen: [Obese, Distended, nontender No mass. No organomegaly.Pos. Bowel sounds Neurologic: No focal deficits] The impression and plan of care has been dictated as directed. : I performed a history and examination of this patient, discussed the same with the dictator. I agree with the dictator's note ,documented as a scribe. Any additional findings or plans will be noted. Time taken: 35 minutes Patient Condition at Discharge: Stable Plan - Discharge Summary Discharge Rx Participant: No New Discharge Prescriptions: New Ciprofloxacin HCl [Cipro] 500 mg PO BID 7 Days #14 tab Cephalexin [Keflex] 500 mg PO Q8HR #21 cap Continue Atorvastatin [Lipitor] 20 mg PO HS Pregabalin [Lyrica] 200 mg PO BID hydrOXYzine HCL [Atarax] 10 mg PO HS oxyCODONE HCL [Roxicodone] 5 mg PO Q6H PRN PRN Reason: Severe Breakthrough Pain Spironolactone [Aldactone] 25 mg PO BID Lactulose [Cephulac] 30 gm PO QID Tamsulosin [Flomax] 0.4 mg PO BID Insulin Glargine [Lantus] 60 unit SQ HS Insulin Lispro [Admelog] See Protocol SQ AC-TID Temazepam [Restoril] 15 mg PO HS Discontinued Midodrine HCl [ProAmatine] 10 mg PO TID Discharge Medication List Atorvastatin [Lipitor] 20 mg PO HS 01/14/16 [History] Pregabalin [Lyrica] 200 mg PO BID 04/25/16 [History] hydrOXYzine HCL [Atarax] 10 mg PO HS 08/03/16 [History] oxyCODONE HCL [Roxicodone] 5 mg PO Q6H PRN 08/03/16 [History] Lactulose [Cephulac] 30 gm PO QID 01/23/17 [History] Spironolactone [Aldactone] 25 mg PO BID 01/23/17 [History] Tamsulosin [Flomax] 0.4 mg PO BID 06/27/17 [History] Insulin Glargine [Lantus] 60 unit SQ HS 08/08/18 [History] Insulin Lispro [Admelog] See Protocol SQ AC-TID 08/08/18 [History] Temazepam [Restoril] 15 mg PO HS 08/08/18 [History] Cephalexin [Keflex] 500 mg PO Q8HR #21 cap 12/21/18 [Rx] Ciprofloxacin HCl [Cipro] 500 mg PO BID 7 Days #14 tab 12/21/18 [Rx] Follow up Appointment(s)/Referral(s): Klaus Agrawal MD [Primary Care Provider] - 12/25/18 2:15 pm (Please schedule appointment for Monday or Monday) Jude Mcneil DO [STAFF PHYSICIAN] - 01/28/19 10:00 am (With Alyse Morse NP) [facility] Visiting Nurse, [NON-STAFF] - 1-2 Days Ambulatory/Diagnostic Orders: Complete Blood Count w/diff [LAB.AMB] Time Frame: 12/24/18, Location: None Selected Patient Instructions/Handouts: Cephalexin (By mouth), Ciprofloxacin (By mouth), Diabetic Foot Ulcers (DC), Encephalopathy (DC) Activity/Diet/Wound Care/Special Instructions: Antibiotic/wound care as per ID. Lasix on hold, re-eval at f/u visit. Maintain Aldactone as per nephrology. aquacel silver dressing to the wound change q48hr Discharge Disposition: HOME WITH HOME HEALTH SERVICES
== END 2018-12-21 15:30 | disposition home health service (06) | DRG 441 ==
LOC: EC 02:45 → 3NMEDONC 06:14
PROVIDERS: ADMIT Family Medicine; ATTEND Family Medicine
DX: K72.90 Hepatic failure, unspecified without coma (principal); K76.7 Hepatorenal syndrome; F05 Delirium due to known physiological condition; L03.115 Cellulitis of right lower limb; N17.9 Acute kidney failure, unspecified; B95.61 Methicillin susceptible Staphylococcus aureus infection as the cause of diseases classified elsewhere; B96.5 Pseudomonas (aeruginosa) (mallei) (pseudomallei) as the cause of diseases classified elsewhere; D46.9 Myelodysplastic syndrome, unspecified; D69.6 Thrombocytopenia, unspecified; E11.22 Type 2 diabetes mellitus with diabetic chronic kidney disease; E11.40 Type 2 diabetes mellitus with diabetic neuropathy, unspecified; E66.9 Obesity, unspecified; Z68.35 Body mass index [BMI] 35.0-35.9, adult; E78.5 Hyperlipidemia, unspecified; E86.0 Dehydration; E87.6 Hypokalemia; G89.4 Chronic pain syndrome; I12.9 Hypertensive chronic kidney disease with stage 1 through stage 4 chronic kidney disease, or unspecified chronic kidney disease; K21.9 Gastro-esophageal reflux disease without esophagitis; K74.60 Unspecified cirrhosis of liver; S81.801A Unspecified open wound, right lower leg, initial encounter; N18.3 Chronic kidney disease, stage 3 (moderate); K74.69 Other cirrhosis of liver; T50.2X5A Adverse effect of carbonic-anhydrase inhibitors, benzothiadiazides and other diuretics, initial encounter; W07.XXXA Fall from chair, initial encounter; Z79.4 Long term (current) use of insulin; Z79.899 Other long term (current) drug therapy; Z82.49 Family history of ischemic heart disease and other diseases of the circulatory system; Z83.3 Family history of diabetes mellitus; Z86.73 Personal history of transient ischemic attack (TIA), and cerebral infarction without residual deficits; Z91.19 Patient's noncompliance with other medical treatment and regimen; Z89.412 Acquired absence of left great toe; Z90.49 Acquired absence of other specified parts of digestive tract; Z79.891 Long term (current) use of opiate analgesic; Z91.018 Allergy to other foods
CPT/HCPCS: 36415; 70450; 71046; 76705; 76770; 80048; 80053; 80306; 81001; 82140; 82550; 83605; 83735; 84484; 85025; 85610; 85730; 87040; 87086; 93005; 96374; 99285

== ENCOUNTER → 2018-12-27 | Outpatient (CLI) | payer OTHER ==
[2018-12-27 10:31] LABS: Anisocytosis Slight; Basophils % (A) 0 %; Eosinophils # (A) 0.1 k/uL (0-0.7); Eosinophils % (A) 6 %; HCT 31.2 % (39.0-53.0); HGB 10.5 gm/dL (13.0-17.5); Lymphocytes # (A) 0.4 k/uL (1.0-4.8); Lymphocytes % (A) 16 %; MCH 29.9 pg (25.0-35.0); MCHC 33.7 g/dL (31.0-37.0); MCV 88.7 fL (80.0-100.0); Mean Platelet Volume 10.6; Monocytes # (A) 0.2 k/uL (0-1.0); Monocytes % (A) 9 %; Neutrophils # (A) 1.7 k/uL (1.3-7.7); Neutrophils % (A) 67 %; RBC 3.52 m/uL (4.30-5.90); RDW 16.4 % (11.5-15.5); WBC 2.6 k/uL (3.8-10.6)
[2018-12-27 10:37] LABS: Platelet Count 27 k/uL (150-450)
[2018-12-27 16:52] LABS: African American GFR (CKD) 36.1 (60.0-200.0); Albumin 2.9 g/dL (3.80-4.90); Albumin/Globulin Ratio 1.26 (1.60-3.17); Anion Gap 7.4 mmol/L (4.00-12.00); Calcium 7.7 mg/dL (8.7-10.3); Carbon Dioxide 22.6 mmol/L (21.6-31.8); Globulin 2.3 g/dL (1.6-3.3); Potassium 4.1 mmol/L (3.5-5.5); Total Bilirubin 1.8 mg/dL (0.2-1.2); Total Protein 5.2 g/dL (6.2-8.2)
== END | disposition home or self-care (01) ==
LOC: LABWHC1 10:05
PROVIDERS: ATTEND Nurse Practitioner
DX: K72.90 Hepatic failure, unspecified without coma (principal); I13.10 Hypertensive heart and chronic kidney disease without heart failure, with stage 1 through stage 4 chronic kidney disease, or unspecified chronic kidney disease; N18.9 Chronic kidney disease, unspecified; E11.9 Type 2 diabetes mellitus without complications; K71.51 Toxic liver disease with chronic active hepatitis with ascites
CPT/HCPCS: 36415; 80053; 82140; 85025

== ENCOUNTER → 2019-01-16 | Outpatient (CLI) | payer OTHER ==
--- NOTE | 2019-01-16 16:00 | US ---
EXAMINATION TYPE: US venous doppler duplex LE BI for Venous Insufficiency. DATE OF EXAM: 01/16/2019 3:32 PM COMPARISON: US CLINICAL HISTORY: I87.2 VENOUS INSUFFICIENCY; liver cirrhosis/liver failure; venous congestion and po ssible ascites limited the Valsalva Maneuver responses with distended abdomen SIDE PERFORMED: Bilateral TECHNIQUE: The lower extremity deep venous system is examined utilizing real time linear array sonog jennifer with graded compression, doppler sonography and color-flow sonography. VESSELS IMAGED: Common Femoral Vein Deep Femoral Vein Greater Saphenous Vein * Femoral Vein Popliteal Vein Small Saphenous Vein * Proximal Calf Veins (* superficial vessels) Grayscale, color doppler, spectral doppler imaging performed of the deep veins of the lower extremiti es Right Leg: Negative for DVT. Right lower extremity edema channels are present. Reflux is noted at di stal Right Greater Saphenous Vein. Left Leg: Negative for DVT. Venous reflux is noted in distal Left CFV and possible in upper left Lorna p Femoral Vein as continuous venous signal noted in DFV with Valsalva Maneuver. IMPRESSION: No sonographic evidence of deep venous thrombosis within either lower extremity. Right lo wer extremity subcutaneous edema and venous insufficiency with reflux are seen in the bilateral lower extremities particularly with Valsalva maneuver.
== END | disposition home or self-care (01) ==
LOC: RADUSWWP 13:32
PROVIDERS: ATTEND Family Medicine
DX: I87.2 Venous insufficiency (chronic) (peripheral) (principal); E11.621 Type 2 diabetes mellitus with foot ulcer; R60.0 Localized edema; L97.509 Non-pressure chronic ulcer of other part of unspecified foot with unspecified severity
CPT/HCPCS: 93922; 93970

== ENCOUNTER 2019-02-20 12:31 | Day surgery (SDC) | payer OTHER ==
[2019-02-20 12:53] VITALS: BP 162/67; PULSE 79; RESP 18; TEMP 98.8
[2019-02-20 12:59] LABS: Mean Platelet Volume 10.1
[2019-02-20 13:04] LABS: INR 1.7 (<1.2); Prothrombin Time 16.9 sec (9.0-12.0)
[2019-02-20 13:15] LABS: Platelet Count 36 k/uL (150-450)
--- NOTE | 2019-02-20 16:31 | US ---
Discontinued paracentesis HISTORY: Cirrhosis, ascites Ultrasound performed in all 4 quadrants. Small pocket of fluid was noted. Following discussion with t mary patient, exam was aborted. Patient has elected to forego paracentesis. IMPRESSION: Discontinued paracentesis.
== END 2019-02-20 13:51 | disposition home or self-care (01) ==
LOC: RADPROMAIN 12:31
PROVIDERS: ATTEND Family Medicine
DX: K74.60 Unspecified cirrhosis of liver (principal); R18.8 Other ascites
CPT/HCPCS: 76705; 82565; 85049; 85610

== ENCOUNTER → 2019-03-30 | Outpatient (CLI) | payer OTHER ==
[2019-03-30 11:53] LABS: Anisocytosis Slight; Basophils % (A) 1 %; Eosinophils # (A) 0.1 k/uL (0-0.7); Eosinophils % (A) 4 %; HCT 30.9 % (39.0-53.0); HGB 10.6 gm/dL (13.0-17.5); Lymphocytes # (A) 0.5 k/uL (1.0-4.8); Lymphocytes % (A) 23 %; MCHC 34.2 g/dL (31.0-37.0); MCV 87.8 fL (80.0-100.0); Mean Platelet Volume 9.1; Monocytes # (A) 0.2 k/uL (0-1.0); Monocytes % (A) 8 %; Neutrophils # (A) 1.3 k/uL (1.3-7.7); Neutrophils % (A) 63 %; RBC 3.52 m/uL (4.30-5.90); RDW 16.3 % (11.5-15.5)
[2019-03-30 12:02] LABS: INR 1.6 (<1.2); Prothrombin Time 16.1 sec (9.0-12.0)
[2019-03-30 12:20] LABS: Large Platelets Present; Platelet Count 29 k/uL (150-450); Poikilocytosis (M) Present
[2019-03-30 18:15] LABS: Anion Gap 9.5 mmol/L (4.00-12.00); BUN/Creat Ratio 15.24 Ratio (12.00-20.00); Calcium 8.2 mg/dL (8.7-10.3); Carbon Dioxide 25.5 mmol/L (21.6-31.8); Magnesium 1.7 mg/dL (1.5-2.4); Potassium 3.7 mmol/L (3.5-5.5)
== END | disposition home or self-care (01) ==
LOC: LABWHC1 11:31
PROVIDERS: ATTEND Family Medicine
DX: E11.620 Type 2 diabetes mellitus with diabetic dermatitis (principal); R26.89 Other abnormalities of gait and mobility; R53.83 Other fatigue
CPT/HCPCS: 36415; 80048; 83735; 85025; 85610

== ENCOUNTER 2019-05-16 11:36 | Day surgery (SDC) | payer OTHER ==
[2019-05-16] MEDS ORDERED: ALBUMIN HUMAN 25% 50 ML in EMPTY BAG 1 BAG IVPB SCH (11:45)
[2019-05-16 12:22] VITALS: BP 138/65; PULSE 88; RESP 16; TEMP 98.1
[2019-05-16 12:47] LABS: Basophils % (A) 1 %; Eosinophils # (A) 0.1 k/uL (0-0.7); Eosinophils % (A) 4 %; HCT 28.9 % (39.0-53.0); HGB 9.8 gm/dL (13.0-17.5); Lymphocytes # (A) 0.4 k/uL (1.0-4.8); Lymphocytes % (A) 10 %; MCH 29.2 pg (25.0-35.0); MCHC 33.9 g/dL (31.0-37.0); MCV 86.1 fL (80.0-100.0); Mean Platelet Volume 10.7; Monocytes # (A) 0.4 k/uL (0-1.0); Monocytes % (A) 10 %; Neutrophils # (A) 2.9 k/uL (1.3-7.7); Neutrophils % (A) 74 %; Poikilocytosis Slight; RBC 3.36 m/uL (4.30-5.90); RDW 14.1 % (11.5-15.5)
[2019-05-16 12:48] LABS: Albumin 2.5 g/dL (3.5-5.0); Calcium 7.7 mg/dL (8.4-10.2); Potassium 3.6 mmol/L (3.5-5.1); Total Bilirubin 3.5 mg/dL (0.2-1.3); Total Protein 6.1 g/dL (6.3-8.2)
[2019-05-16 12:51] LABS: INR 1.5 (<1.2); Platelet Count 45 k/uL (150-450); Prothrombin Time 15.3 sec (9.0-12.0)
--- NOTE | 2019-05-16 13:01 | US ---
EXAMINATION TYPE: US abdomen limited DATE OF EXAM: 05/16/2019 COMPARISON: 12/18/2018 CLINICAL HISTORY: Cirrhosis K74.60 Toxic Liver K71.51. FINDINGS: Pancreas: wnl Liver: wnl Gallbladder: wnl Evidence for sonographic Reynoso's sign: No CBD: wnl Right Kidney: wnl Trace amount of fluid surrounding the anterior margin of the liver. IMPRESSION: 1. No sizable amount of ascites.
== END 2019-05-16 12:35 | disposition home or self-care (01) ==
LOC: RADPROMAIN 11:36
PROVIDERS: ATTEND Family Medicine
DX: K71.51 Toxic liver disease with chronic active hepatitis with ascites (principal); K74.60 Unspecified cirrhosis of liver
CPT/HCPCS: 76705; 80053; 82105; 85025; 85610

== ENCOUNTER 2019-05-19 07:43 | Inpatient (IN) | payer OTHER ==
[2019-05-19] MEDS ORDERED: VANCOMYCIN IV PER PHARMACY 1 EACH MISC MISCELLANE PRN (07:54)
[2019-05-19] MEDS ORDERED: CEFEPIME 2 GM in SODIUM CHLORIDE 0.9% 100 ML IVPB STA (07:56)
[2019-05-19] MEDS ORDERED: VANCOMYCIN 2,000 MG in SODIUM CHLORIDE 0.9% 500 ML 500 ML IVPB STA (07:57)
[2019-05-19] MEDS ORDERED: ACETAMINOPHEN SUPPOSITORY 650 MG SUPP RECTAL STA (07:58)
--- NOTE | 2019-05-19 08:07 | ED ---
General Adult HPI - General Stated complaint: AMS Time Seen by Provider: 05/19/19 07:54 - History of Present Illness Initial comments: Dictation was produced using [employer] dictation software. please excuse any grammatical, word or spelling errors. Chief Complaint: 64-year-old male with past medical history of liver disease, kidney disease, CVA presents with altered mental status. History of Present Illness: She is 64-year-old male if he has multiple comorbidities. Patient was found to be altered today. Patient is a poor historian at this time. According to EMS patient lives at home with his . Patient having symptoms on . Today patient was found to be more altered than usual with progressive symptoms. According EMS were repeat received report from family patient was last seen normal on . At that time patient was having outpatient paracentesis procedure performed however was unsuccessful. Since then patient had been progressively getting worse. He complains of diffuse abdominal pain. Patient also complains of fever. Denies any pain anywhere else on his body. Denies any headache or neck pain. Unable to obtain detailed ROS secondary to mental status. PHYSICAL EXAM: General Impression: Alert and oriented x3/4, lethargic, malodorous HEENT: Normocephalic atraumatic, extra-ocular movements intact, pupils equal and reactive to light bilaterally, dry mucous membranes Cardiovascular: Tachycardic Chest: audible wheezing, diminished lung sounds Abdomen: Diffuse abdominal tenderness, bowel sounds present Musculoskeletal: Pulses present and equal in all extremities, no peripheral edema, great toe amputation to the left foot, malodorous, gangrenous appearing right great toe, no signs of joint inflammation. Motor: Moves all extremities grossly Neurological: CN II-XII grossly intact, no focal motor or sensory deficits noted, no facial droop, intact sensation to all extremities, able to identify objects accurately, no Kernig's, no Brudzinski's, no Lhermitte sign Skin: Intact with no visualized rashes, perineum clear of any signs of infection ED course: 64-year-old male presents with fever, altered mental status. He has multiple morbidities. Last seen normal was . [vital signs]. Clinical presentation concerning for sepsis with end organ dysfunction. Patient is localizing symptoms to his abdomen. Patient also however does have productive cough. Sepsis protocol was initiated. Patient given 30 mL per KG bolus based on ideal body weight. Chart review shows that patient had an abdominal ultrasound performed 3 days ago showing no sizable amount of ascites. It is unclear whether paracentesis was attempted on as stated by EMS.After evaluation obtained. No leukocytosis. Coag panel shows INR of 1.6. Venous blood gas shows pH of 7.48. Normal panel shows lactic acidosis of 2.4, creatinine 2.49 which is above his baseline. Magnesium is 1.5. Troponin 0.019, urinalysis shows findings consistent with urinary tract infection.. Influenza n egative. Serum alcohol is negative. Computed tomography scan of the brain shows no acute processes. CT of the abdomen and pelvis was obtained showing minimal ascites. It sided pleural effusion, thickening of the distal transverse colon. Toe x-ray consistent with osteomyelitis. Chest x-ray shows congestive heart failure with concern for possible superimposed right lower lobe pneumonia. Patient started on empiric antibiotics. Serial vital signs shows improvement of blood pressure and heart rate. Patient stable condition for admission to telemetry unit. Infectious disease consultation. Discussed patient case with Dr. Agrawal is willing to accept patients care. EKG interpretation: Ventricular rate 129, sinus tachycardia, AL interval 112, QRS 82, QTc 433. No AL prolongation, no QTC prolongation, no ST or T-wave changes noted. EKG compared to 12/18/2018 showing no changes. Overall, this EKG is unremarkable - Related Data Home Medications Medication Instructions Recorded Confirmed Atorvastatin [Lipitor] 20 mg PO HS 01/14/16 05/19/19 Pregabalin [Lyrica] 200 mg PO BID 04/25/16 05/19/19 hydrOXYzine HCL [Atarax] 10 mg PO HS 08/03/16 05/19/19 Lactulose [Cephulac] 30 gm PO QID 01/23/17 05/19/19 Tamsulosin [Flomax] 0.4 mg PO BID 06/27/17 05/19/19 Insulin Glargine [Lantus] 60 unit SQ HS 08/08/18 05/19/19 Insulin Lispro [Admelog] See Protocol SQ ACHS 08/08/18 05/19/19 Temazepam [Restoril] 15 mg PO HS 08/08/18 05/19/19 Spironolactone 50 mg PO BID 02/18/19 05/19/19 oxyCODONE HCL [oxyCODONE HCL (IR)] 5 mg PO Q6H PRN 02/18/19 05/19/19 Furosemide [Lasix] 40 mg PO BID 05/15/19 05/19/19 Calcitriol [Rocaltrol] 0.25 mcg PO SUTUTH 05/19/19 05/19/19 Ergocalciferol [Vitamin D2] 50,000 unit PO WE 05/19/19 05/19/19 Allergies Allergy/AdvReac Type Severity Reaction Status Date / Time Mushroom Allergy Anaphylaxis Verified 05/19/19 09:33 Review of Systems ROS Statement: Those systems with pertinent positive or pertinent negative responses have been documented in the HPI. ROS Other: All systems not noted in ROS Statement are negative. Past Medical History Past Medical History: Chest Pain / Angina, CVA/TIA, Diabetes Mellitus, GERD/Reflux, Hyperlipidemia, Hypertension, Liver Disease, Neurologic Disorder, Osteoarthritis (OA), Pneumonia, Prostate Disorder, Renal Disease Additional Past Medical History / Comment(s): Diabetic neuropathy, my elodysplasia, chronic pain syndrome.ASCITIES,ULCER LT GREAT TOE (toe amputated), chronic pancytopenia, ulceration on left watson, 2nd degree servin from soup being spilled on stomach. History of Any Multi-Drug Resistant Organisms: MRSA Date of last positivie culture/infection: 04/30/16 MDRO Source:: LEFT FOOT Past Surgical History: Cholecystectomy, Orthopedic Surgery Additional Past Surgical History / Comment(s): Surgical debridements to the left great toe for diabetic foot ulcer, healed and ulcer has returned,LT GREAT TOE AMP, RT THORACENTESIS, PARACENTESIS, colonoscopy Past Anesthesia/Blood Transfusion Reactions: No Reported Reaction Past Psychological History: Anxiety, Depression Smoking Status: Never smoker Past Alcohol Use History: None Reported Past Drug Use History: None Reported - Past Family History Mother Family Medical History: Cancer, Diabetes Mellitus Father Family Medical History: Cancer, Diabetes Mellitus Brother(s) Family Medical History: Diabetes Mellitus Daughter(s) Family Medical History: Diabetes Mellitus, Hyperlipidemia, Hypertension Son(s) Family Medical History: Diabetes Mellitus, Hyperlipidemia, Hypertension Course Vital Signs 05/19/19 05/19/19 05/19/19 07:54 08:27 08:30 Temperature 101.7 F H Pulse Rate 131 H 128 H 128 H Respiratory 28 H 27 H 26 H Rate Blood Pressure 90/56 118/70 O2 Sat by Pulse 90 L 94 L 92 L Oximetry 05/19/19 05/19/19 05/19/19 08:35 08:40 08:45 Temperature Pulse Rate 128 H 130 H 130 H Respiratory 24 Rate Blood Pressure 118/70 O2 Sat by Pulse 100 Oximetry 05/19/19 05/19/19 05/19/19 08:50 09:00 09:10 Temperature Pulse Rate 133 H 128 H 125 H Respiratory 24 23 23 Rate Blood Pressure 123/69 109/50 139/119 O2 Sat by Pulse 95 95 92 L Oximetry 05/19/19 05/19/19 05/19/19 09:20 09:30 09:40 Temperature Pulse Rate 121 H 120 H Respiratory 23 22 Rate Blood Pressure 131/68 120/45 125/85 O2 Sat by Pulse 93 L 92 L Oximetry Medical Decision Making - Lab Data Result diagrams: 05/19/19 08:00 05/19/19 08:00 Lab Results 05/19/19 05/19/19 05/19/19 Range/Units 08:00 08:00 08:00 WBC 10.4 (3.8-10.6) k/uL RBC 3.74 L (4.30-5.90) m/uL Hgb 10.9 L (13.0-17.5) gm/dL Hct 31.8 L (39.0-53.0) % MCV 85.1 (80.0-100.0) fL MCH 29.1 (25.0-35.0) pg MCHC 34.2 (31.0-37.0) g/dL RDW 14.1 (11.5-15.5) % Plt Count 60 L (150-450) k/uL Neutrophils % 88 % Lymphocytes % 3 % Monocytes % 7 % Eosinophils % 1 % Basophils % 0 % Neutrophils # 9.1 H (1.3-7.7) k/uL Lymphocytes # 0.4 L (1.0-4.8) k/uL Monocytes # 0.7 (0-1.0) k/uL Eosinophils # 0.1 (0-0.7) k/uL Basophils # 0.0 (0-0.2) k/uL Manual Slide Review Performed Poikilocytosis Moderate Anisocytosis (manual) Present PT (9.0-12.0) sec INR (<1.2) APTT (22.0-30.0) sec VBG pH (7.31-7.41) VBG pCO2 (37-51) mmHg VBG HCO3 (24-28) mmol/L Sodium 138 (137-145) mmol/L Potassium 3.8 (3.5-5.1) mmol/L Chloride 105 (98-107) mmol/L Carbon Dioxide 23 (22-30) mmol/L Anion Gap 10 mmol/L BUN 38 H (9-20) mg/dL Creatinine 2.49 H (0.66-1.25) mg/dL Est GFR (CKD-EPI)AfAm 31 (>60 ml/min/1.73 sqM) Est GFR (CKD-EPI)NonAf 27 (>60 ml/min/1.73 sqM) Glucose 105 H (74-99) mg/dL Plasma Lactic Acid Chad 2.4 H* (0.7-2.0) mmol/L Calcium 8.0 L (8.4-10.2) mg/dL Magnesium 1.5 L (1.6-2.3) mg/dL Total Bilirubin 4.4 H (0.2-1.3) mg/dL AST 25 (17-59) U/L ALT 14 (4-49) U/L Alkaline Phosphatase 93 (38-126) U/L Ammonia 66 H (<30) umol/L Creatine Kinase 49 L (55-170) U/L Troponin I (0.000-0.034) ng/mL Total Protein 6.5 (6.3-8.2) g/dL Albumin 2.6 L (3.5-5.0) g/dL Lipase 93 (23-300) U/L Urine Color Urine Appearance (Clear) Urine pH (5.0-8.0) Ur Specific [place] (1.001-1.035) Urine Protein (Negative) Urine Glucose (UA) (Negative) Urine Ketones (Negative) Urine Blood (Negative) Urine Nitrite (Negative) Urine Bilirubin (Negative) Urine Urobilinogen (<2.0) mg/dL Ur Leukocyte Esterase (Negative) Urine RBC (0-5) /hpf Urine WBC (0-5) /hpf Urine WBC Clumps (None) /hpf Ur Squamous Epith Cells (0-4) /hpf Urine Mucus (None) /hpf Serum Alcohol <10 mg/dL Influenza Type A RNA (Not Detectd) Influenza Type B (PCR) (Not Detectd) 05/19/19 05/19/19 05/19/19 Range/Units 08:00 08:00 08:20 WBC (3.8-10.6) k/uL RBC (4.30-5.90) m/uL Hgb (13.0-17.5) gm/dL Hct (39.0-53.0) % MCV (80.0-100.0) fL MCH (25.0-35.0) pg MCHC (31.0-37.0) g/dL RDW (11.5-15.5) % Plt Count (150-450) k/uL Neutrophils % % Lymphocytes % % Monocytes % % Eosinophils % % Basophils % % Neutrophils # (1.3-7.7) k/uL Lymphocytes # (1.0-4.8) k/uL Monocytes # (0-1.0) k/uL Eosinophils # (0-0.7) k/uL Basophils # (0-0.2) k/uL Manual Slide Review Poikilocytosis Anisocytosis (manual) PT 16.3 H (9.0-12.0) sec INR 1.6 H (<1.2) APTT 28.6 (22.0-30.0) sec VBG pH (7.31-7.41) VBG pCO2 (37-51) mmHg VBG HCO3 (24-28) mmol/L Sodium (137-145) mmol/L Potassium (3.5-5.1) mmol/L Chloride (98-107) mmol/L Carbon Dioxide (22-30) mmol/L Anion Gap mmol/L BUN (9-20) mg/dL Creatinine (0.66-1.25) mg/dL Est GFR (CKD-EPI)AfAm (>60 ml/min/1.73 sqM) Est GFR (CKD-EPI)NonAf (>60 ml/min/1.73 sqM) Glucose (74-99) mg/dL Plasma Lactic Acid Chad (0.7-2.0) mmol/L Calcium (8.4-10.2) mg/dL Magnesium (1.6-2.3) mg/dL Total Bilirubin (0.2-1.3) mg/dL AST (17-59) U/L ALT (4-49) U/L Alkaline Phosphatase (38-126) U/L Ammonia (<30) umol/L Creatine Kinase (55-170) U/L Troponin I 0.019 (0.000-0.034) ng/mL Total Protein (6.3-8.2) g/dL Albumin (3.5-5.0) g/dL Lipase (23-300) U/L Urine Color Yellow Urine Appearance Turbid (Clear) Urine pH 5.5 (5.0-8.0) Ur Specific [place] 1.012 (1.001-1.035) Urine Protein 1+ H (Negative) Urine Glucose (UA) Negative (Negative) Urine Ketones Negative (Negative) Urine Blood Moderate H (Negative) Urine Nitrite Negative (Negative) Urine Bilirubin Negative (Negative) Urine Urobilinogen 2.0 (<2.0) mg/dL Ur Leukocyte Esterase Large H (Negative) Urine RBC >182 H (0-5) /hpf Urine WBC >182 H (0-5) /hpf Urine WBC Clumps Many H (None) /hpf Ur Squamous Epith Cells 7 H (0-4) /hpf Urine Mucus Rare H (None) /hpf Serum Alcohol mg/dL Influenza Type A RNA (Not Detectd) Influenza Type B (PCR) (Not Detectd) 05/19/19 05/19/19 Range/Units 08:20 08:39 WBC (3.8-10.6) k/uL RBC (4.30-5.90) m/uL Hgb (13.0-17.5) gm/dL Hct (39.0-53.0) % MCV (80.0-100.0) fL MCH (25.0-35.0) pg MCHC (31.0-37.0) g/dL RDW (11.5-15.5) % Plt Count (150-450) k/uL Neutrophils % % Lymphocytes % % Monocytes % % Eosinophils % % Basophils % % Neutrophils # (1.3-7.7) k/uL Lymphocytes # (1.0-4.8) k/uL Monocytes # (0-1.0) k/uL Eosinophils # (0-0.7) k/uL Basophils # (0-0.2) k/uL Manual Slide Review Poikilocytosis Anisocytosis (manual) PT (9.0-12.0) sec INR (<1.2) APTT (22.0-30.0) sec VBG pH 7.48 H (7.31-7.41) VBG pCO2 32 L (37-51) mmHg VBG HCO3 24 (24-28) mmol/L Sodium (137-145) mmol/L Potassium (3.5-5.1) mmol/L Chloride (98-107) mmol/L Carbon Dioxide (22-30) mmol/L Anion Gap mmol/L BUN (9-20) mg/dL Creatinine (0.66-1.25) mg/dL Est GFR (CKD-EPI)AfAm (>60 ml/min/1.73 sqM) Est GFR (CKD-EPI)NonAf (>60 ml/min/1.73 sqM) Glucose (74-99) mg/dL Plasma Lactic Acid Chad (0.7-2.0) mmol/L Calcium (8.4-10.2) mg/dL Magnesium (1.6-2.3) mg/dL Total Bilirubin (0.2-1.3) mg/dL AST (17-59) U/L ALT (4-49) U/L Alkaline Phosphatase (38-126) U/L Ammonia (<30) umol/L Creatine Kinase (55-170) U/L Troponin I (0.000-0.034) ng/mL Total Protein (6.3-8.2) g/dL Albumin (3.5-5.0) g/dL Lipase (23-300) U/L Urine Color Urine Appearance (Clear) Urine pH (5.0-8.0) Ur Specific [place] (1.001-1.035) Urine Protein (Negative) Urine Glucose (UA) (Negative) Urine Ketones (Negative) Urine Blood (Negative) Urine Nitrite (Negative) Urine Bilirubin (Negative) Urine Urobilinogen (<2.0) mg/dL Ur Leukocyte Esterase (Negative) Urine RBC (0-5) /hpf Urine WBC (0-5) /hpf Urine WBC Clumps (None) /hpf Ur Squamous Epith Cells (0-4) /hpf Urine Mucus (None) /hpf Serum Alcohol mg/dL Influenza Type A RNA Not Detected (Not Detectd) Influenza Type B (PCR) Not Detected (Not Detectd) Critical Care Time Critical Care Time: Yes Total Critical Care Time: 31 Disposition Clinical Impression: Sepsis Disposition: ADMITTED IP TO THIS HOSP Condition: Fair Referrals: Klaus Agrawal MD [Primary Care Provider] - 1-2 days Decision Time: 10:52
[2019-05-19] MEDS ORDERED: IPRATROPIUM-ALBUTEROL 3 ML NEB INHALATION STA (08:19)
[2019-05-19] MEDS: SODIUM CHLORIDE 0.9% 500 ML 500 ML IV SCH (08:33)
[2019-05-19 08:34] LABS: Basophils % (A) 0 %; Eosinophils # (A) 0.1 k/uL (0-0.7); Eosinophils % (A) 1 %; HCT 31.8 % (39.0-53.0); HGB 10.9 gm/dL (13.0-17.5); Lymphocytes # (A) 0.4 k/uL (1.0-4.8); Lymphocytes % (A) 3 %; MCH 29.1 pg (25.0-35.0); MCHC 34.2 g/dL (31.0-37.0); MCV 85.1 fL (80.0-100.0); Mean Platelet Volume 10.1; Monocytes # (A) 0.7 k/uL (0-1.0); Monocytes % (A) 7 %; Neutrophils # (A) 9.1 k/uL (1.3-7.7); Neutrophils % (A) 88 %; Poikilocytosis Moderate; RBC 3.74 m/uL (4.30-5.90); RDW 14.1 % (11.5-15.5); WBC 10.4 k/uL (3.8-10.6)
[2019-05-19 08:40] LABS: Appearance,Urine Turbid (Clear); Bilirubin,Urine Negative (Negative); Blood,Urine Moderate (Negative); Color,Urine Yellow; Glucose,Urine (UA) Negative (Negative); Ketones,Urine Negative (Negative); Leukocyte Esterase,Urine Large (Negative); Mucus,Urine Rare /hpf; Nitrite,Urine Negative (Negative); PH, Urine 5.5 (5.0-8.0); Protein,Urine 1+ (Negative); RBC,Urine >182 /hpf (0-5); Specific Gravity,Urine 1.012 (1.001-1.035); Squamous Epithelial Cell,Urine 7 /hpf (0-4); WBC,Urine >182 /hpf (0-5)
[2019-05-19 08:43] LABS: VBG PH 7.48 (7.31-7.41)
[2019-05-19 08:46] LABS: INR 1.6 (<1.2); Partial Thromboplastin Time 28.6 sec (22.0-30.0); Prothrombin Time 16.3 sec (9.0-12.0)
[2019-05-19 08:49] LABS: ALT 14 U/L (4-49); AST 25 U/L (17-59); African American GFR (CKD) 31 (>60 ml/min/1.73 sqM); Albumin 2.6 g/dL (3.5-5.0); Alcohol <10 mg/dL; Alkaline Phosphatase 93 U/L (38-126); Anion Gap 10 mmol/L; Blood Urea Nitrogen 38 mg/dL (9-20); Carbon Dioxide 23 mmol/L (22-30); Chloride 105 mmol/L (98-107); Creatine Kinase 49 U/L (55-170); Glucose 105 mg/dL (74-99); Magnesium 1.5 mg/dL (1.6-2.3); Non-African American GFR(CKD) 27 (>60 ml/min/1.73 sqM); Potassium 3.8 mmol/L (3.5-5.1); Sodium 138 mmol/L (137-145); Total Bilirubin 4.4 mg/dL (0.2-1.3); Total Protein 6.5 g/dL (6.3-8.2)
[2019-05-19 08:53] LABS: Anisocytosis (M) Present; Platelet Count 60 k/uL (150-450)
[2019-05-19 09:00] LABS: Lactic Acid, Venous 2.4 mmol/L (0.7-2.0)
--- NOTE | 2019-05-19 09:11 | XR ---
EXAMINATION TYPE: XR chest 1V portable DATE OF EXAM: 05/19/2019 HISTORY: Fever. REFERENCE: Previous study dated 12/18/2018. FINDINGS: The heart is enlarged. There is vascular congestion and subtle edema. There are small, bila teral effusions. There is confluent airspace disease the right lung base which may represent confluen t edema or pneumonia. IMPRESSION: FINDINGS CONSISTENT WITH CONGESTIVE HEART FAILURE. I COULD NOT EXCLUDE SUPERIMPOSED RIGHT LOWER LOBE PNEUMONIA.
--- NOTE | 2019-05-19 09:13 | XR ---
EXAMINATION TYPE: XR toes RT , 3 VIEWS DATE OF EXAM ORDERED: 05/19/2019 HISTORY: great toe infection. COMPARISON: None. FINDINGS: There is a destructive lesion in the tuft of the distal phalanx right great toe. There are degenerative changes in the interphalangeal joint. There is cortical loss. There is a minimally displ aced fracture along the medial aspect of the base of the distal phalanx. This extends intra-articular ly. IMPRESSION: FINDINGS CONSISTENT WITH OSTEOMYELITIS OF THE DISTAL PHALANX OF THE RIGHT GREAT TOE WITH SUPERIMPOSED MINIMALLY DISPLACED FRACTURE.
[2019-05-19] MEDS: MAGNESIUM SULFATE-D5W PMX 1 GM in DEXTROSE/WATER 1 100ML.BAG IVPB SCH ×2 (10:12→13:28)
--- NOTE | 2019-05-19 10:13 | CT ---
EXAMINATION TYPE: CT brain wo con DATE OF EXAM: 05/19/2019 COMPARISON: Previous study dated 12/18/2018. HISTORY: Altered mental status CT DLP: 1107.4 mGycm Automated exposure control for dose reduction was used. FINDINGS: There are mild, generalized changes of sulcal prominence and ventriculomegaly, compatible with mild a trophy. There is diffuse periventricular white matter lucency, compatible with chronic white matter i schemic change. There is no acute focal lesion, mass effect or midline shift identified. I do not see evidence of intracranial blood. There is mild, chronic mucoperiosteal thickening involving the ethmoidal sinuses. The mastoids are cl ear. The bony calvarium is intact. IMPRESSION: 1. NO ACUTE INTRACRANIAL ABNORMALITY. 2. MILD DEGENERATIVE CHANGE. 3. MINIMAL ETHMOIDAL SINUS CALLOSAL DISEASE.
--- NOTE | 2019-05-19 10:22 | CT ---
EXAMINATION TYPE: CT abdomen pelvis wo con DATE OF EXAM: 05/19/2019 COMPARISON: Previous study dated 05/25/2016. HISTORY: Not feeling well CT DLP: 1571.4 mGycm Automated exposure control for dose reduction was used. FINDINGS: There continues to be a large right-sided pleural effusion. There is atelectatic change at both lung bases. There is no pericardial fluid. Heart size upper limits of normal. Within the abdomen, the liver is somewhat small and nodular in keeping with the patient's history of cirrhosis. The spleen is enlarged measuring 20 cm. There appear to be varices within the tatiana of the spleen. Both adrenal glands are normal. There is no evidence of hydronephrosis or nephrolithiasis. Limited views of the pancreas are unremarkable. The gallbladder is been removed. There is no significant retroperitoneal, iliac or inguinal adenopathy. There is a Chu catheter within the bladder. There is no significant diverticular change. There is some thickening of the distal transverse colon. This appears slightly more extensive than on the previous examination. The appendix is not visualize d with certainty. Small bowel loops are of normal caliber. There is a small amount of ascites and interloop fluid. No free air is seen. There is degenerative disc disease and hypertrophic spondylosis as well as facet arthropathy in the l umbar spine. IMPRESSION: 1. EVIDENCE OF CIRRHOSIS OF THE LIVER. 2. SPLENOMEGALY WITH SPLENIC VARICES. 3. SMALL AMOUNT OF ASCITES. 4. MODERATE RIGHT-SIDED PLEURAL EFFUSION. 5. THICKENING OF THE DISTAL TRANSVERSE COLON MAY REFLECT COLITIS. THIS MAY BE DUE TO CIRRHOSIS AND HY POALBUMINEMIA. 6. DEGENERATIVE CHANGES WITHIN THE SPINE.
[2019-05-19] MEDS ORDERED: NALOXONE 0.4 MG/ML 1 ML VIAL IV PRN (10:44)
[2019-05-19] MEDS ORDERED: ACETAMINOPHEN TAB 325 MG TAB PO PRN (10:44)
--- NOTE | 2019-05-19 12:18 | P.HPIM ---
History of Present Illness H&P Date: 05/19/19 Chief Complaint: Fatigue and confusion Luis is a 64-year-old white male patient well known to me.he has a history of liver cirrhosis and liver failure lung with recurrent ascites and occasionally hyper ammoniemia, which she takes lactulose for 4 times daily. His daughter rep orts he's not had a bowel movement in several days. He injured his toe several days ago. This is been having purulent discharge in looking quite infected just over the past day. He's become more and more weak and confused. He himself was somewhat arousable the emergency room. We discussed with. Quickly lost consciousness. His 2 sons and daughter were at bedside and discussed her case with him. We had recently ordered a palliative care consult this Monday. They did not want to put him in hospice at this time. DNR, no code was requested and will be implemented. currently Justice denies any chest pains, pressures or shortness of breath. He does complain of some abdominal pain. He does grimace when palpated his abdomen. Review of Systems review of systems obtained per his daughter ROS unobtainable: due to mental status Past Medical History Past Medical History: Blood Disorder (pancytopenia, myelodysplasia), Chest Pain / Angina, CVA/TIA, Diabetes Mellitus (diabetic neuropathy), GERD/Reflux, Hyperlipidemia, Hypertension, Liver Disease (with ascites), Neurologic Disorder, Osteoarthritis (OA), Pneumonia, Prostate Disorder, Renal Disease Additional Past Medical History / Comment(s): 2nd degree servin from soup being spilled on stomach. History of Any Multi-Drug Resistant Organisms: MRSA Date of last positivie culture/infection: 04/30/16 MDRO Source:: LEFT FOOT Past Surgical History: Cholecystectomy, Orthopedic Surgery Additional Past Surgical History / Comment(s): left great toe amputation. History of wound care left great toe. multiple THORACENTESIS, PARACENTESIS, colonoscopy Past Anesthesia/Blood Transfusion Reactions: No Reported Reaction Past Psychological History: Anxiety, Depression Smoking Status: Never smoker Past Alcohol Use History: None Reported Past Drug Use History: None Reported - Past Family History Mother Family Medical History: Cancer, Diabetes Mellitus Father Family Medical History: Cancer, Diabetes Mellitus Brother(s) Family Medical History: Diabetes Mellitus Daughter(s) Family Medical History: Diabetes Mellitus, Hyperlipidemia, Hypertension Son(s) Family Medical History: Diabetes Mellitus, Hyperlipidemia, Hypertension Medications and Allergies Home Medications Medication Instructions Recorded Confirmed Type Atorvastatin [Lipitor] 20 mg PO HS 01/14/16 05/19/19 History Pregabalin [Lyrica] 200 mg PO BID 04/25/16 05/19/19 History hydrOXYzine HCL [Atarax] 10 mg PO HS 08/03/16 05/19/19 History Lactulose [Cephulac] 30 gm PO QID 01/23/17 05/19/19 History Tamsulosin [Flomax] 0.4 mg PO BID 06/27/17 05/19/19 History Insulin Glargine [Lantus] 60 unit SQ HS 08/08/18 05/19/19 History Insulin Lispro [Admelog] See Protocol SQ ACHS 08/08/18 05/19/19 History Temazepam [Restoril] 15 mg PO HS 08/08/18 05/19/19 History Spironolactone 50 mg PO BID 02/18/19 05/19/19 History oxyCODONE HCL [oxyCODONE HCL (IR)] 5 mg PO Q6H PRN 02/18/19 05/19/19 History Furosemide [Lasix] 40 mg PO BID 05/15/19 05/19/19 History Calcitriol [Rocaltrol] 0.25 mcg PO SUTUTH 05/19/19 05/19/19 History Ergocalciferol [Vitamin D2] 50,000 unit PO WE 05/19/19 05/19/19 History Allergies Allergy/AdvReac Type Severity Reaction Status Date / Time Mushroom Allergy Anaphylaxis Verified 05/19/19 09:33 Physical Exam Vitals: Vital Signs Temp Pulse Resp BP Pulse Ox 05/19/19 09:40 125/85 05/19/19 09:30 120 H 22 120/45 92 L 05/19/19 09:20 121 H 23 131/68 93 L 05/19/19 09:10 125 H 23 139/119 92 L 05/19/19 09:00 128 H 23 109/50 95 05/19/19 08:50 133 H 24 123/69 95 05/19/19 08:45 130 H 05/19/19 08:40 130 H 24 118/70 100 05/19/19 08:35 128 H 05/19/19 08:30 128 H 26 H 118/70 92 L 05/19/19 08:27 128 H 27 H 94 L 05/19/19 07:54 101.7 F H 131 H 28 H 90/56 90 L Intake and Output 05/18/19 05/19/19 05/19/19 22:59 06:59 14:59 Output Total 200 Balance -200 Output: Urine 200 Straight 200 Other: Weight 113.398 kg GENERAL: somnolent, jaundiced, white male who opens his eyes briefly to my discussions. HEAD: Atraumatic, normocephalic. EYES: Pupils equal round and reactive to light, extraocular movements intact, conjunctiva are normal.positive icterus ENT:nares patent, oropharynx clear without exudates. Moist mucous membranes. NECK: Normal range of motion, supple without lymphadenopathy or JVD, no thyrom egaly LUNGS: Breath sounds course with the decreased air exchange worse on the right side than the left. No wheezes rales or rhonchi. HEART: Regular rate and rhythm without murmurs, rubs or gallops.S1S2 Normal ABDOMEN: Soft, tender to palpation, somewhat distended No guarding, no rebound. hepatomegaly is appreciated today. EXTREMITIES: Normal range of motion, no pitting or edema. No clubbing or cyanosis. NEUROLOGICAL: Cranial nerves II through XII grossly intact. unable to ambulate, speech is somewhat hesitant due to significant somnolence. PSYCH: untestable at this time. SKIN: right great toe shows a Asif grade 3 diabetic ulcer The wound is approximately 0.6 x 0.4 x 0.3 cm There is purulent discharge and periwound erythema. The right great toenail is loose.. Results CBC & Chem 7: 05/19/19 08:00 05/19/19 08:00 Labs: Abnormal Lab Results - Last 24 Hours (Table) 05/19/19 05/19/19 05/19/19 Range/Units 08:00 08:00 08:00 RBC 3.74 L (4.30-5.90) m/uL Hgb 10.9 L (13.0-17.5) gm/dL Hct 31.8 L (39.0-53.0) % Plt Count 60 L (150-450) k/uL Neutrophils # 9.1 H (1.3-7.7) k/uL Lymphocytes # 0.4 L (1.0-4.8) k/uL PT (9.0-12.0) sec INR (<1.2) VBG pH (7.31-7.41) VBG pCO2 (37-51) mmHg BUN 38 H (9-20) mg/dL Creatinine 2.49 H (0.66-1.25) mg/dL Glucose 105 H (74-99) mg/dL Plasma Lactic Acid Chad 2.4 H* (0.7-2.0) mmol/L Calcium 8.0 L (8.4-10.2) mg/dL Magnesium 1.5 L (1.6-2.3) mg/dL Total Bilirubin 4.4 H (0.2-1.3) mg/dL Ammonia 66 H (<30) umol/L Creatine Kinase 49 L (55-170) U/L Albumin 2.6 L (3.5-5.0) g/dL Urine Protein (Negative) Urine Blood (Negative) Ur Leukocyte Esterase (Negative) Urine RBC (0-5) /hpf Urine WBC (0-5) /hpf Urine WBC Clumps (None) /hpf Ur Squamous Epith Cells (0-4) /hpf Urine Mucus (None) /hpf 05/19/19 05/19/19 05/19/19 Range/Units 08:00 08:20 08:39 RBC (4.30-5.90) m/uL Hgb (13.0-17.5) gm/dL Hct (39.0-53.0) % Plt Count (150-450) k/uL Neutrophils # (1.3-7.7) k/uL Lymphocytes # (1.0-4.8) k/uL PT 16.3 H (9.0-12.0) sec INR 1.6 H (<1.2) VBG pH 7.48 H (7.31-7.41) VBG pCO2 32 L (37-51) mmHg BUN (9-20) mg/dL Creatinine (0.66-1.25) mg/dL Glucose (74-99) mg/dL Plasma Lactic Acid Chad (0.7-2.0) mmol/L Calcium (8.4-10.2) mg/dL Magnesium (1.6-2.3) mg/dL Total Bilirubin (0.2-1.3) mg/dL Ammonia (<30) umol/L Creatine Kinase (55-170) U/L Albumin (3.5-5.0) g/dL Urine Protein 1+ H (Negative) Urine Blood Moderate H (Negative) Ur Leukocyte Esterase Large H (Negative) Urine RBC >182 H (0-5) /hpf Urine WBC >182 H (0-5) /hpf Urine WBC Clumps Many H (None) /hpf Ur Squamous Epith Cells 7 H (0-4) /hpf Urine Mucus Rare H (None) /hpf Microbiology - Last 24 Hours (Table) 05/19/19 08:20 Urine Culture - Preliminary Urine,Voided Comments: x-ray of the right foot shows osteomyelitis the right great toe Chest x-ray: report reviewed CT scan - abdomen: report reviewed (cirrhosis, splenomegaly, splenic varices, small ascites, moderate right-sided pleural effusion, thickening of the distal transverse colon, degenerative changes in spine.) Thrombosis Risk Factor Assmnt - DVT/VTE Prophylaxis DVT/VTE Prophylaxis: Contraindicated - See note (due to liver failure and elevated INR 1.6) Assessment and Plan (1) Hepatic encephalopathy Current Visit: Yes Status: Acute Code(s): K72.90 - HEPATIC FAILURE, UNSP ECIFIED WITHOUT COMA SNOMED Code(s): 07376805 (2) Diabetic ulcer of right foot Current Visit: Yes Status: Acute Code(s): E11.621 - TYPE 2 DIABETES MELLITUS WITH FOOT ULCER; L97.519 - NON-PRS CHRONIC ULCER OTH PRT RIGHT FOOT W UNSP SEVERITY SNOMED Code(s): 057015091 (3) DNR (do not resuscitate) Current Visit: Yes Status: Acute Code(s): Z66 - DO NOT RESUSCITATE SNOMED Code(s): 275272261 (4) DNR (do not resuscitate) discussion Current Visit: Yes Status: Acute Code(s): Z71.89 - OTHER SPECIFIED COUNSELING SNOMED Code(s): 013661702 (5) Ascites Current Visit: Yes Status: Acute Code(s): R18.8 - OTHER ASCITES SNOMED Code(s): 670422083 (6) Cellulitis Narrative/Plan: right great toe Current Visit: Yes Status: Acute Code(s): L03.90 - CELLULITIS, UNSPECIFIED SNOMED Code(s): 365197927 (7) Confusion Current Visit: Yes Status: Acute Code(s): R41.0 - DISORIENTATION, UNSPECIFIED SNOMED Code(s): 334729917 (8) Generalized weakness Current Visit: Yes Status: Acute Code(s): R53.1 - WEAKNESS SNOMED Code(s): 02998485 (9) Hyperammonemia Current Visit: Yes Status: Acute Code(s): E72.20 - DISORDER OF UREA CYCLE METABOLISM, UNSPECIFIED SNOMED Code(s): 9702422 (10) Myelodysplasia (myelodysplastic syndrome) Current Visit: No Status: Acute Code(s): D46.9 - MYELODYSPLASTIC SYNDROME, UNSPECIFIED SNOMED Code(s): 526506257 (11) Pleural effusion Narrative/Plan: right Current Visit: No Status: Acute Code(s): J90 - PLEURAL EFFUSION, NOT ELSEWHERE CLASSIFIED SNOMED Code(s): 26136628 (12) UTI (urinary tract infection) Current Visit: Yes Status: Acute Code(s): N39.0 - URINARY TRACT INFECTION, SITE NOT SPECIFIED SNOMED Code(s): 44052243 (13) Unable to ambulate Current Visit: Yes Status: Acute Code(s): R26.2 - DIFFICULTY IN WALKING, NOT ELSEWHERE CLASSIFIED SNOMED Code(s): 068931639 (14) Uremic encephalopathy Current Visit: Yes Status: Acute Code(s): G93.41 - METABOLIC ENCEPHALOPATHY; N19 - UNSPECIFIED KIDNEY FAILURE SNOMED Code(s): 12497463 (15) Cirrhosis of liver Current Visit: Yes Status: Chronic Code(s): K74.60 - UNSPECIFIED CIRRHOSIS OF LIVER SNOMED Code(s): 36638828 (16) Coagulopathy Current Visit: Yes Status: Chronic Priority: Medium Code(s): D68.9 - COAGULATION DEFECT, UNSPECIFIED SNOMED Code(s): 46402744 (17) H/O splenomegaly Current Visit: Yes Status: Chronic Code(s): Z87.898 - PERSONAL HISTORY OF OTHER SPECIFIED CONDITIONS SNOMED Code(s): 406927388 (18) Pancytopenia Current Visit: Yes Status: Chronic Code(s): D61.818 - OTHER PANCYTOPENIA SNOMED Code(s): 687667803 (19) Portal hypertension Current Visit: Yes Status: Chronic Code(s): K76.6 - PORTAL HYPERTENSION S NOMED Code(s): 67998576 (20) Chronic renal disease, stage 4, severely decreased glomerular filtration rate (GFR) between 15-29 mL/min/1.73 square meter Current Visit: Yes Status: Acute Code(s): N18.4 - CHRONIC KIDNEY DISEASE, STAGE 4 (SEVERE) SNOMED Code(s): 171707570 Plan: we are starting him on vancomycin, I'll review his home medications and wean his pain medications this time due to his confusion. We'll make sure is receiving his lactulose and stooling 3-4 times daily to help with the hyperammonia. we'll monitor his chronic renal failure.in consult nephrology due to the need for diuresis Continue his spironolactone. Replace his magnesium. encourage protein in his diet. I'll consult pulmonology regarding the pleural effusion and possible need for tap. Restart his home insulin for his diabetes. Aquacel silver to his right great toe. Consult from infectious disease regarding the UTI and osteomyelitis/cellulitis the right great toe. Repeat labs in a.m. DNR! I discussed with the family his status in my recent consult palliative care and discussions regarding hospice on Monday of this week. He will be a DO NOT RESUSCITATE per my discussions with his twin sons and daughter. I will reevaluate him in the next 24 hours.
[2019-05-19] MEDS ORDERED: Magnesium Replacement Protocol 1 EACH MISC MISCELLANE PRN (12:56)
[2019-05-19] MEDS: SODIUM CHLORIDE 0.9% 1,000 ML IV SCH ×2 (13:29→20:24)
[2019-05-19] MEDS: CALCITRIOL 0.25 MCG CAP PO SCH (13:29)
[2019-05-19] MEDS: FAMOTIDINE 20 MG TAB PO SCH (13:29)
[2019-05-19] MEDS: INSULIN ASPART (NovoLOG) 100 UNIT/ML VIAL SQ SCH ×2 (13:29→16:44)
--- NOTE | 2019-05-19 14:37 | P.CONS ---
History of Present Illness - Reason for Consult Consult date: 05/19/19 - Chief Complaint altered mental staus - History of Present Illness 64 -year-old male was evidence of significant cirrhosis and end-stage liver disease who presents to Hospital with the rapid change of his mental status. His daughter was present relates that on he was quite normal. Conversational and laughing without significant new complaints by yesterday he become progressively more obtunded and then got to the point in time where he was asleep and could not P awoken because I was brought to the emergency center for evaluation. There is not evidence of significant worsening of his end-stage liver disease with an increase of his ammonia level, hepatic encephalopathy, and evidence of hepatorenal syndrome. The family also notes in the last few days there is no significant change to his right foot. He may have had an injury to the great toe where the nail was a bit split. But now it has become progressively worse over the last few days with redness and some drainage swelling and erythema. He has dense neuropathy and has no complaints of pain to the site to the family before his admission. The family does not believe his had a fever at home and the change occurred relatively rapidly over the last 48 hours. Review of Systems ROS unobtainable: due to mental status Past Medical History Past Medical History: Blood Disorder (pancytopenia, myelodysplasia), Chest Pain / Angina, CVA/TIA, Diabetes Mellitus (diabetic neuropathy), GERD/Reflux, Hyperlipidemia, Hypertension, Liver Disease (with ascites), Neurologic Disorder, Osteoarthritis (OA), Pneumonia, Prostate Disorder, Renal Disease Additional Past Medical History / Comment(s): 2nd degree servin from soup being spilled on stomach. History of Any Multi-Drug Resistant Organisms: MRSA Year Discovered:: 04/30/16 MDRO Source:: LEFT FOOT Past Surgical History: Cholecystectomy, Orthopedic Surgery Additional Past Surgical History / Comment(s): left great toe amputation. Histo ry of wound care left great toe. multiple THORACENTESIS, PARACENTESIS, colonoscopy Past Anesthesia/Blood Transfusion Reactions: No Reported Reaction Past Psychological History: Anxiety, Depression Additional Psychological History / Comment(s): Single lives with his family including adult daughter. No experience. No travels. No animal exposures Smoking Status: Never smoker Past Alcohol Use History: None Reported Past Drug Use History: None Reported - Past Family History Mother Family Medical History: Cancer, Diabetes Mellitus Father Family Medical History: Cancer, Diabetes Mellitus Brother(s) Family Medical History: Diabetes Mellitus Daughter(s) Family Medical History: Diabetes Mellitus, Hyperlipidemia, Hypertension Son(s) Family Medical History: Diabetes Mellitus, Hyperlipidemia, Hypertension Medications and Allergies Home Medications and Allergies Comment(s): Current Medications Acetaminophen (Tylenol Tab) 325 mg PO Q6HR PRN PRN Reason: Fever and/ or Pain Atorvastatin Calcium (Lipitor) 20 mg PO HS [facility] Calcitriol (Rocaltrol) 0.25 mcg PO SUTUTH [facility] Last Admin: 05/19/19 13:29 Dose: Not Given Documented by: Famotidine (Pepcid) 20 mg PO DAILY [facility] Last Admin: 05/19/19 13:29 Dose: Not Given Documented by: Furosemide (Lasix) 40 mg IV Q12HR [facility] Sodium Chloride (Saline 0.9%) 1,000 mls @ 120 mls/hr IV .Q8H20M [facility] Last Admin: 05/19/19 13:29 Dose: 120 mls/hr Documented by: Vancomycin HCl 1,750 mg/ (Sodium Chloride) 500 mls @ 167 mls/hr IVPB Q24H [facility] Insulin Aspart (Novolog) 0 unit SQ AC-TID [facility]; Protocol Last Admin: 05/19/19 13:29 Dose: Not Given Documented by: Lactulose (Cephulac) 30 gm PO QID [facility] Miscellaneous Information (Magnesium Per Protocol) 1 each MISCELLANE DAILY PRN; Protocol PRN Reason: Per Protocol Naloxone HCl (Narcan) 0.2 mg IV Q2M PRN PRN Reason: Opioid Reversal Ondansetron HCl (Zofran) 4 mg IVP Q8HR PRN PRN Reason: Nausea And Vomiting Pantoprazole Sodium (Protonix) 40 mg IV DAILY [facility] Spironolactone (Aldactone) 50 mg PO BID [facility] Home Medications Medication Instructions Recorded Confirmed Type Atorvastatin [Lipitor] 20 mg PO HS 01/14/16 05/19/19 History Pregabalin [Lyrica] 200 mg PO BID 04/25/16 05/19/19 History hydrOXYzine HCL [Atarax] 10 mg PO HS 08/03/16 05/19/19 History Lactulose [Cephulac] 30 gm PO QID 01/23/17 05/19/19 History Tamsulosin [Flomax] 0.4 mg PO BID 06/27/17 05/19/19 History Insulin Glargine [Lantus] 60 unit SQ HS 08/08/18 05/19/19 History Insulin Lispro [Admelog] See Protocol SQ ACHS 08/08/18 05/19/19 History Temazepam [Restoril] 15 mg PO HS 08/08/18 05/19/19 History Spironolactone 50 mg PO BID 02/18/19 05/19/19 History oxyCODONE HCL [oxyCODONE HCL (IR)] 5 mg PO Q6H PRN 02/18/19 05/19/19 History Furosemide [Lasix] 40 mg PO BID 05/15/19 05/19/19 History Calcitriol [Rocaltrol] 0.25 mcg PO SUTUTH 05/19/19 05/19/19 History Ergocalciferol [Vitamin D2] 50,000 unit PO WE 05/19/19 05/19/19 History Allergies Allergy/AdvReac Type Severity Reaction Status Date / Time Mushroom Allergy Anaphylaxis Verified 05/19/19 09:33 Physical Exam Vitals: Vital Signs Temp Pulse Resp BP Pulse Ox 05/19/19 12:40 106 H 21 119/53 98 05/19/19 12:30 109 H 16 127/54 97 05/19/19 12:20 107 H 20 123/56 98 05/19/19 12:10 99 20 121/52 97 05/19/19 12:00 108 H 19 131/51 97 05/19/19 11:50 106 H 20 126/54 96 05/19/19 11:40 108 H 19 132/55 99 05/19/19 11:30 108 H 20 128/54 98 05/19/19 11:20 110 H 20 130/57 05/19/19 11:10 110 H 19 127/60 89 L 05/19/19 11:00 110 H 20 130/55 90 L 05/19/19 10:50 113 H 19 131/57 90 L 05/19/19 10:40 99.1 F 113 H 22 129/54 93 L 05/19/19 10:30 113 H 20 125/51 96 05/19/19 10:20 114 H 21 128/53 98 05/19/19 10:10 115 H 18 130/58 98 05/19/19 10:00 117 H 17 132/57 98 05/19/19 09:40 125/85 05/19/19 09:30 120 H 22 120/45 92 L 05/19/19 09:20 121 H 23 131/68 93 L 05/19/19 09:10 125 H 23 139/119 92 L 05/19/19 09:00 128 H 23 109/50 95 05/19/19 08:50 133 H 24 123/69 95 05/19/19 08:45 130 H 05/19/19 08:40 130 H 24 118/70 100 05/19/19 08:35 128 H 05/19/19 08:30 128 H 26 H 118/70 92 L 05/19/19 08:27 128 H 27 H 94 L 05/19/19 07:54 101.7 F H 131 H 28 H 90/56 90 L Intake and Output 05/18/19 05/19/19 05/19/19 22:59 06:59 14:59 Output Total 200 Balance -200 Output: Urine 200 Straight 200 Other: Weight 113.398 kg HEENT: Mildly icteric, without scleral edema, nasal or cavity are dry without thrush or lesions Neck: The neck is supple without significant lymphadenopathy or thyromegaly. Lungs: There is symmetrical bilaterally. There are crackles in bilateral bases is evidence of some scattered wheeze but no bronchial sounds Heart: Irregular with an audible S1 and S2 soft S4 no distinct murmur click or rub Abdomen: Appears to have extensive ascites, abdomen is quite distended, he has however obtunded and it is nontender at this time. I can palpate no mass or organomegaly. Extremities: The extremities reveal evidence of some muscular wasting lower extremities do not have significant edema, the right great toe is evidence of swelling erythema there appears to be ulceration underneath the nail that has drainage which is cultured. There is also evidence of ulceration on the plantar surface of the great toe. With probing I could not find a through and through ulceration. He is he has dense neuropathy and has no sensation when this is manipulated. It appears her was extensive swelling because entire layer of skin has peeled off. There is distinct erythema around the toe and on the dorsum of the foot but there is no significant ascending lymphangitis and there is no significant lymphadenopathy in either inguinal area there is also no abnormal ly mph nodes cervical axillary epitrochlear. Neuro: Obtunded Results CBC & Chem 7: 05/19/19 08:00 05/19/19 08:00 Labs: Abnormal Lab Results - Last 24 Hours (Table) 05/19/19 05/19/19 05/19/19 Range/Units 08:00 08:00 08:00 RBC 3.74 L (4.30-5.90) m/uL Hgb 10.9 L (13.0-17.5) gm/dL Hct 31.8 L (39.0-53.0) % Plt Count 60 L (150-450) k/uL Neutrophils # 9.1 H (1.3-7.7) k/uL Lymphocytes # 0.4 L (1.0-4.8) k/uL PT (9.0-12.0) sec INR (<1.2) VBG pH (7.31-7.41) VBG pCO2 (37-51) mmHg BUN 38 H (9-20) mg/dL Creatinine 2.49 H (0.66-1.25) mg/dL Glucose 105 H (74-99) mg/dL Plasma Lactic Acid Chad 2.4 H* (0.7-2.0) mmol/L Calcium 8.0 L (8.4-10.2) mg/dL Magnesium 1.5 L (1.6-2.3) mg/dL Total Bilirubin 4.4 H (0.2-1.3) mg/dL Ammonia 66 H (<30) umol/L Creatine Kinase 49 L (55-170) U/L Albumin 2.6 L (3.5-5.0) g/dL Urine Protein (Negative) Urine Blood (Negative) Ur Leukocyte Esterase (Negative) Urine RBC (0-5) /hpf Urine WBC (0-5) /hpf Urine WBC Clumps (None) /hpf Ur Squamous Epith Cells (0-4) /hpf Urine Mucus (None) /hpf 05/19/19 05/19/19 05/19/19 Range/Units 08:00 08:20 08:39 RBC (4.30-5.90) m/uL Hgb (13.0-17.5) gm/dL Hct (39.0-53.0) % Plt Count (150-450) k/uL Neutrophils # (1.3-7.7) k/uL Lymphocytes # (1.0-4.8) k/uL PT 16.3 H (9.0-12.0) sec INR 1.6 H (<1.2) VBG pH 7.48 H (7.31-7.41) VBG pCO2 32 L (37-51) mmHg BUN (9-20) mg/dL Creatinine (0.66-1.25) mg/dL Glucose (74-99) mg/dL Plasma Lactic Acid Chad (0.7-2.0) mmol/L Calcium (8.4-10.2) mg/dL Magnesium (1.6-2.3) mg/dL Total Bilirubin (0.2-1.3) mg/dL Ammonia (<30) umol/L Creatine Kinase (55-170) U/L Albumin (3.5-5.0) g/dL Urine Protein 1+ H (Negative) Urine Blood Moderate H (Negative) Ur Leukocyte Esterase Large H (Negative) Urine RBC >182 H (0-5) /hpf Urine WBC >182 H (0-5) /hpf Urine WBC Clumps Many H (None) /hpf Ur Squamous Epith Cells 7 H (0-4) /hpf Urine Mucus Rare H (None) /hpf 05/19/ Range/Units 12:16 RBC (4.30-5.90) m/uL Hgb (13.0-17.5) gm/dL Hct (39.0-53.0) % Plt Count (150-450) k/uL Neutrophils # (1.3-7.7) k/uL Lymphocytes # (1.0-4.8) k/uL PT (9.0-12.0) sec INR (<1.2) VBG pH (7.31-7.41) VBG pCO2 (37-51) mmHg BUN (9-20) mg/dL Creatinine (0.66-1.25) mg/dL Glucose (74-99) mg/dL Plasma Lactic Acid Chad 2.1 H* (0.7-2.0) mmol/L Calcium (8.4-10.2) mg/dL Magnesium (1.6-2.3) mg/dL Total Bilirubin (0.2-1.3) mg/dL Ammonia (<30) umol/L Creatine Kinase (55-170) U/L Albumin (3.5-5.0) g/dL Urine Protein (Negative) Urine Blood (Negative) Ur Leukocyte Esterase (Negative) Urine RBC (0-5) /hpf Urine WBC (0-5) /hpf Urine WBC Clumps (None) /hpf Ur Squamous Epith Cells (0-4) /hpf Urine Mucus (None) /hpf Microbiology - Last 24 Hours (Table) 05/19/19 08:20 Urine Culture - Preliminary Urine,Voided Laboratory Results WBC 10.4 k/uL (3.8-10.6) 05/19/19 08:00 RBC 3.74 m/uL (4.30-5.90) L 05/19/19 08:00 Hgb 10.9 gm/dL (13.0-17.5) L 05/19/19 08:00 Hct 31.8 % (39.0-53.0) L 05/19/19 08:00 MCV 85.1 fL (80.0-100.0) 05/19/19 08:00 MCH 29.1 pg (25.0-35.0) 05/19/19 08:00 MCHC 34.2 g/dL (31.0-37.0) 05/19/19 08:00 RDW 14.1 % (11.5-15.5) 05/19/19 08:00 Plt Count 60 k/uL (150-450) L 05/19/19 08:00 Neutrophils % 88 % 05/19/19 08:00 Lymphocytes % 3 % 05/19/19 08:00 Monocytes % 7 % 05/19/19 08:00 Eosinophils % 1 % 05/19/19 08:00 Basophils % 0 % 05/19/19 08:00 Neutrophils # 9.1 k/uL (1.3-7.7) H 05/19/19 08:00 Lymphocytes # 0.4 k/uL (1.0-4.8) L 05/19/19 08:00 Monocytes # 0.7 k/uL (0-1.0) 05/19/19 08:00 Eosinophils # 0.1 k/uL (0-0.7) 05/19/19 08:00 Basophils # 0.0 k/uL (0-0.2) 05/19/19 08:00 Manual Slide Review Performed 05/19/19 08:00 Poikilocytosis Moderate 05/19/19 08:00 Anisocytosis (manual) Present 05/19/19 08:00 PT 16.3 sec (9.0-12.0) H 05/19/19 08:00 INR 1.6 (<1.2) H 05/19/19 08:00 APTT 28.6 sec (22.0-30.0) 05/19/19 08:00 VBG pH 7.48 (7.31-7.41) H 05/19/19 08:39 VBG pCO2 32 mmHg (37-51) L 05/19/19 08:39 VBG HCO3 24 mmol/L (24-28) 05/19/19 08:39 Sodium 138 mmol/L (137-145) 05/19/19 08:00 Potassium 3.8 mmol/L (3.5-5.1) 05/19/19 08:00 Chloride 105 mmol/L (98-107) 05/19/19 08:00 Carbon Dioxide 23 mmol/L (22-30) 05/19/19 08:00 Anion Gap 10 mmol/L 05/19/19 08:00 BUN 38 mg/dL (9-20) H 05/19/19 08:00 Creatinine 2.49 mg/dL (0.66-1.25) H 05/19/19 08:00 Est GFR (CKD-EPI)AfAm 31 (>60 ml/min/1.73 sqM) 05/19/19 08:00 Est GFR (CKD-EPI)NonAf 27 (>60 ml/min/1.73 sqM) 05/19/19 08:00 Glucose 105 mg/dL (74-99) H 05/19/19 08:00 Lactic Ac Sepsis Rflx Y 05/19/19 09:01 Plasma Lactic Acid Chad 2.1 mmol/L (0.7-2.0) H* 05/19/19 12:16 Calcium 8.0 mg/dL (8.4-10.2) L 05/19/19 08:00 Magnesium 1.5 mg/dL (1.6-2.3) L 05/19/19 08:00 Total Bilirubin 4.4 mg/dL (0.2-1.3) H 05/19/19 08:00 AST 25 U/L (17-59) 05/19/19 08:00 ALT 14 U/L (4-49) 05/19/19 08:00 Alkaline Phosphatase 93 U/L (38-126) 05/19/19 08:00 Ammonia 66 umol/L (<30) H 05/19/19 08:00 Creatine Kinase 49 U/L (55-170) L 05/19/19 08:00 Troponin I 0.019 ng/mL (0.000-0.034) 05/19/19 08:00 Total Protein 6.5 g/dL (6.3-8.2) 05/19/19 08:00 Albumin 2.6 g/dL (3.5-5.0) L 05/19/19 08:00 Lipase 93 U/L (23-300) 05/19/19 08:00 Urine Color Yellow 05/19/19 08:20 Urine Appearance Turbid (Clear) 05/19/19 08:20 Urine pH 5.5 (5.0-8.0) 05/19/19 08:20 Ur Specific [place] 1.012 (1.001-1.035) 05/19/19 08:20 Urine Protein 1+ (Negative) H 05/19/19 08:20 Urine Glucose (UA) Negative (Negative) 05/19/19 08:20 Urine Ketones Negative (Negative) 05/19/19 08:20 Urine Blood Moderate (Negative) H 05/19/19 08:20 Urine Nitrite Negative (Negative) 05/19/19 08:20 Urine Bilirubin Negative (Negative) 05/19/19 08:20 Urine Urobilinogen 2.0 mg/dL (<2.0) 05/19/19 08:20 Ur Leukocyte Esterase Large (Negative) H 05/19/19 08:20 Urine RBC >182 /hpf (0-5) H 05/19/19 08:20 Urine WBC >182 /hpf (0-5) H 05/19/19 08:20 Urine WBC Clumps Many /hpf (None) H 05/19/19 08:20 Ur Squamous Epith Cells 7 /hpf (0-4) H 05/19/19 08:20 Urine Mucus Rare /hpf (None) H 05/19/19 08:20 Serum Alcohol <10 mg/dL 05/19/19 08:00 Influenza Type A RNA Not Detected (Not Detectd) 05/19/19 08:20 Influenza Type B (PCR) Not Detected (Not Detectd) 05/19/19 08:20 Microbiology 05/19/19 08:20 Urine,Voided Urine Culture - Preliminary Comments: Right foot x-ray with osteomyelitis and possible fracture CT of the abdomen and pelvis shows evidence of the extensive cirrhosis with a small amount of ascites only. Assessment and Plan (1) 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 There is evidence of hepatorenal syndrome as well as hepatic encephalopathy. Lactulose by enema has been requested. The patient has evidence of an infection to the right great toe which may have resulted in significant worsening of his status. By his history is have cultures with Serratia and MRSA at that site and constantly antibiotic therapy with Rocephin and daptomycin will be utilized. Daptomycin because of his acute on chronic renal failure as well as a Vanco CSOTA of 2 with a bony infection. Over he will tolerate this. Local wound care with nikunj has been requested that he be changed on a daily basis for now. He is currently nonambulatory. Need to have ongoing assessment for his mobility and ensure that he is turned in bed. The daughter is aware of his poor status and they have a palliative care consult and Monday however they may be definitive consult which they are aware of if he does not show improvement. There would be open to hospice if he does not improve. Current Visit: Yes Status: Acute Code(s): E11.621 - TYPE 2 DIABETES MELLITUS WITH FOOT ULCER; L97.514 - NON-PRS CHRONIC ULCER OTH PRT RIGHT FOOT W NECROSIS OF BONE SNOMED Code(s): 3984860056408 (2) Hepatic encephalopathy Current Visit: Yes Status: Acute Code(s): K72.90 - HEPATIC FAILURE, UNSPECIFIED WITHOUT COMA SNOMED Code(s): 99701763 (3) Hyperammonemia Current Visit: Yes Status: Acute Code(s): E72.20 - DISORDER OF UREA CYCLE METABOLISM, UNSPECIFIED SNOMED Code(s): 1794141 (4) Cirrhosis of liver Current Visit: Yes Status: Chronic Code(s): K74.60 - UNSPECIFIED CIRRHOSIS OF LIVER SNOMED Code(s): 90021866
[2019-05-19] MEDS ORDERED: DAPTOmycin 500 MG in SODIUM CHLORIDE 0.9% 50 ML IVPB SCH (15:00)
[2019-05-19] MEDS: LACTULOSE 20 GM/30 ML CUP PO SCH ×3 (16:05→20:33)
[2019-05-19 16:46] LABS: Glucose,Whole Blood 150 mg/dL (75-99)
[2019-05-19 20:18] LABS: Glucose,Whole Blood 135 mg/dL (75-99)
[2019-05-19] MEDS: FUROSEMIDE 10 MG/ML 4 ML VIAL IV SCH (20:20)
[2019-05-19] MEDS: SPIRONOLACTONE 25 MG TAB PO SCH (20:21)
[2019-05-19] MEDS ORDERED: ATORVASTATIN 20 MG TAB PO SCH (21:00)
[2019-05-20] MEDS: ACETAMINOPHEN TAB 325 MG TAB PO PRN ×2 (01:05→13:04)
[2019-05-20 06:08] LABS: Glucose,Whole Blood 134 mg/dL (75-99)
[2019-05-20 06:13] LABS: Basophils % (A) 0 %; Eosinophils % (A) 1 %; HCT 26.1 % (39.0-53.0); Hypochromasia Slight; Lymphocytes # (A) 0.3 k/uL (1.0-4.8); Lymphocytes % (A) 8 %; MCH 28.8 pg (25.0-35.0); MCHC 33.1 g/dL (31.0-37.0); Mean Platelet Volume 9.5; Monocytes # (A) 0.3 k/uL (0-1.0); Monocytes % (A) 7 %; Neutrophils # (A) 2.9 k/uL (1.3-7.7); Neutrophils % (A) 82 %; Poikilocytosis Moderate; RDW 14.4 % (11.5-15.5); WBC 3.5 k/uL (3.8-10.6)
[2019-05-20 06:15] LABS: Platelet Count 38 k/uL (150-450)
[2019-05-20 06:16] LABS: HGB 8.6 gm/dL (13.0-17.5)
[2019-05-20] MEDS: INSULIN ASPART (NovoLOG) 100 UNIT/ML VIAL SQ SCH ×3 (06:25→16:37)
[2019-05-20] MEDS: SODIUM CHLORIDE 0.9% 1,000 ML IV SCH ×2 (06:26→09:06)
[2019-05-20 06:29] LABS: ALT 18 U/L (4-49); AST 40 U/L (17-59); African American GFR (CKD) 31 (>60 ml/min/1.73 sqM); Alkaline Phosphatase 61 U/L (38-126); Anion Gap 6 mmol/L; Blood Urea Nitrogen 42 mg/dL (9-20); Calcium 7.5 mg/dL (8.4-10.2); Carbon Dioxide 24 mmol/L (22-30); Chloride 109 mmol/L (98-107); Glucose 130 mg/dL (74-99); Magnesium 1.9 mg/dL (1.6-2.3); Non-African American GFR(CKD) 27 (>60 ml/min/1.73 sqM); Potassium 3.8 mmol/L (3.5-5.1); Sodium 139 mmol/L (137-145); Total Protein 5.3 g/dL (6.3-8.2)
[2019-05-20] MEDS ORDERED: VANCOMYCIN 1,750 MG in SODIUM CHLORIDE 0.9% 500 ML 500 ML IVPB SCH (07:00)
[2019-05-20] MEDS: FUROSEMIDE 10 MG/ML 4 ML VIAL IV SCH ×2 (08:46→20:59)
[2019-05-20] MEDS: FAMOTIDINE 20 MG TAB PO SCH (08:46)
[2019-05-20] MEDS: SPIRONOLACTONE 25 MG TAB PO SCH ×2 (08:46→20:59)
[2019-05-20] MEDS: LACTULOSE 20 GM/30 ML CUP PO SCH ×4 (08:47→21:04)
[2019-05-20] MEDS ORDERED: PANTOPRAZOLE 40 MG/10 ML VIAL IV SCH (09:00)
[2019-05-20] MEDS: ALBUMIN HUMAN 25% 50 ML in EMPTY BAG 1 BAG IVPB SCH ×4 (09:05→23:30)
--- NOTE | 2019-05-20 09:32 | P.NPCON ---
History of Present Illness - Reason for Consult acute renal failure, chronic renal failure - History of Present Illness Reason for consultation: Acute kidney injury on chronic kidney disease History of present illness: Patient is a 64-year-old male seen in renal consultation for acute kidney injury on chronic kidney disease. Patient has chronic kidney disease stage III with baseline creatinine near 2. Renal function is fairly stable this admission. Creatinine 2.46 today. Patient presented to the hospital due to altered mental status. Patient's ammonia level was 66 and he was started on lactulose. It is down to 18 today. Patient is currently awake and alert. He is complaining of diarrhea. No vomiting. Oral intake is fair. He has a Chu catheter and is nonoliguric. Patient does have history of liver cirrhosis. Patient states his last paracentesis was nearly 2 years ago. He is currently receiving IV fluids as well as IV Lasix. Patient's CAT scan reveals small ascites and right-sided pleural effusion. Denies chest pain or shortness of breath. Hemodynamically he is stable. Denies edema. Vital signs are stable. General: The patient appeared well nourished and normally developed. HEENT: Head exam is unremarkable. Neck is without jugular venous distension. LUNGS: Lungs are clear to auscultation and percussion. Breath sounds decreased. HEART: Rate and Rhythm are regular. First and second heart sounds normal. No murmurs, rubs or gallops. ABDOMEN: Abdominal exam reveals normal bowel sounds. Obese. EXTREMITITES: No clubbing, cyanosis, or edema. Past Medical History Past Medical History: Blood Disorder (pancytopenia, myelodysplasia), Chest Pain / Angina, CVA/TIA, Diabetes Mellitus (diabetic neuropathy), GERD/Reflux, Hyperlipidemia, Hypertension, Liver Disease (with ascites), Neurologic Disorder, Osteoarthritis (OA), Pneumonia, Prostate Disorder, Renal Disease Additional Past Medical History / Comment(s): 2nd degree servin from soup being spilled on stomach. History of Any Multi-Drug Resistant Organisms: MRSA Date of last positivie culture/infection: 04/30/16 MDRO Source:: LEFT FOOT Past Surgical History: Cholecystectomy, Orthopedic Surgery Additional Past Surgical History / Comment(s): left great toe amputation. History of wound care left great toe. multiple THORACENTESIS, PARACENTESIS, colonoscopy Past Anesthesia/Blood Transfusion Reactions: No Reported Reaction Past Psychological History: Anxiety, Depression Additional Psychological History / Comment(s): Single lives with his family including adult daughter. No experience. No travels. No animal exposures Smoking Status: Never smoker Past Alcohol Use History: None Reported Past Drug Use History: None Reported - Past Family History Mother Family Medical History: Cancer, Diabetes Mellitus Father Family Medical History: Cancer, Diabetes Mellitus Brother(s) Family Medical History: Diabetes Mellitus Daughter(s) Family Medical History: Diabetes Mellitus, Hyperlipidemia, Hypertension Son(s) Family Medical History: Diabetes Mellitus, Hyperlipidemia, Hypertension Medications and Allergies Home Medications Medication Instructions Recorded Confirmed Type Atorvastatin [Lipitor] 20 mg PO HS 01/14/16 05/19/19 History Pregabalin [Lyrica] 200 mg PO BID 04/25/16 05/19/19 History hydrOXYzine HCL [Atarax] 10 mg PO HS 08/03/16 05/19/19 History Lactulose [Cephulac] 30 gm PO QID 01/23/17 05/19/19 History Tamsulosin [Flomax] 0.4 mg PO BID 06/27/17 05/19/19 History Insulin Glargine [Lantus] 60 unit SQ HS 08/08/18 05/19/19 History Insulin Lispro [Admelog] See Protocol SQ ACHS 08/08/18 05/19/19 History Temazepam [Restoril] 15 mg PO HS 08/08/18 05/19/19 History Spironolactone 50 mg PO BID 02/18/19 05/19/19 History oxyCODONE HCL [oxyCODONE HCL (IR)] 5 mg PO Q6H PRN 02/18/19 05/19/19 History Furosemide [Lasix] 40 mg PO BID 05/15/19 05/19/19 History Calcitriol [Rocaltrol] 0.25 mcg PO SUTUTH 05/19/19 05/19/19 History Ergocalciferol [Vitamin D2] 50,000 unit PO WE 05/19/19 05/19/19 History Allergies Allergy/AdvReac Type Severity Reaction Status Date / Time Mushroom Allergy Anaphylaxis Verified 05/19/19 09:33 Physical Exam Vitals: Vital Signs Temp Pulse Pulse Resp BP BP Pulse Ox 05/20/19 03:54 98.2 F 78 20 119/53 97 05/19/19 23:37 98.5 F 96 18 121/45 97 05/19/19 20:26 98.4 F 80 22 115/77 97 05/19/19 15:59 96 18 05/19/19 15:56 98.6 F 96 18 116/54 100 05/19/19 13:30 99.6 F 97 18 116/57 100 05/19/19 12:40 106 H 21 119/53 98 05/19/19 12:30 109 H 16 127/54 97 05/19/19 12:20 107 H 20 123/56 98 05/19/19 12:10 99 20 121/52 97 05/19/19 12:00 108 H 19 131/51 97 05/19/19 11:50 106 H 20 126/54 96 05/19/19 11:40 108 H 19 132/55 99 05/19/19 11:30 108 H 20 128/54 98 05/19/19 11:20 110 H 20 130/57 05/19/19 11:10 110 H 19 127/60 89 L 05/19/19 11:00 110 H 20 130/55 90 L 05/19/19 10:50 113 H 19 131/57 90 L 05/19/19 10:40 99.1 F 113 H 22 129/54 93 L 05/19/19 10:30 113 H 20 125/51 96 05/19/19 10:20 114 H 21 128/53 98 05/19/19 10:10 115 H 18 130/58 98 05/19/19 10:00 117 H 17 132/57 98 05/19/19 09:40 125/85 05/19/19 09:30 120 H 22 120/45 92 L Intake and Output 05/19/19 05/20/19 05/20/19 22:59 06:59 14:59 Output Total 400 575 Balance -400 -575 Output: Urine 400 575 Other: Voiding Method Indwelling Catheter Indwelling Catheter # Bowel Movements 1 1 Weight 114 kg Results - Lab Results Most recent lab results Calcium 7.5 mg/dL (8.4-10.2) L 05/20/19 05:30 Magnesium 1.9 mg/dL (1.6-2.3) 05/20/19 05:30 05/20/19 05:30 05/20/19 05:30 Assessment and Plan Plan: Assessment: 1. Acute kidney injury secondary to ATN secondary to infection. Hepatorenal cannot be completely ruled out. Renal function fairly stable. Creatinine 2.46 today. No hydronephrosis noted on CAT scan. 2. Chronic kidney disease stage IV with baseline creatinine near 2. 3. Liver cirrhosis. 4. Hepatic encephalopathy. Improved. 5. Volume overload. 6. Anemia of chronic kidney disease. Rule out iron deficiency. 7. Chronic kidney disease mineral bone disease maintained on calcitriol. 8. Right foot diabetic ulcer maintained on IV antibiotics. Infectious disease following. Plan: Decrease rate of normal saline to 50 mL an hour. 25 g of IV albumin x 2 doses today. Maintain IV Lasix 40 mg twice daily. Maintain Aldactone 50 mg twice daily. Check iron studies. Continue to monitor renal function and urine output. Thank you for the consultation. I will continue to follow the patient with you during his hospital stay.
[2019-05-20 11:28] LABS: Glucose,Whole Blood 147 mg/dL (75-99)
[2019-05-20 11:49] LABS: Prealbumin <5.0 mg/dL (18.0-42.0)
--- NOTE | 2019-05-20 13:40 | US ---
EXAMINATION TYPE: US chest DATE OF EXAM: 05/20/2019 COMPARISON: Chest x-ray 05/19/2019 CLINICAL HISTORY: rest chest and lyly for possible thoracentesis. Right pleural effusion TECHNIQUE: Targeted ultrasound of the posterior lower right hemithorax EXAM MEASUREMENTS: Right Pleural Effusion pocket size: 8.5 cm Right skin surface to fluid distance: 5.1 cm Right side MARKED for possible thoracentesis outside the dept. Pulmonologists are able to review the images in the patient?s EMR. Limited scanning through the posterior right chest. IMPRESSIONS: Moderate right-sided pleural effusion
--- NOTE | 2019-05-20 14:37 | P.CNPUL ---
History of Present Illness Consult date: 05/20/19 Reason for consult: pleural effusion History of present illness: 62-year-old male patient with history of liver cirrhosis presented also because of altered mental status. The patient was noted to have a infected right toe. The toe itself was quite erythematous and right and there was some drainage and swelling. No documented fever at home. I was asked to evaluate the patient regarding a pleural effusion that was noted on the CAT scan of the that was done in emergency department and the CAT scan showed a small right-sided pleural effusion along with some compressive atelectatic changes in the right lung base. The patient has splenomegaly consistent with liver cirrhosis. His there was small and nodular. At the time of my evaluation, white cell count was at 3.5 and the patient was receiving lactulose for hepatic encephalopathy and the patient's ammonia level was at 18. The patient has chronic renal failure. Creatinine was stable at 2.4. No respiratory distress. No aspiration. He was on 2 L of oxygen by nasal cannula. This patient is known to me. I obtained him back in 2015 and the patient back then received a thoracentesis with a total of 2 L of fluid aspirated from the right lung and the fluid itself was transudate. This was attributed to liver cirrhosis. The patient back then also had ascites that was drained. Note that the current CAT scan of the abdomen is not showing any ascites. For now, the patient is being treated for a diabetic infected toe. He is currently on Rocephin and daptomycin. Review of Systems Constitutional: Reports lethargy, Reports poor appetite, Reports weight loss Eyes: denies as per HPI, denies blurred vision, denies bulging eye, denies decreased vision, denies diplopia, denies discharge, denies dry eye, denies irritation, denies itching, denies pain, denies photophobia, denies loss of peripheral vision, denies loss of vision, denies tunnel vision/blind spots Cardiovascular: Reports decreased exercise tolerance, Reports dyspnea on exertion Respiratory: Reports as per HPI Genitourinary: Reports as per HPI Musculoskeletal: Reports as per HPI Musculoskeletal: bilateral: ankle swelling, absent: ankle pain, ankle stiffness Neurological: Reports confusion Psychiatric: Reports as per HPI Endocrine: Reports as per HPI Hematologic/Lymphatic: Reports as per HPI Allergic/Immunologic: Reports as per HPI Past Medical History Past Medical History: Blood Disorder (pancytopenia, myelodysplasia), Chest Pain / Angina, CVA/TIA, Diabetes Mellitus (diabetic neuropathy), GERD/Reflux, Hyperlipidemia, Hypertension, Liver Disease (with ascites), Neurologic Disorder, Osteoarthritis (OA), Pneumonia, Prostate Disorder, Renal Disease Additional Past Medical History / Comment(s): 2nd degree servin from soup being spilled on stomach. History of Any Multi-Drug Resistant Organisms: MRSA Date of last positivie culture/infection: 04/30/16 MDRO Source:: LEFT FOOT Past Surgical History: Cholecystectomy, Orthopedic Surgery Additional Past Surgical History / Comment(s): left great toe amputation. History of wound care left great toe. multiple THORACENTESIS, PARACENTESIS, colonoscopy Past Anesthesia/Blood Transfusion Reactions: No Reported Reaction Past Psychological History: Anxiety, Depression Additional Psychological History / Comment(s): Single lives with his family including adult daughter. No experience. No travels. No animal exposures Smoking Status: Never smoker Past Alcohol Use History: None Reported Past Drug Use History: None Reported - Past Family History Mother Family Medical History: Cancer, Diabetes Mellitus Father Family Medical History: Cancer, Diabetes Mellitus Brother(s) Family Medical History: Diabetes Mellitus Daughter(s) Family Medical History: Diabetes Mellitus, Hyperlipidemia, Hypertension Son(s) Family Medical History: Diabetes Mellitus, Hyperlipidemia, Hypertension Medications and Allergies Home Medications Medication Instructions Recorded Confirmed Type Atorvastatin [Lipitor] 20 mg PO HS 01/14/16 05/19/19 History Pregabalin [Lyrica] 200 mg PO BID 04/25/16 05/19/19 History hydrOXYzine HCL [Atarax] 10 mg PO HS 08/03/16 05/19/19 History Lactulose [Cephulac] 30 gm PO QID 01/23/17 05/19/19 History Tamsulosin [Flomax] 0.4 mg PO BID 06/27/17 05/19/19 History Insulin Glargine [Lantus] 60 unit SQ HS 08/08/18 05/19/19 History Insulin Lispro [Admelog] See Protocol SQ ACHS 08/08/18 05/19/19 History Temazepam [Restoril] 15 mg PO HS 08/08/18 05/19/19 History Spironolactone 50 mg PO BID 02/18/19 05/19/19 History oxyCODONE HCL [oxyCODONE HCL (IR)] 5 mg PO Q6H PRN 02/18/19 05/19/19 History Furosemide [Lasix] 40 mg PO BID 05/15/19 05/19/19 History Calcitriol [Rocaltrol] 0.25 mcg PO SUTUTH 05/19/19 05/19/19 History Ergocalciferol [Vitamin D2] 50,000 unit PO WE 05/19/19 05/19/19 History Allergies Allergy/AdvReac Type Severity Reaction Status Date / Time Mushroom Allergy Anaphylaxis Verified 05/19/19 09:33 Physical Exam Vitals: Vital Signs Temp Pulse Resp BP Pulse Ox 05/20/19 12:00 77 18 139/58 98 05/20/19 08:00 97.7 F 81 18 118/66 97 05/20/19 03:54 98.2 F 78 20 119/53 97 05/19/19 23:37 98.5 F 96 18 121/45 97 05/19/19 20:26 98.4 F 80 22 115/77 97 05/19/19 15:59 96 18 05/19/19 15:56 98.6 F 96 18 116/54 100 Intake and Output 05/19/19 05/20/19 05/20/19 22:59 06:59 14:59 Intake Total 100 Output Total 400 575 Balance -400 -575 100 Intake: Oral 100 Output: Urine 400 575 Other: Voiding Method Indwelling Catheter Indwelling Catheter Indwelling Catheter # Bowel Movements 1 1 2 Weight 114 kg GENERAL EXAM: Alert, comfortable in no apparent distress. HEAD: Normocephalic. EYES: Normal reaction of pupils, equal size. Slightly icteric. NOSE: Clear with pink turbinates. THROAT: No erythema or exudates. NECK: No masses, no JVD. CHEST: No chest wall deformity. LUNGS: Equal air entry with no wheeze, rhonchi or dullness. Crackles in the bilateral posterior bases more so on the right. CVS: S1 and S2 normal with no audible murmurs, regular rhythm. ABDOMEN: Abdominal exam revealed normal bowel sounds. The abdomen was soft, non- tender, and without masses, organomegaly, or appreciable enlargement of the abdominal aorta. Extremities: There is trace peripheral edema. No clubbing, no cyanosis. pulses are diminished. Also, there is muscle wasting in lower extremities bilaterally. The right great toe is swollen and erythematous and ulcerated underneath the nail and had drainage from the nail surface and the edges. There is also evidence of peripheral neuropathy in lower extremities bilaterally. The patient has an amputation of the large toe on the left foot. Neurologically the patient is awake and alert. He is moving all 4 extremities without any limitation. Mental status seems to have improved. Results - Laboratory Findings CBC and BMP: 05/20/19 05:30 05/20/19 05:30 PT/INR, D-dimer PT 16.3 sec (9.0-12.0) H 05/19/19 08:00 INR 1.6 (<1.2) H 05/19/19 08:00 Abnormal lab findings: Abnormal Labs 05/19/19 05/19/19 05/19/19 08:00 08:00 08:00 WBC RBC 3.74 L Hgb 10.9 L Hct 31.8 L Plt Count 60 L Neutrophils # 9.1 H Lymphocytes # 0.4 L PT INR VBG pH VBG pCO2 Chloride BUN 38 H Creatinine 2.49 H Glucose 105 H POC Glucose (mg/dL) Plasma Lactic Acid Chad 2.4 H* Calcium 8.0 L Magnesium 1.5 L Total Bilirubin 4.4 H Ammonia 66 H Creatine Kinase 49 L Total Protein Albumin 2.6 L Prealbumin Urine Protein Urine Blood Ur Leukocyte Esterase Urine RBC Urine WBC Urine WBC Clumps Ur Squamous Epith Cells Urine Mucus 05/19/19 05/19/19 05/19/19 08:00 08:20 08:39 WBC RBC Hgb Hct Plt Count Neutrophils # Lymphocytes # PT 16.3 H INR 1.6 H VBG pH 7.48 H VBG pCO2 32 L Chloride BUN Creatinine Glucose POC Glucose (mg/dL) Plasma Lactic Acid Chad Calcium Magnesium Total Bilirubin Ammonia Creatine Kinase Total Protein Albumin Prealbumin Urine Protein 1+ H Urine Blood Moderate H Ur Leukocyte Esterase Large H Urine RBC >182 H Urine WBC >182 H Urine WBC Clumps Many H Ur Squamous Epith Cells 7 H Urine Mucus Rare H 05/19/19 05/19/19 05/19/19 12:16 16:39 20:17 WBC RBC Hgb Hct Plt Count Neutrophils # Lymphocytes # PT INR VBG pH VBG pCO2 Chloride BUN Creatinine Glucose POC Glucose (mg/dL) 150 H 135 H Plasma Lactic Acid Chad 2.1 H* Calcium Magnesium Total Bilirubin Ammonia Creatine Kinase Total Protein Albumin Prealbumin Urine Protein Urine Blood Ur Leukocyte Esterase Urine RBC Urine WBC Urine WBC Clumps Ur Squamous Epith Cells Urine Mucus 05/20/19 05/20/19 05/20/19 05:30 05:30 06:07 WBC 3.5 L RBC 3.00 L Hgb 8.6 L D Hct 26.1 L Plt Count 38 L Neutrophils # Lymphocytes # 0.3 L PT INR VBG pH VBG pCO2 Chloride 109 H BUN 42 H Creatinine 2.46 H Glucose 130 H POC Glucose (mg/dL) 134 H Plasma Lactic Acid Chad Calcium 7.5 L Magnesium Total Bilirubin 3.0 H Ammonia Creatine Kinase Total Protein 5.3 L Albumin 2.0 L Prealbumin <5.0 L Urine Protein Urine Blood Ur Leukocyte Esterase Urine RBC Urine WBC Urine WBC Clumps Ur Squamous Epith Cells Urine Mucus 05/20/19 11:27 WBC RBC Hgb Hct Plt Count Neutrophils # Lymphocytes # PT INR VBG pH VBG pCO2 Chloride BUN Creatinine Glucose POC Glucose (mg/dL) 147 H Plasma Lactic Acid Chad Calcium Magnesium Total Bilirubin Ammonia Creatine Kinase Total Protein Albumin Prealbumin Urine Protein Urine Blood Ur Leukocyte Esterase Urine RBC Urine WBC Urine WBC Clumps Ur Squamous Epith Cells Urine Mucus - Diagnostic Findings Chest x-ray: image reviewed Assessment and Plan Plan: #1 right-sided pleural effusion, small, likely secondary to liver cirrhosis. Not causing any major respiratory distress. #2 diabetic ulcer of the right big toe with necrosis of the bone. #3 chronic liver failure secondary to cirrhosis and portal hypertension.. #4 Hyperlipidemia. #5 Hypertension. #6 Diabetes mellitus. #7 Diabetic neuropathy. #8 Pancytopenia secondary to underlying liver disease. #9 Gastroesophageal reflux disease. #10 Anxiety/depression #11 Chronic pain syndrome. 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 #14 altered mentation secondary to septic encephalopathy, improved #15 chronic kidney disease, Stage IV plan no apparent respiratory distress. ultrasound of the chest was noted. No major respiratory distress. There is a small to moderate-sized right-sided pleural effusion which is a transudate related to liver cirrhosis. Will drained if becomes symptomatic at a later stage. Continue treatment of diabetic foot ulcer.
--- NOTE | 2019-05-20 15:13 | XR ---
EXAMINATION TYPE: XR chest 2V DATE OF EXAM: 05/20/2019 COMPARISON: Prior chest x-ray 05/19/2019 HISTORY: Follow-up, abnormal chest x-ray TECHNIQUE: Frontal and lateral views of the chest are obtained. FINDINGS: Heart remains enlarged. Central vascularity and interstitium are increased. There is no ev ident pneumothorax. There are overlying cardiac leads. There is likely posterior right pleural effusi on. IMPRESSION: Correlate for congestive heart failure. Right pleural effusion.
--- NOTE | 2019-05-20 15:59 | P.PN ---
Subjective Progress Note Date: 05/20/19 Luis is a 64-year-old white male patient well known to me.he has a history of liver cirrhosis and liver failure lung with recurrent ascites and occasionally hyper ammoniemia, which she takes lactulose for 4 times daily. His daughter reports he's not had a bowel movement in several days. He injured his toe several days ago. This is been having purulent discharge in looking quite infected just over the past day. He's become more and more weak and confused. He himself was somewhat arousable the emergency room. We discussed with. Quickly lost consciousness. His 2 sons and daughter were at bedside and discussed her case with him. We had recently ordered a palliative care consult this Monday. They did not want to put him in hospice at this time. DNR, no code was requested and will be implemented. currently Justice denies any chest pains, pressures or shortness of breath. He does complain of some abdominal pain. He does grimace when palpated his abdomen. 05/20/2019 yesterday patient somnolent, pain med regime adjusted. Significant improvement in sensorium today. States pain not relieved on Tylenol.complains of suprapubic pain-Chu catheter draining maycol urine.maintained on both IV fluids and IV Lasix as per nephrology. Creatinine2.46.wound and blood culture reporting presumptive MRSA, urine culture presumptive staph aureus,anaerobic and Gram stain pending.maintained on Rocephin, daptomycin. afebrile.moderate right pleural effusion,vital signs stable, maintaining O2 sats in the high 90s on 2 L nasal cannula.denies chest pain, palpitations or increased shortness of breath. Objective - Vital Signs Vital signs: Vital Signs Temp 97.7 F 05/20/19 08:00 Pulse 77 05/20/19 12:00 Resp 18 05/20/19 14:33 BP 139/58 05/20/19 12:00 Pulse Ox 98 05/20/19 12:00 Intake & Output 05/19/19 05/20/19 05/20/19 18:59 06:59 18:59 Intake Total 100 Output Total 600 575 Balance -600 -575 100 Weight 113.398 kg 114 kg Intake: Oral 100 Output: Urine 600 575 Straight 200 Other: Voiding Method Indwelling Catheter Indwelling Catheter Indwelling Catheter # Bowel Movements 1 2 - Exam GENERAL: sitting up in bed, alert and oriented 2,no acute distress HEAD: Atraumatic, normocephalic. EYES: Pupils equal round and reactive to light, extraocular movements intact, conjunctiva are normal.positive icterus ENT:nares patent, oropharynx clear without exudates. Moist mucous membranes. NECK: Normal range of motion, supple without lymphadenopathy or JVD, no thyromegaly LUNGS: Breath sounds course with the decreased air exchange worse on the right side than the left. No wheezes rales or rhonchi. HEART: Regular rate and rhythm without murmurs, rubs or gallops.S1S2 Normal ABDOMEN: Soft, nontender, distended ,No guarding, no rebound. hepatomegaly is appreciated today.positive bowel sounds EXTREMITIES: Normal range of motion, trace edema. No clubbing or cyanosis. NEUROLOGICAL: Cranial nerves II through XII grossly intact. moves all 4 extremities, no gross focal deficits. SKIN: right great toe shows a Asif grade 3 diabetic ulcer The wound is approximately 0.6 x 0.4 x 0.3 cm There is purulent,foul-smelling discharge and periwound erythema. The right great toenail is loose. Microbiology 05/19/19 08:00 Blood Blood Culture Gram Stain - Preliminary 05/19/19 08:00 Blood Blood Culture - Preliminary Presumptive MRSA 05/19/19 11:15 Toe - Right First Gram Stain - Preliminary 05/19/19 11:15 Toe - Right First Wound Culture - Preliminary Presumptive MRSA 05/19/19 08:20 Urine,Voided Urine Culture - Preliminary Presumptive Staph aureus 05/19/19 08:00 Blood Blood Culture - Final 05/19/19 13:59 Foot - Left Gram Stain - Preliminary 05/19/19 13:59 Foot - Left Wound Culture - Preliminary 05/19/19 13:59 Foot - Left Anaerobic Culture - Preliminary - Labs CBC & Chem 7: 05/20/19 05:30 05/20/19 05:30 Labs: Abnormal Lab Results - Last 24 Hours (Table) 05/19/19 05/19/19 05/20/19 Range/Units 16:39 20:17 05:30 WBC (3.8-10.6) k/uL RBC (4.30-5.90) m/uL Hgb (13.0-17.5) gm/dL Hct (39.0-53.0) % Plt Count (150-450) k/uL Lymphocytes # (1.0-4.8) k/uL Chloride 109 H (98-107) mmol/L BUN 42 H (9-20) mg/dL Creatinine 2.46 H (0.66-1.25) mg/dL Glucose 130 H (74-99) mg/dL POC Glucose (mg/dL) 150 H 135 H (75-99) mg/dL Calcium 7.5 L (8.4-10.2) mg/dL Total Bilirubin 3.0 H (0.2-1.3) mg/dL Total Protein 5.3 L (6.3-8.2) g/dL Albumin 2.0 L (3.5-5.0) g/dL Prealbumin <5.0 L (18.0-42.0) mg/dL 05/20/19 05/20/19 05/20/19 Range/Units 05:30 06:07 11:27 WBC 3.5 L (3.8-10.6) k/uL RBC 3.00 L (4.30-5.90) m/uL Hgb 8.6 L D (13.0-17.5) gm/dL Hct 26.1 L (39.0-53.0) % Plt Count 38 L (150-450) k/uL Lymphocytes # 0.3 L (1.0-4.8) k/uL Chloride (98-107) mmol/L BUN (9-20) mg/dL Creatinine (0.66-1.25) mg/dL Glucose (74-99) mg/dL POC Glucose (mg/dL) 134 H 147 H (75-99) mg/dL Calcium (8.4-10.2) mg/dL Total Bilirubin (0.2-1.3) mg/dL Total Protein (6.3-8.2) g/dL Albumin (3.5-5.0) g/dL Prealbumin (18.0-42.0) mg/dL Microbiology - Last 24 Hours (Table) 05/19/19 08:00 Blood Culture Gram Stain - Preliminary Blood Blood Culture - Preliminary Presumptive MRSA 05/19/19 11:15 Gram Stain - Preliminary Toe - Right First Wound Culture - Preliminary Presumptive MRSA 05/19/19 08:20 Urine Culture - Preliminary Urine,Voided Presumptive Staph aureus 05/19/19 08:00 Blood Culture - Final Blood 05/19/19 13:59 Gram Stain - Preliminary Foot - Left Wound Culture - Preliminary 05/19/19 13:59 Anaerobic Culture - Preliminary Foot - Left Assessment and Plan Assessment: (1) Hepatic encephalopathy, improving Current Visit: Yes Status: Acute Code(s): K72.90 - HEPATIC FAILURE, UNSPECIFIED WITHOUT COMA SNOMED Code(s): 95093860 (2) Diabetic ulcer of right foot Current Visit: Yes Status: Acute Code(s): E11.621 - TYPE 2 DIABETES MELLITUS WITH FOOT ULCER; L97.519 - NON-PRS CHRONIC ULCER OTH PRT RIGHT FOOT W UNSP SEVERITY SNOMED Code(s): 103896343 (3) DNR (do not resuscitate) Current Visit: Yes Status: Acute Code(s): Z66 - DO NOT RESUSCITATE SNOMED Code(s): 260328853 (4) DNR (do not resuscitate) discussion Current Visit: Yes Status: Acute Code(s): Z71.89 - OTHER SPECIFIED COUNSELING SNOMED Code(s): 191126756 (5) Ascites Current Visit: Yes Status: Acute Code(s): R18.8 - OTHER ASCITES SNOMED Code(s): 829956501 (6) Cellulitis Narrative/Plan: right great toe Current Visit: Yes Status: Acute Code(s): L03.90 - CELLULITIS, UNSPECIFIED SNOMED Code(s): 520369827 (7) Confusion Current Visit: Yes Status: Acute Code(s): R41.0 - DISORIENTATION, UNSPECIFIED SNOMED Code(s): 687483428 (8) Generalized weakness Current Visit: Yes Status: Acute Code(s): R53.1 - WEAKNESS SNOMED Code(s): 58214999 (9) Hyperammonemia Current Visit: Yes Status: Acute Code(s): E72.20 - DISORDER OF UREA CYCLE METABOLISM, UNSPECIFIED SNOMED Code(s): 8304172 (10) Myelodysplasia (myelodysplastic syndrome) Current Visit: No Status: Acute Code(s): D46.9 - MYELODYSPLASTIC SYNDROME, UNSPECIFIED SNOMED Code(s): 069322810 (11) acute renal failure secondary to ATN related to infection, possible hepatorenal (12) chronic kidney disease stage IV (13) anemia of chronic disease plan: Continue on current medication regime ,monitoring and symptomatic bruce atment.moderate right-sided pleural effusion, chest x-ray,ultrasound ordered for potential thoracentesis. Pulmonary consulted with recommendations pending. Increase ambulation as tolerated.complaining of unrelieved pain, will resume oxycodone 5 mg Q6h PRN. Wedge shoe ordered for the affected foot. Silver/dressing ordered. Antibiotics as per ID.albumin/fluids as per nephrology.family at bedside, patient and family updated on plan of care, verbalized understanding of and agreement with. Questions and concerns addressed. The impression and plan of care has been dictated as directed. : I performed a history and examination of this patient, discussed the same with the dictator. I agree with the dictator's note ,documented as a scribe. Any additional findings or plans will be noted.
[2019-05-20 16:31] LABS: Glucose,Whole Blood 118 mg/dL (75-99)
[2019-05-20 17:29] LABS: Ferritin 34.3 ng/mL (22.0-322.0)
[2019-05-20 17:47] LABS: % Iron Saturation 11.36 (15.00-50.00)
[2019-05-20 20:50] LABS: Glucose,Whole Blood 112 mg/dL (75-99)
--- NOTE | 2019-05-20 20:53 | P.PN ---
Subjective Progress Note Date: 05/20/19 64 -year-old male was evidence of significant cirrhosis and end-stage liver disease who presents to Hospital with the rapid change of his mental status. His daughter was present relates that on he was quite normal. Conversational and laughing without significant new complaints by yesterday he become progressively more obtunded and then got to the point in time where he was asleep and could not P awoken because I was brought to the emergency center for evaluation. There is not evidence of significant worsening of his end-stage liver disease with an increase of his ammonia level, hepatic encephalopathy, and evidence of hepatorenal syndrome. The family also notes in the last few days there is no significant change to his right foot. He may have had an injury to the great toe where the nail was a bit split. But now it has become progressively worse over the last few days with redness and some drainage swelling and erythema. He has dense neuropathy and has no complaints of pain to the site to the family before his admission. The family does not believe his had a fever at home and the change occurred relatively rapidly over the last 48 hours. 05/20/2019 the patient is now having significant improvement of his status. He is awake alert and able to answer simple questions. He denies much discomfort. He does feel short of breath, and does complain of abdominal distention. Objective - Vital Signs Vital signs: Vital Signs Temp 97.7 F 05/20/19 08:00 Pulse 77 05/20/19 12:00 Resp 18 05/20/19 14:33 BP 139/58 05/20/19 12:00 Pulse Ox 98 05/20/19 12:00 Intake & Output 05/20/19 05/20/19 05/21/19 06:59 18:59 06:59 Intake Total 100 Output Total 575 800 Balance -575 -700 Weight 114 kg Intake: Oral 100 Output: Urine 575 800 Other: Voiding Method Indwelling Catheter Indwelling Catheter # Bowel Movements 1 2 - Exam HEENT: Mildly icteric, without scleral edema, nasal or cavity are dry without thrush or lesions Neck: The neck is supple without significant lymphadenopathy or thyromegaly. Lungs: There is symmetrical bilaterally. There are crackles in bilateral bases is evidence of some scattered wheeze but no bronchial sounds Heart: Irregular with an audible S1 and S2 soft S4 no distinct murmur click or rub Abdomen: Appears to have extensive ascites, abdomen is quite distended, he has however obtunded and it is nontender at this time. I can palpate no mass or organomegaly. Extremities: The extremities reveal evidence of some muscular wasting lower extremities do not have significant edema, the right great toe is evidence of swelling erythema there appears to be ulceration underneath the nail that has drainage which is cultured. There is also evidence of ulceration on the plantar surface of the great toe. With probing I could not find a through and through ulceration. He is he has dense neuropathy and has no sensation when this is manipulated. It appears her was extensive swelling because entire layer of skin has peeled off. There is distinct erythema around the toe and on the dorsum of the foot but there is no significant ascending lymphangitis and there is no significant lymphadenopathy in either inguinal area there is also no abnormal lymph nodes cervical axillary epitrochlear. Neuro: he is now awake and alert and appears ,is able to complain of some rosie rtne and abdominal distention - Labs CBC & Chem 7: 05/20/19 05:30 05/20/19 05:30 Labs: Abnormal Lab Results - Last 24 Hours (Table) 05/20/19 05/20/19 05/20/19 Range/Units 05:30 05:30 05:30 WBC 3.5 L (3.8-10.6) k/uL RBC 3.00 L (4.30-5.90) m/uL Hgb 8.6 L D (13.0-17.5) gm/dL Hct 26.1 L (39.0-53.0) % Plt Count 38 L (150-450) k/uL Lymphocytes # 0.3 L (1.0-4.8) k/uL Chloride 109 H (98-107) mmol/L BUN 42 H (9-20) mg/dL Creatinine 2.46 H (0.66-1.25) mg/dL Glucose 130 H (74-99) mg/dL POC Glucose (mg/dL) (75-99) mg/dL Calcium 7.5 L (8.4-10.2) mg/dL Iron 25 L (65-175) ug/dL TIBC 220 L (228-460) ug/dL % Saturation 11.36 L (15.00-50.00) Total Bilirubin 3.0 H (0.2-1.3) mg/dL Total Protein 5.3 L (6.3-8.2) g/dL Albumin 2.0 L (3.5-5.0) g/dL Prealbumin <5.0 L (18.0-42.0) mg/dL 05/20/19 05/20/19 05/20/19 Range/Units 06:07 11:27 16:29 WBC (3.8-10.6) k/uL RBC (4.30-5.90) m/uL Hgb (13.0-17.5) gm/dL Hct (39.0-53.0) % Plt Count (150-450) k/uL Lymphocytes # (1.0-4.8) k/uL Chloride (98-107) mmol/L BUN (9-20) mg/dL Creatinine (0.66-1.25) mg/dL Glucose (74-99) mg/dL POC Glucose (mg/dL) 134 H 147 H 118 H (75-99) mg/dL Calcium (8.4-10.2) mg/dL Iron (65-175) ug/dL TIBC (228-460) ug/dL % Saturation (15.00-50.00) Total Bilirubin (0.2-1.3) mg/dL Total Protein (6.3-8.2) g/dL Albumin (3.5-5.0) g/dL Prealbumin (18.0-42.0) mg/dL Microbiology - Last 24 Hours (Table) 05/19/19 13:59 Gram Stain - Preliminary Foot - Left Wound Culture - Preliminary Presumptive MRSA 05/19/19 08:00 Blood Culture Gram Stain - Preliminary Blood Blood Culture - Preliminary Presumptive MRSA 05/19/19 11:15 Gram Stain - Preliminary Toe - Right First Wound Culture - Preliminary Presumptive MRSA 05/19/19 08:20 Urine Culture - Preliminary Urine,Voided Presumptive Staph aureus 05/19/19 08:00 Blood Culture - Final Blood 05/19/19 13:59 Anaerobic Culture - Preliminary Foot - Left Laboratory Results WBC 3.5 k/uL (3.8-10.6) L 05/20/19 05:30 RBC 3.00 m/uL (4.30-5.90) L 05/20/19 05:30 Hgb 8.6 gm/dL (13.0-17.5) L D 05/20/19 05:30 Hct 26.1 % (39.0-53.0) L 05/20/19 05:30 MCV 87.0 fL (80.0-100.0) 05/20/19 05:30 MCH 28.8 pg (25.0-35.0) 05/20/19 05:30 MCHC 33.1 g/dL (31.0-37.0) 05/20/19 05:30 RDW 14.4 % (11.5-15.5) 05/20/19 05:30 Plt Count 38 k/uL (150-450) L 05/20/19 05:30 Neutrophils % 82 % 05/20/19 05:30 Lymphocytes % 8 % 05/20/19 05:30 Monocytes % 7 % 05/20/19 05:30 Eosinophils % 1 % 05/20/19 05:30 Basophils % 0 % 05/20/19 05:30 Neutrophils # 2.9 k/uL (1.3-7.7) 05/20/19 05:30 Lymphocytes # 0.3 k/uL (1.0-4.8) L 05/20/19 05:30 Monocytes # 0.3 k/uL (0-1.0) 05/20/19 05:30 Eosinophils # 0.0 k/uL (0-0.7) 05/20/19 05:30 Basophils # 0.0 k/uL (0-0.2) 05/20/19 05:30 Manual Slide Review Performed 05/19/19 08:00 Hypochromasia Slight 05/20/19 05:30 Poikilocytosis Moderate 05/20/19 05:30 Anisocytosis (manual) Present 05/19/19 08:00 PT 16.3 sec (9.0-12.0) H 05/19/19 08:00 INR 1.6 (<1.2) H 05/19/19 08:00 APTT 28.6 sec (22.0-30.0) 05/19/19 08:00 VBG pH 7.48 (7.31-7.41) H 05/19/19 08:39 VBG pCO2 32 mmHg (37-51) L 05/19/19 08:39 VBG HCO3 24 mmol/L (24-28) 05/19/19 08:39 Sodium 139 mmol/L (137-145) 05/20/19 05:30 Potassium 3.8 mmol/L (3.5-5.1) 05/20/19 05:30 Chloride 109 mmol/L (98-107) H 05/20/19 05:30 Carbon Dioxide 24 mmol/L (22-30) 05/20/19 05:30 Anion Gap 6 mmol/L 05/20/19 05:30 BUN 42 mg/dL (9-20) H 05/20/19 05:30 Creatinine 2.46 mg/dL (0.66-1.25) H 05/20/19 05:30 Est GFR (CKD-EPI)AfAm 31 (>60 ml/min/1.73 sqM) 05/20/19 05:30 Est GFR (CKD-EPI)NonAf 27 (>60 ml/min/1.73 sqM) 05/20/19 05:30 Glucose 130 mg/dL (74-99) H 05/20/19 05:30 POC Glucose (mg/dL) 118 mg/dL (75-99) H 05/20/19 16:29 POC Glu Pocket Creaser ID Bella Branham 05/20/19 16:29 Lactic Ac Sepsis Rflx Y 05/19/19 12:36 Plasma Lactic Acid Chad 2.0 mmol/L (0.7-2.0) 05/19/19 15:59 Calcium 7.5 mg/dL (8.4-10.2) L 05/20/19 05:30 Magnesium 1.9 mg/dL (1.6-2.3) 05/20/19 05:30 Iron 25 ug/dL (65-175) L 05/20/19 05:30 TIBC 220 ug/dL (228-460) L 05/20/19 05:30 % Saturation 11.36 (15.00-50.00) L 05/20/19 05:30 Ferritin 34.3 ng/mL (22.0-322.0) 05/20/19 05:30 Total Bilirubin 3.0 mg/dL (0.2-1.3) H 05/20/19 05:30 AST 40 U/L (17-59) 05/20/19 05:30 ALT 18 U/L (4-49) 05/20/19 05:30 Alkaline Phosphatase 61 U/L (38-126) 05/20/19 05:30 Ammonia 18 umol/L (<30) 05/20/19 05:30 Creatine Kinase 49 U/L (55-170) L 05/19/19 08:00 Troponin I 0.019 ng/mL (0.000-0.034) 05/19/19 08:00 Total Protein 5.3 g/dL (6.3-8.2) L 05/20/19 05:30 Albumin 2.0 g/dL (3.5-5.0) L 05/20/19 05:30 Prealbumin <5.0 mg/dL (18.0-42.0) L 05/20/19 05:30 Lipase 93 U/L (23-300) 05/19/19 08:00 Urine Color Yellow 05/19/19 08:20 Urine Appearance Turbid (Clear) 05/19/19 08:20 Urine pH 5.5 (5.0-8.0) 05/19/19 08:20 Ur Specific [place] 1.012 (1.001-1.035) 05/19/19 08:20 Urine Protein 1+ (Negative) H 05/19/19 08:20 Urine Glucose (UA) Negative (Negative) 05/19/19 08:20 Urine Ketones Negative (Negative) 05/19/19 08:20 Urine Blood Moderate (Negative) H 05/19/19 08:20 Urine Nitrite Negative (Negative) 05/19/19 08:20 Urine Bilirubin Negative (Negative) 05/19/19 08:20 Urine Urobilinogen 2.0 mg/dL (<2.0) 05/19/19 08:20 Ur Leukocyte Esterase Large (Negative) H 05/19/19 08:20 Urine RBC >182 /hpf (0-5) H 05/19/19 08:20 Urine WBC >182 /hpf (0-5) H 05/19/19 08:20 Urine WBC Clumps Many /hpf (None) H 05/19/19 08:20 Ur Squamous Epith Cells 7 /hpf (0-4) H 05/19/19 08:20 Urine Mucus Rare /hpf (None) H 05/19/19 08:20 Serum Alcohol <10 mg/dL 05/19/19 08:00 Influenza Type A RNA Not Detected (Not Detectd) 05/19/19 08:20 Influenza Type B (PCR) Not Detected (Not Detectd) 05/19/19 08:20 Microbiology 05/19/19 13:59 Foot - Left Gram Stain - Preliminary 05/19/19 13:59 Foot - Left Wound Culture - Preliminary Presumptive MRSA 05/19/19 08:00 Blood Blood Culture Gram Stain - Preliminary 05/19/19 08:00 Blood Blood Culture - Preliminary Presumptive MRSA 05/19/19 11:15 Toe - Right First Gram Stain - Preliminary 05/19/19 11:15 Toe - Right First Wound Culture - Preliminary Presumptive MRSA 05/19/19 08:20 Urine,Voided Urine Culture - Preliminary Presumptive Staph aureus 05/19/19 08:00 Blood Blood Culture - Final 05/19/19 13:59 Foot - Left Anaerobic Culture - Preliminary Assessment and Plan (1) 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 There is evidence of hepatorenal syndrome as well as hepatic encephalopathy. Lactulose by enema has been requested. The patient has evidence of an infection to the right great toe which may have resulted in significant worsening of his status. By his history is have cultures with Serratia and MRSA at that site and constantly antibiotic therapy with Rocephin and daptomycin will be utilized. Daptomycin because of his acute on chronic renal failure as well as a Vanco COSTA of 2 with a bony infection. Over he will tolerate this. Local wound care with nikunj has been requested that he be changed on a daily basis for now. He is currently nonambulatory. Need to have ongoing assessment for his mobility and ensure that he is turned in bed. The daughter is aware of his poor status and they have a palliative care consult and Monday however they may be definitive consult which they are aware of if he does not show improvement. There would be open to hospice if he does not improve. May the patient has had some improvement of his status neurol ogically. He is now awake and interactive., He is still poor historian but does recognize the observer. The wound culture, blood culture, and urine culture all show evidence of the MRSA and he is on daptomycin therapy. Follow blood cultures been requested. The patient does seem to have some improvement and other laboratories have shown some improvement with the ammonia dropping from 88-16. He does have some I Radha failure but this appears For now he maintains on the antibiotic therapy with daptomycin and Rocephin until. There may be the possibility of de-escalation of Rocephin, however until there is no evidence of any biliary process so be continued for Still has a poor prognosis but vallejo significant improvement at this tiime. Current Visit: Yes Status: Acute Code(s): E11.621 - TYPE 2 DIABETES MELLITUS WITH FOOT ULCER; L97.514 - NON-PRS CHRONIC ULCER OTH PRT RIGHT FOOT W NECROSIS OF BONE SNOMED Code(s): 1101350193600 (2) Hepatic encephalopathy Current Visit: Yes Status: Acute Code(s): K72.90 - HEPATIC FAILURE, UNSPECIFIED WITHOUT COMA SNOMED Code(s): 25000403 (3) Hyperammonemia Current Visit: Yes Status: Acute Code(s): E72.20 - DISORDER OF UREA CYCLE METABOLISM, UNSPECIFIED SNOMED Code(s): 6176785 (4) Cirrhosis of liver Current Visit: Yes Status: Chronic Code(s): K74.60 - UNSPECIFIED CIRRHOSIS OF LIVER SNOMED Code(s): 91875636
[2019-05-20 21:46] LABS: Magnesium 1.9 mg/dL (1.6-2.3); Potassium 3.6 mmol/L (3.5-5.1)
[2019-05-21] MEDS: ONDANSETRON 4 MG/2 ML VIAL IVP PRN (04:30)
[2019-05-21 06:16] LABS: Glucose,Whole Blood 106 mg/dL (75-99)
[2019-05-21] MEDS: INSULIN ASPART (NovoLOG) 100 UNIT/ML VIAL SQ SCH ×3 (06:27→17:02)
[2019-05-21 06:42] LABS: Calcium 7.9 mg/dL (8.4-10.2); Magnesium 1.8 mg/dL (1.6-2.3); Potassium 3.7 mmol/L (3.5-5.1)
[2019-05-21] MEDS: SODIUM CHLORIDE 0.9% 1,000 ML IV SCH ×2 (07:18→09:38)
[2019-05-21] MEDS: FUROSEMIDE 10 MG/ML 4 ML VIAL IV SCH ×2 (09:38→21:45)
[2019-05-21] MEDS: PANTOPRAZOLE 40 MG TABLET PO SCH (09:38)
[2019-05-21] MEDS: SPIRONOLACTONE 25 MG TAB PO SCH ×2 (09:38→21:45)
[2019-05-21] MEDS: LACTULOSE 20 GM/30 ML CUP PO SCH ×3 (09:38→21:52)
[2019-05-21 10:03] LABS: Basophils % (A) 1 %; Eosinophils # (A) 0.1 k/uL (0-0.7); Eosinophils % (A) 3 %; HCT 26.5 % (39.0-53.0); HGB 8.6 gm/dL (13.0-17.5); Hypochromasia Slight; Lymphocytes # (A) 0.3 k/uL (1.0-4.8); Lymphocytes % (A) 12 %; MCH 28.4 pg (25.0-35.0); MCHC 32.4 g/dL (31.0-37.0); MCV 87.5 fL (80.0-100.0); Mean Platelet Volume 10.8; Monocytes # (A) 0.3 k/uL (0-1.0); Monocytes % (A) 12 %; Neutrophils # (A) 1.9 k/uL (1.3-7.7); Neutrophils % (A) 69 %; Poikilocytosis Moderate; RBC 3.03 m/uL (4.30-5.90); RDW 14.5 % (11.5-15.5); WBC 2.8 k/uL (3.8-10.6)
--- NOTE | 2019-05-21 10:56 | P.PN ---
Subjective Patient is seen in follow-up for acute kidney injury on chronic kidney disease. Patient has chronic kidney disease stage III with baseline creatinine near 2. Renal function is fairly stable. Patient is maintained on IV Lasix and Aldactone. Urine output is good. He did have breakfast this morning. Vital signs are stable. General: The patient appeared well nourished and normally developed. HEENT: Head exam is unremarkable. Neck is without jugular venous distension. LUNGS: Lungs are clear to auscultation and percussion. Breath sounds decreased. HEART: Rate and Rhythm are regular. First and second heart sounds normal. No murmurs, rubs or gallops. ABDOMEN: Abdominal exam reveals normal bowel sounds. Nontender. EXTREMITITES: No clubbing, cyanosis, or edema. Objective - Vital Signs Vital signs: Vital Signs Temp 98.3 F 05/21/19 04:31 Pulse 73 05/21/19 04:31 Resp 20 05/21/19 04:31 BP 116/56 05/21/19 04:31 Pulse Ox 98 05/21/19 04:31 Intake & Output 05/20/19 05/21/19 05/21/19 18:59 06:59 18:59 Intake Total 100 1100 120 Output Total 800 950 400 Balance -700 150 -280 Weight 113 kg Intake: Intake, IV Titration 750 Amount Albumin Human 25% 50 ml 100 In Empty Bag 1 bag @ 50 mls/hr IVPB Q1H JACQUELYN Rx#: [id number] Sodium Chloride 0.9% 1, 650 000 ml @ 120 mls/hr IV . Q8H20M JACQUELYN Rx#:[id number] Oral 100 350 120 Output: Urine 800 950 400 Other: Voiding Method Indwelling Catheter Indwelling Catheter # Bowel Movements 2 - Labs CBC & Chem 7: 05/21/19 05:14 05/21/19 05:14 Labs: Abnormal Lab Results - Last 24 Hours (Table) 05/20/19 05/20/19 05/20/19 Range/Units 05:30 05:30 11:27 WBC (3.8-10.6) k/uL RBC (4.30-5.90) m/uL Hgb (13.0-17.5) gm/dL Hct (39.0-53.0) % Chloride (98-107) mmol/L BUN (9-20) mg/dL Creatinine (0.66-1.25) mg/dL Glucose (74-99) mg/dL POC Glucose (mg/dL) 147 H (75-99) mg/dL Calcium (8.4-10.2) mg/dL Iron 25 L (65-175) ug/dL TIBC 220 L (228-460) ug/dL % Saturation 11.36 L (15.00-50.00) Prealbumin <5.0 L (18.0-42.0) mg/dL 05/20/19 05/20/19 05/20/19 Range/Units 16:29 20:49 21:25 WBC (3.8-10.6) k/uL RBC (4.30-5.90) m/uL Hgb (13.0-17.5) gm/dL Hct (39.0-53.0) % Chloride 109 H (98-107) mmol/L BUN 44 H (9-20) mg/dL Creatinine 2.35 H (0.66-1.25) mg/dL Glucose 111 H (74-99) mg/dL POC Glucose (mg/dL) 118 H 112 H (75-99) mg/dL Calcium 8.0 L (8.4-10.2) mg/dL Iron (65-175) ug/dL TIBC (228-460) ug/dL % Saturation (15.00-50.00) Prealbumin (18.0-42.0) mg/dL 05/21/19 05/21/19 05/21/19 Range/Units 05:14 05:14 06:14 WBC 2.8 L (3.8-10.6) k/uL RBC 3.03 L (4.30-5.90) m/uL Hgb 8.6 L (13.0-17.5) gm/dL Hct 26.5 L (39.0-53.0) % Chloride 109 H (98-107) mmol/L BUN 48 H (9-20) mg/dL Creatinine 2.32 H (0.66-1.25) mg/dL Glucose 105 H (74-99) mg/dL POC Glucose (mg/dL) 106 H (75-99) mg/dL Calcium 7.9 L (8.4-10.2) mg/dL Iron (65-175) ug/dL TIBC (228-460) ug/dL % Saturation (15.00-50.00) Prealbumin (18.0-42.0) mg/dL Microbiology - Last 24 Hours (Table) 05/19/19 08:20 Urine Culture - Final Urine,Voided Staphylococcus aureus 05/19/19 13:59 Gram Stain - Preliminary Foot - Left Wound Culture - Preliminary Presumptive MRSA 05/19/19 08:00 Blood Culture Gram Stain - Preliminary Blood Blood Culture - Preliminary Presumptive MRSA 05/19/19 11:15 Gram Stain - Preliminary Toe - Right First Wound Culture - Preliminary Presumptive MRSA Assessment and Plan Plan: Assessment: 1. Acute kidney injury secondary to ATN secondary to infection/bacteremia. Hepatorenal cannot be completely ruled out. Renal function fairly stable. Creatinine 2.32 today. No hydronephrosis noted on CAT scan. 2. Chronic kidney disease stage IV with baseline creatinine near 2. 3. Liver cirrhosis. 4. Hepatic encephalopathy. Improved. 5. Volume overload. Improving with diuresis. 6. Anemia of chronic kidney disease. Iron deficiency noted. I will hold off on IV iron due to bacteremia. 7. Chronic kidney disease mineral bone disease maintained on calcitriol. 8. Right foot diabetic ulcer and MRSA bacteremia maintained on IV antibiotics. Infectious disease following. Plan: Maintain IV Lasix 40 mg twice daily. Maintain Aldactone 50 mg twice daily. Add Aranesp. Continue to monitor renal function and urine output. Encouraged po intake.
--- NOTE | 2019-05-21 10:58 | P.PN ---
Subjective Progress Note Date: 05/21/19 on 05/21/2019 no major change in the patient's pulmonary status. As mentioned earlier the patient has aRight-sided pleural effusion which is chronic and we decided to monitor this issue and not give him any lower centesis for now. He is on Lasix at 40 mg by mouth on a daily basis and is in a negative fluid balance. The patient has been cultured to have MRSA in his diabetic wound of the right great toe. The patient is seen by infectious disease. Currently is on daptomycin. He is also on IV Rocephin. No signs of any hepatitic encephalopathy. He is resting comfortably in bed on 2 L of oxygen by nasal cannula. Objective - Vital Signs Vital signs: Vital Signs Temp 98.3 F 05/21/19 04:31 Pulse 73 05/21/19 04:31 Resp 20 05/21/19 04:31 BP 116/56 05/21/19 04:31 Pulse Ox 98 05/21/19 04:31 Intake & Output 05/20/19 05/21/19 05/21/19 18:59 06:59 18:59 Intake Total 100 1100 120 Output Total 800 950 400 Balance -700 150 -280 Weight 113 kg Intake: Intake, IV Titration 750 Amount Albumin Human 25% 50 ml 100 In Empty Bag 1 bag @ 50 mls/hr IVPB Q1H JACQUELYN Rx#: [id number] Sodium Chloride 0.9% 1, 650 000 ml @ 120 mls/hr IV . Q8H20M JACQUELYN Rx#:[id number] Oral 100 350 120 Output: Urine 800 950 400 Other: Voiding Method Indwelling Catheter Indwelling Catheter # Bowel Movements 2 - Exam GENERAL EXAM: Alert, comfortable in no apparent distress. HEAD: Normocephalic. EYES: Normal reaction of pupils, equal size. Slightly icteric. NOSE: Clear with pink turbinates. THROAT: No erythema or exudates. NECK: No masses, no JVD. CHEST: No chest wall deformity. LUNGS: Equal air entry with no wheeze, rhonchi or dullness. Crackles in the bilateral posterior bases more so on the right. CVS: S1 and S2 normal with no audible murmurs, regular rhythm. ABDOMEN: Abdominal exam revealed normal bowel sounds. The abdomen was soft, non- tender, and without masses, organomegaly, or appreciable enlargement of the abdominal aorta. Extremities: There is trace peripheral edema. No clubbing, no cyanosis. pulses are diminished. Also, there is muscle wasting in lower extremities bilaterally. The right great toe is swollen and erythematous and ulcerated underneath the nail and had drainage from the nail surface and the edges. There is also evidence of peripheral neuropathy in lower extremities bilaterally. The patient has an amputation of the large toe on the left foot. Neurologically the patient is awake and alert. He is moving all 4 extremities without any limitation. Mental status seems to have improved. - Labs CBC & Chem 7: 05/21/19 05:14 05/21/19 05:14 Labs: Abnormal Lab Results - Last 24 Hours (Table) 05/20/19 05/20/19 05/20/19 Range/Units 05:30 05:30 11:27 WBC (3.8-10.6) k/uL RBC (4.30-5.90) m/uL Hgb (13.0-17.5) gm/dL Hct (39.0-53.0) % Chloride (98-107) mmol/L BUN (9-20) mg/dL Creatinine (0.66-1.25) mg/dL Glucose (74-99) mg/dL POC Glucose (mg/dL) 147 H (75-99) mg/dL Calcium (8.4-10.2) mg/dL Iron 25 L (65-175) ug/dL TIBC 220 L (228-460) ug/dL % Saturation 11.36 L (15.00-50.00) Prealbumin <5.0 L (18.0-42.0) mg/dL 05/20/19 05/20/19 05/20/19 Range/Units 16:29 20:49 21:25 WBC (3.8-10.6) k/uL RBC (4.30-5.90) m/uL Hgb (13.0-17.5) gm/dL Hct (39.0-53.0) % Chloride 109 H (98-107) mmol/L BUN 44 H (9-20) mg/dL Creatinine 2.35 H (0.66-1.25) mg/dL Glucose 111 H (74-99) mg/dL POC Glucose (mg/dL) 118 H 112 H (75-99) mg/dL Calcium 8.0 L (8.4-10.2) mg/dL Iron (65-175) ug/dL TIBC (228-460) ug/dL % Saturation (15.00-50.00) Prealbumin (18.0-42.0) mg/dL 05/21/19 05/21/19 05/21/19 Range/Units 05:14 05:14 06:14 WBC 2.8 L (3.8-10.6) k/uL RBC 3.03 L (4.30-5.90) m/uL Hgb 8.6 L (13.0-17.5) gm/dL Hct 26.5 L (39.0-53.0) % Chloride 109 H (98-107) mmol/L BUN 48 H (9-20) mg/dL Creatinine 2.32 H (0.66-1.25) mg/dL Glucose 105 H (74-99) mg/dL POC Glucose (mg/dL) 106 H (75-99) mg/dL Calcium 7.9 L (8.4-10.2) mg/dL Iron (65-175) ug/dL TIBC (228-460) ug/dL % Saturation (15.00-50.00) Prealbumin (18.0-42.0) mg/dL Microbiology - Last 24 Hours (Table) 05/19/19 08:20 Urine Culture - Final Urine,Voided Staphylococcus aureus 05/19/19 13:59 Gram Stain - Preliminary Foot - Left Wound Culture - Preliminary Presumptive MRSA 05/19/19 08:00 Blood Culture Gram Stain - Preliminary Blood Blood Culture - Preliminary Presumptive MRSA 05/19/19 11:15 Gram Stain - Preliminary Toe - Right First Wound Culture - Preliminary Presumptive MRSA Assessment and Plan Plan: #1 right-sided pleural effusion, small, likely secondary to liver cirrhosis. Not causing any major respiratory distress. #2 diabetic ulcer of the right big toe with necrosis of the bone.This is related to MRSA and the patient is currently on a combination of Rocephin and daptomycin #3 chronic liver failure secondary to cirrhosis and portal hypertension.. #4 Hyperlipidemia. #5 Hypertension. #6 Diabetes mellitus. #7 Diabetic neuropathy. #8 Pancytopenia secondary to underlying liver disease. #9 Gastroesophageal reflux disease. #10 Anxiety/depression #11 Chronic pain syndrome. 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 #14 altered mentation secondary to septic encephalopathy, improved #15 chronic kidney disease, Stage IV plan last for thoracentesis. Continue treating the sepsis and the diabetic 1 infection with MRSA. Continue same antibiotic coverage 4 times a day. Continue oral Lasix.function is stable. Contact us back if there is any worsening shortness of breath. For now the right-sided pleural effusion is chronic and it's a transudate related to liver disease. No need for thoracentesis, unless, the patient gets symptomatic.
[2019-05-21 11:09] LABS: Platelet Count 41 k/uL (150-450)
[2019-05-21 11:50] LABS: Glucose,Whole Blood 111 mg/dL (75-99)
--- NOTE | 2019-05-21 13:46 | P.PN ---
Subjective Progress Note Date: 05/21/19 Luis is a 64-year-old white male patient well known to me.he has a history of liver cirrhosis and liver failure lung with recurrent ascites and occasionally hyper ammoniemia, which she takes lactulose for 4 times daily. His daughter reports he's not had a bowel movement in several days. He injured his toe several days ago. This is been having purulent discharge in looking quite infected just over the past day. He's become more and more weak and confused. He himself was somewhat arousable the emergency room. We discussed with. Quickly lost consciousness. His 2 sons and daughter were at bedside and discussed her case with him. We had recently ordered a palliative care consult this Monday. They did not want to put him in hospice at this time. DNR, no code was requested and will be implemented. currently Justice denies any chest pains, pressures or shortness of breath. He does complain of some abdominal pain. He does grimace when palpated his abdomen. 05/20/2019 yesterday patient somnolent, pain med regime adjusted. Significant improvement in sensorium today. States pain not relieved on Tylenol.complains of suprapubic pain-Chu catheter draining maycol urine.maintained on both IV fluids and IV Lasix as per nephrology. Creatinine2.46.wound and blood culture reporting presumptive MRSA, urine culture presumptive staph aureus,anaerobic and Gram stain pending.maintained on Rocephin, daptomycin. afebrile.moderate right pleural effusion,vital signs stable, maintaining O2 sats in the high 90s on 2 L nasal cannula.denies chest pain, palpitations or increased shortness of breath. 05/21/2019 Continues on both IV fluids and Lasix as per nephrology, creatinine 2.32. chest x-ray completed yesterday afternoon reporting CHF, right pleural effusion.chest ultrasound reporting moderate right-sided pleural effusion, marked.no thoracentesis recommended per pulmonary at this time.maintained on Rocephin and daptomycin as per infectious disease. OxyContin resumed yesterday,pain better controlled,requesting lyrica be resumed.reports he cannot sleep without his Restoril, also requesting Restoril be resumed.having greater than 3 bowel movements this morning,no hallucinations, ammonia level pending. Objective - Vital Signs Vital signs: Vital Signs Temp 98.3 F 05/21/19 04:31 Pulse 73 05/21/19 04:31 Resp 20 05/21/19 04:31 BP 116/56 05/21/19 04:31 Pulse Ox 98 05/21/19 04:31 Intake & Output 05/20/19 05/21/19 05/21/19 18:59 06:59 18:59 Intake Total 100 1100 120 Output Total 800 950 400 Balance -700 150 -280 Weight 113 kg Intake: Intake, IV Titration 750 Amount Albumin Human 25% 50 ml 100 In Empty Bag 1 bag @ 50 mls/hr IVPB Q1H JACQUELYN Rx#: [id number] Sodium Chloride 0.9% 1, 650 000 ml @ 120 mls/hr IV . Q8H20M JACQUELYN Rx#:[id number] Oral 100 350 120 Output: Urine 800 950 400 Other: Voiding Method Indwelling Catheter Indwelling Catheter # Bowel Movements 2 - Exam GENERAL: sitting up in bed, alert and oriented 2,no acute distress HEAD: Atraumatic, normocephalic. EYES: Pupils equal round and reactive to light, extraocular movements intact, conjunctiva are normal.positive icterus ENT:nares patent, oropharynx clear without exudates. Moist mucous membranes. NECK: Normal range of motion, supple without lymphadenopathy or JVD, no thyromegaly LUNGS: Breath sounds course with the decreased air exchange worse on the right side than the left. No wheezes rales or rhonchi. HEART: Regular rate and rhythm without murmurs, rubs or gallops.S1S2 Normal ABDOMEN: Soft, nontender, distended ,ascites.No guarding, no rebound. hepatomegaly is appreciated today.positive bowel sounds EXTREMITIES: Normal range of motion, trace edema. No clubbing or cyanosis. NEUROLOGICAL: Cranial nerves II through XII grossly intact. moves all 4 extremities, no gross focal deficits. SKIN: right great toe plantar surface shows a Asif grade 3 diabetic ulcer. The wound is approximately 0.6 x 0.4 x 0.3 cm There is purulent,foul-smelling discharge and periwound erythema. The right great toenail is loose. Microbiology 05/19/19 13:59 Foot - Left Gram Stain - Preliminary 05/19/19 13:59 Foot - Left Wound Culture - Preliminary Presumptive MRSA 05/19/19 08:00 Blood Blood Culture Gram Stain - Preliminary 05/19/19 08:00 Blood Blood Culture - Preliminary Presumptive MRSA 05/19/19 11:15 Toe - Right First Gram Stain - Preliminary 05/19/19 11:15 Toe - Right First Wound Culture - Preliminary Presumptive MRSA 05/19/19 08:20 Urine,Voided Urine Culture - Preliminary Presumptive Staph aureus 05/19/19 08:00 Blood Blood Culture - Final 05/19/19 13:59 Foot - Left Anaerobic Culture - Preliminary - Labs CBC & Chem 7: 05/21/19 05:14 05/21/19 05:14 Labs: Abnormal Lab Results - Last 24 Hours (Table) 05/20/19 05/20/19 05/20/19 Range/Units 05:30 05:30 11:27 Chloride (98-107) mmol/L BUN (9-20) mg/dL Creatinine (0.66-1.25) mg/dL Glucose (74-99) mg/dL POC Glucose (mg/dL) 147 H (75-99) mg/dL Calcium (8.4-10.2) mg/dL Iron 25 L (65-175) ug/dL TIBC 220 L (228-460) ug/dL % Saturation 11.36 L (15.00-50.00) Prealbumin <5.0 L (18.0-42.0) mg/dL 05/20/19 05/20/19 05/20/19 Range/Units 16:29 20:49 21:25 Chloride 109 H (98-107) mmol/L BUN 44 H (9-20) mg/dL Creatinine 2.35 H (0.66-1.25) mg/dL Glucose 111 H (74-99) mg/dL POC Glucose (mg/dL) 118 H 112 H (75-99) mg/dL Calcium 8.0 L (8.4-10.2) mg/dL Iron (65-175) ug/dL TIBC (228-460) ug/dL % Saturation (15.00-50.00) Prealbumin (18.0-42.0) mg/dL 05/21/19 05/21/19 Range/Units 05:14 06:14 Chloride 109 H (98-107) mmol/L BUN 48 H (9-20) mg/dL Creatinine 2.32 H (0.66-1.25) mg/dL Glucose 105 H (74-99) mg/dL POC Glucose (mg/dL) 106 H (75-99) mg/dL Calcium 7.9 L (8.4-10.2) mg/dL Iron (65-175) ug/dL TIBC (228-460) ug/dL % Saturation (15.00-50.00) Prealbumin (18.0-42.0) mg/dL Microbiology - Last 24 Hours (Table) 05/19/19 13:59 Gram Stain - Preliminary Foot - Left Wound Culture - Preliminary Presumptive MRSA 05/19/19 08:00 Blood Culture Gram Stain - Preliminary Blood Blood Culture - Preliminary Presumptive MRSA 05/19/19 11:15 Gram Stain - Preliminary Toe - Right First Wound Culture - Preliminary Presumptive MRSA 05/19/19 08:20 Urine Culture - Preliminary Urine,Voided Presumptive Staph aureus Assessment and Plan Assessment: (1) Hepatic encephalopathy, improving Current Visit: Yes Status: Acute Code(s): K72.90 - HEPATIC FAILURE, UNSPECIFIED WITHOUT COMA SNOMED Code(s): 49960457 (2) Diabetic ulcer of right footwith MRSA Current Visit: Yes Status: Acute Code(s): E11.621 - TYPE 2 DIABETES MELLITUS WITH FOOT ULCER; L97.519 - NON-PRS CHRONIC ULCER OTH PRT RIGHT FOOT W UNSP SEVERITY SNOMED Code(s): 772846627 (3) DNR (do not resuscitate) Current Visit: Yes Status: Acute Code(s): Z66 - DO NOT RESUSCITATE SNOMED Code(s): 014565573 (4) DNR (do not resuscitate) discussion Current Visit: Yes Status: Acute Code(s): Z71.89 - OTHER SPECIFIED COUNSELING SNOMED Code(s): 728873731 (5) Ascites Current Visit: Yes Status: Acute Code(s): R18.8 - OTHER ASCITES SNOMED Code(s): 156169392 (6) Cellulitis Narrative/Plan: right great toe Current Visit: Yes Status: Acute Code(s): L03.90 - CELLULITIS, UNSPECIFIED SNOMED Code(s): 645515485 (7) Confusion Current Visit: Yes Status: Acute Code(s): R41.0 - DISORIENTATION, UNSPECIFIED SNOMED Code(s): 038898968 (8) Generalized weakness Current Visit: Yes Status: Acute Code(s): R53.1 - WEAKNESS SNOMED Code(s): 06631432 (9) Hyperammonemia Current Visit: Yes Status: Acute Code(s): E72.20 - DISORDER OF UREA CYCLE METABOLISM, UNSPECIFIED SNOMED Code(s): 9107542 (10) Myelodysplasia (myelodysplastic syndrome) Current Visit: No Status: Acute Code(s): D46.9 - MYELODYSPLASTIC SYNDROME, UNSPECIFIED SNOMED Code(s): 769015860 (11) acute renal failure secondary to ATN related to infection, possible hepatorenal (12) chronic kidney disease stage IV (13) anemia of chronic disease (14) sepsis secondary to infection plan: Continue on current medication regime ,monitoring and symptomatic treatment.pain management. Lyrica and Restoril resumed,as per PCP.lactulose decreased to 3 times a day. close monitoring of Ammonia level, every 48 hour s.Increase activity /ambulation as tolerated.no thoracentesis at this time as per pulmonary. Antibiotics as per ID-recommendations regarding potential PICC line and DC antibiotics pending.diuretics/fluids as per nephrology.PT/OT- evaluation pending arrival of offloading boot. The impression and plan of care has been dictated as directed. : I performed a history and examination of this patient, discussed the same with the dictator. I agree with the dictator's note ,documented as a scribe. Any additional findings or plans will be noted.
[2019-05-21] MEDS ORDERED: LACTULOSE 20 GM/30 ML CUP PO SCH (16:00)
[2019-05-21 16:50] LABS: Glucose,Whole Blood 129 mg/dL (75-99)
[2019-05-21] MEDS: CALCITRIOL 0.25 MCG CAP PO SCH (17:29)
[2019-05-21] MEDS: DAPTOmycin 500 MG in SODIUM CHLORIDE 0.9% 50 ML IVPB SCH (17:29)
[2019-05-21] MEDS: DARBEPOETIN ALFA 40 MCG/0.4 ML SYRINGE SQ SCH (17:29)
[2019-05-21] MEDS: PREGABALIN 100 MG CAP PO SCH ×2 (17:29→21:45)
[2019-05-21 20:33] LABS: Glucose,Whole Blood 126 mg/dL (75-99)
--- NOTE | 2019-05-21 20:37 | CONS ---
CONSULTATION DATE OF DICTATION: 05/21/2019 REASON FOR CONSULTATION: Hepatic encephalopathy. HISTORY OF PRESENT ILLNESS: The patient is a 64-year-old pleasant white male with history of liver cirrhosis diagnosed in the early part of this year with recurrent ascites, maintained on outpatient diuretic therapy, was admitted to the hospital because of altered mental status and was noted to have elevated ammonia at 63. He was started on oral lactulose, and ammonia level has improved to 18. The patient is feeling much better today. He denies any abdominal pain. He had about 4 bowel movements today, most of them loose and watery in consistency. He denies any blood or mucus in the stool. He had been complaining of abdominal distention and chronic abdominal pain. He had a CT of the abdomen and pelvis done at the time of admission to the hospital that showed minimal amount of ascites. PAST MEDICAL HISTORY: His past medical history is significant for: 1. Liver cirrhosis. 2. Pancytopenia. 3. Hypertension. 4. Hyperlipidemia. 5. Gastroesophageal reflux disease. 6. Longstanding history of diabetes mellitus. 7. Prostate disorder. 8. Chronic renal insufficiency. PAST SURGICAL HISTORY: 1. Cholecystectomy. 2. Left great toe amputation. 3. Paracentesis. 4. Thoracentesis. 5. EGD. 6. Colonoscopy in the past. FAMILY HISTORY: Mother had diabetes mellitus. Father had diabetes mellitus. Brother also has diabetes mellitus and hyperlipidemia. MEDICATIONS: Medications at home include: 1. Lipitor. 2. Lyrica. 3. Atarax. 4. Cephulac. 5. Flomax. 6. Lantus. 7. Restoril. 8. Spironolactone. 9. Oxycodone. 10.Lasix. 11.Rocaltrol. 12.Vitamin D2. ALLERGIES: NONE. SOCIAL HISTORY: No smoking. No alcohol use. REVIEW OF SYSTEMS: CARDIOPULMONARY: He denies any chest pain or shortness of breath. GENITOURINARY: No dysuria or hematuria. MUSCULOSKELETAL: Chronic back pain. NEUROLOGY: Unremarkable hepatic encephalopathy. PSYCHIATRY: Unremarkable. CONSTITUTIONAL: No recent weight loss. No fever, chills, night sweats. MUSCULOSKELETAL: Bilateral lower extremity weakness. HEMATOLOGY: Unremarkable. PHYSICAL EXAMINATION: He appears comfortable. No apparent distress. Vital signs are stable. Blood pressure is 121/58, pulse rate 78. Afebrile. HEENT examination unremarkable. Conjunctivae pink. Sclerae anicteric. Oral cavity no lesions. NECK: No JVD or lymph node enlargement. CHEST: Clear to auscultation. HEART: Regular rate and rhythm. ABDOMEN: Obese. There was some edema of the anterior abdominal wall noted. EXTREMITIES: Two plus pedal edema. SKIN: No rashes. NEUROLOGIC: He is alert and oriented x3. No focal deficits. LABS: Labs at the time of admission to the hospital showed WBC 3.5, hemoglobin 8.6, platelets normal. Basic metabolic panel: BUN 42, creatinine 2.46. Ammonia was 68. Today it is down to 18. ALT and AST are 34 and 29, respectively. T-bilirubin is 3 and alkaline phosphatase is normal. IMPRESSION: 1. Liver cirrhosis with gradual decompensation; possible nonalcoholic fatty liver disease causing liver cirrhosis. 2. Hepatic encephalopathy with elevated ammonia level. Presently on lactulose 30 mL 3 times daily. Mental status has completely normalized. 3. Diarrhea secondary to lactulose therapy. 4. Elevated BUN and creatinine/chronic kidney disease. Nephrology following the patient closely. 5. Diabetes mellitus and hypertension. RECOMMENDATIONS: 1. Decrease the lactulose to 30 mL twice daily and titrate so that he has 3 to 4 bowel movements daily. 2. Continue current diuretic regimen as per nephrology recommendations. 3. Continue antibiotics for cellulitis. 4. Repeat labs in the morning. Will follow with you closely during his hospital stay. Thank you for this consultation. MMROSANNAL / NIURKAN: [id number] /
[2019-05-21] MEDS: TEMAZEPAM 15 MG CAP PO SCH (21:45)
--- NOTE | 2019-05-21 22:45 | P.PN ---
Subjective Progress Note Date: 05/21/19 64 -year-old male was evidence of significant cirrhosis and end-stage liver disease who presents to Hospital with the rapid change of his mental status. His daughter was present relates that on he was quite normal. Conversational and laughing without significant new complaints by yesterday he become progressively more obtunded and then got to the point in time where he was asleep and could not P awoken because I was brought to the emergency center for evaluation. There is not evidence of significant worsening of his end-stage liver disease with an increase of his ammonia level, hepatic encephalopathy, and evidence of hepatorenal syndrome. The family also notes in the last few days there is no significant change to his right foot. He may have had an injury to the great toe where the nail was a bit split. But now it has become progressively worse over the last few days with redness and some drainage swelling and erythema. He has dense neuropathy and has no complaints of pain to the site to the family before his admission. The family does not believe his had a fever at home and the change occurred relatively rapidly over the last 48 hours. 05/20/2019 the patient is now having significant improvement of his status. He is awake alert and able to answer simple questions. He denies much discomfort. He does feel short of breath, and does complain of abdominal distention. 05/21/2019 patient more awake and less pain looks forward to going home Objective - Vital Signs Vital signs: Vital Signs Temp 98.3 F 05/21/19 04:31 Pulse 75 05/21/19 16:00 Resp 18 05/21/19 16:00 BP 121/58 05/21/19 16:00 Pulse Ox 94 L 05/21/19 16:00 Intake & Output 05/21/19 05/21/19 05/22/19 06:59 18:59 06:59 Intake Total 1100 120 Output Total 950 800 Balance 150 -680 Weight 113 kg Intake: Intake, IV Titration 750 Amount Albumin Human 25% 50 ml 100 In Empty Bag 1 bag @ 50 mls/hr IVPB Q1H JACQUELYN Rx#: [id number] Sodium Chloride 0.9% 1, 650 000 ml @ 120 mls/hr IV . Q8H20M JACQUELYN Rx#:[id number] Oral 350 120 Output: Urine 950 800 Other: Voiding Method Indwelling Catheter Indwelling Catheter # Bowel Movements 1 - Exam HEENT: Mildly icteric, without scleral edema, nasal or cavity are dry without thrush or lesions Neck: The neck is supple without significant lymphadenopathy or thyromegaly. Lungs: There is symmetrical bilaterally. There are crackles in bilateral bases is evidence of some scattered wheeze but no bronchial sounds Heart: Irregular with an audible S1 and S2 soft S4 no distinct murmur click or rub Abdomen: Appears to have extensive ascites, abdomen is quite distended, he has however obtunded and it is nontender at this time. I can palpate no mass or organomegaly. Extremities: The extremities reveal evidence of some muscular wasting lower extremities do not have significant edema, the right great toe is evidence of swelling erythema there appears to be ulceration underneath the nail that has drainage which is cultured. There is also evidence of ulceration on the plantar surface of the great toe. With probing I could not find a through and through ulceration. He is he has dense neuropathy and has no sensation when this is manipulated. It appears her was extensive swelling because entire layer of skin has peeled off. There is distinct erythema around the toe and on the dorsum of the foot but there is no significant ascending lymphangitis and there is no significant lymphadenopathy in either inguinal area there is also no abnormal lymph nodes cervical axillary epitrochlear. Neuro: he is now awake and alert and appears ,is able to complain of some shortne and abdominal distention - Labs CBC & Chem 7: 05/21/19 05:14 05/21/19 05:14 Labs: Abnormal Lab Results - Last 24 Hours (Table) 05/21/19 05/21/19 05/21/19 Range/Units 05:14 05:14 06:14 WBC 2.8 L (3.8-10.6) k/uL RBC 3.03 L (4.30-5.90) m/uL Hgb 8.6 L (13.0-17.5) gm/dL Hct 26.5 L (39.0-53.0) % Plt Count 41 L (150-450) k/uL Lymphocytes # 0.3 L (1.0-4.8) k/uL Chloride 109 H (98-107) mmol/L BUN 48 H (9-20) mg/dL Creatinine 2.32 H (0.66-1.25) mg/dL Glucose 105 H (74-99) mg/dL POC Glucose (mg/dL) 106 H (75-99) mg/dL Calcium 7.9 L (8.4-10.2) mg/dL 05/21/19 05/21/19 05/21/19 Range/Units 11:48 16:48 20:31 WBC (3.8-10.6) k/uL RBC (4.30-5.90) m/uL Hgb (13.0-17.5) gm/dL Hct (39.0-53.0) % Plt Count (150-450) k/uL Lymphocytes # (1.0-4.8) k/uL Chloride (98-107) mmol/L BUN (9-20) mg/dL Creatinine (0.66-1.25) mg/dL Glucose (74-99) mg/dL POC Glucose (mg/dL) 111 H 129 H 126 H (75-99) mg/dL Calcium (8.4-10.2) mg/dL Microbiology - Last 24 Hours (Table) 05/20/19 17:23 Blood Culture - Final Blood 05/19/19 08:00 Blood Culture Gram Stain - Final Blood Blood Culture - Final Staphylococcus aureus 05/19/19 11:15 Gram Stain - Preliminary Toe - Right First Wound Culture - Preliminary Staphylococcus aureus 05/19/19 08:20 Urine Culture - Final Urine,Voided Staphylococcus aureus 05/19/19 13:59 Gram Stain - Preliminary Foot - Left Wound Culture - Preliminary Presumptive MRSA Laboratory Results WBC 2.8 k/uL (3.8-10.6) L 05/21/19 05:14 RBC 3.03 m/uL (4.30-5.90) L 05/21/19 05:14 Hgb 8.6 gm/dL (13.0-17.5) L 05/21/19 05:14 Hct 26.5 % (39.0-53.0) L 05/21/19 05:14 MCV 87.5 fL (80.0-100.0) 05/21/19 05:14 MCH 28.4 pg (25.0-35.0) 05/21/19 05:14 MCHC 32.4 g/dL (31.0-37.0) 05/21/19 05:14 RDW 14.5 % (11.5-15.5) 05/21/19 05:14 Plt Count 41 k/uL (150-450) L 05/21/19 05:14 Neutrophils % 69 % 05/21/19 05:14 Lymphocytes % 12 % 05/21/19 05:14 Monocytes % 12 % 05/21/19 05:14 Eosinophils % 3 % 05/21/19 05:14 Basophils % 1 % 05/21/19 05:14 Neutrophils # 1.9 k/uL (1.3-7.7) 05/21/19 05:14 Lymphocytes # 0.3 k/uL (1.0-4.8) L 05/21/19 05:14 Monocytes # 0.3 k/uL (0-1.0) 05/21/19 05:14 Eosinophils # 0.1 k/uL (0-0.7) 05/21/19 05:14 Basophils # 0.0 k/uL (0-0.2) 05/21/19 05:14 Manual Slide Review Performed 05/21/19 05:14 Hypochromasia Slight 05/21/19 05:14 Poikilocytosis Moderate 05/21/19 05:14 Anisocytosis (manual) Present 05/19/19 08:00 PT 16.3 sec (9.0-12.0) H 05/19/19 08:00 INR 1.6 (<1.2) H 05/19/19 08:00 APTT 28.6 sec (22.0-30.0) 05/19/19 08:00 VBG pH 7.48 (7.31-7.41) H 05/19/19 08:39 VBG pCO2 32 mmHg (37-51) L 05/19/19 08:39 VBG HCO3 24 mmol/L (24-28) 05/19/19 08:39 Sodium 140 mmol/L (137-145) 05/21/19 05:14 Potassium 3.7 mmol/L (3.5-5.1) 05/21/19 05:14 Chloride 109 mmol/L (98-107) H 05/21/19 05:14 Carbon Dioxide 23 mmol/L (22-30) 05/21/19 05:14 Anion Gap 8 mmol/L 05/21/19 05:14 BUN 48 mg/dL (9-20) H 05/21/19 05:14 Creatinine 2.32 mg/dL (0.66-1.25) H 05/21/19 05:14 Est GFR (CKD-EPI)AfAm 34 (>60 ml/min/1.73 sqM) 05/21/19 05:14 Est GFR (CKD-EPI)NonAf 29 (>60 ml/min/1.73 sqM) 05/21/19 05:14 Glucose 105 mg/dL (74-99) H 05/21/19 05:14 POC Glucose (mg/dL) 126 mg/dL (75-99) H 05/21/19 20:31 POC Glu Sports Trainer ID Tato Smith 05/21/19 20:31 Lactic Ac Sepsis Rflx Y 05/19/19 12:36 Plasma Lactic Acid Chad 2.0 mmol/L (0.7-2.0) 05/19/19 15:59 Calcium 7.9 mg/dL (8.4-10.2) L 05/21/19 05:14 Magnesium 1.8 mg/dL (1.6-2.3) 05/21/19 05:14 Iron 25 ug/dL (65-175) L 05/20/19 05:30 TIBC 220 ug/dL (228-460) L 05/20/19 05:30 % Saturation 11.36 (15.00-50.00) L 05/20/19 05:30 Ferritin 34.3 ng/mL (22.0-322.0) 05/20/19 05:30 Total Bilirubin 3.0 mg/dL (0.2-1.3) H 05/20/19 05:30 AST 40 U/L (17-59) 05/20/19 05:30 ALT 18 U/L (4-49) 05/20/19 05:30 Alkaline Phosphatase 61 U/L (38-126) 05/20/19 05:30 Ammonia <9 umol/L (<30) 05/21/19 14:33 Creatine Kinase 49 U/L (55-170) L 05/19/19 08:00 Troponin I 0.019 ng/mL (0.000-0.034) 05/19/19 08:00 Total Protein 5.3 g/dL (6.3-8.2) L 05/20/19 05:30 Albumin 2.0 g/dL (3.5-5.0) L 05/20/19 05:30 Prealbumin <5.0 mg/dL (18.0-42.0) L 05/20/19 05:30 Lipase 93 U/L (23-300) 05/19/19 08:00 Urine Color Yellow 05/19/19 08:20 Urine Appearance Turbid (Clear) 05/19/19 08:20 Urine pH 5.5 (5.0-8.0) 05/19/19 08:20 Ur Specific [place] 1.012 (1.001-1.035) 05/19/19 08:20 Urine Protein 1+ (Negative) H 05/19/19 08:20 Urine Glucose (UA) Negative (Negative) 05/19/19 08:20 Urine Ketones Negative (Negative) 05/19/19 08:20 Urine Blood Moderate (Negative) H 05/19/19 08:20 Urine Nitrite Negative (Negative) 05/19/19 08:20 Urine Bilirubin Negative (Negative) 05/19/19 08:20 Urine Urobilinogen 2.0 mg/dL (<2.0) 05/19/19 08:20 Ur Leukocyte Esterase Large (Negative) H 05/19/19 08:20 Urine RBC >182 /hpf (0-5) H 05/19/19 08:20 Urine WBC >182 /hpf (0-5) H 05/19/19 08:20 Urine WBC Clumps Many /hpf (None) H 05/19/19 08:20 Ur Squamous Epith Cells 7 /hpf (0-4) H 05/19/19 08:20 Urine Mucus Rare /hpf (None) H 05/19/19 08:20 Serum Alcohol <10 mg/dL 05/19/19 08:00 Influenza Type A RNA Not Detected (Not Detectd) 05/19/19 08:20 Influenza Type B (PCR) Not Detected (Not Detectd) 05/19/19 08:20 Microbiology 05/20/19 17:23 Blood Blood Culture - Final 05/19/19 08:00 Blood Blood Culture Gram Stain - Final 05/19/19 08:00 Blood Blood Culture - Final Staphylococcus aureus 05/19/19 11:15 Toe - Right First Gram Stain - Preliminary 05/19/19 11:15 Toe - Right First Wound Culture - Preliminary Staphylococcus aureus 05/19/19 08:20 Urine,Voided Urine Culture - Final Staphylococcus aureus 05/19/19 13:59 Foot - Left Gram Stain - Preliminary 05/19/19 13:59 Foot - Left Wound Culture - Preliminary Presumptive MRSA 05/19/19 08:00 Blood Blood Culture - Final 05/19/19 13:59 Foot - Left Anaerobic Culture - Preliminary Assessment and Plan (1) 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 There is evidence of hepatorenal syndrome as well as hepatic encephalopathy. Lactulose by enema has been requested. The patient has evidence of an infection to the right great toe which may have resulted in significant worsening of his status. By his history is have cultures with Serratia and MRSA at that site and constantly antibiotic therapy with Rocephin and daptomycin will be utilized. Daptomycin because of his acute on chronic renal failure as well as a Vanco COSTA of 2 with a bony infection. Over he will tolerate this. Local wound care with nikunj has been requested that he be changed on a daily basis for now. He is currently nonambulatory. Need to have ongoing assessment for his mobility and ensure that he is turned in bed. The daughter is aware of his poor status and they have a palliative care consult and Monday however they may be definitive consult which they are aware of if he does not show improvement. There would be open to hospice if he does not improve. May the patient has had some improvement of his status neurologica lly. He is now awake and interactive., He is still poor historian but does recognize the observer. The wound culture, blood culture, and urine culture all show evidence of the MRSA and he is on daptomycin therapy. Follow blood cultures been requested. The patient does seem to have some improvement and other laboratories have shown some improvement with the ammonia dropping from 88-16. He does have some I Radha failure but this appears For now he maintains on the antibiotic therapy with daptomycin and Rocephin until. There may be the possibility of de-escalation of Rocephin, however until there is no evidence of any biliary process so be continued for Still has a poor prognosis but has significant improvement at this tiime. 05/21/2019 jaspal is improved but blood culture is still positive, repeat culture is requested, and will continue daptomycin for now. clinically he has improved and hopefully will have clearance of his bacteremia. Once this occurs will be able to have IV access placed with a midline complete several weeks of antibiotic therapy He will need follow-up of the wound healing Center. Current Visit: Yes Status: Acute Code(s): E11.621 - TYPE 2 DIABETES MELLITUS WITH FOOT ULCER; L97.514 - NON-PRS CHRONIC ULCER OTH PRT RIGHT FOOT W NECROSIS OF BONE SNOMED Code(s): 4815160716300 (2) Hepatic encephalopathy Current Visit: Yes Status: Acute Code(s): K72.90 - HEPATIC FAILURE, UNSPECIFIED WITHOUT COMA SNOMED Code(s): 58288849 (3) Hyperammonemia Current Visit: Yes Status: Acute Code(s): E72.20 - DISORDER OF UREA CYCLE METABOLISM, UNSPECIFIED SNOMED Code(s): 9285978 (4) Cirrhosis of liver Current Visit: Yes Status: Chronic Code(s): K74.60 - UNSPECIFIED CIRRHOSIS OF LIVER SNOMED Code(s): 49969410
[2019-05-22] MEDS: SODIUM CHLORIDE 0.9% 1,000 ML IV SCH (05:44)
[2019-05-22 05:59] LABS: Glucose,Whole Blood 118 mg/dL (75-99)
[2019-05-22 06:03] LABS: Albumin 2.6 g/dL (3.5-5.0); Calcium 8.3 mg/dL (8.4-10.2); Magnesium 1.8 mg/dL (1.6-2.3); Potassium 3.8 mmol/L (3.5-5.1); Total Bilirubin 1.9 mg/dL (0.2-1.3); Total Protein 6.1 g/dL (6.3-8.2)
[2019-05-22] MEDS: INSULIN ASPART (NovoLOG) 100 UNIT/ML VIAL SQ SCH ×3 (06:09→17:39)
[2019-05-22] MEDS: LACTULOSE 20 GM/30 ML CUP PO SCH ×2 (09:39→21:57)
[2019-05-22] MEDS: SPIRONOLACTONE 25 MG TAB PO SCH ×2 (09:43→21:57)
[2019-05-22] MEDS: PREGABALIN 100 MG CAP PO SCH ×2 (09:43→21:58)
[2019-05-22] MEDS: PANTOPRAZOLE 40 MG TABLET PO SCH (09:43)
[2019-05-22] MEDS: FUROSEMIDE 10 MG/ML 4 ML VIAL IV SCH ×2 (09:43→22:01)
--- NOTE | 2019-05-22 10:53 | P.PN ---
Subjective Patient is seen in follow-up for acute kidney injury on chronic kidney disease. Patient has chronic kidney disease stage III with baseline creatinine near 2. Renal function is fairly stable. Patient is maintained on IV Lasix and Aldactone. Urine output is good. Oral intake is fair. He is maintained on IV antibiotics for MRSA bacteremia. Vital signs are stable. General: The patient appeared well nourished and normally developed. HEENT: Head exam is unremarkable. Neck is without jugular venous distension. LUNGS: Lungs are clear to auscultation and percussion. Breath sounds decreased. HEART: Rate and Rhythm are regular. First and second heart sounds normal. No murmurs, rubs or gallops. ABDOMEN: Abdominal exam reveals normal bowel sounds. Nontender. EXTREMITITES: 1+ edema. No drainage noted. Objective - Vital Signs Vital signs: Vital Signs Temp 97.7 F 05/22/19 04:00 Pulse 83 05/22/19 04:00 Resp 20 05/22/19 04:00 BP 128/58 05/22/19 04:00 Pulse Ox 98 05/22/19 04:00 Intake & Output 05/21/19 05/22/19 05/22/19 18:59 06:59 18:59 Intake Total 120 240 Output Total 800 850 250 Balance -680 -610 -250 Weight 114 kg Intake: Oral 120 240 Output: Urine 800 850 250 Other: Voiding Method Indwelling Catheter Indwelling Catheter # Bowel Movements 1 1 - Labs CBC & Chem 7: 05/21/19 05:14 05/22/19 05:30 Labs: Abnormal Lab Results - Last 24 Hours (Table) 05/21/19 05/21/19 05/21/19 Range/Units 05:14 11:48 16:48 WBC 2.8 L (3.8-10.6) k/uL RBC 3.03 L (4.30-5.90) m/uL Hgb 8.6 L (13.0-17.5) gm/dL Hct 26.5 L (39.0-53.0) % Plt Count 41 L (150-450) k/uL Lymphocytes # 0.3 L (1.0-4.8) k/uL Chloride (98-107) mmol/L BUN (9-20) mg/dL Creatinine (0.66-1.25) mg/dL Glucose (74-99) mg/dL POC Glucose (mg/dL) 111 H 129 H (75-99) mg/dL Calcium (8.4-10.2) mg/dL Total Bilirubin (0.2-1.3) mg/dL Total Protein (6.3-8.2) g/dL Albumin (3.5-5.0) g/dL 05/21/19 05/22/19 05/22/19 Range/Units 20:31 05:30 05:59 WBC (3.8-10.6) k/uL RBC (4.30-5.90) m/uL Hgb (13.0-17.5) gm/dL Hct (39.0-53.0) % Plt Count (150-450) k/uL Lymphocytes # (1.0-4.8) k/uL Chloride 108 H (98-107) mmol/L BUN 49 H (9-20) mg/dL Creatinine 2.44 H (0.66-1.25) mg/dL Glucose 123 H (74-99) mg/dL POC Glucose (mg/dL) 126 H 118 H (75-99) mg/dL Calcium 8.3 L (8.4-10.2) mg/dL Total Bilirubin 1.9 H (0.2-1.3) mg/dL Total Protein 6.1 L (6.3-8.2) g/dL Albumin 2.6 L (3.5-5.0) g/dL Microbiology - Last 24 Hours (Table) 05/19/19 13:59 Gram Stain - Preliminary Foot - Left Wound Culture - Preliminary Presumptive MRSA 05/20/19 17:23 Blood Culture Gram Stain - Preliminary Blood Blood Culture - Preliminary Staphylococcus aureus 05/19/19 13:59 Anaerobic Culture - Preliminary Foot - Left 05/20/19 17:23 Blood Culture - Final Blood 05/19/19 08:00 Blood Culture Gram Stain - Final Blood Blood Culture - Final Staphylococcus aureus 05/19/19 11:15 Gram Stain - Preliminary Toe - Right First Wound Culture - Preliminary Staphylococcus aureus 05/19/19 08:20 Urine Culture - Final Urine,Voided Staphylococcus aureus Assessment and Plan Plan: Assessment: 1. Acute kidney injury secondary to ATN secondary to infection/bacteremia. Hepatorenal cannot be completely ruled out. Renal function fairly stable. Creatinine 2.44 today. No hydronephrosis noted on CAT scan. 2. Chronic kidney disease stage IV with baseline creatinine near 2. 3. Liver cirrhosis. 4. Hepatic encephalopathy. Improved. 5. Volume overload. Improving with diuresis. 6. Anemia of chronic kidney disease. Iron deficiency noted. I will hold off on IV iron due to bacteremia. Maintained on Aranesp. 7. Chronic kidney disease mineral bone disease maintained on calcitriol. 8. Right foot diabetic ulcer and MRSA bacteremia maintained on IV antibiotics. Infectious disease following. Plan: Hep-Lock IV fluids. Maintain IV Lasix 40 mg twice daily. Maintain Aldactone 50 mg twice daily. Continue to monitor renal function and urine output. Encouraged po intake.
[2019-05-22 11:24] LABS: Glucose,Whole Blood 138 mg/dL (75-99)
--- NOTE | 2019-05-22 15:18 | P.PN ---
Subjective Progress Note Date: 05/22/19 Luis is a 64-year-old white male patient well known to me.he has a history of liver cirrhosis and liver failure lung with recurrent ascites and occasionally hyper ammoniemia, which she takes lactulose for 4 times daily. His daughter reports he's not had a bowel movement in several days. He injured his toe several days ago. This is been having purulent discharge in looking quite infected just over the past day. He's become more and more weak and confused. He himself was somewhat arousable the emergency room. We discussed with. Quickly lost consciousness. His 2 sons and daughter were at bedside and discussed her case with him. We had recently ordered a palliative care consult this Monday. They did not want to put him in hospice at this time. DNR, no code was requested and will be implemented. currently Justice denies any chest pains, pressures or shortness of breath. He does complain of some abdominal pain. He does grimace when palpated his abdomen. 05/20/2019 yesterday patient somnolent, pain med regime adjusted. Significant improvement in sensorium today. States pain not relieved on Tylenol.complains of suprapubic pain-Chu catheter draining maycol urine.maintained on both IV fluids and IV Lasix as per nephrology. Creatinine2.46.wound and blood culture reporting presumptive MRSA, urine culture presumptive staph aureus,anaerobic and Gram stain pending.maintained on Rocephin, daptomycin. afebrile.moderate right pleural effusion,vital signs stable, maintaining O2 sats in the high 90s on 2 L nasal cannula.denies chest pain, palpitations or increased shortness of breath. 05/21/2019 Continues on both IV fluids and Lasix as per nephrology, creatinine 2.32. chest x-ray completed yesterday afternoon reporting CHF, right pleural effusion.chest ultrasound reporting moderate right-sided pleural effusion, marked.no thoracentesis recommended per pulmonary at this time.maintained on Rocephin and daptomycin as per infectious disease. OxyContin resumed yesterday,pain better controlled,requesting lyrica be resumed.reports he cannot sleep without his Restoril, also requesting Restoril be resumed.having greater than 3 bowel movements this morning,no hallucinations, ammonia level pending. 05/22/2019 Pain better controlled, eager for discharge. Maintained on daptomycin ,Rocephin. Blood cultures continue to report gram-positive cocci in clusters.blood cultures repeated with preliminary reporting Staphylococcus aureus.afebrile.creatinine 2.44. Blood sugars controlled.lactulose decreased yesterday as patient was having greater than 3 bowel movements by midday. total bili 1.9, ammonia less than 9. Objective - Vital Signs Vital signs: Vital Signs Temp 97.7 F 05/22/19 04:00 Pulse 83 05/22/19 04:00 Resp 20 05/22/19 04:00 BP 128/58 05/22/19 04:00 Pulse Ox 98 05/22/19 04:00 Intake & Output 05/21/19 05/22/19 05/22/19 18:59 06:59 18:59 Intake Total 120 240 Output Total 800 850 250 Balance -680 -610 -250 Weight 114 kg Intake: Oral 120 240 Output: Urine 800 850 250 Other: Voiding Method Indwelling Catheter Indwelling Catheter # Bowel Movements 1 1 - Exam GENERAL: sitting up in bed, alert and oriented 3,no acute distress HEAD: Atraumatic, normocephalic. EYES: Pupils equal round and reactive to light, extraocular movements intact, conjunctiva are normal. ENT:nares patent, oropharynx clear without exudates. Moist mucous membranes. NECK: Normal range of motion, supple without lymphadenopathy or JVD, no thyromegaly LUNGS: Breath sounds course with the decreased air exchange worse on the right side than the left.no rhonchi, fine bibasilar crackles, no wheezes HEART: Regular rate and rhythm without murmurs, rubs or gallops.S1S2 Normal ABDOMEN: Soft, nontender, distended ,ascites.No guarding, no rebound. hepatomegaly is appreciated today.positive bowel sounds EXTREMITIES: Normal range of motion, trace edema. No clubbing or cyanosis. NEUROLOGICAL: Cranial nerves II through XII grossly intact. moves all 4 extremities, no gross focal deficits. SKIN: right great toe plantar surface shows a Asif grade 3 diabetic ulcer. The wound is approximately 0.6 x 0.4 x 0.3 cm right foot dressing clean dry and intact. Microbiology 05/19/19 13:59 Foot - Left Gram Stain - Preliminary 05/19/19 13:59 Foot - Left Wound Culture - Preliminary Presumptive MRSA 05/20/19 17:23 Blood Blood Culture Gram Stain - Preliminary 05/20/19 17:23 Blood Blood Culture - Preliminary Staphylococcus aureus 05/19/19 13:59 Foot - Left Anaerobic Culture - Preliminary 05/20/19 17:23 Blood Blood Culture - Final 05/19/19 08:00 Blood Blood Culture Gram Stain - Final 05/19/19 08:00 Blood Blood Culture - Final Staphylococcus aureus 05/19/19 11:15 Toe - Right First Gram Stain - Preliminary 05/19/19 11:15 Toe - Right First Wound Culture - Preliminary Staphylococcus aureus 05/19/19 08:20 Urine,Voided Urine Culture - Final Staphylococcus aureus 05/19/19 08:00 Blood Blood Culture - Final - Labs CBC & Chem 7: 05/21/19 05:14 05/22/19 05:30 Labs: Abnormal Lab Results - Last 24 Hours (Table) 05/21/19 05/21/19 05/21/19 Range/Units 05:14 11:48 16:48 WBC 2.8 L (3.8-10.6) k/uL RBC 3.03 L (4.30-5.90) m/uL Hgb 8.6 L (13.0-17.5) gm/dL Hct 26.5 L (39.0-53.0) % Plt Count 41 L (150-450) k/uL Lymphocytes # 0.3 L (1.0-4.8) k/uL Chloride (98-107) mmol/L BUN (9-20) mg/dL Creatinine (0.66-1.25) mg/dL Glucose (74-99) mg/dL POC Glucose (mg/dL) 111 H 129 H (75-99) mg/dL Calcium (8.4-10.2) mg/dL Total Bilirubin (0.2-1.3) mg/dL Total Protein (6.3-8.2) g/dL Albumin (3.5-5.0) g/dL 05/21/19 05/22/19 05/22/19 Range/Units 20:31 05:30 05:59 WBC (3.8-10.6) k/uL RBC (4.30-5.90) m/uL Hgb (13.0-17.5) gm/dL Hct (39.0-53.0) % Plt Count (150-450) k/uL Lymphocytes # (1.0-4.8) k/uL Chloride 108 H (98-107) mmol/L BUN 49 H (9-20) mg/dL Creatinine 2.44 H (0.66-1.25) mg/dL Glucose 123 H (74-99) mg/dL POC Glucose (mg/dL) 126 H 118 H (75-99) mg/dL Calcium 8.3 L (8.4-10.2) mg/dL Total Bilirubin 1.9 H (0.2-1.3) mg/dL Total Protein 6.1 L (6.3-8.2) g/dL Albumin 2.6 L (3.5-5.0) g/dL Microbiology - Last 24 Hours (Table) 05/19/19 13:59 Gram Stain - Preliminary Foot - Left Wound Culture - Preliminary Presumptive MRSA 05/20/19 17:23 Blood Culture Gram Stain - Preliminary Blood Blood Culture - Preliminary Staphylococcus aureus 05/19/19 13:59 Anaerobic Culture - Preliminary Foot - Left 05/20/19 17:23 Blood Culture - Final Blood 05/19/19 08:00 Blood Culture Gram Stain - Final Blood Blood Culture - Final Staphylococcus aureus 05/19/19 11:15 Gram Stain - Preliminary Toe - Right First Wound Culture - Preliminary Staphylococcus aureus 05/19/19 08:20 Urine Culture - Final Urine,Voided Staphylococcus aureus Assessment and Plan Assessment: (1) Hepatic encephalopathy, improving Current Visit: Yes Status: Acute Code(s): K72.90 - HEPATIC FAILURE, UNSPECIFIED WITHOUT COMA SNOMED Code(s): 05359428 (2) Diabetic ulcer of right footwith MRSA Current Visit: Yes Status: Acute Code(s): E11.621 - TYPE 2 DIABETES MELLITUS WITH FOOT ULCER; L97.519 - NON-PRS CHRONIC ULCER OTH PRT RIGHT FOOT W UNSP SEVERITY SNOMED Code(s): 046721260 (3) DNR (do not resuscitate) Current Visit: Yes Status: Acute Code(s): Z66 - DO NOT RESUSCITATE SNOMED Code(s): 459822853 (4) DNR (do not resuscitate) discussion Current Visit: Yes Status: Acute Code(s): Z71.89 - OTHER SPECIFIED COUNSELING SNOMED Code(s): 552063226 (5) Ascites Current Visit: Yes Status: Acute Code(s): R18.8 - OTHER ASCITES SNOMED Code(s): 647470545 (6) Cellulitis Narrative/Plan: right great toe Current Visit: Yes Status: Acute Code(s): L03.90 - CELLULITIS, UNSPECIFIED SNOMED Code(s): 491477473 (7) Confusion Current Visit: Yes Status: Acute Code(s): R41.0 - DISORIENTATION, UNSPECIFIED SNOMED Code(s): 651146153 (8) Generalized weakness Current Visit: Yes Status: Acute Code(s): R53.1 - WEAKNESS SNOMED Code(s): 61285210 (9) Hyperammonemia Current Visit: Yes Status: Acute Code(s): E72.20 - DISORDER OF UREA CYCLE METABOLISM, UNSPECIFIED SNOMED Code(s): 6598154 (10) Myelodysplasia (myelodysplastic syndrome) Current Visit: No Status: Acute Code(s): D46.9 - MYELODYSPLASTIC SYNDROME, UNSPECIFIED SNOMED Code(s): 315511234 (11) acute renal failure secondary to ATN related to infection, possible hepatorenal (12) chronic kidney disease stage IV (13) anemia of chronic disease (14) sepsis secondary to infection,MRSA bacteremia plan: Continue on current medication regime ,monitoring and symptomatic treatment.pain management. repeat blood cultures in progress, close monitoring. Continue with antibiotics; Midline to be placed once bacteremia clears as per ID. Diuretics as per nephrology.PT/OT.patient may transfer to [facility] with remote telemetry. The impression and plan of care has been dictated as directed. : I performed a history and examination of this patient, discussed the same with the dictator. I agree with the dictator's note ,documented as a scribe. Any additional findings or plans will be noted.
[2019-05-22] MEDS: DAPTOmycin 500 MG in SODIUM CHLORIDE 0.9% 50 ML IVPB SCH (16:42)
[2019-05-22 16:49] LABS: Glucose,Whole Blood 186 mg/dL (75-99)
[2019-05-22] MEDS: TEMAZEPAM 15 MG CAP PO SCH (21:57)
[2019-05-23 00:07] LABS: Glucose,Whole Blood 178 mg/dL (75-99)
[2019-05-23 06:56] LABS: Glucose,Whole Blood 146 mg/dL (75-99)
--- NOTE | 2019-05-23 07:04 | P.PN ---
Subjective Progress Note Date: 05/22/19 Principal diagnosis: decompensated cirrhosis, hepatic encephalopathy, pancytopenia patient is seen lying comfortably in bed. No nausea or vomiting. He is tolerating his diet. 3 bowel movements reported today. Objective - Vital Signs Vital signs: Vital Signs Temp 97.7 F 05/22/19 04:00 Pulse 83 05/22/19 04:00 Resp 20 05/22/19 04:00 BP 128/58 05/22/19 04:00 Pulse Ox 98 05/22/19 04:00 Intake & Output 05/21/19 05/22/19 05/22/19 18:59 06:59 18:59 Intake Total 120 240 Output Total 800 850 250 Balance -000 -834 -243 Weight 114 kg Intake: Oral 120 240 Output: Urine 800 850 250 Other: Voiding Method Indwelling Catheter Indwelling Catheter # Bowel Movements 1 1 - Exam On physical examination, patient appears comfortable in no apparent distress. HEAD: Normocephalic, atraumatic. EYES: No scleral icterus. No conjunctival injection. MOUTH: No lesions, tongue midline. NECK: Trachea midline, no gross abnormalities. CHEST: decreased air entry in all lung negron ABDOMEN: Soft, obese. Bowel sounds are positive. No organomegaly. No guarding or rigidity. EXTREMITIES: No pedal edema. SKIN: No rashes, no jaundice. NEUROLOGIC: Alert and oriented x3, no asterixis noted. No focal deficits. - Labs CBC & Chem 7: 05/21/19 05:14 05/22/19 05:30 Labs: Abnormal Lab Results - Last 24 Hours (Table) 05/21/19 05/21/19 05/22/19 Range/Units 16:48 20:31 05:30 Chloride 108 H (98-107) mmol/L BUN 49 H (9-20) mg/dL Creatinine 2.44 H (0.66-1.25) mg/dL Glucose 123 H (74-99) mg/dL POC Glucose (mg/dL) 129 H 126 H (75-99) mg/dL Calcium 8.3 L (8.4-10.2) mg/dL Total Bilirubin 1.9 H (0.2-1.3) mg/dL Total Protein 6.1 L (6.3-8.2) g/dL Albumin 2.6 L (3.5-5.0) g/dL 05/22/19 05/22/19 Range/Units 05:59 11:23 Chloride (98-107) mmol/L BUN (9-20) mg/dL Creatinine (0.66-1.25) mg/dL Glucose (74-99) mg/dL POC Glucose (mg/dL) 118 H 138 H (75-99) mg/dL Calcium (8.4-10.2) mg/dL Total Bilirubin (0.2-1.3) mg/dL Total Protein (6.3-8.2) g/dL Albumin (3.5-5.0) g/dL Microbiology - Last 24 Hours (Table) 05/19/19 13:59 Gram Stain - Preliminary Foot - Left Wound Culture - Preliminary Presumptive MRSA 05/20/19 17:23 Blood Culture Gram Stain - Preliminary Blood Blood Culture - Preliminary Staphylococcus aureus 05/19/19 13:59 Anaerobic Culture - Preliminary Foot - Left 05/20/19 17:23 Blood Culture - Final Blood 05/19/19 08:00 Blood Culture Gram Stain - Final Blood Blood Culture - Final Staphylococcus aureus 05/19/19 11:15 Gram Stain - Preliminary Toe - Right First Wound Culture - Preliminary Staphylococcus aureus 05/19/19 08:20 Urine Culture - Final Urine,Voided Staphylococcus aureus Assessment and Plan (1) Cirrhosis of liver Narrative/Plan: 64-year-old male with decompensated cirrhosis with encephalopathy and ascites. Patient had presented with elevated ammonia and mental status changes which is improved with lactulose therapy. Current Visit: Yes Status: Chronic Code(s): K74.60 - UNSPECIFIED CIRRHOSIS OF LIVER SNOMED Code(s): 82341587 (2) Portal hypertension Current Visit: Yes Status: Chronic Code(s): K76.6 - PORTAL HYPERTENSION SNOMED Code(s): 39684928 (3) Hepatic encephalopathy Current Visit: No Status: Acute Code(s): K72.90 - HEPATIC FAILURE, UNSPECIFIED WITHOUT COMA SNOMED Code(s): 11556490 Plan: supportive care Okay for sodium restricted diet Continue lactulose, titrate for 3-4 bowel movements daily Continue diuretic regimen per nephrology service, appreciate the recommendations Continue antibiotic therapy for cellulitis Continue medical management of other comorbidities continue to follow clinically Thank you for allowing us to participate in the care of the patient we will continue to follow
[2019-05-23 08:40] LABS: Magnesium 1.6 mg/dL (1.6-2.3); Potassium 3.6 mmol/L (3.5-5.1)
[2019-05-23 09:20] LABS: Basophils % (A) 1 %; Eosinophils # (A) 0.1 k/uL (0-0.7); Eosinophils % (A) 3 %; HCT 28.4 % (39.0-53.0); HGB 9.2 gm/dL (13.0-17.5); Hypochromasia Slight; Lymphocytes # (A) 0.4 k/uL (1.0-4.8); Lymphocytes % (A) 15 %; MCH 28.3 pg (25.0-35.0); MCHC 32.2 g/dL (31.0-37.0); MCV 87.7 fL (80.0-100.0); Mean Platelet Volume 9.4; Monocytes # (A) 0.3 k/uL (0-1.0); Monocytes % (A) 9 %; Neutrophils % (A) 70 %; Poikilocytosis Moderate; RBC 3.24 m/uL (4.30-5.90); RDW 14.6 % (11.5-15.5); WBC 2.9 k/uL (3.8-10.6)
[2019-05-23 09:24] LABS: Platelet Count 40 k/uL (150-450)
[2019-05-23] MEDS: INSULIN ASPART (NovoLOG) 100 UNIT/ML VIAL SQ SCH ×3 (10:13→17:09)
[2019-05-23] MEDS: PREGABALIN 100 MG CAP PO SCH ×2 (10:16→20:02)
[2019-05-23] MEDS: LACTULOSE 20 GM/30 ML CUP PO SCH ×3 (10:16→20:12)
[2019-05-23] MEDS: FUROSEMIDE 10 MG/ML 4 ML VIAL IV SCH ×2 (10:16→20:03)
[2019-05-23] MEDS: PANTOPRAZOLE 40 MG TABLET PO SCH (10:16)
[2019-05-23] MEDS: SPIRONOLACTONE 25 MG TAB PO SCH ×2 (10:16→20:03)
[2019-05-23] MEDS ORDERED: POTASSIUM CHLORIDE ER 20 MEQ TAB.ER PO STA (11:11)
--- NOTE | 2019-05-23 11:11 | P.PN ---
Subjective Patient is seen in follow-up for acute kidney injury on chronic kidney disease. Patient has chronic kidney disease stage III with baseline creatinine near 2. Renal function is fairly stable. Patient is maintained on IV Lasix and Aldactone. Urine output is good. Oral intake is fair. He is maintained on IV antibiotics for MRSA bacteremia. No changes overnight. Vital signs are stable. General: The patient appeared well nourished and normally developed. HEENT: Head exam is unremarkable. Neck is without jugular venous distension. LUNGS: Lungs are clear to auscultation and percussion. Breath sounds decreased. HEART: Rate and Rhythm are regular. First and second heart sounds normal. No murmurs, rubs or gallops. ABDOMEN: Abdominal exam reveals normal bowel sounds. Nontender. EXTREMITITES: 1+ edema. No drainage noted. Objective - Vital Signs Vital signs: Vital Signs Temp 97.1 F L 05/23/19 04:50 Pulse 72 05/23/19 04:50 Resp 20 05/23/19 04:50 BP 133/58 05/23/19 04:50 Pulse Ox 97 05/23/19 04:50 Intake & Output 05/22/19 05/23/19 05/23/19 18:59 06:59 18:59 Intake Total 1746 550 400 Output Total 250 Balance 1496 550 400 Weight 117.5 kg Intake: Intake, IV Titration 600 550 400 Amount DAPTOmycin 500 mg In 50 Sodium Chloride 0.9% 50 ml @ 100 mls/hr IVPB Q24H JACQUELYN Rx#:[id number] Sodium Chloride 0.9% 1, 500 550 400 000 ml @ 50 mls/hr IV . Q20H JACQUELYN Rx#:[id number] cefTRIAXone 2 gm In 50 Sodium Chloride 0.9% 50 ml @ 100 mls/hr IVPB Q24HR JACQUELYN Rx#:[id number] Oral 1146 Output: Urine 250 Other: Voiding Method Indwelling Catheter Indwelling Catheter - Labs CBC & Chem 7: 05/23/19 07:59 05/23/19 07:59 Labs: Abnormal Lab Results - Last 24 Hours (Table) 05/22/19 05/22/19 05/23/19 Range/Units 11:23 16:48 00:06 WBC (3.8-10.6) k/uL RBC (4.30-5.90) m/uL Hgb (13.0-17.5) gm/dL Hct (39.0-53.0) % Plt Count (150-450) k/uL Lymphocytes # (1.0-4.8) k/uL Chloride (98-107) mmol/L BUN (9-20) mg/dL Creatinine (0.66-1.25) mg/dL Glucose (74-99) mg/dL POC Glucose (mg/dL) 138 H 186 H 178 H (75-99) mg/dL Calcium (8.4-10.2) mg/dL 05/23/19 05/23/19 05/23/19 Range/Units 06:50 07:59 07:59 WBC 2.9 L (3.8-10.6) k/uL RBC 3.24 L (4.30-5.90) m/uL Hgb 9.2 L (13.0-17.5) gm/dL Hct 28.4 L (39.0-53.0) % Plt Count 40 L (150-450) k/uL Lymphocytes # 0.4 L (1.0-4.8) k/uL Chloride 109 H (98-107) mmol/L BUN 48 H (9-20) mg/dL Creatinine 2.45 H (0.66-1.25) mg/dL Glucose 150 H (74-99) mg/dL POC Glucose (mg/dL) 146 H (75-99) mg/dL Calcium 8.0 L (8.4-10.2) mg/dL Microbiology - Last 24 Hours (Table) 05/22/19 05:30 Blood Culture Gram Stain - Preliminary Blood 05/22/19 05:30 Blood Culture - Final Blood 05/19/19 13:59 Gram Stain - Final Foot - Left Wound Culture - Final Staphylococcus aureus 05/19/19 11:15 Gram Stain - Final Toe - Right First Wound Culture - Final Staphylococcus aureus 05/19/19 08:00 Blood Culture Gram Stain - Final Blood Blood Culture - Final Staphylococcus aureus 05/20/19 17:23 Blood Culture Gram Stain - Preliminary Blood Blood Culture - Preliminary Presumptive MRSA Assessment and Plan Plan: Assessment: 1. Acute kidney injury secondary to ATN secondary to infection/bacteremia. Hepatorenal cannot be completely ruled out. Renal function fairly stable. Creatinine 2.45 today. No hydronephrosis noted on CAT scan. 2. Chronic kidney disease stage IV with baseline creatinine near 2. 3. Liver cirrhosis. 4. Hepatic encephalopathy. Improved. 5. Volume overload. Improving with diuresis. 6. Anemia of chronic kidney disease. Iron deficiency noted. I will hold off on IV iron due to bacteremia. Maintained on Aranesp. 7. Chronic kidney disease mineral bone disease maintained on calcitriol. 8. Right foot diabetic ulcer and MRSA bacteremia maintained on IV antibiotics. Infectious disease following. 9. Hypokalemia secondary to diuresis. 10. Hypomagnesemia secondary to diuresis and poor oral intake. Plan: Maintain IV Lasix 40 mg twice daily. Maintain Aldactone 50 mg twice daily. Continue to monitor renal function and urine output. Encouraged po intake. Replace potassium. 40 mEq today. Replace magnesium. 2 g IV today.
[2019-05-23 11:42] LABS: Glucose,Whole Blood 140 mg/dL (75-99)
[2019-05-23] MEDS: MAGNESIUM SULFATE-D5W PMX 1 GM in DEXTROSE/WATER 1 100ML.BAG IVPB SCH ×2 (12:47→14:42)
[2019-05-23] MEDS: CALCITRIOL 0.25 MCG CAP PO SCH (14:42)
[2019-05-23] MEDS: DAPTOmycin 500 MG in SODIUM CHLORIDE 0.9% 50 ML IVPB SCH (17:01)
[2019-05-23 17:11] LABS: Glucose,Whole Blood 263 mg/dL (75-99)
[2019-05-23] MEDS: TEMAZEPAM 15 MG CAP PO SCH (20:03)
--- NOTE | 2019-05-23 22:39 | P.PN ---
Subjective Progress Note Date: 05/23/19 64 -year-old male was evidence of significant cirrhosis and end-stage liver disease who presents to Hospital with the rapid change of his mental status. His daughter was present relates that on he was quite normal. Conversational and laughing without significant new complaints by yesterday he become progressively more obtunded and then got to the point in time where he was asleep and could not P awoken because I was brought to the emergency center for evaluation. There is not evidence of significant worsening of his end-stage liver disease with an increase of his ammonia level, hepatic encephalopathy, and evidence of hepatorenal syndrome. The family also notes in the last few days there is no significant change to his right foot. He may have had an injury to the great toe where the nail was a bit split. But now it has become progressively worse over the last few days with redness and some drainage swelling and erythema. He has dense neuropathy and has no complaints of pain to the site to the family before his admission. The family does not believe his had a fever at home and the change occurred relatively rapidly over the last 48 hours. 05/20/2019 the patient is now having significant improvement of his status. He is awake alert and able to answer simple questions. He denies much discomfort. He does feel short of breath, and does complain of abdominal distention. 05/21/2019 patient more awake and less pain looks forward to going home 05/23/2019 patient remains awake and alert but still feels ill is wondering about is discharged home. Objective - Vital Signs Vital signs: Vital Signs Temp 97.7 F 05/23/19 12:00 Pulse 72 05/23/19 12:00 Resp 16 05/23/19 12:00 BP 147/71 05/23/19 12:00 Pulse Ox 95 05/23/19 12:00 Intake & Output 05/23/19 05/23/19 05/24/19 06:59 18:59 06:59 Intake Total 550 1100 Output Total 575 Balance 550 525 Weight 117.5 kg Intake: Intake, IV Titration 550 500 Amount Magnesium Sulfate-D5w Pmx 100 1 gm In Dextrose/Water 1 100ml.bag @ 100 mls/hr IVPB Q1H JACQUELYN Rx#: [id number] Sodium Chloride 0.9% 1, 550 400 000 ml @ 50 mls/hr IV . Q20H JACQUELYN Rx#:[id number] Oral 600 Output: Urine 575 Straight 575 Other: Voiding Method Indwelling Catheter Indwelling Catheter # Bowel Movements 2 - Exam HEENT: Mildly icteric, without scleral edema, nasal or cavity are dry without thrush or lesions Neck: The neck is supple without significant lymphadenopathy or thyromegaly. Lungs: There is symmetrical bilaterally. There are crackles in bilateral bases is evidence of some scattered wheeze but no bronchial sounds Heart: Irregular with an audible S1 and S2 soft S4 no distinct murmur click or rub Abdomen: Appears to have extensive ascites, abdomen is quite distended, he has however obtunded and it is nontender at this time. I can palpate no mass or organomegaly. Extremities: The extremities reveal evidence of some muscular wasting lower extremities do not have significant edema, the right great toe is evidence of swelling erythema there appears to be ulceration underneath the nail that has drainage which is cultured. There is also evidence of ulceration on the plantar surface of the great toe. With probing I could not find a through and through ulceration. He is he has dense neuropathy and has no sensation when this is manipulated. It appears her was extensive swelling because entire layer of skin has peeled off. There is distinct erythema around the toe and on the dorsum of the foot but there is no significant ascending lymphangitis and there is no significant lymphadenopathy in either inguinal area there is also no abnormal lymph nodes cervical axillary epitrochlear. Neuro: he is now awake and alert and appears ,is able to complain of some shortness and abdominal distention - Labs CBC & Chem 7: 05/23/19 07:59 05/23/19 07:59 Labs: Abnormal Lab Results - Last 24 Hours (Table) 05/23/19 05/23/19 05/23/19 Range/Units 00:06 06:50 07:59 WBC 2.9 L (3.8-10.6) k/uL RBC 3.24 L (4.30-5.90) m/uL Hgb 9.2 L (13.0-17.5) gm/dL Hct 28.4 L (39.0-53.0) % Plt Count 40 L (150-450) k/uL Lymphocytes # 0.4 L (1.0-4.8) k/uL Chloride (98-107) mmol/L BUN (9-20) mg/dL Creatinine (0.66-1.25) mg/dL Glucose (74-99) mg/dL POC Glucose (mg/dL) 178 H 146 H (75-99) mg/dL Calcium (8.4-10.2) mg/dL 05/23/19 05/23/19 05/23/19 Range/Units 07:59 11:39 17:06 WBC (3.8-10.6) k/uL RBC (4.30-5.90) m/uL Hgb (13.0-17.5) gm/dL Hct (39.0-53.0) % Plt Count (150-450) k/uL Lymphocytes # (1.0-4.8) k/uL Chloride 109 H (98-107) mmol/L BUN 48 H (9-20) mg/dL Creatinine 2.45 H (0.66-1.25) mg/dL Glucose 150 H (74-99) mg/dL POC Glucose (mg/dL) 140 H 263 H (75-99) mg/dL Calcium 8.0 L (8.4-10.2) mg/dL Microbiology - Last 24 Hours (Table) 05/19/19 13:59 Anaerobic Culture - Final Foot - Left 05/20/19 17:23 Blood Culture Gram Stain - Final Blood Blood Culture - Final Staphylococcus aureus 05/22/19 05:30 Blood Culture Gram Stain - Preliminary Blood 05/22/19 05:30 Blood Culture - Final Blood 05/19/19 13:59 Gram Stain - Final Foot - Left Wound Culture - Final Staphylococcus aureus Laboratory Results WBC 2.9 k/uL (3.8-10.6) L 05/23/19 07:59 RBC 3.24 m/uL (4.30-5.90) L 05/23/19 07:59 Hgb 9.2 gm/dL (13.0-17.5) L 05/23/19 07:59 Hct 28.4 % (39.0-53.0) L 05/23/19 07:59 MCV 87.7 fL (80.0-100.0) 05/23/19 07:59 MCH 28.3 pg (25.0-35.0) 05/23/19 07:59 MCHC 32.2 g/dL (31.0-37.0) 05/23/19 07:59 RDW 14.6 % (11.5-15.5) 05/23/19 07:59 Plt Count 40 k/uL (150-450) L 05/23/19 07:59 Neutrophils % 70 % 05/23/19 07:59 Lymphocytes % 15 % 05/23/19 07:59 Monocytes % 9 % 05/23/19 07:59 Eosinophils % 3 % 05/23/19 07:59 Basophils % 1 % 05/23/19 07:59 Neutrophils # 2.0 k/uL (1.3-7.7) 05/23/19 07:59 Lymphocytes # 0.4 k/uL (1.0-4.8) L 05/23/19 07:59 Monocytes # 0.3 k/uL (0-1.0) 05/23/19 07:59 Eosinophils # 0.1 k/uL (0-0.7) 05/23/19 07:59 Basophils # 0.0 k/uL (0-0.2) 05/23/19 07:59 Manual Slide Review Performed 05/21/19 05:14 Hypochromasia Slight 05/23/19 07:59 Poikilocytosis Moderate 05/23/19 07:59 Anisocytosis (manual) Present 05/19/19 08:00 PT 16.3 sec (9.0-12.0) H 05/19/19 08:00 INR 1.6 (<1.2) H 05/19/19 08:00 APTT 28.6 sec (22.0-30.0) 05/19/19 08:00 VBG pH 7.48 (7.31-7.41) H 05/19/19 08:39 VBG pCO2 32 mmHg (37-51) L 05/19/19 08:39 VBG HCO3 24 mmol/L (24-28) 05/19/19 08:39 Sodium 140 mmol/L (137-145) 05/23/19 07:59 Potassium 3.6 mmol/L (3.5-5.1) 05/23/19 07:59 Chloride 109 mmol/L (98-107) H 05/23/19 07:59 Carbon Dioxide 25 mmol/L (22-30) 05/23/19 07:59 Anion Gap 6 mmol/L 05/23/19 07:59 BUN 48 mg/dL (9-20) H 05/23/19 07:59 Creatinine 2.45 mg/dL (0.66-1.25) H 05/23/19 07:59 Est GFR (CKD-EPI)AfAm 31 (>60 ml/min/1.73 sqM) 05/23/19 07:59 Est GFR (CKD-EPI)NonAf 27 (>60 ml/min/1.73 sqM) 05/23/19 07:59 Glucose 150 mg/dL (74-99) H 05/23/19 07:59 POC Glucose (mg/dL) 263 mg/dL (75-99) H 05/23/19 17:06 POC Glu Outside Cutter ID Shena Noriega 05/23/19 17:06 Lactic Ac Sepsis Rflx Y 05/19/19 12:36 Plasma Lactic Acid Chad 2.0 mmol/L (0.7-2.0) 05/19/19 15:59 Calcium 8.0 mg/dL (8.4-10.2) L 05/23/19 07:59 Magnesium 1.6 mg/dL (1.6-2.3) 05/23/19 07:59 Iron 25 ug/dL (65-175) L 05/20/19 05:30 TIBC 220 ug/dL (228-460) L 05/20/19 05:30 % Saturation 11.36 (15.00-50.00) L 05/20/19 05:30 Ferritin 34.3 ng/mL (22.0-322.0) 05/20/19 05:30 Total Bilirubin 1.9 mg/dL (0.2-1.3) H 05/22/19 05:30 AST 40 U/L (17-59) 05/22/19 05:30 ALT 18 U/L (4-49) 05/22/19 05:30 Alkaline Phosphatase 64 U/L (38-126) 05/22/19 05:30 Ammonia <9 umol/L (<30) 05/22/19 05:30 Creatine Kinase 49 U/L (55-170) L 05/19/19 08:00 Troponin I 0.019 ng/mL (0.000-0.034) 05/19/19 08:00 Total Protein 6.1 g/dL (6.3-8.2) L 05/22/19 05:30 Albumin 2.6 g/dL (3.5-5.0) L 05/22/19 05:30 Prealbumin <5.0 mg/dL (18.0-42.0) L 05/20/19 05:30 Lipase 93 U/L (23-300) 05/19/19 08:00 Urine Color Yellow 05/19/19 08:20 Urine Appearance Turbid (Clear) 05/19/19 08:20 Urine pH 5.5 (5.0-8.0) 05/19/19 08:20 Ur Specific [place] 1.012 (1.001-1.035) 05/19/19 08:20 Urine Protein 1+ (Negative) H 05/19/19 08:20 Urine Glucose (UA) Negative (Negative) 05/19/19 08:20 Urine Ketones Negative (Negative) 05/19/19 08:20 Urine Blood Moderate (Negative) H 05/19/19 08:20 Urine Nitrite Negative (Negative) 05/19/19 08:20 Urine Bilirubin Negative (Negative) 05/19/19 08:20 Urine Urobilinogen 2.0 mg/dL (<2.0) 05/19/19 08:20 Ur Leukocyte Esterase Large (Negative) H 05/19/19 08:20 Urine RBC >182 /hpf (0-5) H 05/19/19 08:20 Urine WBC >182 /hpf (0-5) H 05/19/19 08:20 Urine WBC Clumps Many /hpf (None) H 05/19/19 08:20 Ur Squamous Epith Cells 7 /hpf (0-4) H 05/19/19 08:20 Urine Mucus Rare /hpf (None) H 05/19/19 08:20 Serum Alcohol <10 mg/dL 05/19/19 08:00 Influenza Type A RNA Not Detected (Not Detectd) 05/19/19 08:20 Influenza Type B (PCR) Not Detected (Not Detectd) 05/19/19 08:20 Microbiology 05/19/19 13:59 Foot - Left Anaerobic Culture - Final 05/20/19 17:23 Blood Blood Culture Gram Stain - Final 05/20/19 17:23 Blood Blood Culture - Final Staphylococcus aureus 05/22/19 05:30 Blood Blood Culture Gram Stain - Preliminary 05/22/19 05:30 Blood Blood Culture - Final 05/19/19 13:59 Foot - Left Gram Stain - Final 05/19/19 13:59 Foot - Left Wound Culture - Final Staphylococcus aureus 05/19/19 11:15 Toe - Right First Gram Stain - Final 05/19/19 11:15 Toe - Right First Wound Culture - Final Staphylococcus aureus 05/19/19 08:00 Blood Blood Culture Gram Stain - Final 05/19/19 08:00 Blood Blood Culture - Final Staphylococcus aureus 05/20/19 17:23 Blood Blood Culture - Final 05/19/19 08:20 Urine,Voided Urine Culture - Final Staphylococcus aureus 05/19/19 08:00 Blood Blood Culture - Final Assessment and Plan (1) 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 There is evidence of hepatorenal syndrome as well as hepatic encephalopathy. Lactulose by enema has been requested. The patient has evidence of an infection to the right great toe which may have resulted in significant worsening of his status. By his history is have cultures with Serratia and MRSA at that site and constantly antibiotic therapy with Rocephin and daptomycin will be utilized. Daptomycin because of his acute on chronic renal failure as well as a Vanco COSTA of 2 with a bony infection. Over he will tolerate this. Local wound care with nikunj has been requested that he be changed on a daily basis for now. He is currently nonambulatory. Need to have ongoing assessment for his mobility and ensure that he is turned in bed. The daughter is aware of his poor status and they have a palliative care consult and Monday however they may be definitive consult which they are aware of if he does not show improvement. There would be open to hospice if he does not improve. May the patient has had some improvement of his status neurologically. He is now awake and interactive., He is still poor historian but does recognize the observer. The wound culture, blood culture, and urine culture all show evidence of the MRSA and he is on daptomycin therapy. Follow blood cultures been requested. The patient does seem to have some improvement and other laboratories have shown some improvement with the ammonia dropping from 88-16. He does have some I Radha failure but this appears For now he maintains on the antibiotic therapy with daptomycin and Rocephin until. There may be the possibility of de-escalation of Rocephin, however until there is no evidence of any biliary process so be continued for Still has a poor prognosis but has significant improvement at this tiime. 05/21/2019 corinnanet is improved but blood culture is still positive, repeat culture is requested, and will continue daptomycin for now. clinically he has improved and hopefully will have clearance of his bacteremia. Once this occurs will be able to have IV access placed with a midline complete several weeks of antibiotic therapy He will need follow-up of the wound healing Center. 05/23/2019 he follow blood cultures remain positive and consequently IV access is yet to be placed. Echocardiogram is requested to evaluate other potential s ources of his bacteremia. If echocardiogram is negative we'll ask for a vascular surgical evaluation to the right great toe he may need a surgical debridement at that site to allow resolution of underlying infection in that area. Family plans on taking to home to treat him there. Current Visit: Yes Status: Acute Code(s): E11.621 - TYPE 2 DIABETES MELLITUS WITH FOOT ULCER; L97.514 - NON-PRS CHRONIC ULCER OTH PRT RIGHT FOOT W NECROSIS OF BONE SNOMED Code(s): 5261357806292 (2) Hepatic encephalopathy Current Visit: Yes Status: Acute Code(s): K72.90 - HEPATIC FAILURE, UNSPECIFIED WITHOUT COMA SNOMED Code(s): 17257721 (3) Hyperammonemia Current Visit: Yes Status: Acute Code(s): E72.20 - DISORDER OF UREA CYCLE METABOLISM, UNSPECIFIED SNOMED Code(s): 9848886 (4) Cirrhosis of liver Current Visit: Yes Status: Chronic Code(s): K74.60 - UNSPECIFIED CIRRHOSIS OF LIVER SNOMED Code(s): 01696707
[2019-05-24 00:03] LABS: Glucose,Whole Blood 238 mg/dL (75-99)
[2019-05-24] MEDS: INSULIN ASPART (NovoLOG) 100 UNIT/ML VIAL SQ SCH ×5 (00:11→20:28)
--- NOTE | 2019-05-24 01:47 | P.PN ---
Subjective Progress Note Date: 05/23/19 Principal diagnosis: decompensated cirrhosis, hepatic encephalopathy, pancytopenia patient is seen lying comfortably in bed. Patient reports 1 bowel movement today. No abdominal pain. Tolerating his diet. Objective - Vital Signs Vital signs: Vital Signs Temp 97.7 F 05/23/19 12:00 Pulse 72 05/23/19 12:00 Resp 16 05/23/19 12:00 BP 147/71 05/23/19 12:00 Pulse Ox 95 05/23/19 12:00 Intake & Output 05/22/19 05/23/19 05/23/19 18:59 06:59 18:59 Intake Total 1746 550 400 Output Total 250 300 Balance 1496 550 100 Weight 117.5 kg Intake: Intake, IV Titration 600 550 400 Amount DAPTOmycin 500 mg In 50 Sodium Chloride 0.9% 50 ml @ 100 mls/hr IVPB Q24H JACQUELYN Rx#:[id number] Sodium Chloride 0.9% 1, 500 550 400 000 ml @ 50 mls/hr IV . Q20H JACQUELYN Rx#:[id number] cefTRIAXone 2 gm In 50 Sodium Chloride 0.9% 50 ml @ 100 mls/hr IVPB Q24HR JACQUELYN Rx#:[id number] Oral 1146 Output: Urine 250 300 Straight 300 Other: Voiding Method Indwelling Catheter Indwelling Catheter Indwelling Catheter - Exam On physical examination, patient appears comfortable in no apparent distress. HEAD: Normocephalic, atraumatic. EYES: No scleral icterus. No conjunctival injection. MOUTH: No lesions, tongue midline. NECK: Trachea midline, no gross abnormalities. CHEST: decreased air entry in all lung negron ABDOMEN: Soft, obese. Bowel sounds are positive. No organomegaly. No guarding or rigidity. EXTREMITIES: No pedal edema. SKIN: No rashes, no jaundice. NEUROLOGIC: Alert and oriented x3, no asterixis noted. No focal deficits. - Labs CBC & Chem 7: 05/23/19 07:59 05/23/19 07:59 Labs: Abnormal Lab Results - Last 24 Hours (Table) 05/22/19 05/23/19 05/23/19 Range/Units 16:48 00:06 06:50 WBC (3.8-10.6) k/uL RBC (4.30-5.90) m/uL Hgb (13.0-17.5) gm/dL Hct (39.0-53.0) % Plt Count (150-450) k/uL Lymphocytes # (1.0-4.8) k/uL Chloride (98-107) mmol/L BUN (9-20) mg/dL Creatinine (0.66-1.25) mg/dL Glucose (74-99) mg/dL POC Glucose (mg/dL) 186 H 178 H 146 H (75-99) mg/dL Calcium (8.4-10.2) mg/dL 05/23/19 05/23/19 05/23/19 Range/Units 07:59 07:59 11:39 WBC 2.9 L (3.8-10.6) k/uL RBC 3.24 L (4.30-5.90) m/uL Hgb 9.2 L (13.0-17.5) gm/dL Hct 28.4 L (39.0-53.0) % Plt Count 40 L (150-450) k/uL Lymphocytes # 0.4 L (1.0-4.8) k/uL Chloride 109 H (98-107) mmol/L BUN 48 H (9-20) mg/dL Creatinine 2.45 H (0.66-1.25) mg/dL Glucose 150 H (74-99) mg/dL POC Glucose (mg/dL) 140 H (75-99) mg/dL Calcium 8.0 L (8.4-10.2) mg/dL Microbiology - Last 24 Hours (Table) 05/22/19 05:30 Blood Culture Gram Stain - Preliminary Blood 05/22/19 05:30 Blood Culture - Final Blood 05/19/19 13:59 Gram Stain - Final Foot - Left Wound Culture - Final Staphylococcus aureus 05/19/19 11:15 Gram Stain - Final Toe - Right First Wound Culture - Final Staphylococcus aureus 05/19/19 08:00 Blood Culture Gram Stain - Final Blood Blood Culture - Final Staphylococcus aureus 05/20/19 17:23 Blood Culture Gram Stain - Preliminary Blood Blood Culture - Preliminary Presumptive MRSA Assessment and Plan (1) Cirrhosis of liver Narrative/Plan: 64-year-old male with decompensated cirrhosis with encephalopathy and ascites. Patient had presented with elevated ammonia and mental status changes which is improved with lactulose therapy. Current Visit: Yes Status: Chronic Code(s): K74.60 - UNSPECIFIED CIRRHOSIS OF LIVER SNOMED Code(s): 49805870 (2) Portal hypertension Current Visit: Yes Status: Chronic Code(s): K76.6 - PORTAL HYPERTENSION SNOMED Code(s): 30435454 (3) Hepatic encephalopathy Current Visit: No Status: Acute Code(s): K72.90 - HEPATIC FAILURE, UNSPECIFIED WITHOUT COMA SNOMED Code(s): 15445279 Plan: supportive care Okay for sodium restricted diet Continue lactulose, titrate for 3-4 bowel movements daily Continue diuretic regimen per nephrology service, appreciate the recommendations Continue antibiotic therapy for cellulitis Continue medical management of other comorbidities Okay for discharge from gastroenterology standpoint Follow-up with GI service after discharge Thank you for allowing us to participate in the care of the patient, the GI service will stand by, please call us back with any questions or concerns
[2019-05-24 07:04] LABS: Glucose,Whole Blood 183 mg/dL (75-99)
[2019-05-24] MEDS: LACTULOSE 20 GM/30 ML CUP PO SCH ×2 (10:04→20:38)
[2019-05-24] MEDS: PANTOPRAZOLE 40 MG TABLET PO SCH (10:05)
[2019-05-24] MEDS: PREGABALIN 100 MG CAP PO SCH ×2 (10:05→20:28)
[2019-05-24] MEDS: FUROSEMIDE 10 MG/ML 4 ML VIAL IV SCH ×2 (10:05→20:28)
[2019-05-24] MEDS: SPIRONOLACTONE 25 MG TAB PO SCH ×2 (10:05→20:27)
[2019-05-24 10:14] LABS: Calcium 8.3 mg/dL (8.4-10.2)
[2019-05-24 11:30] LABS: Glucose,Whole Blood 218 mg/dL (75-99)
--- NOTE | 2019-05-24 11:30 | ECHOF ---
Referral Reason:Endocarditis MEASUREMENTS -------- HEIGHT: 177.8 cm WEIGHT: 117.5 kg BP: 141/71 RVIDd: 3.2 cm (< 3.3) IVSd: 1.2 cm (0.6 - 1.1) LVIDd: 4.9 cm (3.9 - 5.3) LVPWd: 1.1 cm (0.6 - 1.1) IVSs: 1.8 cm LVIDs: 3.1 cm LVPWs: 1.6 cm LA Diam: 3.7 cm (2.7 - 3.8) LAESV Index (A-L): 22.52 ml/m Ao Diam: 3.1 cm (2.0 - 3.7) AV Cusp: 2.1 cm (1.5 - 2.6) MV EXCURSION: 13.536 mm (> 18.000) MV EF SLOPE: 61 mm/s (70 - 150) EPSS: 0.7 cm MV E Andrey: 1.31 m/s MV DecT: 284 ms MV A Andrey: 1.08 m/s MV E/A Ratio: 1.21 RAP: 5.00 mmHg RVSP: 36.12 mmHg FINDINGS -------- Sinus rhythm. This was a technically adequate study. The left ventricular size is normal. There is borderline concentric left ventricular hypertrophy. Overall left ventricular systolic function is normal with, an EF between 60 - 65 %. The right ventricle is normal in size. Normal LA size by volume 22+/-6 ml/m2. The right atrium is normal in size. Interatrial and interventricular septum intact. The aortic valve is trileaflet and appears structurally normal. Mild mitral annular calcification present. Mild tricuspid regurgitation present. There is mild pulmonary hypertension. The right ventricular systolic pressure, as measured by Doppler, is 36.12mmHg. There is no pulmonic regurgitation present. The aortic root size is normal. IVC Not well visulized. There is no pericardial effusion. CONCLUSIONS -------- 1. Sinus rhythm. 2. This was a technically adequate study. 3. The left ventricular size is normal. 4. There is borderline concentric left ventricular hypertrophy. 5. Overall left ventricular systolic function is normal with, an EF between 60 - 65 %. 6. The right ventricle is normal in size. 7. Normal LA size by volume 22+/-6 ml/m2. 8. The right atrium is normal in size. 9. Interatrial and interventricular septum intact. 10. The aortic valve is trileaflet and appears structurally normal. 11. Mild mitral annular calcification present. 12. Mild tricuspid regurgitation present. 13. There is mild pulmonary hypertension. 14. The right ventricular systolic pressure, as measured by Doppler, is 36.12mmHg. 15. There is no pulmonic regurgitation present. 16. The aortic root size is normal. 17. IVC Not well visulized. 18. There is no pericardial effusion. POWDER LOADER: Autumn Edwards RDCS
--- NOTE | 2019-05-24 11:43 | P.PN ---
Subjective Progress Note Date: 05/23/19 Luis is a 64-year-old white male patient well known to me.he has a history of liver cirrhosis and liver failure lung with recurrent ascites and occasionally hyper ammoniemia, which she takes lactulose for 4 times daily. His daughter reports he's not had a bowel movement in several days. He injured his toe several days ago. This is been having purulent discharge in looking quite infected just over the past day. He's become more and more weak and confused. He himself was somewhat arousable the emergency room. We discussed with. Quickly lost consciousness. His 2 sons and daughter were at bedside and discussed her case with him. We had recently ordered a palliative care consult this Monday. They did not want to put him in hospice at this time. DNR, no code was requested and will be implemented. currently Justice denies any chest pains, pressures or shortness of breath. He does complain of some abdominal pain. He does grimace when palpated his abdomen. 05/20/2019 yesterday patient somnolent, pain med regime adjusted. Significant improvement in sensorium today. States pain not relieved on Tylenol.complains of suprapubic pain-Chu catheter draining maycol urine.maintained on both IV fluids and IV Lasix as per nephrology. Creatinine2.46.wound and blood culture reporting presumptive MRSA, urine culture presumptive staph aureus,anaerobic and Gram stain pending.maintained on Rocephin, daptomycin. afebrile.moderate right pleural effusion,vital signs stable, maintaining O2 sats in the high 90s on 2 L nasal cannula.denies chest pain, palpitations or increased shortness of breath. 05/21/2019 Continues on both IV fluids and Lasix as per nephrology, creatinine 2.32. chest x-ray completed yesterday afternoon reporting CHF, right pleural effusion.chest ultrasound reporting moderate right-sided pleural effusion, marked.no thoracentesis recommended per pulmonary at this time.maintained on Rocephin and daptomycin as per infectious disease. OxyContin resumed yesterday,pain better controlled,requesting lyrica be resumed.reports he cannot sleep without his Restoril, also requesting Restoril be resumed.having greater than 3 bowel movements this morning,no hallucinations, ammonia level pending. 05/22/2019 Pain better controlled, eager for discharge. Maintained on daptomycin ,Rocephin. Blood cultures continue to report gram-positive cocci in clusters.blood cultures repeated with preliminary reporting Staphylococcus aureus.afebrile.creatinine 2.44. Blood sugars controlled.lactulose decreased yesterday as patient was having greater than 3 bowel movements by midday. total bili 1.9, ammonia less than 9. 05/23/2019 no overnight events. maintained on Rocephin and daptomycin.afebrile. Creatinine 2.45.Echo reporting normal LV function, EF 60-65%, mild pulmonary hypertension,no vegetation,no pericardial effusion reported. Objective - Vital Signs Vital signs: Vital Signs Temp 97.7 F 05/23/19 12:00 Pulse 72 05/23/19 12:00 Resp 16 05/23/19 12:00 BP 147/71 05/23/19 12:00 Pulse Ox 95 05/23/19 12:00 Intake & Output 05/22/19 05/23/19 05/23/19 18:59 06:59 18:59 Intake Total 4011 084 3321 Output Total 250 575 Balance 1496 550 525 Weight 117.5 kg Intake: Intake, IV Titration 600 550 500 Amount DAPTOmycin 500 mg In 50 Sodium Chloride 0.9% 50 ml @ 100 mls/hr IVPB Q24H JACQUELYN Rx#:[id number] Magnesium Sulfate-D5w Pmx 100 1 gm In Dextrose/Water 1 100ml.bag @ 100 mls/hr IVPB Q1H JACQUELYN Rx#: [id number] Sodium Chloride 0.9% 1, 500 550 400 000 ml @ 50 mls/hr IV . Q20H JACQUELYN Rx#:[id number] cefTRIAXone 2 gm In 50 Sodium Chloride 0.9% 50 ml @ 100 mls/hr IVPB Q24HR JACQUELYN Rx#:[id number] Oral 1146 600 Output: Urine 250 575 Straight 575 Other: Voiding Method Indwelling Catheter Indwelling Catheter Indwelling Catheter # Bowel Movements 2 - Exam GENERAL: sitting up in bed, alert and oriented 3,no acute distress HEAD: Atraumatic, normocephalic. EYES: Pupils equal round and reactive to light, extraocular movements intact, conjunctiva are normal. ENT:nares patent, oropharynx clear without exudates. oral membranes moist. NECK: Normal range of motion, supple without lymphadenopathy or JVD, no thyromegaly LUNGS: Breath sounds course with the decreased air exchange worse on the right side than the left.no rhonchi, fine bibasilar crackles, no wheezes HEART: Regular rate and rhythm without murmurs, rubs or gallops.S1S2 Normal ABDOMEN: Soft, nontender, distended ,ascites.No guarding, no rebound. hepatomegaly is appreciated today.positive bowel sounds EXTREMITIES: Normal range of motion, trace edema. No clubbing or cyanosis. NEUROLOGICAL: Cranial nerves II through XII grossly intact. moves all 4 extremities, no gross focal deficits. SKIN: right great toe plantar surface shows a Asif grade 3 diabetic ulcer. right foot dressing clean dry and intact. Microbiology 05/22/19 05:30 Blood Blood Culture Gram Stain - Preliminary 05/22/19 05:30 Blood Blood Culture - Preliminary Presumptive MRSA 05/19/19 13:59 Foot - Left Anaerobic Culture - Final 05/20/19 17:23 Blood Blood Culture Gram Stain - Final 05/20/19 17:23 Blood Blood Culture - Final Staphylococcus aureus 05/22/19 05:30 Blood Blood Culture - Final 05/19/19 13:59 Foot - Left Gram Stain - Final 05/19/19 13:59 Foot - Left Wound Culture - Final Staphylococcus aureus 05/19/19 11:15 Toe - Right First Gram Stain - Final 05/19/19 11:15 Toe - Right First Wound Culture - Final Staphylococcus aureus 05/19/19 08:00 Blood Blood Culture Gram Stain - Final 05/19/19 08:00 Blood Blood Culture - Final Staphylococcus aureus 05/20/19 17:23 Blood Blood Culture - Final 05/19/19 08:20 Urine,Voided Urine Culture - Final Staphylococcus aureus 05/19/19 08:00 Blood Blood Culture - Final - Labs CBC & Chem 7: 05/23/19 07:59 05/24/19 08:24 Labs: Abnormal Lab Results - Last 24 Hours (Table) 05/23/19 05/23/19 05/23/19 Range/Units 00:06 06:50 07:59 WBC 2.9 L (3.8-10.6) k/uL RBC 3.24 L (4.30-5.90) m/uL Hgb 9.2 L (13.0-17.5) gm/dL Hct 28.4 L (39.0-53.0) % Plt Count 40 L (150-450) k/uL Lymphocytes # 0.4 L (1.0-4.8) k/uL Chloride (98-107) mmol/L BUN (9-20) mg/dL Creatinine (0.66-1.25) mg/dL Glucose (74-99) mg/dL POC Glucose (mg/dL) 178 H 146 H (75-99) mg/dL Calcium (8.4-10.2) mg/dL 05/23/19 05/23/19 05/23/19 Range/Units 07:59 11:39 17:06 WBC (3.8-10.6) k/uL RBC (4.30-5.90) m/uL Hgb (13.0-17.5) gm/dL Hct (39.0-53.0) % Plt Count (150-450) k/uL Lymphocytes # (1.0-4.8) k/uL Chloride 109 H (98-107) mmol/L BUN 48 H (9-20) mg/dL Creatinine 2.45 H (0.66-1.25) mg/dL Glucose 150 H (74-99) mg/dL POC Glucose (mg/dL) 140 H 263 H (75-99) mg/dL Calcium 8.0 L (8.4-10.2) mg/dL Microbiology - Last 24 Hours (Table) 05/20/19 17:23 Blood Culture Gram Stain - Final Blood Blood Culture - Final Staphylococcus aureus 05/22/19 05:30 Blood Culture Gram Stain - Preliminary Blood 05/22/19 05:30 Blood Culture - Final Blood 05/19/19 13:59 Gram Stain - Final Foot - Left Wound Culture - Final Staphylococcus aureus 05/19/19 11:15 Gram Stain - Final Toe - Right First Wound Culture - Final Staphylococcus aureus 05/19/19 08:00 Blood Culture Gram Stain - Final Blood Blood Culture - Final Staphylococcus aureus Assessment and Plan Assessment: (1) Hepatic encephalopathy, improving Current Visit: Yes Status: Acute Code(s): K72.90 - HEPATIC FAILURE, UNSPECIFIED WITHOUT COMA SNOMED Code(s): 47055988 (2) Diabetic ulcer of right footwith MRSA Current Visit: Yes Status: Acute Code(s): E11.621 - TYPE 2 DIABETES MELLITUS WITH FOOT ULCER; L97.519 - NON-PRS CHRONIC ULCER OTH PRT RIGHT FOOT W UNSP SEVERITY SNOMED Code(s): 944693025 (3) DNR (do not resuscitate) Current Visit: Yes Status: Acute Code(s): Z66 - DO NOT RESUSCITATE SNOMED Code(s): 040170543 (4) DNR (do not resuscitate) discussion Current Visit: Yes Status: Acute Code(s): Z71.89 - OTHER SPECIFIED COUNSELING SNOMED Code(s): 928571569 (5) Ascites Current Visit: Yes Status: Acute Code(s): R18.8 - OTHER ASCITES SNOMED Code(s): 473620744 (6) Cellulitis Narrative/Plan: right great toe Current Visit: Yes Status: Acute Code(s): L03.90 - CELLULITIS, UNSPECIFIED SNOMED Code(s): 748470862 (7) Confusion Current Visit: Yes Status: Acute Code(s): R41.0 - DISORIENTATION, UNSPECIFIED SNOMED Code(s): 438708571 (8) Generalized weakness Current Visit: Yes Status: Acute Code(s): R53.1 - WEAKNESS SNOMED Code(s): 70040094 (9) Hyperammonemia Current Visit: Yes Status: Acute Code(s): E72.20 - DISORDER OF UREA CYCLE METABOLISM, UNSPECIFIED SNOMED Code(s): 7273219 (10) Myelodysplasia (myelodysplastic syndrome) Current Visit: No Status: Acute Code(s): D46.9 - MYELODYSPLASTIC SYNDROME, UNSPECIFIED SNOMED Code(s): 156518262 (11) acute renal failure secondary to ATN related to infection, possible hepatorenal (12) chronic kidney disease stage IV (13) anemia of chronic disease (14) sepsis secondary to infection,MRSA bacteremia plan: Continue on current medication regime ,monitoring and symptomatic treatment.Repeat blood cultures positive, midline placement pending clearance of bacteremia. Diuretics as per nephrology.PT/OT. The impression and plan of care has been dictated as directed. : I performed a history and examination of this patient, discussed the same with the dictator. I agree with the dictator's note ,documented as a scribe. Any additional findings or plans will be noted.
--- NOTE | 2019-05-24 11:55 | P.PN ---
Subjective Progress Note Date: 05/24/19 Luis is a 64-year-old white male patient well known to me.he has a history of liver cirrhosis and liver failure lung with recurrent ascites and occasionally hyper ammoniemia, which she takes lactulose for 4 times daily. His daughter reports he's not had a bowel movement in several days. He injured his toe several days ago. This is been having purulent discharge in looking quite infected just over the past day. He's become more and more weak and confused. He himself was somewhat arousable the emergency room. We discussed with. Quickly lost consciousness. His 2 sons and daughter were at bedside and discussed her case with him. We had recently ordered a palliative care consult this Monday. They did not want to put him in hospice at this time. DNR, no code was requested and will be implemented. currently Justice denies any chest pains, pressures or shortness of breath. He does complain of some abdominal pain. He does grimace when palpated his abdomen. 05/20/2019 yesterday patient somnolent, pain med regime adjusted. Significant improvement in sensorium today. States pain not relieved on Tylenol.complains of suprapubic pain-Chu catheter draining maycol urine.maintained on both IV fluids and IV Lasix as per nephrology. Creatinine2.46.wound and blood culture reporting presumptive MRSA, urine culture presumptive staph aureus,anaerobic and Gram stain pending.maintained on Rocephin, daptomycin. afebrile.moderate right pleural effusion,vital signs stable, maintaining O2 sats in the high 90s on 2 L nasal cannula.denies chest pain, palpitations or increased shortness of breath. 05/21/2019 Continues on both IV fluids and Lasix as per nephrology, creatinine 2.32. chest x-ray completed yesterday afternoon reporting CHF, right pleural effusion.chest ultrasound reporting moderate right-sided pleural effusion, marked.no thoracentesis recommended per pulmonary at this time.maintained on Rocephin and daptomycin as per infectious disease. OxyContin resumed yesterday,pain better controlled,requesting lyrica be resumed.reports he cannot sleep without his Restoril, also requesting Restoril be resumed.having greater than 3 bowel movements this morning,no hallucinations, ammonia level pending. 05/22/2019 Pain better controlled, eager for discharge. Maintained on daptomycin ,Rocephin. Blood cultures continue to report gram-positive cocci in clusters.blood cultures repeated with preliminary reporting Staphylococcus aureus.afebrile.creatinine 2.44. Blood sugars controlled.lactulose decreased yesterday as patient was having greater than 3 bowel movements by midday. total bili 1.9, ammonia less than 9. 05/23/2019 no overnight events. maintained on Rocephin and daptomycin.afebrile. Creatinine 2.45.Echo reporting normal LV function, EF 60-65%, mild pulmonary hypertension,no vegetation,no pericardial effusion reported. 05/24/2019 Persistent bacteremia,vascular surgery consulted to evaluate right great toe for potential debridement.Continues on daptomycin, Rocep hinafebrile.creatinine continues to improve,2.39. denies chest pain, palpitations. Objective - Vital Signs Vital signs: Vital Signs Temp 98.3 F 05/24/19 06:37 Pulse 74 05/24/19 06:37 Resp 18 05/24/19 06:37 BP 156/68 05/24/19 06:37 Pulse Ox 95 05/24/19 06:37 Intake & Output 05/23/19 05/24/19 05/24/19 18:59 06:59 18:59 Intake Total 1100 490 Output Total 575 1000 Balance 525 -510 Weight 120 kg Intake: Intake, IV Titration 500 Amount Magnesium Sulfate-D5w Pmx 100 1 gm In Dextrose/Water 1 100ml.bag @ 100 mls/hr IVPB Q1H [facility] Rx#: [id number] Sodium Chloride 0.9% 1, 400 000 ml @ 50 mls/hr IV . Q20H [facility]QU[facility]N Rx#:[id number] Oral 600 490 Output: Urine 575 1000 Straight 575 1000 Other: Voiding Method Indwelling Catheter Indwelling Catheter # Bowel Movements 2 1 - Exam GENERAL: sitting up in bed, alert and oriented 3,no acute distress HEAD: Atraumatic, normocephalic. EYES: Pupils equal round and reactive to light, extraocular movements intact, conjunctiva are normal. ENT:nares patent, oropharynx clear without exudates. oral membranes moist. NECK: Normal range of motion, supple without lymphadenopathy or JVD, no thyromegaly LUNGS: Breath sounds course with the decreased air exchange worse on the right side than the left.no rhonchi, fine bibasilar crackles, no wheezes HEART: Regular rate and rhythm without murmurs, rubs or gallops.S1S2 Normal ABDOMEN: Soft, nontender, distended ,ascites.No guarding, no rebound. hepatomegaly is appreciated today.positive bowel sounds EXTREMITIES: Normal range of motion, trace edema. No clubbing or cyanosis. NEUROLOGICAL: Cranial nerves II through XII grossly intact. moves all 4 extremities, no gross focal deficits. SKIN: right great toe plantar surface shows a Asif grade 3 diabetic ulcer. right foot dressing clean dry and intact. Microbiology 05/22/19 05:30 Blood Blood Culture Gram Stain - Preliminary 05/22/19 05:30 Blood Blood Culture - Preliminary Presumptive MRSA 05/19/19 13:59 Foot - Left Anaerobic Culture - Final 05/20/19 17:23 Blood Blood Culture Gram Stain - Final 05/20/19 17:23 Blood Blood Culture - Final Staphylococcus aureus 05/22/19 05:30 Blood Blood Culture - Final 05/19/19 13:59 Foot - Left Gram Stain - Final 05/19/19 13:59 Foot - Left Wound Culture - Final Staphylococcus aureus 05/19/19 11:15 Toe - Right First Gram Stain - Final 05/19/19 11:15 Toe - Right First Wound Culture - Final Staphylococcus aureus 05/19/19 08:00 Blood Blood Culture Gram Stain - Final 05/19/19 08:00 Blood Blood Culture - Final Staphylococcus aureus 05/20/19 17:23 Blood Blood Culture - Final 05/19/19 08:20 Urine,Voided Urine Culture - Final Staphylococcus aureus 05/19/19 08:00 Blood Blood Culture - Final - Labs CBC & Chem 7: 05/23/19 07:59 05/24/19 08:24 Labs: Abnormal Lab Results - Last 24 Hours (Table) 05/23/19 05/24/19 05/24/19 Range/Units 17:06 00:02 07:03 Chloride (98-107) mmol/L BUN (9-20) mg/dL Creatinine (0.66-1.25) mg/dL Glucose (74-99) mg/dL POC Glucose (mg/dL) 263 H 238 H 183 H (75-99) mg/dL Calcium (8.4-10.2) mg/dL 05/24/19 05/24/19 Range/Units 08:24 11:28 Chloride 108 H (98-107) mmol/L BUN 45 H (9-20) mg/dL Creatinine 2.39 H (0.66-1.25) mg/dL Glucose 205 H (74-99) mg/dL POC Glucose (mg/dL) 218 H (75-99) mg/dL Calcium 8.3 L (8.4-10.2) mg/dL Microbiology - Last 24 Hours (Table) 05/22/19 05:30 Blood Culture Gram Stain - Preliminary Blood Blood Culture - Preliminary Presumptive MRSA 05/19/19 13:59 Anaerobic Culture - Final Foot - Left 05/20/19 17:23 Blood Culture Gram Stain - Final Blood Blood Culture - Final Staphylococcus aureus Assessment and Plan Assessment: (1) Hepatic encephalopathy, improving Current Visit: Yes Status: Acute Code(s): K72.90 - HEPATIC FAILURE, UNSPECIFIED WITHOUT COMA SNOMED Code(s): 64672087 (2) Diabetic ulcer of right footwith MRSA Current Visit: Yes Status: Acute Code(s): E11.621 - TYPE 2 DIABETES MELLITUS WITH FOOT ULCER; L97.519 - NON-PRS CHRONIC ULCER OTH PRT RIGHT FOOT W UNSP SEVERITY SNOMED Code(s): 360799609 (3) DNR (do not resuscitate) Current Visit: Yes Status: Acute Code(s): Z66 - DO NOT RESUSCITATE SNOMED Code(s): 265887033 (4) DNR (do not resuscitate) discussion Current Visit: Yes Status: Acute Code(s): Z71.89 - OTHER SPECIFIED CO UNSELING SNOMED Code(s): 675365719 (5) Ascites Current Visit: Yes Status: Acute Code(s): R18.8 - OTHER ASCITES SNOMED Code(s): 257341137 (6) Cellulitis Narrative/Plan: right great toe Current Visit: Yes Status: Acute Code(s): L03.90 - CELLULITIS, UNSPECIFIED SNOMED Code(s): 814315454 (7) Confusion Current Visit: Yes Status: Acute Code(s): R41.0 - DISORIENTATION, UNSPECIFIED SNOMED Code(s): 330480154 (8) Generalized weakness Current Visit: Yes Status: Acute Code(s): R53.1 - WEAKNESS SNOMED Code(s): 06629405 (9) Hyperammonemia Current Visit: Yes Status: Acute Code(s): E72.20 - DISORDER OF UREA CYCLE METABOLISM, UNSPECIFIED SNOMED Code(s): 0444849 (10) Myelodysplasia (myelodysplastic syndrome) Current Visit: No Status: Acute Code(s): D46.9 - MYELODYSPLASTIC SYNDROME, UNSPECIFIED SNOMED Code(s): 191362601 (11) acute renal failure secondary to ATN related to infection, possible hepatorenal (12) chronic kidney disease stage IV (13) anemia of chronic disease (14) sepsis secondary to infection,MRSA bacteremia plan: Continue on current medication regime ,monitoring and symptomatic bruce atment.vascular surgery consulted, recommendations pending. Diuretics as per nephrology.PT/OT.midline catheter pending clearance of bacteremia. The impression and plan of care has been dictated as directed. : I performed a history and examination of this patient, discussed the same with the dictator. I agree with the dictator's note ,documented as a scribe. Any additional findings or plans will be noted.
--- NOTE | 2019-05-24 13:26 | P.PN ---
Subjective Patient is seen in follow-up for acute kidney injury on chronic kidney disease. Patient has chronic kidney disease stage III with baseline creatinine near 2. Renal function is fairly stable. Patient is maintained on IV Lasix and Aldactone. Urine output is good. Oral intake is fair. He is maintained on IV antibiotics for MRSA bacteremia. No changes overnight. Vital signs are stable. General: The patient appeared well nourished and normally developed. HEENT: Head exam is unremarkable. Neck is without jugular venous distension. LUNGS: Lungs are clear to auscultation and percussion. Breath sounds decreased. HEART: Rate and Rhythm are regular. First and second heart sounds normal. No murmurs, rubs or gallops. ABDOMEN: Abdominal exam reveals normal bowel sounds. Nontender. EXTREMITITES: 1+ edema. No drainage noted. Objective - Vital Signs Vital signs: Vital Signs Temp 98.1 F 05/24/19 12:02 Pulse 81 05/24/19 12:02 Resp 18 05/24/19 12:02 BP 148/76 05/24/19 12:02 Pulse Ox 95 05/24/19 12:02 Intake & Output 05/23/19 05/24/19 05/24/19 18:59 06:59 18:59 Intake Total 1100 490 Output Total 575 1000 1600 Balance 525 -510 -1600 Weight 120 kg Intake: Intake, IV Titration 500 Amount Magnesium Sulfate-D5w Pmx 100 1 gm In Dextrose/Water 1 100ml.bag @ 100 mls/hr IVPB Q1H [facility] Rx#: [id number] Sodium Chloride 0.9% 1, 400 000 ml @ 50 mls/hr IV . Q20H [facility]QU[facility]N Rx#:[id number] Oral 600 490 Output: Urine 575 1000 1600 Straight 575 1000 1000 Uretheral (Chu) 600 Other: Voiding Method Indwelling Catheter Indwelling Catheter Indwelling Catheter # Bowel Movements 2 1 - Labs CBC & Chem 7: 05/23/19 07:59 05/24/19 08:24 Labs: Abnormal Lab Results - Last 24 Hours (Table) 05/23/19 05/24/19 05/24/19 Range/Units 17:06 00:02 07:03 Chloride (98-107) mmol/L BUN (9-20) mg/dL Creatinine (0.66-1.25) mg/dL Glucose (74-99) mg/dL POC Glucose (mg/dL) 263 H 238 H 183 H (75-99) mg/dL Calcium (8.4-10.2) mg/dL 05/24/19 05/24/19 Range/Units 08:24 11:28 Chloride 108 H (98-107) mmol/L BUN 45 H (9-20) mg/dL Creatinine 2.39 H (0.66-1.25) mg/dL Glucose 205 H (74-99) mg/dL POC Glucose (mg/dL) 218 H (75-99) mg/dL Calcium 8.3 L (8.4-10.2) mg/dL Microbiology - Last 24 Hours (Table) 05/22/19 05:30 Blood Culture Gram Stain - Preliminary Blood Blood Culture - Preliminary Presumptive MRSA 05/19/19 13:59 Anaerobic Culture - Final Foot - Left 05/20/19 17:23 Blood Culture Gram Stain - Final Blood Blood Culture - Final Staphylococcus aureus Assessment and Plan Plan: Assessment: 1. Acute kidney injury secondary to ATN secondary to infection/bacteremia. Hepatorenal cannot be completely ruled out. Renal function fairly stable. Creatinine 2.39 today. No hydronephrosis noted on CAT scan. 2. Chronic kidney disease stage IV with baseline creatinine near 2. 3. Liver cirrhosis. 4. Hepatic encephalopathy. Improved. 5. Volume overload. Improving with diuresis. 6. Anemia of chronic kidney disease. Iron deficiency noted. I will hold off on IV iron due to bacteremia. Maintained on Aranesp. 7. Chronic kidney disease mineral bone disease maintained on calcitriol. 8. Right foot diabetic ulcer and MRSA bacteremia maintained on IV antibiotics. Infectious disease following. 9. Hypokalemia secondary to diuresis. Better. 10. Hypomagnesemia secondary to diuresis and poor oral intake. S/p replacement. Plan: Maintain IV Lasix 40 mg twice daily. Maintain Aldactone 50 mg twice daily. Continue to monitor renal function and urine output. Encouraged po intake. Repeat electrolytes in AM.
--- NOTE | 2019-05-24 14:45 | P.GSCN ---
History of Present Illness Consult date: 05/24/19 Reason for Consult: Nonhealing right toe ulcer Evaluation for possible debridement History of present illness: Patient is 62-year-old male, who we have been asked to see for evaluation of his right great toe ulcer for possible debridement to allow for resolution of underlying infection. Their hopes is to gain midline IV access for outpatient treatment with IV antibiotics, however has positive cultures for MRSA, and has been re-cultured which have still been positive. The patient has significant cirrhosis and end-stage liver disease, acute on chronic renal failure, insulin dependent diabetes mellitus with neuropathy who originally was brought into the hospital for mental status changes. The patient has been seeing Dr. Agrawal in his office for treatment of the right great toe infection for several weeks. Patient is being evaluated and treated by infectious disease, in which cultures were positive for MRSA. He is also being treated with Therahoney with dressing changes daily. The patient is currently on IV daptomycin and Rocephin. X-ray on 05/19/19 shows evidence of osteomyelitis of the distal phalanx of the right great toe with a superimposed fracture. The patient believes he may have had an injury to the right great toe where the nail was split, however patient has diabetic neuropathy with decreased sensation. The family reported that the toe had been getting more red and with increased drainage. Patient has been afebrile. Review of Systems Pertinent positives and negative as stated in HPI Past Medical History Past Medical History: Blood Disorder (pancytopenia, myelodysplasia), Chest Pain / Angina, CVA/TIA, Diabetes Mellitus (diabetic neuropathy), GERD/Reflux, Hyperlipidemia, Hypertension, Liver Disease (with ascites), Neurologic Disorder, Osteoarthritis (OA), Pneumonia, Prostate Disorder, Renal Disease Additional Past Medical History / Comment(s): 2nd degree servin from soup being spilled on stomach. History of Any Multi-Drug Resistant Organisms: MRSA Year Discovered:: 05/19/19 MDRO Source:: LEFT FOOT Past Surgical History: Cholecystectomy, Orthopedic Surgery Additional Past Surgical History / Comment(s): left great toe amputation. History of wound care left great toe. multiple THORACENTESIS, PARACENTESIS, colonoscopy Past Anesthesia/Blood Transfusion Reactions: No Reported Reaction Past Psychological History: Anxiety, Depression Additional Psychological History / Comment(s): Single lives with his family including adult daughter. No experience. No travels. No animal expo sures Smoking Status: Never smoker Past Alcohol Use History: None Reported Past Drug Use History: None Reported - Past Family History Mother Family Medical History: Cancer, Diabetes Mellitus Father Family Medical History: Cancer, Diabetes Mellitus Brother(s) Family Medical History: Diabetes Mellitus Daughter(s) Family Medical History: Diabetes Mellitus, Hyperlipidemia, Hypertension Son(s) Family Medical History: Diabetes Mellitus, Hyperlipidemia, Hypertension Medications and Allergies Home Medications Medication Instructions Recorded Confirmed Type Atorvastatin [Lipitor] 20 mg PO HS 01/14/16 05/19/19 History Pregabalin [Lyrica] 200 mg PO BID 04/25/16 05/19/19 History hydrOXYzine HCL [Atarax] 10 mg PO HS 08/03/16 05/19/19 History Lactulose [Cephulac] 30 gm PO QID 01/23/17 05/19/19 History Tamsulosin [Flomax] 0.4 mg PO BID 06/27/17 05/19/19 History Insulin Glargine [Lantus] 60 unit SQ HS 08/08/18 05/19/19 History Insulin Lispro [Admelog] See Protocol SQ ACHS 08/08/18 05/19/19 History Temazepam [Restoril] 15 mg PO HS 08/08/18 05/19/19 History Spironolactone 50 mg PO BID 02/18/19 05/19/19 History oxyCODONE HCL [oxyCODONE HCL (IR)] 5 mg PO Q6H PRN 02/18/19 05/19/19 History Furosemide [Lasix] 40 mg PO BID 05/15/19 05/19/19 History Calcitriol [Rocaltrol] 0.25 mcg PO SUTUTH 05/19/19 05/19/19 History Ergocalciferol [Vitamin D2] 50,000 unit PO WE 05/19/19 05/19/19 History DAPTOmycin [Daptomycin] 500 mg IVPB DAILY #30 vial 05/21/19 Rx Allergies Allergy/AdvReac Type Severity Reaction Status Date / Time Mushroom Allergy Anaphylaxis Verified 05/19/19 09:33 Surgical - Exam Vital Signs Temp Pulse Resp BP Pulse Ox 101.7 F H 131 H 28 H 90/56 90 L 05/19/19 07:54 05/19/19 07:54 05/19/19 07:54 05/19/19 07:54 05/19/19 07:54 General appearance: The patient is alert, oriented, in no acute distress. HET: Head is normocephalic and atraumatic. Neck: Supple. Heart: S1 S2. Regular rate and rhythm. Lungs: Course lung sounds noted. No crackles or wheezes are heard. Extremities: There is no edema to bilateral lower extremities, 2+ palpable PT and DP pulses bilaterally. The right great toe has some mild swelling and erythema, there is a proximal split in the nail, and appears to be an ulceration underneath the nail in the nail bed with drainage. There is also an ulceration of medial and plantar aspect great toe with some sloughing of the skin, and yellow drainage noted. Diminished sensory bilaterally, however patient was able to feel some pressure and move his foot and toes. Results - Labs 05/23/19 07:59 05/24/19 08:24 Abnormal Lab Results - Last 24 Hours (Table) 05/23/19 05/24/19 05/24/19 Range/Units 17:06 00:02 07:03 Chloride (98-107) mmol/L BUN (9-20) mg/dL Creatinine (0.66-1.25) mg/dL Glucose (74-99) mg/dL POC Glucose (mg/dL) 263 H 238 H 183 H (75-99) mg/dL Calcium (8.4-10.2) mg/dL 05/24/19 05/24/19 Range/Units 08:24 11:28 Chloride 108 H (98-107) mmol/L BUN 45 H (9-20) mg/dL Creatinine 2.39 H (0.66-1.25) mg/dL Glucose 205 H (74-99) mg/dL POC Glucose (mg/dL) 218 H (75-99) mg/dL Calcium 8.3 L (8.4-10.2) mg/dL Microbiology - Last 24 Hours (Table) 05/22/19 05:30 Blood Culture Gram Stain - Preliminary Blood Blood Culture - Preliminary Presumptive MRSA 05/19/19 13:59 Anaerobic Culture - Final Foot - Left 05/20/19 17:23 Blood Culture Gram Stain - Final Blood Blood Culture - Final Staphylococcus aureus Diabetes panel 05/24/19 Range/Units 08:24 Sodium 140 (137-145) mmol/L Potassium 4.0 (3.5-5.1) mmol/L Chloride 108 H (98-107) mmol/L Carbon Dioxide 25 (22-30) mmol/L BUN 45 H (9-20) mg/dL Creatinine 2.39 H (0.66-1.25) mg/dL Glucose 205 H (74-99) mg/dL Calcium 8.3 L (8.4-10.2) mg/dL Calcium panel 05/24/19 Range/Units 08:24 Calcium 8.3 L (8.4-10.2) mg/dL Pituitary panel 05/24/19 Range/Units 08:24 Sodium 140 (137-145) mmol/L Potassium 4.0 (3.5-5.1) mmol/L Chloride 108 H (98-107) mmol/L Carbon Dioxide 25 (22-30) mmol/L BUN 45 H (9-20) mg/dL Creatinine 2.39 H (0.66-1.25) mg/dL Glucose 205 H (74-99) mg/dL Calcium 8.3 L (8.4-10.2) mg/dL Adrenal panel 05/24/19 Range/Units 08:24 Sodium 140 (137-145) mmol/L Potassium 4.0 (3.5-5.1) mmol/L Chloride 108 H (98-107) mmol/L Carbon Dioxide 25 (22-30) mmol/L BUN 45 H (9-20) mg/dL Creatinine 2.39 H (0.66-1.25) mg/dL Glucose 205 H (74-99) mg/dL Calcium 8.3 L (8.4-10.2) mg/dL Assessment and Plan Assessment: Diabetic ulcer right foot with MRSA Hepatic encephalopathy, improved Cirrhosis of liver Acute on chronic kidney disease, nephrology following Insulin-dependent diabetic with neuropathy Plan: Will discuss patient with Dr. Chu, await further recommendations. Continue IV antibiotics and wound care management at this time. Thank you for this consultation and allowing us to participate in the care of this patient during their hospital stay. The above dictated assessment and findings were discussed with Vlad. The impression and plan of care have been directed as dictated.
[2019-05-24 15:16] VITALS: BMI 37.9
[2019-05-24] MEDS: DAPTOmycin 500 MG in SODIUM CHLORIDE 0.9% 50 ML IVPB SCH (16:01)
[2019-05-24 17:26] LABS: Glucose,Whole Blood 221 mg/dL (75-99)
[2019-05-24 20:24] LABS: Glucose,Whole Blood 295 mg/dL (75-99)
[2019-05-24] MEDS: TEMAZEPAM 15 MG CAP PO SCH (20:27)
[2019-05-24] MEDS: ONDANSETRON 4 MG/2 ML VIAL IVP PRN (22:09)
--- NOTE | 2019-05-24 23:37 | P.PN ---
Subjective Progress Note Date: 05/24/19 64 -year-old male was evidence of significant cirrhosis and end-stage liver disease who presents to Hospital with the rapid change of his mental status. His daughter was present relates that on he was quite normal. Conversational and laughing without significant new complaints by yesterday he become progressively more obtunded and then got to the point in time where he was asleep and could not P awoken because I was brought to the emergency center for evaluation. There is not evidence of significant worsening of his end-stage liver disease with an increase of his ammonia level, hepatic encephalopathy, and evidence of hepatorenal syndrome. The family also notes in the last few days there is no significant change to his right foot. He may have had an injury to the great toe where the nail was a bit split. But now it has become progressively worse over the last few days with redness and some drainage swelling and erythema. He has dense neuropathy and has no complaints of pain to the site to the family before his admission. The family does not believe his had a fever at home and the change occurred relatively rapidly over the last 48 hours. 05/20/2019 the patient is now having significant improvement of his status. He is awake alert and able to answer simple questions. He denies much discomfort. He does feel short of breath, and does complain of abdominal distention. 05/21/2019 patient more awake and less pain looks forward to going home 05/23/2019 patient remains awake and alert but still feels ill is wondering about is discharged home. 05/24/2019 the patient has started to have some improvement of his status. She is eating a bit better today. Family believes he is also a bit brighter in his interactions. His fevers have improved. Objective - Vital Signs Vital signs: Vital Signs Temp 98.3 F 05/24/19 21:38 Pulse 77 05/24/19 21:38 Resp 20 05/24/19 21:38 BP 153/67 05/24/19 21:38 Pulse Ox 95 05/24/19 21:38 Intake & Output 05/24/19 05/24/19 05/25/19 06:59 18:59 06:59 Intake Total 490 650 Output Total 1000 8431 Balance -243 -0176 Weight 120 kg 120 kg Intake: Intake, IV Titration 50 Amount cefTRIAXone 2 gm In 50 Sodium Chloride 0.9% 50 ml @ 100 mls/hr IVPB Q24HR [facility] [place] Rx#:[id number] Oral 490 600 Output: Urine 1000 2325 Straight 1000 1000 Uretheral (Chu) 1075 Other: Voiding Method Indwelling Catheter Indwelling Catheter # Bowel Movements 1 - Exam HEENT: Mildly icteric, without scleral edema, nasal or cavity are dry without thrush or lesions Neck: The neck is supple without significant lymphadenopathy or thyromegaly. Lungs: There is symmetrical bilaterally. There are crackles in bilateral bases is evidence of some scattered wheeze but no bronchial sounds Heart: Irregular with an audible S1 and S2 soft S4 no distinct murmur click or rub Abdomen: Appears to have extensive ascites, abdomen is quite distended, he has however obtunded and it is nontender at this time. I can palpate no mass or org anomegaly. Extremities: The extremities reveal evidence of some muscular wasting lower extremities do not have significant edema, the right great toe is evidence of swelling erythema there appears to be ulceration underneath the nail that has drainage which is cultured. There is also evidence of ulceration on the plantar surface of the great toe. With probing I could not find a through and through ulceration. He is he has dense neuropathy and has no sensation when this is manipulated. It appears her was extensive swelling because entire layer of skin has peeled off. There is distinct erythema around the toe and on the dorsum of the foot but there is no significant ascending lymphangitis and there is no significant lymphadenopathy in either inguinal area there is also no abnormal lymph nodes cervical axillary epitrochlear. Neuro: he is now awake and alert and appears ,is able to complain of some shortness and abdominal distention - Labs CBC & Chem 7: 05/23/19 07:59 05/24/19 08:24 Labs: Abnormal Lab Results - Last 24 Hours (Table) 05/24/19 05/24/19 05/24/19 Range/Units 00:02 07:03 08:24 Chloride 108 H (98-107) mmol/L BUN 45 H (9-20) mg/dL Creatinine 2.39 H (0.66-1.25) mg/dL Glucose 205 H (74-99) mg/dL POC Glucose (mg/dL) 238 H 183 H (75-99) mg/dL Calcium 8.3 L (8.4-10.2) mg/dL 05/24/19 05/24/19 05/24/19 Range/Units 11:28 17:25 20:23 Chloride (98-107) mmol/L BUN (9-20) mg/dL Creatinine (0.66-1.25) mg/dL Glucose (74-99) mg/dL POC Glucose (mg/dL) 218 H 221 H 295 H (75-99) mg/dL Calcium (8.4-10.2) mg/dL Microbiology - Last 24 Hours (Table) 05/23/19 12:50 Blood Culture - Preliminary Blood No Growth after 24 hours 05/22/19 05:30 Blood Culture Gram Stain - Preliminary Blood Blood Culture - Preliminary Presumptive MRSA 05/19/19 13:59 Anaerobic Culture - Final Foot - Left Laboratory Results WBC 2.9 k/uL (3.8-10.6) L 05/23/19 07:59 RBC 3.24 m/uL (4.30-5.90) L 05/23/19 07:59 Hgb 9.2 gm/dL (13.0-17.5) L 05/23/19 07:59 Hct 28.4 % (39.0-53.0) L 05/23/19 07:59 MCV 87.7 fL (80.0-100.0) 05/23/19 07:59 MCH 28.3 pg (25.0-35.0) 05/23/19 07:59 MCHC 32.2 g/dL (31.0-37.0) 05/23/19 07:59 RDW 14.6 % (11.5-15.5) 05/23/19 07:59 Plt Count 40 k/uL (150-450) L 05/23/19 07:59 Neutrophils % 70 % 05/23/19 07:59 Lymphocytes % 15 % 05/23/19 07:59 Monocytes % 9 % 05/23/19 07:59 Eosinophils % 3 % 05/23/19 07:59 Basophils % 1 % 05/23/19 07:59 Neutrophils # 2.0 k/uL (1.3-7.7) 05/23/19 07:59 Lymphocytes # 0.4 k/uL (1.0-4.8) L 05/23/19 07:59 Monocytes # 0.3 k/uL (0-1.0) 05/23/19 07:59 Eosinophils # 0.1 k/uL (0-0.7) 05/23/19 07:59 Basophils # 0.0 k/uL (0-0.2) 05/23/19 07:59 Manual Slide Review Performed 05/21/19 05:14 Hypochromasia Slight 05/23/19 07:59 Poikilocytosis Moderate 05/23/19 07:59 Anisocytosis (manual) Present 05/19/19 08:00 PT 16.3 sec (9.0-12.0) H 05/19/19 08:00 INR 1.6 (<1.2) H 05/19/19 08:00 APTT 28.6 sec (22.0-30.0) 05/19/19 08:00 VBG pH 7.48 (7.31-7.41) H 05/19/19 08:39 VBG pCO2 32 mmHg (37-51) L 05/19/19 08:39 VBG HCO3 24 mmol/L (24-28) 05/19/19 08:39 Sodium 140 mmol/L (137-145) 05/24/19 08:24 Potassium 4.0 mmol/L (3.5-5.1) 05/24/19 08:24 Chloride 108 mmol/L (98-107) H 05/24/19 08:24 Carbon Dioxide 25 mmol/L (22-30) 05/24/19 08:24 Anion Gap 7 mmol/L 05/24/19 08:24 BUN 45 mg/dL (9-20) H 05/24/19 08:24 Creatinine 2.39 mg/dL (0.66-1.25) H 05/24/19 08:24 Est GFR (CKD-EPI)AfAm 32 (>60 ml/min/1.73 sqM) 05/24/19 08:24 Est GFR (CKD-EPI)NonAf 28 (>60 ml/min/1.73 sqM) 05/24/19 08:24 Glucose 205 mg/dL (74-99) H 05/24/19 08:24 POC Glucose (mg/dL) 295 mg/dL (75-99) H 05/24/19 20:23 POC Glu Loom Overhauler Jes Arriola 05/24/19 20:23 Lactic Ac Sepsis Rflx Y 05/19/19 12:36 Plasma Lactic Acid Chad 2.0 mmol/L (0.7-2.0) 05/19/19 15:59 Calcium 8.3 mg/dL (8.4-10.2) L 05/24/19 08:24 Magnesium 1.6 mg/dL (1.6-2.3) 05/23/19 07:59 Iron 25 ug/dL (65-175) L 05/20/19 05:30 TIBC 220 ug/dL (228-460) L 05/20/19 05:30 % Saturation 11.36 (15.00-50.00) L 05/20/19 05:30 Ferritin 34.3 ng/mL (22.0-322.0) 05/20/19 05:30 Total Bilirubin 1.9 mg/dL (0.2-1.3) H 05/22/19 05:30 AST 40 U/L (17-59) 05/22/19 05:30 ALT 18 U/L (4-49) 05/22/19 05:30 Alkaline Phosphatase 64 U/L (38-126) 05/22/19 05:30 Ammonia 26 umol/L (<30) 05/24/19 12:31 Creatine Kinase 49 U/L (55-170) L 05/19/19 08:00 Troponin I 0.019 ng/mL (0.000-0.034) 05/19/19 08:00 Total Protein 6.1 g/dL (6.3-8.2) L 05/22/19 05:30 Albumin 2.6 g/dL (3.5-5.0) L 05/22/19 05:30 Prealbumin <5.0 mg/dL (18.0-42.0) L 05/20/19 05:30 Lipase 93 U/L (23-300) 05/19/19 08:00 Urine Color Yellow 05/19/19 08:20 Urine Appearance Turbid (Clear) 05/19/19 08:20 Urine pH 5.5 (5.0-8.0) 05/19/19 08:20 Ur Specific Mas[place] 1.012 (1.001-1.035) 05/19/19 08:20 Urine Protein 1+ (Negative) H 05/19/19 08:20 Urine Glucose (UA) Negative (Negative) 05/19/19 08:20 Urine Ketones Negative (Negative) 05/19/19 08:20 Urine Blood Moderate (Negative) H 05/19/19 08:20 Urine Nitrite Negative (Negative) 05/19/19 08:20 Urine Bilirubin Negative (Negative) 05/19/19 08:20 Urine Urobilinogen 2.0 mg/dL (<2.0) 05/19/19 08:20 Ur Leukocyte Esterase Large (Negative) H 05/19/19 08:20 Urine RBC >182 /hpf (0-5) H 05/19/19 08:20 Urine WBC >182 /hpf (0-5) H 05/19/19 08:20 Urine WBC Clumps Many /hpf (None) H 05/19/19 08:20 Ur Squamous Epith Cells 7 /hpf (0-4) H 05/19/19 08:20 Urine Mucus Rare /hpf (None) H 05/19/19 08:20 Serum Alcohol <10 mg/dL 05/19/19 08:00 Influenza Type A RNA Not Detected (Not Detectd) 05/19/19 08:20 Influenza Type B (PCR) Not Detected (Not Detectd) 05/19/19 08:20 Microbiology 05/23/19 12:50 Blood Blood Culture - Preliminary No Growth after 24 hours 05/22/19 05:30 Blood Blood Culture Gram Stain - Preliminary 05/22/19 05:30 Blood Blood Culture - Preliminary Presumptive MRSA 05/19/19 13:59 Foot - Left Anaerobic Culture - Final 05/20/19 17:23 Blood Blood Culture Gram Stain - Final 05/20/19 17:23 Blood Blood Culture - Final Staphylococcus aureus 05/22/19 05:30 Blood Blood Culture - Final 05/19/19 13:59 Foot - Left Gram Stain - Final 05/19/19 13:59 Foot - Left Wound Culture - Final Staphylococcus aureus 05/19/19 11:15 Toe - Right First Gram Stain - Final 05/19/19 11:15 Toe - Right First Wound Culture - Final Staphylococcus aureus 05/19/19 08:00 Blood Blood Culture Gram Stain - Final 05/19/19 08:00 Blood Blood Culture - Final Staphylococcus aureus 05/20/19 17:23 Blood Blood Culture - Final 05/19/19 08:20 Urine,Voided Urine Culture - Final Staphylococcus aureus 05/19/19 08:00 Blood Blood Culture - Final Assessment and Plan (1) 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 There is evidence of hepatorenal syndrome as well as hepatic encephalopathy. Lactulose by enema has been requested. The patient has evidence of an infection to the right great toe which may have resulted in significant worsening of his status. By his history is have cultures with Serratia and MRSA at that site and constantly antibiotic therapy with Rocephin and daptomycin will be utilized. Daptomycin because of his acute on chronic renal failure as well as a Vanco COSTA of 2 with a bony infection. Over he will tolerate this. Local wound care with thertessoney has been requested that he be changed on a daily basis for now. He is currently nonambulatory. Need to have ongoing assessment for his mobility and ensure that he is turned in bed. The daughter is aware of his poor status and they have a palliative care consult and Monday however they may be definitive consult which they are aware of if he does not show improvement. There would be open to hospice if he does not improve. May the patient has had some improvement of his status neurologically. He is now awake and interactive., He is still poor historian carla jose does recognize the observer. The wound culture, blood culture, and urine culture all show evidence of the MRSA and he is on daptomycin therapy. Follow blood cultures been requested. The patient does seem to have some improvement and other laboratories have shown some improvement with the ammonia dropping from 88-16. He does have some I Radha failure but this appears For now he maintains on the antibiotic therapy with daptomycin and Rocephin until. There may be the possibility of de-escalation of Rocephin, however until there is no evidence of any biliary process so be continued for Still has a poor prognosis but has significant improvement at this tiime. 05/21/2019 patinet is improved but blood culture is still positive, repeat culture is requested, and will continue daptomycin for now. clinically he has improved and hopefully will have clearance of his bacteremia. Once this occurs will be able to have IV access placed with a midline complete several weeks of antibiotic therapy He will need follow-up of the wound healing Center. 05/23/2019 he follow blood cultures remain positive and consequently IV access is yet to be placed. Echocardiogram is requested to evaluate other potential sources of his bacteremia. If echocardiogram is negative we'll ask for a vascular surgical evaluation to the right great toe he may need a surgical debridement at that site to allow resolution of underlying infection in that area. Family plans on taking to home to treat him there. 05/24/2019 the patient finally has a blood culture that is negative for 24 hours. Hopefully he will remain with negative blood cultures and then will be able to have IV access placed and then plans for his outpatient intravenous antibiotic therapy at home with his family. Daptomycin is being utilized for his MRSA bacteremia as well as somewhat persistent. Concern the bacteremia is coming from the toe ulceration. He has been seen by the vascular team and they may debridement to in the near future. Current Visit: Yes Status: Acute Code(s): E11.621 - TYPE 2 DIABETES MELLITUS WITH FOOT ULCER; L97.514 - NON-PRS CHRONIC ULCER OTH PRT RIGHT FOOT W NECROSIS OF BONE SNOMED Code(s): 2040731929183 (2) Hepatic encephalopathy Current Visit: Yes Status: Acute Code(s): K72.90 - HEPATIC FAILURE, UNSPECIFIED WITHOUT COMA SNOMED Code(s): 60427631 (3) Hyperammonemia Current Visit: Yes Status: Acute Code(s): E72.20 - DISORDER OF UREA CYCLE METABOLISM, UNSPECIFIED SNOMED Code(s): 3453670 (4) Cirrhosis of liver Current Visit: Yes Status: Chronic Code(s): K74.60 - UNSPECIFIED CIRRHOSIS OF LIVER SNOMED Code(s): 38188036
[2019-05-25 06:57] LABS: Basophils % (A) 0 %; Eosinophils # (A) 0.1 k/uL (0-0.7); Eosinophils % (A) 5 %; HCT 25.7 % (39.0-53.0); HGB 8.7 gm/dL (13.0-17.5); Hypochromasia Moderate; Lymphocytes # (A) 0.5 k/uL (1.0-4.8); Lymphocytes % (A) 16 %; MCH 29.6 pg (25.0-35.0); MCHC 33.8 g/dL (31.0-37.0); MCV 87.5 fL (80.0-100.0); Mean Platelet Volume 9.4; Monocytes # (A) 0.2 k/uL (0-1.0); Monocytes % (A) 8 %; Neutrophils % (A) 70 %; Poikilocytosis Moderate; RBC 2.94 m/uL (4.30-5.90); RDW 15.3 % (11.5-15.5); WBC 2.9 k/uL (3.8-10.6)
[2019-05-25 07:00] LABS: Platelet Count 46 k/uL (150-450)
[2019-05-25 07:05] LABS: Albumin 2.4 g/dL (3.5-5.0); Calcium 8.7 mg/dL (8.4-10.2); Magnesium 1.7 mg/dL (1.6-2.3); Potassium 4.1 mmol/L (3.5-5.1); Total Bilirubin 1.4 mg/dL (0.2-1.3); Total Protein 5.9 g/dL (6.3-8.2)
[2019-05-25 07:30] LABS: Glucose,Whole Blood 203 mg/dL (75-99)
[2019-05-25] MEDS: LACTULOSE 20 GM/30 ML CUP PO SCH ×2 (07:58→21:37)
[2019-05-25] MEDS: PANTOPRAZOLE 40 MG TABLET PO SCH (07:59)
[2019-05-25] MEDS: SPIRONOLACTONE 25 MG TAB PO SCH ×2 (07:59→21:42)
[2019-05-25] MEDS: PREGABALIN 100 MG CAP PO SCH ×2 (08:00→21:43)
[2019-05-25] MEDS: FUROSEMIDE 10 MG/ML 4 ML VIAL IV SCH ×2 (08:00→21:42)
[2019-05-25] MEDS: INSULIN ASPART (NovoLOG) 100 UNIT/ML VIAL SQ SCH ×4 (08:02→21:44)
[2019-05-25 11:47] LABS: Glucose,Whole Blood 238 mg/dL (75-99)
--- NOTE | 2019-05-25 12:04 | P.PN ---
Subjective Progress Note Date: 05/25/19 Principal diagnosis: septicemia patient awake alert vital signs stable patient is afebrile Culture report final staph aureus methicillin-resistant anticipate placement of PICC line on Monday surgery supposedly is removing patients nail on the great toe on the right side, Objective - Vital Signs Vital signs: Vital Signs Temp 98.1 F 05/25/19 05:54 Pulse 72 05/25/19 05:54 Resp 20 05/25/19 05:54 BP 145/68 05/25/19 05:54 Pulse Ox 91 L 05/25/19 05:54 Intake & Output 05/24/19 05/25/19 05/25/19 18:59 06:59 18:59 Intake Total 650 200 Output Total 2325 1300 Balance -1675 -1100 Weight 120 kg 118 kg Intake: Intake, IV Titration 50 Amount cefTRIAXone 2 gm In 50 Sodium Chloride 0.9% 50 ml @ 100 mls/hr IVPB Q24HR [facility] Rx#:[id number] Oral 600 200 Output: Urine 2325 1300 Straight 1000 Uretheral (Chu) 1075 1300 Other: Voiding Method Indwelling Catheter Indwelling Catheter Indwelling Catheter # Bowel Movements 1 3 - Exam General: [Patient awake, alert and oriented times 3. Patient in no acute distress.] HEENT: [PERRL. EOMI. No pharyngeal erythema or exudate.] Neck: [No adenopathy.] Cardiac: [Heart regular in rate and rhythm. No S3. No S4. No clicks, rubs. No murmur.] Lungs: [Clear to auscultation bilaterally.] Abdomen: [No mass. No organomegaly. Bowel sounds presnt and normoactive in all 4 quadrants morbid obesity, ascites secondary to liver disease] Extremes: erythema rt great toe resolving some callus and ecchymotic area approximately the size of a dime on the plantar surface of the rt great toe : [] Musculoskeletal: [No joint erythema, edema or tenderness.] Skin: [No rash.] Neurologic: [No lateralizing deficits. CN II - XII grossly intact.] Lymphatic: [No adenopathy.] - Gastrointestinal General gastrointestinal: Present: distended (gross ascites by history) - Integumentary Integumentary: Present: ulcer (right great toe) - Labs CBC & Chem 7: 05/25/19 06:00 05/25/19 06:00 Labs: Abnormal Lab Results - Last 24 Hours (Table) 05/24/19 05/24/19 05/25/19 Range/Units 17:25 20:23 06:00 WBC 2.9 L (3.8-10.6) k/uL RBC 2.94 L (4.30-5.90) m/uL Hgb 8.7 L (13.0-17.5) gm/dL Hct 25.7 L (39.0-53.0) % Plt Count 46 L (150-450) k/uL Lymphocytes # 0.5 L (1.0-4.8) k/uL Chloride (98-107) mmol/L BUN (9-20) mg/dL Creatinine (0.66-1.25) mg/dL Glucose (74-99) mg/dL POC Glucose (mg/dL) 221 H 295 H (75-99) mg/dL Total Bilirubin (0.2-1.3) mg/dL Total Protein (6.3-8.2) g/dL Albumin (3.5-5.0) g/dL 05/25/19 05/25/19 05/25/19 Range/Units 06:00 07:18 11:40 WBC (3.8-10.6) k/uL RBC (4.30-5.90) m/uL Hgb (13.0-17.5) gm/dL Hct (39.0-53.0) % Plt Count (150-450) k/uL Lymphocytes # (1.0-4.8) k/uL Chloride 109 H (98-107) mmol/L BUN 44 H (9-20) mg/dL Creatinine 2.29 H (0.66-1.25) mg/dL Glucose 198 H (74-99) mg/dL POC Glucose (mg/dL) 203 H 238 H (75-99) mg/dL Total Bilirubin 1.4 H (0.2-1.3) mg/dL Total Protein 5.9 L (6.3-8.2) g/dL Albumin 2.4 L (3.5-5.0) g/dL Microbiology - Last 24 Hours (Table) 05/22/19 05:30 Blood Culture Gram Stain - Final Blood Blood Culture - Final Staphylococcus aureus 05/23/19 12:50 Blood Culture - Preliminary Blood No Growth after 24 hours Assessment and Plan Assessment: methods methicillin-resistant staph the wound of the right great toe Probable PICC line on Monday Right great toenail to be removed by surgery We'll follow-up on Monday (1) Ascites Current Visit: Yes Status: Acute Code(s): R18.8 - OTHER ASCITES SNOMED Code(s): 979943867 (2) Cellulitis Current Visit: Yes Status: Acute Code(s): L03.90 - CELLULITIS, UNSPECIFIED SNOMED Code(s): 337846942 (3) Chronic renal disease, stage 4, severely decreased glomerular filtration rate (GFR) between 15-29 mL/min/1.73 square meter Current Visit: Yes Status: Acute Code(s): N18.4 - CHRONIC KIDNEY DISEASE, STAGE 4 (SEVERE) SNOMED Code(s): 416767108 (4) Diabetic ulcer of right foot Current Visit: Yes Status: Acute Code(s): E11.621 - TYPE 2 DIABETES MELLITUS WITH FOOT ULCER; L97.519 - NON-PRS CHRONIC ULCER OTH PRT RIGHT FOOT W UNSP SEVERITY SNOMED Code(s): 082763274 Plan: probable PICC line for Monday Toenail the right great toe to be removed by surgery we'll follow-up again on Monday
--- NOTE | 2019-05-25 12:22 | P.GSCN ---
History of Present Illness Consult date: 05/25/19 History of present illness: Please see associated consult note from TECHNICAL SERVICE SPECIALIST for full detail. Patient seen and examined. The right great toe has a lifted toenail. Underneath the nail bed appears moist, but no significant drainage or purulence noted. No significant tenderness in the great toe at this time. Palpable dorsalis pedis and posterior tibial pulses. At this time there is no evidence of obvious abscess or area that needs draining. I would recommend a wax ball molder for evaluation of possible removal of the great toenail to uncover the overlying nail bed as his are lifted and likely would be beneficial to remove the nail. Continue antibiotics per infectious disease. The patient does not have any apparent significant vascular deficiencies given his palpable pulses. Thank you for allowing me to participate in the care of this patient Past Medical History Past Medical History: Blood Disorder (pancytopenia, myelodysplasia), Chest Pain / Angina, CVA/TIA, Diabetes Mellitus (diabetic neuropathy), GERD/Reflux, Hyperl ipidemia, Hypertension, Liver Disease (with ascites), Neurologic Disorder, Osteoarthritis (OA), Pneumonia, Prostate Disorder, Renal Disease Additional Past Medical History / Comment(s): 2nd degree servin from soup being spilled on stomach. History of Any Multi-Drug Resistant Organisms: MRSA Year Discovered:: 05/19/19 MDRO Source:: LEFT FOOT Past Surgical History: Cholecystectomy, Orthopedic Surgery Additional Past Surgical History / Comment(s): left great toe amputation. History of wound care left great toe. multiple THORACENTESIS, PARACENTESIS, colonoscopy Past Anesthesia/Blood Transfusion Reactions: No Reported Reaction Past Psychological History: Anxiety, Depression Additional Psychological History / Comment(s): Single lives with his family including adult daughter. No experience. No travels. No animal exposures Smoking Status: Never smoker Past Alcohol Use History: None Reported Past Drug Use History: None Reported - Past Family History Mother Family Medical History: Cancer, Diabetes Mellitus Father Family Medical History: Cancer, Diabetes Mellitus Brother(s) Family Medical History: Diabetes Mellitus Daughter(s) Family Medical History: Diabetes Mellitus, Hyperlipidemia, Hypertension Son(s) Family Medical History: Diabetes Mellitus, Hyperlipidemia, Hypertension Medications and Allergies Home Medications Medication Instructions Recorded Confirmed Type Atorvastatin [Lipitor] 20 mg PO HS 01/14/16 05/19/19 History Pregabalin [Lyrica] 200 mg PO BID 04/25/16 05/19/19 History hydrOXYzine HCL [Atarax] 10 mg PO HS 08/03/16 05/19/19 History Lactulose [Cephulac] 30 gm PO QID 01/23/17 05/19/19 History Tamsulosin [Flomax] 0.4 mg PO BID 06/27/17 05/19/19 History Insulin Glargine [Lantus] 60 unit SQ HS 08/08/18 05/19/19 History Insulin Lispro [Admelog] See Protocol SQ ACHS 08/08/18 05/19/19 History Temazepam [Restoril] 15 mg PO HS 08/08/18 05/19/19 History Spironolactone 50 mg PO BID 02/18/19 05/19/19 History oxyCODONE HCL [oxyCODONE HCL (IR)] 5 mg PO Q6H PRN 02/18/19 05/19/19 History Furosemide [Lasix] 40 mg PO BID 05/15/19 05/19/19 History Calcitriol [Rocaltrol] 0.25 mcg PO SUTUTH 05/19/19 05/19/19 History Ergocalciferol [Vitamin D2] 50,000 unit PO WE 05/19/19 05/19/19 History DAPTOmycin [Daptomycin] 500 mg IVPB DAILY #30 vial 05/21/19 Rx Allergies Allergy/AdvReac Type Severity Reaction Status Date / Time Mushroom Allergy Anaphylaxis Verified 05/19/19 09:33 Surgical - Exam Vital Signs Temp Pulse Resp BP Pulse Ox 101.7 F H 131 H 28 H 90/56 90 L 05/19/19 07:54 05/19/19 07:54 05/19/19 07:54 05/19/19 07:54 05/19/19 07:54 Results - Labs 05/25/19 06:00 05/25/19 06:00 Abnormal Lab Results - Last 24 Hours (Table) 05/24/19 05/24/19 05/25/19 Range/Units 17:25 20:23 06:00 WBC 2.9 L (3.8-10.6) k/uL RBC 2.94 L (4.30-5.90) m/uL Hgb 8.7 L (13.0-17.5) gm/dL Hct 25.7 L (39.0-53.0) % Plt Count 46 L (150-450) k/uL Lymphocytes # 0.5 L (1.0-4.8) k/uL Chloride (98-107) mmol/L BUN (9-20) mg/dL Creatinine (0.66-1.25) mg/dL Glucose (74-99) mg/dL POC Glucose (mg/dL) 221 H 295 H (75-99) mg/dL Total Bilirubin (0.2-1.3) mg/dL Total Protein (6.3-8.2) g/dL Albumin (3.5-5.0) g/dL 05/25/19 05/25/19 05/25/19 Range/Units 06:00 07:18 11:40 WBC (3.8-10.6) k/uL RBC (4.30-5.90) m/uL Hgb (13.0-17.5) gm/dL Hct (39.0-53.0) % Plt Count (150-450) k/uL Lymphocytes # (1.0-4.8) k/uL Chloride 109 H (98-107) mmol/L BUN 44 H (9-20) mg/dL Creatinine 2.29 H (0.66-1.25) mg/dL Glucose 198 H (74-99) mg/dL POC Glucose (mg/dL) 203 H 238 H (75-99) mg/dL Total Bilirubin 1.4 H (0.2-1.3) mg/dL Total Protein 5.9 L (6.3-8.2) g/dL Albumin 2.4 L (3.5-5.0) g/dL Microbiology - Last 24 Hours (Table) 05/22/19 05:30 Blood Culture Gram Stain - Final Blood Blood Culture - Final Staphylococcus aureus 05/23/19 12:50 Blood Culture - Preliminary Blood No Growth after 24 hours Diabetes panel 05/25/19 Range/Units 06:00 Sodium 141 (137-145) mmol/L Potassium 4.1 (3.5-5.1) mmol/L Chloride 109 H (98-107) mmol/L Carbon Dioxide 27 (22-30) mmol/L BUN 44 H (9-20) mg/dL Creatinine 2.29 H (0.66-1.25) mg/dL Glucose 198 H (74-99) mg/dL Calcium 8.7 (8.4-10.2) mg/dL AST 31 (17-59) U/L ALT 15 (4-49) U/L Alkaline Phosphatase 55 (38-126) U/L Total Protein 5.9 L (6.3-8.2) g/dL Albumin 2.4 L (3.5-5.0) g/dL Calcium panel 05/25/19 Range/Units 06:00 Calcium 8.7 (8.4-10.2) mg/dL Albumin 2.4 L (3.5-5.0) g/dL Pituitary panel 05/25/19 Range/Units 06:00 Sodium 141 (137-145) mmol/L Potassium 4.1 (3.5-5.1) mmol/L Chloride 109 H (98-107) mmol/L Carbon Dioxide 27 (22-30) mmol/L BUN 44 H (9-20) mg/dL Creatinine 2.29 H (0.66-1.25) mg/dL Glucose 198 H (74-99) mg/dL Calcium 8.7 (8.4-10.2) mg/dL Adrenal panel 05/25/19 Range/Units 06:00 Sodium 141 (137-145) mmol/L Potassium 4.1 (3.5-5.1) mmol/L Chloride 109 H (98-107) mmol/L Carbon Dioxide 27 (22-30) mmol/L BUN 44 H (9-20) mg/dL Creatinine 2.29 H (0.66-1.25) mg/dL Glucose 198 H (74-99) mg/dL Calcium 8.7 (8.4-10.2) mg/dL Total Bilirubin 1.4 H (0.2-1.3) mg/dL AST 31 (17-59) U/L ALT 15 (4-49) U/L Alkaline Phosphatase 55 (38-126) U/L Total Protein 5.9 L (6.3-8.2) g/dL Albumin 2.4 L (3.5-5.0) g/dL
[2019-05-25 17:16] LABS: Glucose,Whole Blood 276 mg/dL (75-99)
[2019-05-25] MEDS: DAPTOmycin 500 MG in SODIUM CHLORIDE 0.9% 50 ML IVPB SCH (17:53)
[2019-05-25 19:32] LABS: Glucose,Whole Blood 309 mg/dL (75-99)
[2019-05-25] MEDS: TEMAZEPAM 15 MG CAP PO SCH (21:42)
[2019-05-26 07:22] LABS: Glucose,Whole Blood 160 mg/dL (75-99)
[2019-05-26] MEDS: FUROSEMIDE 10 MG/ML 4 ML VIAL IV SCH ×2 (09:11→21:29)
[2019-05-26] MEDS: PANTOPRAZOLE 40 MG TABLET PO SCH (09:11)
[2019-05-26] MEDS: SPIRONOLACTONE 25 MG TAB PO SCH ×2 (09:12→21:29)
[2019-05-26] MEDS: LACTULOSE 20 GM/30 ML CUP PO SCH ×2 (09:12→21:20)
[2019-05-26] MEDS: INSULIN ASPART (NovoLOG) 100 UNIT/ML VIAL SQ SCH ×4 (09:12→21:30)
[2019-05-26] MEDS: PREGABALIN 100 MG CAP PO SCH ×2 (09:12→21:29)
[2019-05-26 11:23] LABS: Glucose,Whole Blood 179 mg/dL (75-99)
--- NOTE | 2019-05-26 12:29 | P.PN ---
Subjective Progress Note Date: 05/26/19 Principal diagnosis: This is a 64-year-old male seen in consultation because of acute kidney injury from prerenal, secondary to bacteremia. He has cirrhosis, chronic kidney disease stage IV with baseline creatinine 2 diabetic with foot ulcer and MRSA bacteremia. He is responding to current treatment with diuretics actually. He is responding with urine output of 3625 and 2500 last 2 days. He has a good appetite, no nausea vomiting. About 3-4 loose stools, secondary to lactulose. His vital signs are stable blood pressure in the 1:30 to 150 range afebrile. Acites is moderate and edema is trace Objective - Vital Signs Vital signs: Vital Signs Temp 97.8 F 05/26/19 11:50 Pulse 81 05/26/19 11:50 Resp 20 05/26/19 11:50 BP 148/67 05/26/19 11:50 Pulse Ox 91 L 05/26/19 11:50 Intake & Output 05/25/19 05/26/19 05/26/19 18:59 06:59 18:59 Intake Total 50 50 Output Total 1300 1200 Balance -1250 -1150 Weight 115 kg Intake: Intake, IV Titration 50 50 Amount DAPTOmycin 500 mg In 50 Sodium Chloride 0.9% 50 ml @ 100 mls/hr IVPB Q24H [facility] Rx#:[id number] cefTRIAXone 2 gm In 50 Sodium Chloride 0.9% 50 ml @ 100 mls/hr IVPB Q24HR [facility] Rx#:[id number] Output: Urine 1300 1200 Other: Voiding Method Indwelling Catheter Indwelling Catheter Indwelling Catheter # Bowel Movements 3 Awake alert oriented HEENT exam no JVP neck is supple no facial asymmetry Lungs are clear to auscultation with an occasional coarse crackles that improve with coughing Heart sounds are unremarkable for any murmur rub gallop Abdomen soft and moderately distended with ascites Extremity exam reveals trace edema Neurologically awake alert oriented no asterixis - Labs CBC & Chem 7: 05/25/19 06:00 05/25/19 06:00 Labs: Abnormal Lab Results - Last 24 Hours (Table) 05/25/19 05/25/19 05/26/19 Range/Units 17:02 19:30 07:09 POC Glucose (mg/dL) 276 H 309 H 160 H (75-99) mg/dL 05/26/19 Range/Units 11:21 POC Glucose (mg/dL) 179 H (75-99) mg/dL Microbiology - Last 24 Hours (Table) 05/23/19 12:50 Blood Culture - Preliminary Blood No Growth after 48 hours Assessment and Plan Plan: Impression 1. Acute kidney injury secondary to sepsis with MRSA bacteremia improving with diuresis creatinine is down from 2.45-2.29 2. Chronic kidney disease stage IV with baseline creatinine of 2 secondary to nephrosclerosis 3. liver cirrhosis, ammonia is normal has hypoalbuminemia. Liver function tests slightly elevated bilirubin is 1.4 improved from 1.9 4. Right foot diabetic ulcer with MRSA bacteremia 5. Anemia of chronic illness hemoglobin is 8.7, his iron saturation 11% on 05/20/2019 Recommendation 1. Maintain current medications. He is on Lasix 40 every 12 and and on spironolactone 50 twice a day. 2. Maintain Aranesp. 3. Check iron saturation in about 2-3 weeks. 4. Will give him 1 dose of IV Ferrlecit
[2019-05-26] MEDS: CALCITRIOL 0.25 MCG CAP PO SCH (12:55)
[2019-05-26] MEDS ORDERED: SODIUM FERRIC GLUCONAT-SUCROSE 125 MG in SODIUM CHLORIDE 0.9% 100 ML IVPB ONE (13:00)
--- NOTE | 2019-05-26 13:08 | P.PN ---
Subjective Progress Note Date: 05/26/19 Principal diagnosis: MRSA septicemia patient awake alert vital signs stable patient is afebrile Culture report final staph aureus methicillin-resistant anticipate placement of PICC line on Monday surgery supposedly is removing patients nail on the great toe on the right side,patient otherwise improving significantly renal functions almost back to baseline. Persistent ascites to abdomen Objective - Vital Signs Vital signs: Vital Signs Temp 97.8 F 05/26/19 11:50 Pulse 81 05/26/19 11:50 Resp 20 05/26/19 11:50 BP 148/67 05/26/19 11:50 Pulse Ox 91 L 05/26/19 11:50 Intake & Output 05/25/19 05/26/19 05/26/19 18:59 06:59 18:59 Intake Total 50 50 100 Output Total 1300 1200 Balance -1250 -1150 100 Weight 115 kg Intake: Intake, IV Titration 50 50 100 Amount DAPTOmycin 500 mg In 50 Sodium Chloride 0.9% 50 ml @ 100 mls/hr IVPB Q24H [facility] Rx#:[id number] cefTRIAXone 2 gm In 50 100 Sodium Chloride 0.9% 50 ml @ 100 mls/hr IVPB Q24HR [facility] Rx#:[id number] Output: Urine 1300 1200 Other: Voiding Method Indwelling Catheter Indwelling Catheter Indwelling Catheter # Bowel Movements 3 - Exam General: [Patient awake, alert and oriented times 3. Patient in no acute distress.] HEENT: [PERRL. EOMI. No pharyngeal erythema or exudate.] Neck: [No adenopathy.] Cardiac: [Heart regular in rate and rhythm. No S3. No S4. No clicks, rubs. No murmur.] Lungs: [Clear to auscultation bilaterally.] Abdomen: [No mass. No organomegaly. Bowel sounds presnt and normoactive in all 4 quadrants morbid obesity, ascites secondary to liver disease] Extremes: erythema rt great toe resolving some callus and ecchymotic area approximately the size of a dime on the plantar surface of the rt great toe : [] Musculoskeletal: [No joint erythema, edema or tenderness.] Skin: [No rash.] Neurologic: [No lateralizing deficits. CN II - XII grossly intact.] Lymphatic: [No adenopathy.] - Labs CBC & Chem 7: 05/25/19 06:00 05/25/19 06:00 Labs: Abnormal Lab Results - Last 24 Hours (Table) 05/25/19 05/25/19 05/26/19 Range/Units 17:02 19:30 07:09 POC Glucose (mg/dL) 276 H 309 H 160 H (75-99) mg/dL 05/26/19 Range/Units 11:21 POC Glucose (mg/dL) 179 H (75-99) mg/dL Microbiology - Last 24 Hours (Table) 05/23/19 12:50 Blood Culture - Preliminary Blood No Growth after 48 hours Assessment and Plan (1) Ascites Current Visit: Yes Status: Acute Code(s): R18.8 - OTHER ASCITES SNOMED Code(s): 092623645 (2) Cellulitis Current Visit: Yes Status: Acute Code(s): L03.90 - CELLULITIS, UNSPECIFIED SNOMED Code(s): 472562535 (3) Chronic renal disease, stage 4, severely decreased glomerular filtration rate (GFR) between 15-29 mL/min/1.73 square meter Current Visit: Yes Status: Acute Code(s): N18.4 - CHRONIC KIDNEY DISEASE, STAGE 4 (SEVERE) SNOMED Code(s): 720282869 (4) Diabetic ulcer of right foot Current Visit: Yes Status: Acute Code(s): E11.621 - TYPE 2 DIABETES MELLITUS WITH FOOT ULCER; L97.519 - NON-PRS CHRONIC ULCER OTH PRT RIGHT FOOT W UNSP SEVERITY SNOMED Code(s): 161564108 Plan: probable PICC line for Monday Toenail the right great toe to be removed by surgery restart long-acting insulin sugars have been consistently over 200 will start Levemir 15 units at at bedtime daily we'll follow-up again on Monday Time with Patient: Less than 30
[2019-05-26 17:01] LABS: Glucose,Whole Blood 163 mg/dL (75-99)
[2019-05-26] MEDS: DAPTOmycin 500 MG in SODIUM CHLORIDE 0.9% 50 ML IVPB SCH (17:20)
[2019-05-26 20:06] LABS: Glucose,Whole Blood 243 mg/dL (75-99)
[2019-05-26] MEDS: TEMAZEPAM 15 MG CAP PO SCH (21:30)
[2019-05-26] MEDS: INSULIN DETEMIR (LEVEMIR) 100 UNIT/ML SYR SQ SCH (21:30)
[2019-05-26] MEDS: ONDANSETRON 4 MG/2 ML VIAL IVP PRN (21:55)
[2019-05-27 07:08] LABS: Glucose,Whole Blood 155 mg/dL (75-99)
[2019-05-27] MEDS: FUROSEMIDE 10 MG/ML 4 ML VIAL IV SCH ×2 (08:15→20:39)
[2019-05-27] MEDS: INSULIN ASPART (NovoLOG) 100 UNIT/ML VIAL SQ SCH ×4 (08:15→21:15)
[2019-05-27] MEDS: SPIRONOLACTONE 25 MG TAB PO SCH ×2 (08:16→20:37)
[2019-05-27] MEDS: PANTOPRAZOLE 40 MG TABLET PO SCH (08:16)
[2019-05-27] MEDS: LACTULOSE 20 GM/30 ML CUP PO SCH ×2 (08:16→20:36)
[2019-05-27] MEDS: PREGABALIN 100 MG CAP PO SCH ×2 (08:16→20:37)
[2019-05-27 11:16] LABS: Calcium 8.9 mg/dL (8.4-10.2); Potassium 3.9 mmol/L (3.5-5.1)
[2019-05-27 11:19] LABS: Glucose,Whole Blood 150 mg/dL (75-99)
[2019-05-27] MEDS ORDERED: LIDOCAINE 1% INJ 10MG/ML (20 ML MDV) ONE (13:31)
[2019-05-27] MEDS ORDERED: LIDOCAINE 1% INJ 10MG/ML (20 ML MDV) SQ ONE (13:45)
--- NOTE | 2019-05-27 14:22 | PN ---
PROGRESS NOTE Patient is seen for followup for acute kidney injury on top of chronic kidney disease. His renal function is fairly stable over the last 2-3 days. Creatinine staying about 2.2-2.3 mg/dL. Patient is awake, comfortable. He denies any complaints. PHYSICAL EXAMINATION: On examination, blood pressure was 152/69, heart rate 81 per minute, he is afebrile. Examination of the heart S1, S2. Examination of lungs, bilateral breath sounds are heard. Abdomen is soft, nontender. Examination of the lower extremities shows no significant edema. LABS: Show sodium 142, potassium 3.9, chloride 107, BUN 41, creatinine 2.3. ASSESSMENT: 1. Acute kidney injury secondary to sepsis, stable and somewhat improved. 2. Chronic kidney disease stage IV. Baseline creatinine around 2 secondary to nephrosclerosis. 3. Liver cirrhosis. 4. Right foot diabetic ulcer. 5. MRSA bacteremia. 6. Anemia of chronic disease and iron deficiency, status post one dose of IV iron. Maintained on Aranesp. PLAN: Continue with the diuretics. Okay to proceed with PICC line. MMODL / IJN: [id number] /
--- NOTE | 2019-05-27 15:37 | IR ---
EXAMINATION TYPE: IR cvc insert >=5 years DATE OF EXAM: 05/27/2019 COMPARISON: NONE CLINICAL HISTORY: Infection Needs long-term intravenous access for antibiotics. PROCEDURE: After informed consent, the skin overlying the left basilic vein was localized with ultrasound and no pedro to be compressible and patent. An ultrasound image was obtained and submitted on the patient's c edmonds. The overlying skin was prepped and draped and Lidocaine was used for local anesthesia. A skin jewel was made with a scalpel. Access was gained to the vein under ultrasound guidance with a 21 gau ge needle and a 0.018 inch wire was advanced. Access site was dilated with Peel-Away sheath and cath eter tailored to the appropriate length and advanced such that the distal tip is at the cavoatrial ju nction. Spot image was obtained verifying placement. Catheter was fixed to the skin and a sterile d ressing was placed following hemostasis. Catheter was aspirated and flushed with saline. Patient wa s discharged in stable condition without complication. Maximal barrier technique is utilized. Ultras ound image is documented on the chart. Ultrasound used with sterile technique. Fluoro time and fluoroscopic images submitted to document procedure: 0.2 minutes fluoroscopy time, he 24 intraoperative images document the procedure IMPRESSION: STATUS POST ULTRASOUND AND FLUOROSCOPIC GUIDED PICC LINE PLACEMENT, READY FOR USE. THIS PROCEDURE WAS PERFORMED BY THE UNDERSIGNED.
[2019-05-27 17:19] LABS: Glucose,Whole Blood 152 mg/dL (75-99)
[2019-05-27] MEDS: DAPTOmycin 500 MG in SODIUM CHLORIDE 0.9% 50 ML IVPB SCH (17:33)
--- NOTE | 2019-05-27 18:07 | P.PN ---
Subjective Progress Note Date: 05/27/19 Principal diagnosis: MRSA septicemia end-stage liver disease,cirrhosis stage IV kidney disease patient awake alert vital signs stable patient is afebrile Culture report final staph aureus methicillin-resistant,from wound are palpable right great toe, anticipate placement of PICC line on Monday surgery supposedly is removing patients nail on the great toe on the right side,patient otherwise improving significantly renal functions almost back to baseline. Persistent ascites to abdomen. Objective - Vital Signs Vital signs: Vital Signs Temp 97.6 F 05/27/19 11:43 Pulse 82 05/27/19 11:43 Resp 22 05/27/19 11:43 BP 142/71 05/27/19 11:43 Pulse Ox 92 L 05/27/19 11:43 Intake & Output 05/26/19 05/27/19 05/27/19 18:59 06:59 18:59 Intake Total 100 1380 Output Total 2950 1300 Balance 100 -1570 -1300 Weight 113 kg Intake: Intake, IV Titration 100 Amount cefTRIAXone 2 gm In 100 Sodium Chloride 0.9% 50 ml @ 100 mls/hr IVPB Q24HR [facility] Rx#:[id number] Oral 1380 Output: Urine 2950 1300 Uretheral (Chu) 2950 Other: Voiding Method Indwelling Catheter Indwelling Catheter Indwelling Catheter - Exam General: [Patient awake, alert and oriented times 3. Patient in no acute distress.] HEENT: [PERRL. EOMI. No pharyngeal erythema or exudate.] Neck: [No adenopathy.] Cardiac: [Heart regular in rate and rhythm. No S3. No S4. No clicks, rubs. No murmur.] Lungs: [Clear to auscultation bilaterally.] Abdomen: [No mass. No organomegaly. Bowel sounds presnt and normoactive in all 4 quadrants morbid obesity, ascites secondary to liver disease] Extremes: erythema rt great toe resolving some callus and ecchymotic area approximately the size of a dime on the plantar surface of the rt great toe PICC line placed : [] Musculoskeletal: [No joint erythema, edema or tenderness.] Skin: [No rash.] Neurologic: [No lateralizing deficits. CN II - XII grossly intact.] Lymphatic: [No adenopathy.] - Labs CBC & Chem 7: 05/25/19 06:00 05/27/19 10:50 Labs: Abnormal Lab Results - Last 24 Hours (Table) 05/26/19 05/27/19 05/27/19 Range/Units 20:05 07:07 10:50 BUN 41 H (9-20) mg/dL Creatinine 2.32 H (0.66-1.25) mg/dL Glucose 149 H (74-99) mg/dL POC Glucose (mg/dL) 243 H 155 H (75-99) mg/dL 05/27/19 05/27/19 Range/Units 11:18 17:17 BUN (9-20) mg/dL Creatinine (0.66-1.25) mg/dL Glucose (74-99) mg/dL POC Glucose (mg/dL) 150 H 152 H (75-99) mg/dL Microbiology - Last 24 Hours (Table) 05/23/19 12:50 Blood Culture - Preliminary Blood No Growth after 96 hours Assessment and Plan Assessment: methods methicillin-resistant staph the wound of the right great toe PICC line placed today Right great toenail to be removed by surgery consultation with Dr. Zazueta for possible paracentesis for palliation Anticipate discharge in 24-48 hours (1) Ascites Current Visit: Yes Status: Acute Code(s): R18.8 - OTHER ASCITES SNOMED Code(s): 675827932 (2) Cellulitis Current Visit: Yes Status: Acute Code(s): L03.90 - CELLULITIS, UNSPECIFIED SNOMED Code(s): 838816181 (3) Chronic renal disease, stage 4, severely decreased glomerular filtration rate (GFR) between 15-29 mL/min/1.73 square meter Current Visit: Yes Status: Acute Code(s): N18.4 - CHRONIC KIDNEY DISEASE, STAGE 4 (SEVERE) SNOMED Code(s): 741027454 (4) Diabetic ulcer of right foot Current Visit: Yes Status: Acute Code(s): E11.621 - TYPE 2 DIABETES MELLITUS WITH FOOT ULCER; L97.519 - NON-PRS CHRONIC ULCER OTH PRT RIGHT FOOT W UNSP SEVER ITY SNOMED Code(s): 267909484
--- NOTE | 2019-05-27 18:47 | P.GSHP ---
History of Present Illness H&P Date: 05/17/19 Chief Complaint: paronychia with Asif stage III ulcer right hallux 64 male being treated in hospital for acute sepsis and cellulitis of the right lower extremity. Patient is in end-stage liver disease and has developed an infection in wound of right hallux. Patient was seen at bedside after review of patient's history and physical per chart Past Medical History Past Medical History: Blood Disorder (pancytopenia, myelodysplasia), Chest Pain / Angina, CVA/TIA, Diabetes Mellitus (diabetic neuropathy), GERD/Reflux, Hyperlipidemia, Hypertension, Liver Disease (with ascites), Neurologic Disorder, Osteoarthritis (OA), Pneumonia, Prostate Disorder, Renal Disease Additional Past Medical History / Comment(s): 2nd degree servin from soup being spilled on stomach. History of Any Multi-Drug Resistant Organisms: MRSA Date of last positivie culture/infection: 05/19/19 MDRO Source:: LEFT FOOT Past Surgical History: Cholecystectomy, Orthopedic Surgery Additional Past Surgical History / Comment(s): left great toe amputation. History of wound care left great toe. multiple THORACENTESIS, PARACENTESIS, colonoscopy Past Anesthesia/Blood Transfusion Reactions: No Reported Reaction Past Psychological History: Anxiety, Depression Additional Psychological History / Comment(s): Single lives with his family inc luding adult daughter. No experience. No travels. No animal exposures Smoking Status: Never smoker Past Alcohol Use History: None Reported Past Drug Use History: None Reported - Past Family History Mother Family Medical History: Cancer, Diabetes Mellitus Father Family Medical History: Cancer, Diabetes Mellitus Brother(s) Family Medical History: Diabetes Mellitus Daughter(s) Family Medical History: Diabetes Mellitus, Hyperlipidemia, Hypertension Son(s) Family Medical History: Diabetes Mellitus, Hyperlipidemia, Hypertension Medications and Allergies Home Medications Medication Instructions Recorded Confirmed Type Atorvastatin [Lipitor] 20 mg PO HS 01/14/16 05/19/19 History Pregabalin [Lyrica] 200 mg PO BID 04/25/16 05/19/19 History hydrOXYzine HCL [Atarax] 10 mg PO HS 08/03/16 05/19/19 History Lactulose [Cephulac] 30 gm PO QID 01/23/17 05/19/19 History Tamsulosin [Flomax] 0.4 mg PO BID 06/27/17 05/19/19 History Insulin Glargine [Lantus] 60 unit SQ HS 08/08/18 05/19/19 History Insulin Lispro [Admelog] See Protocol SQ ACHS 08/08/18 05/19/19 History Temazepam [Restoril] 15 mg PO HS 08/08/18 05/19/19 History Spironolactone 50 mg PO BID 02/18/19 05/19/19 History oxyCODONE HCL [oxyCODONE HCL (IR)] 5 mg PO Q6H PRN 02/18/19 05/19/19 History Furosemide [Lasix] 40 mg PO BID 05/15/19 05/19/19 History Calcitriol [Rocaltrol] 0.25 mcg PO SUTUTH 05/19/19 05/19/19 History Ergocalciferol [Vitamin D2] 50,000 unit PO WE 05/19/19 05/19/19 History DAPTOmycin [Daptomycin] 500 mg IVPB DAILY #30 vial 05/21/19 Rx Allergies Allergy/AdvReac Type Severity Reaction Status Date / Time Mushroom Allergy Anaphylaxis Verified 05/19/19 09:33 Surgical - Exam Vital Signs Temp Pulse Resp BP Pulse Ox 101.7 F H 131 H 28 H 90/56 90 L 05/19/19 07:54 05/19/19 07:54 05/19/19 07:54 05/19/19 07:54 05/19/19 07:54 - Cardiovascular pedal pulses diminished nonpalpable bilateral skin temperature texture tumor decreased bilateral no digital hair 10 - Genitourinary pedal pulses diminished nonpalpable bilateral can temperature texture tumor decreased bilateral no digital hair times - Integumentary paronychia of the right hallux with a loosely attached nail plate and underlying ulceration on the lateral nail fold. There is associated ulcer on the plantar aspect of the right hallux with clinical osteomyelitis. - Neurologic patient has loss of protective sensation up to including the ankle joint to an SWM 5.07 mg wire vibratory 2 point tactile diminished bilateral - Musculoskeletal partial amputation left hallux hammering of digits 2 through 4 bilateral osteomyelitis right hallux range of motion of the ankle joint subtalar joint and midtarsal joint and metatarsophalangeal joints grossly normal symmetric bilateral all inverters everters plantar flexors dorsiflexors grossly normal symmetrical bilateral Results - Labs 05/25/19 06:00 05/27/19 10:50 Abnormal Lab Results - Last 24 Hours (Table) 05/26/19 05/27/19 05/27/19 Range/Units 20:05 07:07 10:50 BUN 41 H (9-20) mg/dL Creatinine 2.32 H (0.66-1.25) mg/dL Glucose 149 H (74-99) mg/dL POC Glucose (mg/dL) 243 H 155 H (75-99) mg/dL 05/27/19 05/27/19 Range/Units 11:18 17:17 BUN (9-20) mg/dL Creatinine (0.66-1.25) mg/dL Glucose (74-99) mg/dL POC Glucose (mg/dL) 150 H 152 H (75-99) mg/dL Microbiology - Last 24 Hours (Table) 05/23/19 12:50 Blood Culture - Preliminary Blood No Growth after 96 hours Diabetes panel 05/27/19 Range/Units 10:50 Sodium 142 (137-145) mmol/L Potassium 3.9 (3.5-5.1) mmol/L Chloride 107 (98-107) mmol/L Carbon Dioxide 29 (22-30) mmol/L BUN 41 H (9-20) mg/dL Creatinine 2.32 H (0.66-1.25) mg/dL Glucose 149 H (74-99) mg/dL Calcium 8.9 (8.4-10.2) mg/dL Calcium panel 05/27/19 Range/Units 10:50 Calcium 8.9 (8.4-10.2) mg/dL Pituitary panel 05/27/19 Range/Units 10:50 Sodium 142 (137-145) mmol/L Potassium 3.9 (3.5-5.1) mmol/L Chloride 107 (98-107) mmol/L Carbon Dioxide 29 (22-30) mmol/L BUN 41 H (9-20) mg/dL Creatinine 2.32 H (0.66-1.25) mg/dL Glucose 149 H (74-99) mg/dL Calcium 8.9 (8.4-10.2) mg/dL Adrenal panel 05/27/19 Range/Units 10:50 Sodium 142 (137-145) mmol/L Potassium 3.9 (3.5-5.1) mmol/L Chloride 107 (98-107) mmol/L Carbon Dioxide 29 (22-30) mmol/L BUN 41 H (9-20) mg/dL Creatinine 2.32 H (0.66-1.25) mg/dL Glucose 149 H (74-99) mg/dL Calcium 8.9 (8.4-10.2) mg/dL Assessment and Plan Assessment: paronychia right hallux Asif grade 3 ulceration right hallux Peripheral vascular disease bilateral Peripheral neuropathy bilateral Multiple systemic morbid condition Plan: exam. Today we removed the paronychia nail to leave a another source of infection as well as right hallux. This was performed with a sterile nail nipper after which we removed all necrotic debris with a tissue nipper and curette. We then applied medical Honey and a dry sterile dressing. Patient may benefit from advanced wound care at the wound care center.
--- NOTE | 2019-05-27 19:12 | P.PN ---
Subjective Progress Note Date: 05/27/19 64 -year-old male was evidence of significant cirrhosis and end-stage liver disease who presents to Hospital with the rapid change of his mental status. His daughter was present relates that on he was quite normal. Conversational and laughing without significant new complaints by yesterday he become progressively more obtunded and then got to the point in time where he was asleep and could not P awoken because I was brought to the emergency center for evaluation. There is not evidence of significant worsening of his end-stage liver disease with an increase of his ammonia level, hepatic encephalopathy, and evidence of hepatorenal syndrome. The family also notes in the last few days there is no significant change to his right foot. He may have had an injury to the great toe where the nail was a bit split. But now it has become progressively worse over the last few days with redness and some drainage swelling and erythema. He has dense neuropathy and has no complaints of pain to the site to the family before his admission. The family does not believe his had a fever at home and the change occurred relatively rapidly over the last 48 hours. 05/20/2019 the patient is now having significant improvement of his status. He is awake alert and able to answer simple questions. He denies much discomfort. He does feel short of breath, and does complain of abdominal distention. 05/21/2019 patient more awake and less pain looks forward to going home 05/23/2019 patient remains awake and alert but still feels ill is wondering about is discharged home. 05/24/2019 the patient has started to have some improvement of his status. She is eating a bit better today. Family believes he is also a bit brighter in his interactions. His fevers have improved. 05/27/2019 patient is quite miserable today. His abdominal distention has increased and he is much more comfortable. The case is discussed with his primary care physician. Abdominal ultrasound has been requested and hopefully a paracentesis can be scheduled to leave his discomfort if there is no ascites for this to occur. Objective - Vital Signs Vital signs: Vital Signs Temp 97.6 F 05/27/19 11:43 Pulse 82 05/27/19 11:43 Resp 22 05/27/19 11:43 BP 142/71 05/27/19 11:43 Pulse Ox 92 L 05/27/19 11:43 Intake & Output 05/27/19 05/27/19 05/28/19 06:59 18:59 06:59 Intake Total 1380 Output Total 2950 1300 Balance -1570 -1300 Weight 113 kg Intake: Oral 1380 Output: Urine 2950 1300 Uretheral (Chu) 2950 Other: Voiding Method Indwelling Catheter Indwelling Catheter - Exam HEENT: Mildly icteric, without scleral edema, nasal or cavity are dry without thrush or lesions Neck: The neck is supple without significant lymphadenopathy or thyromegaly. Lungs: There is symmetrical bilaterally. There are crackles in bilateral bases is evidence of some scattered wheeze but no bronchial sounds Heart: Irregular with an audible S1 and S2 soft S4 no distinct murmur click or rub Abdomen: Appears to have extensive ascites, abdomen is quite distended, There is some diffuse abdominal tenderness due to the extensive tension. I can palpate no mass or organomegaly. Extremities: The extremities reveal evidence of some muscular wasting lower extremities do not have significant edema, the right great toe is evidence of swelling erythema there appears to be ulceration underneath the nail that has drainage which is cultured. There is also evidence of ulceration on the plantar surface of the great toe. With probing I could not find a through and through ulceration. He is he has dense neuropathy and has no sensation when this is manipulated. It appears her was extensive swelling because entire layer of skin has peeled off. There is distinct erythema around the toe and on the dorsum of the foot but there is no significant ascending lymphangitis and there is no significant lymphadenopathy in either inguinal area there is also no abnormal lymph nodes cervical axillary epitrochlear. Neuro: he is now awake and alert and appears ,is able to complain of some shortness and abdominal distention - Labs CBC & Chem 7: 05/25/19 06:00 05/27/19 10:50 Labs: Abnormal Lab Results - Last 24 Hours (Table) 05/26/19 05/27/19 05/27/19 Range/Units 20:05 07:07 10:50 BUN 41 H (9-20) mg/dL Creatinine 2.32 H (0.66-1.25) mg/dL Glucose 149 H (74-99) mg/dL POC Glucose (mg/dL) 243 H 155 H (75-99) mg/dL 12/23/19 12/23/19 Range/Units 11:18 17:17 BUN (9-20) mg/dL Creatinine (0.66-1.25) mg/dL Glucose (74-99) mg/dL POC Glucose (mg/dL) 150 H 152 H (75-99) mg/dL Microbiology - Last 24 Hours (Table) 05/23/19 12:50 Blood Culture - Preliminary Blood No Growth after 96 hours Laboratory Results WBC 2.9 k/uL (3.8-10.6) L 05/25/19 06:00 RBC 2.94 m/uL (4.30-5.90) L 05/25/19 06:00 Hgb 8.7 gm/dL (13.0-17.5) L 05/25/19 06:00 Hct 25.7 % (39.0-53.0) L 05/25/19 06:00 MCV 87.5 fL (80.0-100.0) 05/25/19 06:00 MCH 29.6 pg (25.0-35.0) 05/25/19 06:00 MCHC 33.8 g/dL (31.0-37.0) 05/25/19 06:00 RDW 15.3 % (11.5-15.5) 05/25/19 06:00 Plt Count 46 k/uL (150-450) L 05/25/19 06:00 Neutrophils % 70 % 05/25/19 06:00 Lymphocytes % 16 % 05/25/19 06:00 Monocytes % 8 % 05/25/19 06:00 Eosinophils % 5 % 05/25/19 06:00 Basophils % 0 % 05/25/19 06:00 Neutrophils # 2.0 k/uL (1.3-7.7) 05/25/19 06:00 Lymphocytes # 0.5 k/uL (1.0-4.8) L 05/25/19 06:00 Monocytes # 0.2 k/uL (0-1.0) 05/25/19 06:00 Eosinophils # 0.1 k/uL (0-0.7) 05/25/19 06:00 Basophils # 0.0 k/uL (0-0.2) 05/25/19 06:00 Manual Slide Review Performed 05/21/19 05:14 Hypochromasia Moderate 05/25/19 06:00 Poikilocytosis Moderate 05/25/19 06:00 Anisocytosis (manual) Present 05/19/19 08:00 PT 16.3 sec (9.0-12.0) H 05/19/19 08:00 INR 1.6 (<1.2) H 05/19/19 08:00 APTT 28.6 sec (22.0-30.0) 05/19/19 08:00 VBG pH 7.48 (7.31-7.41) H 05/19/19 08:39 VBG pCO2 32 mmHg (37-51) L 05/19/19 08:39 VBG HCO3 24 mmol/L (24-28) 05/19/19 08:39 Sodium 142 mmol/L (137-145) 05/27/19 10:50 Potassium 3.9 mmol/L (3.5-5.1) 05/27/19 10:50 Chloride 107 mmol/L (98-107) 05/27/19 10:50 Carbon Dioxide 29 mmol/L (22-30) 05/27/19 10:50 Anion Gap 6 mmol/L 05/27/19 10:50 BUN 41 mg/dL (9-20) H 05/27/19 10:50 Creatinine 2.32 mg/dL (0.66-1.25) H 05/27/19 10:50 Est GFR (CKD-EPI)AfAm 34 (>60 ml/min/1.73 sqM) 05/27/19 10:50 Est GFR (CKD-EPI)NonAf 29 (>60 ml/min/1.73 sqM) 05/27/19 10:50 Glucose 149 mg/dL (74-99) H 05/27/19 10:50 POC Glucose (mg/dL) 152 mg/dL (75-99) H 05/27/19 17:17 POC Glu Template Reproduction Technician ID Shena Roberson 05/27/19 17:17 Lactic Ac Sepsis Rflx Y 05/19/19 12:36 Plasma Lactic Acid Chad 2.0 mmol/L (0.7-2.0) 05/19/19 15:59 Calcium 8.9 mg/dL (8.4-10.2) 05/27/19 10:50 Magnesium 1.7 mg/dL (1.6-2.3) 05/25/19 06:00 Iron 25 ug/dL (65-175) L 05/20/19 05:30 TIBC 220 ug/dL (228-460) L 05/20/19 05:30 % Saturation 11.36 (15.00-50.00) L 05/20/19 05:30 Ferritin 34.3 ng/mL (22.0-322.0) 05/20/19 05:30 Total Bilirubin 1.4 mg/dL (0.2-1.3) H 05/25/19 06:00 AST 31 U/L (17-59) 05/25/19 06:00 ALT 15 U/L (4-49) 05/25/19 06:00 Alkaline Phosphatase 55 U/L (38-126) 05/25/19 06:00 Ammonia 26 umol/L (<30) 05/24/19 12:31 Creatine Kinase 49 U/L (55-170) L 05/19/19 08:00 Troponin I 0.019 ng/mL (0.000-0.034) 05/19/19 08:00 Total Protein 5.9 g/dL (6.3-8.2) L 05/25/19 06:00 Albumin 2.4 g/dL (3.5-5.0) L 05/25/19 06:00 Prealbumin <5.0 mg/dL (18.0-42.0) L 05/20/19 05:30 Lipase 93 U/L (23-300) 05/19/19 08:00 Urine Color Yellow 05/19/19 08:20 Urine Appearance Turbid (Clear) 05/19/19 08:20 Urine pH 5.5 (5.0-8.0) 05/19/19 08:20 Ur Specific [place] 1.012 (1.001-1.035) 05/19/19 08:20 Urine Protein 1+ (Negative) H 05/19/19 08:20 Urine Glucose (UA) Negative (Negative) 05/19/19 08:20 Urine Ketones Negative (Negative) 05/19/19 08:20 Urine Blood Moderate (Negative) H 05/19/19 08:20 Urine Nitrite Negative (Negative) 05/19/19 08:20 Urine Bilirubin Negative (Negative) 05/19/19 08:20 Urine Urobilinogen 2.0 mg/dL (<2.0) 05/19/19 08:20 Ur Leukocyte Esterase Large (Negative) H 05/19/19 08:20 Urine RBC >182 /hpf (0-5) H 05/19/19 08:20 Urine WBC >182 /hpf (0-5) H 05/19/19 08:20 Urine WBC Clumps Many /hpf (None) H 05/19/19 08:20 Ur Squamous Epith Cells 7 /hpf (0-4) H 05/19/19 08:20 Urine Mucus Rare /hpf (None) H 05/19/19 08:20 Serum Alcohol <10 mg/dL 05/19/19 08:00 Influenza Type A RNA Not Detected (Not Detectd) 05/19/19 08:20 Influenza Type B (PCR) Not Detected (Not Detectd) 05/19/19 08:20 Microbiology 05/23/19 12:50 Blood Blood Culture - Preliminary No Growth after 96 hours 05/22/19 05:30 Blood Blood Culture Gram Stain - Final 05/22/19 05:30 Blood Blood Culture - Final Staphylococcus aureus 05/19/19 13:59 Foot - Left Anaerobic Culture - Final 05/20/19 17:23 Blood Blood Culture Gram Stain - Final 05/20/19 17:23 Blood Blood Culture - Final Staphylococcus aureus 05/22/19 05:30 Blood Blood Culture - Final 05/19/19 13:59 Foot - Left Gram Stain - Final 05/19/19 13:59 Foot - Left Wound Culture - Final Staphylococcus aureus 05/19/19 11:15 Toe - Right First Gram Stain - Final 05/19/19 11:15 Toe - Right First Wound Culture - Final Staphylococcus aureus 05/19/19 08:00 Blood Blood Culture Gram Stain - Final 05/19/19 08:00 Blood Blood Culture - Final Staphylococcus aureus 05/20/19 17:23 Blood Blood Culture - Final 05/19/19 08:20 Urine,Voided Urine Culture - Final Staphylococcus aureus 05/19/19 08:00 Blood Blood Culture - Final Assessment and Plan (1) 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 There is evidence of hepatorenal syndrome as well as hepatic encephalopathy. Lactulose by enema has been requested. The patient has evidence of an infection to the right great toe which may have resulted in significant worsening of his status. By his history is have cultures with Serratia and MRSA at that site and constantly antibiotic therapy with Rocephin and daptomycin will be utilized. Daptomycin because of his acute on chronic renal failure as well as a Vanco COSTA of 2 with a bony infection. Over he will tolerate this. Local wound care with nikunj has been requested that he be changed on a daily basis for now. He is currently nonambulatory. Need to have ongoing assessment for his mobility and ensure that he is turned in bed. The daughter is aware of his poor status and they have a palliative care consult and Monday however they may be definitive consult which they are aware of if he does not show improvement. There would be open to hospice if he does not improve. May the patient has had some improvement of his status joanne moreau. He is now awake and interactive., He is still poor historian but does recognize the observer. The wound culture, blood culture, and urine culture all show evidence of the MRSA and he is on daptomycin therapy. Follow blood cultures been requested. The patient does seem to have some improvement and other laboratories have shown some improvement with the ammonia dropping from 88-16. He does have some I Radha failure but this appears For now he maintains on the antibiotic therapy with daptomycin and Rocephin until. There may be the possibility of de-escalation of Rocephin, however until there is no evidence of any biliary process so be continued for Still has a poor prognosis but has significant improvement at this tiime. 05/21/2019 patinet is improved but blood culture is still positive, repeat culture is requested, and will continue daptomycin for now. clinically he has i mproved and hopefully will have clearance of his bacteremia. Once this occurs will be able to have IV access placed with a midline complete several weeks of antibiotic therapy He will need follow-up of the wound healing Center. 05/23/2019 he follow blood cultures remain positive and consequently IV access is yet to be placed. Echocardiogram is requested to evaluate other potential sources of his bacteremia. If echocardiogram is negative we'll ask for a vascular surgical evaluation to the right great toe he may need a surgical debridement at that site to allow resolution of underlying infection in that area. Family plans on taking to home to treat him there. 05/24/2019 the patient finally has a blood culture that is negative for 24 hours. Hopefully he will remain with negative blood cultures and then will be able to have IV access placed and then plans for his outpatient intravenous antibiotic therapy at home with his family. Daptomycin is being utilized for his MRSA bacteremia as well as somewhat persistent. Concern the bacteremia is coming from the toe ulceration. He has been seen by the vascular team and they may debridement to in the near future. 05/27/2019 patient is quite uncomfortable ultrasound was requested and a paracentesis if there is enough fluid for to be drained. Is overall getting good palliation alone for be discharged home in the near future. His outpatient intervenous antibiotic therapy has been arranged with daptomycin which is low [place] of his MRSA bacteremia. IV access has been placed. He will need follow-up in the outpatient clinic. Current Visit: Yes Status: Acute Code(s): E11.621 - TYPE 2 DIABETES MELLITUS WITH FOOT ULCER; L97.514 - NON-PRS CHRONIC ULCER OTH PRT RIGHT FOOT W NECROSIS OF BONE SNOMED Code(s): 3613415526635 (2) Hepatic encephalopathy Current Visit: Yes Status: Acute Code(s): K72.90 - HEPATIC FAILURE, UNSPECIF IED WITHOUT COMA SNOMED Code(s): 28807143 (3) Hyperammonemia Current Visit: Yes Status: Acute Code(s): E72.20 - DISORDER OF UREA CYCLE METABOLISM, UNSPECIFIED SNOMED Code(s): 7022969 (4) Cirrhosis of liver Current Visit: Yes Status: Chronic Code(s): K74.60 - UNSPECIFIED CIRRHOSIS OF LIVER SNOMED Code(s): 01984864
--- NOTE | 2019-05-27 19:58 | US ---
EXAMINATION TYPE: US abdomen limited DATE OF EXAM: 05/27/2019 COMPARISON: US CLINICAL HISTORY: amount of ascites please lyly for paracentesis. Ascites check. Scanned all four quadrants. Largest fluid pocket appears to be in the RUQ measuring approximately 73. 1 mL. IMPRESSION: There is abdominal ascites. Largest pocket of fluid measures 12 x 4 cm.
[2019-05-27] MEDS: TEMAZEPAM 15 MG CAP PO SCH (20:38)
[2019-05-27 21:00] LABS: Glucose,Whole Blood 223 mg/dL (75-99)
[2019-05-27] MEDS: INSULIN DETEMIR (LEVEMIR) 100 UNIT/ML SYR SQ SCH (21:16)
[2019-05-27] MEDS: ONDANSETRON 4 MG/2 ML VIAL IVP PRN (21:24)
[2019-05-28 07:04] LABS: Glucose,Whole Blood 133 mg/dL (75-99)
[2019-05-28] MEDS: INSULIN ASPART (NovoLOG) 100 UNIT/ML VIAL SQ SCH ×4 (08:14→21:50)
[2019-05-28] MEDS: FUROSEMIDE 10 MG/ML 4 ML VIAL IV SCH ×2 (08:14→21:50)
[2019-05-28] MEDS: PANTOPRAZOLE 40 MG TABLET PO SCH (08:15)
[2019-05-28] MEDS: LACTULOSE 20 GM/30 ML CUP PO SCH ×2 (08:15→21:52)
[2019-05-28] MEDS: PREGABALIN 100 MG CAP PO SCH ×2 (08:15→21:51)
[2019-05-28] MEDS: SPIRONOLACTONE 25 MG TAB PO SCH ×2 (08:15→21:51)
[2019-05-28 09:44] LABS: Albumin 2.5 g/dL (3.5-5.0); Calcium 8.8 mg/dL (8.4-10.2); Potassium 4.1 mmol/L (3.5-5.1); Total Bilirubin 1.5 mg/dL (0.2-1.3); Total Protein 6.4 g/dL (6.3-8.2)
--- NOTE | 2019-05-28 10:10 | PN ---
PROGRESS NOTE The patient is seen for followup for chronic kidney disease and acute kidney injury. He is currently resting comfortably. Patient denies any significant complaints. His creatinine has been staying about 2.3 to 2.2 mg/dL. Patient has good urine output. He has a Chu catheter. PHYSICAL EXAMINATION: On examination this morning, blood pressure was 116/57, heart rate 73 per minute. He is afebrile. EXAMINATION OF THE HEART: S1, S2. EXAMINATION OF THE LUNGS: Decreased breath sounds at bases. Abdomen is soft, nontender. Examination of lower extremities shows edema 1+. CUSTOMER SERVICE AND SALES CONSULTANT EXAM: Grossly intact. LABS: Labs show sodium 142, potassium 4.1, chloride 106, BUN 43, creatinine 2.28, total bilirubin 1.5, albumin 2.5. ASSESSMENT: 1. Acute kidney injury, prerenal, currently improved. 2. Diabetic ulcer of the right foot with necrosis of the bone, maintained on antibiotics, being followed by ID. 3. Liver cirrhosis. 4. Chronic kidney disease stage 4. Baseline creatinine around 2. 5. Methicillin-resistant Staphylococcus aureus bacteremia. 6. Anemia of chronic disease and iron deficiency, maintained on Aranesp, status post IV iron. PLAN: Continue with current dose of Lasix. Renal function is stable. Continue antibiotics. The patient will need to continue to follow up as outpatient. MMODL / IJN: [id number] /
[2019-05-28] MEDS: DARBEPOETIN ALFA 40 MCG/0.4 ML SYRINGE SQ SCH (10:46)
--- NOTE | 2019-05-28 11:01 | P.PN ---
Subjective Progress Note Date: 05/28/19 Principal diagnosis: MRSA septicemia end-stage liver disease,cirrhosis stage IV kidney disease patient awake alert vital signs stable patient is afebrile Culture report final staph aureus methicillin-resistant,from wound are palpable right great toe, anticipate placement of PICC line on Monday surgery supposedly is removing patients nail on the great toe on the right side,patient otherwise improving significantly renal functions almost back to baseline. Persistent ascites to abdomen.GI reconsulted for possible palliative paracentesis ultrasound noted Objective - Vital Signs Vital signs: Vital Signs Temp 98.2 F 05/28/19 05:00 Pulse 73 05/28/19 05:00 Resp 18 05/28/19 05:00 BP 116/57 05/28/19 05:00 Pulse Ox 92 L 05/28/19 05:00 Intake & Output 05/27/19 05/28/19 05/28/19 18:59 06:59 18:59 Intake Total 830 Output Total 1300 850 Balance -1300 -20 Weight 114 kg Intake: Oral 830 Output: Urine 1300 850 Uretheral (Chu) 850 Other: Voiding Method Indwelling Catheter Indwelling Catheter - Exam General: [Patient awake, alert and oriented times 3. Patient in no acute distress.] HEENT: [PERRL. EOMI. No pharyngeal erythema or exudate.] Neck: [No adenopathy.] Cardiac: [Heart regular in rate and rhythm. No S3. No S4. No clicks, rubs. No murmur.] Lungs: [Clear to auscultation bilaterally.] Abdomen: [No mass. No organomegaly. Bowel sounds presnt and normoactive in all 4 quadrants morbid obesity, ascites secondary to liver disease] Extremes: erythema rt great toe resolving some callus and ecchymotic area approximately the size of a dime on the plantar surface of the rt great toe PICC line placed : [] Musculoskeletal: [No joint erythema, edema or tenderness.] Skin: [No rash.] Neurologic: [No lateralizing deficits. CN II - XII grossly intact.] Lymphatic: [No adenopathy.] - Labs CBC & Chem 7: 05/25/19 06:00 05/28/19 08:07 Labs: Abnormal Lab Results - Last 24 Hours (Table) 05/27/19 05/27/19 05/27/19 Range/Units 10:50 11:18 17:17 BUN 41 H (9-20) mg/dL Creatinine 2.32 H (0.66-1.25) mg/dL Glucose 149 H (74-99) mg/dL POC Glucose (mg/dL) 150 H 152 H (75-99) mg/dL Total Bilirubin (0.2-1.3) mg/dL Albumin (3.5-5.0) g/dL 05/27/19 05/28/19 05/28/19 Range/Units 20:55 07:02 08:07 BUN 43 H (9-20) mg/dL Creatinine 2.28 H (0.66-1.25) mg/dL Glucose 131 H (74-99) mg/dL POC Glucose (mg/dL) 223 H 133 H (75-99) mg/dL Total Bilirubin 1.5 H (0.2-1.3) mg/dL Albumin 2.5 L (3.5-5.0) g/dL Microbiology - Last 24 Hours (Table) 05/23/19 12:50 Blood Culture - Preliminary Blood No Growth after 96 hours Assessment and Plan Assessment: methods methicillin-resistant staph the wound of the right great toe PICC line placed today Right great toenail to be removed by surgery waiting on Dr. Zazueta for possible paracentesis for palliation Anticipate discharge in 24-48 hours (1) Ascites Current Visit: Yes Status: Acute Code(s): R18.8 - OTHER ASCITES SNOMED Code(s): 036318436 (2) Cellulitis Current Visit: Yes Status: Acute Code(s): L03.90 - CELLULITIS, UNSPECIFIED SNOMED Code(s): 413325212 (3) Chronic renal disease, stage 4, severely decreased glomerular filtration rate (GFR) between 15-29 mL/min/1.73 square meter Current Visit: Yes Status: Acute Code(s): N18.4 - CHRONIC KIDNEY DISEASE, STAGE 4 (SEVERE) SNOMED Code(s): 814589292 (4) Diabetic ulcer of right foot Current Visit: Yes Status: Acute Code(s): E11.621 - TYPE 2 DIABETES MELLITUS WITH FOOT ULCER; L97.519 - NON-PRS CHRONIC ULCER OTH PRT RIGHT FOOT W UNSP SEVERITY SNOMED Code(s): 661011188
[2019-05-28 11:27] LABS: Glucose,Whole Blood 139 mg/dL (75-99)
[2019-05-28 11:57] LABS: Mean Platelet Volume 9.5
[2019-05-28 12:00] LABS: Platelet Count 62 k/uL (150-450)
[2019-05-28 12:02] LABS: INR 1.8 (<1.2); Prothrombin Time 17.5 sec (9.0-12.0)
--- NOTE | 2019-05-28 13:13 | CONS ---
CONSULTATION DATE OF SERVICE: 05/28/2019 REASON FOR CONSULTATION: Ascites. HISTORY OF PRESENT ILLNESS: The patient is a 64-year-old pleasant white male who was admitted to the hospital 10 days ago with acute hepatic encephalopathy. The patient known to have history of cirrhosis of the liver. He was treated with oral lactulose and Xifaxan and his symptoms improved. In the meantime, he was diagnosed with diabetic right foot ulcer for which he has been on antibiotics and Dr. Gold following the patient closely. He was noted to have gradual abdominal distention and hence we are reconsulted again. He did have an ultrasound of the abdomen done yesterday that showed evidence of abdominal ascites with the largest pocket measuring 12 x 4 cm in size. He does complain of some abdominal distention, mild abdominal discomfort. He reports no nausea, vomiting, has been on a regular diet tolerating well. Also, has history of chronic kidney disease superimposed with acute kidney injury. Serum creatinine is around 2.4 today. Diuretics have been on hold. PAST MEDICAL HISTORY: Significant for liver cirrhosis, hypertension, hyperlipidemia, gastroesophageal reflux disease, diabetes mellitus, chronic kidney disease. PAST SURGICAL HISTORY: Cholecystectomy, left great toe amputation, thoracentesis, EGD, colonoscopy in the past, paracentesis. MEDICATIONS: Medications at home include Lipitor, Lyrica, Atarax, Cephulac, Flomax, Lantus, Restoril, spironolactone, oxycodone, Lasix, Rocaltrol, vitamin D2. ALLERGIES: None. SOCIAL HISTORY: No history of smoking or alcohol use. FAMILY HISTORY: Unremarkable. REVIEW OF SYSTEMS: CARDIOPULMONARY: He denies any chest pain or shortness of breath. GENITOURINARY: No dysuria or hematuria. MUSCULOSKELETAL: Unremarkable, other than issues with the diabetic left foot. NEUROLOGY: Unremarkable. PSYCHIATRY: Unremarkable. ENT/VISION: Unremarkable. CONSTITUTIONAL: No recent weight loss. No fever, chills, night sweats. PHYSICAL EXAMINATION: On physical examination, he appears comfortable. No apparent distress. Vital signs are stable. Blood pressure is 116/57, pulse rate 73, temperature 98.2. HEENT examination unremarkable. Conjunctivae pink. Sclerae anicteric. Oral cavity no lesions. NECK: No JVD or lymph node enlargement. CHEST: Clear to auscultation. HEART: Regular rate and rhythm. ABDOMEN: Slightly distended. It was slightly obese. Bowel sounds are positive. I could not appreciate any fluid thrill or shifting dullness. No organomegaly noted. EXTREMITIES: No pedal edema. There is some bandage on the right great toe. NEUROLOGIC: Alert and oriented x3. No focal deficits. LABS: Labs from today are not available except for a basic metabolic panel which showed a BUN of 43, creatinine 2.28. IMPRESSION: 1. Abdominal distention/ascites presently on Aldactone 50 mg twice daily and Lasix 40 mg q.12 hours. Ultrasound of the abdomen did show some ascites with a pocket of fluid collection on the left side of the abdomen. 2. Diabetic foot ulcer for which she is on antibiotics. Dr. Gold following the patient closely. 3. History of hepatic encephalopathy has completely resolved. Presently maintained on lactulose 30 mL 3 times daily. 4. Longstanding history of diabetes mellitus. 5. Anemia of chronic disease. 6. Acute kidney injury superimposed on chronic kidney disease. RECOMMENDATION: 1. Continue with present dose of diuretic regimen as per Nephrology. 2. We will schedule him for a large volume paracentesis for diagnostic and therapeutic purposes. 3. Continue with oral lactulose 30 mL 3 times daily and titrate so that he has 3 to 4 bowel movements daily. 4. We will follow with you closely. Thank you for this consultation. MMROSANNAL / IJN: [id number] /
[2019-05-28] MEDS: CALCITRIOL 0.25 MCG CAP PO SCH (13:40)
--- NOTE | 2019-05-28 14:04 | US ---
EXAMINATION TYPE: US paracentesis abd w/image DATE OF EXAM: 05/28/2019 COMPARISON: NONE HISTORY: Ascites. PROCEDURE: Maximal barrier technique was utilized. The skin overlying a suitable pocket of fluid was localized with ultrasound and the overlying skin was prepped and draped. Ultrasound was utilized with sterile technique. Lidocaine was used for local anesthesia and a skin jewel made with a scalpel. Catheter was advanced under direct ultrasound guidance into a suitable pocket of fluid and approximately 0.5 liter s of serous fluid were removed. Catheter was withdrawn and hemostasis achieved. There is no immedia te complication; the patient is discharged in stable condition. IMPRESSION: STATUS POST ULTRASOUND GUIDED PARACENTESIS FOR PALLIATION OF ASCITES. THIS PROCEDURE WA S PERFORMED BY THE UNDERSIGNED. Specimen sent for laboratory analysis.
[2019-05-28 15:36] LABS: Appearance,BF Hazy; Color,BF Yellow; Nucleated Cells, Body Fluid 325 /uL; RBC, Body Fluid 2275 /uL
[2019-05-28 15:37] LABS: Mononuclear WBC,Body Fluid 82 %; Polynuclear WBC,Body Fluid 17 %; Total Cells Counted,Body Fluid 100
--- NOTE | 2019-05-28 16:05 | PN ---
PROGRESS NOTE Patient is seen for followup for chronic kidney disease and acute kidney injury. Renal function has been stable, with creatinine 2.28 today from 2.3 yesterday. Patient has an indwelling Chu catheter. [id number] urine output documented at 2.1 L. PHYSICAL EXAMINATION: On examination this morning, blood pressure was 116/57, heart rate of 60 per minute. Patient is afebrile. EXAMINATION OF THE HEART: S1 and S2. EXAMINATION OF LUNGS: Decreased breath sounds at bases. ABDOMEN: Soft, distended, non-tender. Examination of lower extremities shows edema 1+ bilaterally. Chronic skin changes are noted. LABS: Labs show sodium 142, potassium 4.1, chloride 106. Co2 is 29. BUN 43, creatinine 2.28. ASSESSMENT: 1. Chronic kidney disease, NKF stage III to IV, currently stable. Patient is maintained on IV Lasix, which I will continue. Renal function is not far from baseline. 2. Diabetic ulcer of the right foot with necrosis of the bone, maintained on antibiotics, being followed by Infectious Disease. 3. Methicillin-resistant Staphylococcus aeruginosa bacteremia. 4. Anemia of chronic disease with iron deficiency, status post IV iron. Maintained on Aranesp. PLAN: Continue with current dose of IV Lasix. Repeat labs in a.m. MMODL / IJN: [id number] /
[2019-05-28] MEDS: DAPTOmycin 500 MG in SODIUM CHLORIDE 0.9% 50 ML IVPB SCH (16:16)
[2019-05-28] MEDS ORDERED: TAMSULOSIN 0.4 MG CAP.ER.24H PO STA (16:30)
--- NOTE | 2019-05-28 19:18 | XR ---
EXAMINATION TYPE: XR chest 2V DATE OF EXAM: 05/28/2019 COMPARISON: 05/20/2019 HISTORY: Short of breath TECHNIQUE: 2 views FINDINGS: There is a large right pleural effusion. There is no definite left pleural effusion. There is poor inspiration. There is pulmonary vascular congestion. IMPRESSION: Congestive heart failure and significant increased right pleural effusion compared to las t exam.
[2019-05-28 20:23] LABS: Glucose,Whole Blood 163 mg/dL (75-99)
[2019-05-28] MEDS: INSULIN DETEMIR (LEVEMIR) 100 UNIT/ML SYR SQ SCH (21:50)
[2019-05-28] MEDS: TEMAZEPAM 15 MG CAP PO SCH (21:51)
[2019-05-29 04:59] VITALS: TEMP 98.2
[2019-05-29 06:55] LABS: Glucose,Whole Blood 121 mg/dL (75-99)
[2019-05-29] MEDS: INSULIN ASPART (NovoLOG) 100 UNIT/ML VIAL SQ SCH ×2 (07:01→13:01)
[2019-05-29] MEDS: FUROSEMIDE 10 MG/ML 4 ML VIAL IV SCH (07:41)
[2019-05-29] MEDS: LACTULOSE 20 GM/30 ML CUP PO SCH ×2 (07:41→07:52)
[2019-05-29] MEDS: PREGABALIN 100 MG CAP PO SCH (07:42)
[2019-05-29] MEDS: PANTOPRAZOLE 40 MG TABLET PO SCH (07:42)
[2019-05-29] MEDS: SPIRONOLACTONE 25 MG TAB PO SCH (07:42)
[2019-05-29 12:12] LABS: Glucose,Whole Blood 128 mg/dL (75-99)
[2019-05-29 12:14] VITALS: BP 133/60; PULSE 75; RESP 18
--- NOTE | 2019-05-29 14:00 | PN ---
PROGRESS NOTE DATE OF DICTATION: May 29, 2019 The patient is a 64-year-old pleasant white male admitted to hospital with diabetic foot infection and hepatic encephalopathy. He is presently on broad spectrum antibiotics and being followed by Dr. Gold closely. He developed abdominal distention and underwent an abdominal ultrasound yesterday that showed evidence of some ascites. He underwent large volume paracentesis and approximately 5 L of fluid was aspirated. Analysis of the fluid did not show any evidence of spontaneous bacterial peritonitis. The patient denies any new symptoms today and continues to complain of fatigue, weakness and sleepiness. PHYSICAL EXAMINATION: Appears comfortable. No apparent distress. VITAL SIGNS: Stable. Blood pressure is 137/64, pulse 82, temperature 98.2. HEENT examination unremarkable. Conjunctivae pink. Sclerae anicteric. Oral cavity no lesions. NECK: No JVD or lymph node enlargement. Chest was clear to auscultation. HEART: Regular rate and rhythm. ABDOMEN: Soft, it was distended, but no obvious fluid noted. EXTREMITIES: No pedal edema. Right foot ulcer bandaged. NEUROLOGIC: Alert and oriented x3. No focal deficits. LABS: From today not available but yesterday, BUN is 43, creatinine 2.28. INR is 1.8. Platelets were 62,000. IMPRESSION: 1. Abdominal distention/mild ascites status post large-volume paracentesis yesterday approximately 500 mL of fluid was aspirated, fluid analysis does not show any evidence of spontaneous bacterial peritonitis. 2. History of liver cirrhosis with portal hypertension. 3. Diabetic foot ulcer. Presently on broad-spectrum antibiotics. 4. Pancytopenia related to underlying chronic liver disease/portal hypertension. 5. Chronic kidney disease/acute kidney injury. RECOMMENDATIONS: 1. Continue with current management. 2. Continue with antibiotics. 3. Continue with current dose of Lasix and Aldactone. 4. Repeat labs in the morning and will follow with you closely during hospital stay. Thank you for this consultation. MMODL / IJN: [id number] /
--- NOTE | 2019-05-29 14:36 | PN ---
PROGRESS NOTE The patient is seen for followup for chronic kidney disease. No significant complaints today. Serum creatinine has been staying fairly stable. PHYSICAL EXAMINATION: On examination, blood pressure was 137/64, heart rate 82 per minute, patient is afebrile. Examination of the heart S1, S2. Examination of lungs decreased breath sounds at the bases. Abdomen is soft, distended with ascites, nontender. Examination of lower extremities shows edema 1+ bilaterally. LABS: Are not available from today. Yesterday, serum creatinine was 2.28. ASSESSMENT: 1. Chronic kidney disease, NKF stage IV, fairly stable, maintained on IV Lasix which we can switch to p.o. Lasix. 2. Right foot diabetic ulcer with necrosis of the bone, maintained on antibiotics, being followed by ID. 3. MRSA bacteremia. 4. Anemia of chronic disease, status post IV iron. 5. Chronic liver disease, liver cirrhosis. The patient is being followed by GI. PLAN: Can switch Lasix to p.o. at the time of discharge. Follow up as outpatient. MMODL / IJN: [id number] /
[2019-05-29] MEDS ORDERED: DAPTOmycin 500 MG in SODIUM CHLORIDE 0.9% 50 ML IVPB SCH (16:00)
== END 2019-05-29 17:05 | disposition home health service (06) | DRG 871 ==
LOC: EC 07:43 → 3SCARD 10:44 → 5NMEDONC 05-22 18:00
PROVIDERS: ADMIT Family Medicine; ATTEND Family Medicine
PROC: 02HV33Z Insertion of Infusion Device into Superior Vena Cava, Percutaneous Approach (ICD-10-PCS; 2019-05-27)
PROC: 0W9G3ZZ Drainage of Peritoneal Cavity, Percutaneous Approach (ICD-10-PCS; principal; 2019-05-28)
DX: A41.02 Sepsis due to Methicillin resistant Staphylococcus aureus (principal); G93.41 Metabolic encephalopathy; K72.00 Acute and subacute hepatic failure without coma; K76.7 Hepatorenal syndrome; N17.0 Acute kidney failure with tubular necrosis; I13.0 Hypertensive heart and chronic kidney disease with heart failure and stage 1 through stage 4 chronic kidney disease, or unspecified chronic kidney disease; K76.6 Portal hypertension; L03.115 Cellulitis of right lower limb; N39.0 Urinary tract infection, site not specified; N18.4 Chronic kidney disease, stage 4 (severe); E87.2 Acidosis; D68.9 Coagulation defect, unspecified; D61.818 Other pancytopenia; M86.9 Osteomyelitis, unspecified; R18.8 Other ascites; I27.20 Pulmonary hypertension, unspecified; Z66 Do not resuscitate; I50.9 Heart failure, unspecified; G89.4 Chronic pain syndrome; F41.9 Anxiety disorder, unspecified; K74.60 Unspecified cirrhosis of liver; T50.2X5A Adverse effect of carbonic-anhydrase inhibitors, benzothiadiazides and other diuretics, initial encounter; R65.20 Severe sepsis without septic shock; M89.8X9 Other specified disorders of bone, unspecified site; L97.514 Non-pressure chronic ulcer of other part of right foot with necrosis of bone; F32.9 Major depressive disorder, single episode, unspecified; E87.6 Hypokalemia; E78.5 Hyperlipidemia, unspecified; E11.69 Type 2 diabetes mellitus with other specified complication; D63.1 Anemia in chronic kidney disease; E11.40 Type 2 diabetes mellitus with diabetic neuropathy, unspecified; E11.22 Type 2 diabetes mellitus with diabetic chronic kidney disease; E11.51 Type 2 diabetes mellitus with diabetic peripheral angiopathy without gangrene; E11.621 Type 2 diabetes mellitus with foot ulcer; E83.42 Hypomagnesemia; D50.9 Iron deficiency anemia, unspecified; D46.9 Myelodysplastic syndrome, unspecified; Z79.4 Long term (current) use of insulin; Z79.899 Other long term (current) drug therapy; Z82.49 Family history of ischemic heart disease and other diseases of the circulatory system; Z86.73 Personal history of transient ischemic attack (TIA), and cerebral infarction without residual deficits; Z83.3 Family history of diabetes mellitus
CPT/HCPCS: 36415; 36573; 49083; 51702; 70450; 71045; 71046; 74176; 76604; 76705; 80048; 80053; 80320; 81001; 82140; 82550; 82728; 82803; 83540; 83550; 83605; 83690; 83735; 84134; 84484; 85025; 85049; 85610; 85730; 87040; 87070; 87075; 87077; 87086; 87186; 87205; 87502; 89050; 93005; 93306; 94640; 94760; 96365; 96366; 99291